=== PATIENT | female | born 1980 | race African-American/Black ===

== ENCOUNTER 2019-12-31 09:47 | Outpatient (REF) | payer MEDICAID, SELFPAY ==
[2020-01-01 01:47] LABS: CT PCR NOT DETECTED (Not Detect.); NG PCR NOT DETECTED (Not Detect.)
[2020-01-01 11:17] LABS: BV Int Neg Control Negative (Negative); BV Int Pos Control Positive (Positive)
== END 2019-12-31 09:48 | disposition home or self-care (01) ==
LOC: HO.LAB 09:47
PROVIDERS: Visit Provider Advanced Practice Midwife
DX: Z01.419 Encounter for gynecological examination (general) (routine) without abnormal findings (principal); Z11.3 Encounter for screening for infections with a predominantly sexual mode of transmission; R10.2 Pelvic and perineal pain; Z20.2 Contact with and (suspected) exposure to infections with a predominantly sexual mode of transmission
CPT/HCPCS: 87480; 87491; 87510; 87591; 87660

== ENCOUNTER 2020-02-29 11:43 | Outpatient (REF) | payer MEDICAID, SELFPAY ==
--- NOTE | 2020-02-29 | US_ITS ---
EXAMINATION: US PELVIS COMPLETE US PELVIS TRANSVAGINAL CLINICAL INFORMATION: Left ovarian cyst. COMPARISON: Most recent pelvic ultrasound dated 06/28/2019. TECHNIQUE: Transabdominal and transvaginal imaging was performed. FINDINGS: The uterus is of normal size and echogenicity measuring 11.1 x 4.1 x 5.2 cm. A regular homogeneous endometrium is identified measuring 0.8 cm. The previously seen probable fibroid is not appreciated on the current examination. There are nabothian cysts. The right ovary measures 7.5 x 5.6 x 6.1 cm for a volume of 134 mL. There is a simple right ovarian cyst measuring up to 6 cm, new when compared to the prior examination. There is normal Doppler detectable vascular flow within the right ovary. The left ovary measures 2.7 x 1.5 x 2.1 cm for a volume of 4.3 mm. There is normal Doppler detectable vascular flow within the left ovary. The previously seen left ovarian cyst is not identified on the current examination. There is no pelvic free fluid. US/US pelvic complete IMPRESSION: 1. Simple right ovarian cyst measuring up to 6 cm, new when compared to the prior examination. 2. Previously seen left ovarian cyst not identified. 3. Sonographically unremarkable uterus and endometrium.
--- NOTE | 2020-02-29 | US_ITS ---
EXAMINATION: US PELVIS COMPLETE US PELVIS TRANSVAGINAL CLINICAL INFORMATION: Left ovarian cyst. COMPARISON: Most recent pelvic ultrasound dated 06/28/2019. TECHNIQUE: Transabdominal and transvaginal imaging was performed. FINDINGS: The uterus is of normal size and echogenicity measuring 11.1 x 4.1 x 5.2 cm. A regular homogeneous endometrium is identified measuring 0.8 cm. The previously seen probable fibroid is not appreciated on the current examination. There are nabothian cysts. The right ovary measures 7.5 x 5.6 x 6.1 cm for a volume of 134 mL. There is a simple right ovarian cyst measuring up to 6 cm, new when compared to the prior examination. There is normal Doppler detectable vascular flow within the right ovary. The left ovary measures 2.7 x 1.5 x 2.1 cm for a volume of 4.3 mm. There is normal Doppler detectable vascular flow within the left ovary. The previously seen left ovarian cyst is not identified on the current examination. There is no pelvic free fluid. US/US transvaginal IMPRESSION: 1. Simple right ovarian cyst measuring up to 6 cm, new when compared to the prior examination. 2. Previously seen left ovarian cyst not identified. 3. Sonographically unremarkable uterus and endometrium.
--- NOTE | 2020-02-29 | US_ITS ---
EXAMINATION: US RETROPERITONEAL LIMITED (RENAL ONLY) CLINICAL INFORMATION: Renal stones. COMPARISON: CT abdomen and pelvis 06/12/2019. TECHNIQUE: Real-time imaging of the kidneys. FINDINGS: RIGHT KIDNEY: 12.5 x 6.1 x 5.9 cm (SAG x AP x TRV). The kidney is normal in size, contour, and echogenicity. Renal cortical thickness is normal. Focal parenchymal lesion. Tiny, non-shadowing echogenic foci, which could represent punctate renal stones versus vascular artifact. No hydronephrosis. LEFT KIDNEY: 12.5 x 5.8 x 5.1 cm (SAG x AP x TRV). The kidney is normal in size, contour, and echogenicity. Renal cortical thickness is normal. No focal parenchymal lesion. Tiny, non-shadowing echogenic foci, which could represent punctate renal stones versus vascular artifact. No hydronephrosis. US/US renal BI IMPRESSION: Tiny, non-shadowing echogenic foci within the right and left kidney, which could represent punctate renal stones versus vascular artifact. No hydronephrosis.
== END 2020-02-29 11:44 | disposition home or self-care (01) ==
LOC: HO.US 11:43
PROVIDERS: PCP Internal Medicine; Visit Provider Advanced Practice Midwife
DX: N20.0 Calculus of kidney (principal); N83.202 Unspecified ovarian cyst, left side
CPT/HCPCS: 76775; 76830; 76856

== ENCOUNTER → 2020-03-06 10:34 | Outpatient (REF) | payer MEDICAID, SELFPAY ==
--- NOTE | 2020-03-06 11:00 | CA_ITS ---
Acquisition Time: 2020-03-06 11:25:04 Total Exercise Time: 00:07:05 Test Indications: Chest Pain Medications: Protocol: JUAN Max HR: 162 BPM 88% of Pred: 183 BPM Max BP: 154/090 mmHG Max Work Load: 8.6 METS Exercise stress ECHO using Juan protocl, total of 7 min 5 sec. METS 8.60, TAPHR 88 %. Pt tolerated well, c/o reproducable CP in her L breast area that increased after the exercise.EKG without any arrhythmias, no ischemic changes seen during exercise or in recovery. EHO images taken at rest and immediately after peak exercise. Defenity contrast used. Normotensive response to exercise. Test reviewed with Dr. Kennedy. Exercise stress echocardiogram was reviewed. At rest, there is normal LVEF and wall motion. With peak exericse, there is no evidence of any exercise induced wall motion abnormality. There is normal decrease in end-systolic volumes. Overall, this is a normal study. Referred By: Caterina Magdaleno Overread By: ETHEL KENNEDY
== END ==
LOC: HO.CARD 10:34
PROVIDERS: Visit Provider Internal Medicine Cardiovascular Disease
DX: R07.89 Other chest pain (principal)
CPT/HCPCS: 93350; Q9957

== ENCOUNTER → 2020-03-14 15:59 | Outpatient (BNVA) | payer MEDICAID, SELFPAY | PROVIDERS: Visit Provider Obstetrics & Gynecology ==

== ENCOUNTER → 2020-04-14 11:19 | Outpatient (BNVA) | payer MEDICAID, SELFPAY | PROVIDERS: Visit Provider Urology ==

== ENCOUNTER → 2020-04-25 14:29 | Outpatient (BNVA) | payer MEDICAID, SELFPAY | PROVIDERS: Visit Provider Obstetrics & Gynecology | DX: R10.31 Right lower quadrant pain (principal) | CPT/HCPCS: 99212 ==

== ENCOUNTER 2020-04-26 14:57 | Outpatient (REF) | payer MEDICAID, SELFPAY ==
--- NOTE | ~2020-04-26 | US_ITS ---
EXAMINATION: ULTRASOUND PELVIS COMPLETE. CLINICAL INFORMATION: Ovarian cyst. COMPARISON: Ultrasound pelvis 02/29/2020. TECHNIQUE: Transabdominal and transvaginal imaging of the pelvis is performed. FINDINGS: On transabdominal ultrasound the uterus is anteverted and anteflexed measuring 9.2 cm in length, 4.6 cm in AP and 6.4 cm in transverse dimension. The endometrial thickness is 0.6 cm. No focal lesion seen. There are several nabothian cysts seen in the cervix. Right ovary measures 2.7 x 1.7 x 2.3 cm and appears unremarkable. Previously right ovary measured 7.5 x 5.6 x 6.1 cm. Previously seen 6 cm cyst right ovary appears resolved. Left ovary measured 40.8 x 4.1 x 4.6 cm volume. There is now a complex echogenic cyst with debris and septation measuring 4.7 x 3.8 x 4.0 cm. There is no free fluid in the pelvis. US/US transvaginal IMPRESSION: 1. A 6 cm right ovarian cyst is resolved. 2. New complex echogenic cyst with internal debris measuring 4.7 cm. 3. No free fluid in cul-de-sac sac. 4. Multiple nabothian cysts seen in the cervix.
--- NOTE | ~2020-04-26 | US_ITS ---
EXAMINATION: ULTRASOUND PELVIS COMPLETE. CLINICAL INFORMATION: Ovarian cyst. COMPARISON: Ultrasound pelvis 02/29/2020. TECHNIQUE: Transabdominal and transvaginal imaging of the pelvis is performed. FINDINGS: On transabdominal ultrasound the uterus is anteverted and anteflexed measuring 9.2 cm in length, 4.6 cm in AP and 6.4 cm in transverse dimension. The endometrial thickness is 0.6 cm. No focal lesion seen. There are several nabothian cysts seen in the cervix. Right ovary measures 2.7 x 1.7 x 2.3 cm and appears unremarkable. Previously right ovary measured 7.5 x 5.6 x 6.1 cm. Previously seen 6 cm cyst right ovary appears resolved. Left ovary measured 40.8 x 4.1 x 4.6 cm volume. There is now a complex echogenic cyst with debris and septation measuring 4.7 x 3.8 x 4.0 cm. There is no free fluid in the pelvis. US/US pelvic complete IMPRESSION: 1. A 6 cm right ovarian cyst is resolved. 2. New complex echogenic cyst with internal debris measuring 4.7 cm. 3. No free fluid in cul-de-sac sac. 4. Multiple nabothian cysts seen in the cervix.
== END 2020-04-26 14:58 | disposition home or self-care (01) ==
LOC: HO.US 14:57
PROVIDERS: Visit Provider Obstetrics & Gynecology
DX: N83.209 Unspecified ovarian cyst, unspecified side (principal)
CPT/HCPCS: 76830; 76856

== ENCOUNTER 2020-04-26 15:52 | Emergency (ER) | payer MEDICAID, SELFPAY ==
[2020-04-26 16:49] VITALS: BP 133/79; PULSE 91; RESP 16; TEMP 36.4; O2SAT 100; BMI 45.7
[2020-04-26 17:10] LABS: MANUAL DIFF FLAG NO
[2020-04-26 17:12] LABS: Basophils Percent Auto 0.2 % (0-2); Eosinophils Absolute Auto 0.1 X10*3/uL (0.0-0.4); Eosinophils Percent Auto 1.1 % (0-4); Hematocrit 34.6 % (37-47); Hemoglobin 11.7 g/dl (12.0-16.0); Imm Gran Abs Auto 0.04 X10*3/uL (0.00-0.03); Imm Gran Pct Auto 0.3 % (0.0-0.4); Lymphocytes Absolute Auto 2.6 X10*3/uL (1.2-4.9); Lymphocytes Percent Auto 21.5 % (20-40); Mean Corpuscular HGB Conc 33.8 g/dl (31.0-35.0); Mean Corpuscular Hemoglobin 29.8 pg (27.0-33.0); Mean Platelet Volume 11.2 fL (9.4-12.3); Monocytes Absolute Auto 0.7 X10*3/uL (0.1-1.2); Monocytes Percent Auto 5.9 % (2-11); Neutrophils Absolute Auto 8.6 X10*3/uL (2.0-8.3); Platelet Count 257 X10*3/uL (160-400); Red Blood Count 3.93 X10*6/uL (4.20-5.50); Red Cell Distribution Width 13.2 % (11.0-16.0); White Blood Count 12.1 X10*3/uL (4.8-10.8)
[2020-04-26 17:28] LABS: Glucose Urine UA NEG (NEG); Leukocyte Esterase Urine 2+ (NEG); Nitrite Urine NEG (NEG); PH 6.5 (5.0-8.0); Specific Gravity - Urine 1.015 (1.005-1.025); UACC Culture Trigger YES; Urine Blood 1+ (NEG); Urine Ketones NEG (NEG); Urine Protein NEG (NEG-TRACE)
[2020-04-26 17:30] LABS: Appearance Urine HAZY; Color Urine YELLOW
[2020-04-26 17:36] LABS: Bacteria Urine 1+ /LPF; RBC Urine 0 /HPF (0); Squamous Epithelial Cell Urine 1+ /LPF
[2020-04-26 17:42] VITALS: BP 144/70; PULSE 87; RESP 18; TEMP 37; O2SAT 98
[2020-04-26 17:51] LABS: Alanine Aminotransferase 17 U/L (0-31); Albumin Level 4.1 g/dL (3.5-5.0); Alkaline Phosphatase 46 U/L (39-117); Anion Gap 13 (12-20); Aspartate Amino Transferase 15 U/L (5-31); Bilirubin Total 0.3 mg/dL (0.0-1.0); Blood Urea Nitrogen 12 mg/dL (9-16); Calcium 8.8 mg/dL (8.4-10.2); Carbon Dioxide 25 mmol/L (22-29); Chloride 101 mmol/L (96-108); Creatinine Clr Calc Pharmacy 138.9; Estimated Glomerular Filt Rate > 60; Glucose Random 93 mg/dL (60-115); Lipase 30 U/L (8-78); Sodium 135 mmol/L (135-145); Total Protein 7.1 g/dL (6.5-8.0)
--- NOTE | 2020-04-26 18:16 | ED_ITS ---
HPI - Abdominal Pain General Chief Complaint: Abdominal Pain Stated Complaint: Abdominal pain Time Seen by Provider: 04/26/20 18:00 Source: patient Mode of arrival: ambulatory Limitations: no limitations History of Present Illness HPI narrative: Patient is a 39-year-old female past medical history of right ovarian cyst, kidney stones anemia, anxiety, GERD and chronic pelvic pain who presents with 1 week of lower abdominal pain that radiates to the right pelvic area. She states she has pain when she urinates, increased frequency, denies blood in urine. She states 5 days ago she was diagnosed with the UTI and given 3 pills to take each day for 2 days as well as little red pills. She states she took all of the medication, as instructed. She also states she saw the OBGYN yesterday for what she that was a pre-surgical consult as she missed her was last 1 last week, she was unhappy with the OBGYN doctor and ended up walking out of the appointment. Her OBGYN doctor ordered a ultrasound for her which she got done today to confirm that the cyst is still present. She states she has chronic pelvic pain which dates back years. She denies any fevers, nausea, vomiting or diarrhea. She is also complaining of a bump in her right groin which appeared approximately 1 week ago and is painful. Patient also admits to having unprotected sex recently and has a remote history of Gardnerella. Pt states LMP 2/, no chance of . MD elicited complaint: abdominal pain Related Data Home Medications Medication Instructions Recorded Confirmed etonogestrel 68 mg subdermal SUBDERMAL 12/31/19 implant pantoprazole [Protonix] 20 mg PO DAILY 04/14/20 04/14/20 Previous Rx's Medication Instructions Recorded cholecalciferol (vitamin D3) 50 50 mcg PO DAILY #60 cap 12/31/19 mcg (2,000 unit) capsule ibuprofen 600 mg tablet 600 mg PO Q8H PRN #60 tab 12/31/19 metronidazole 500 mg tablet 500 mg PO BID 7 Days #14 tab 01/03/20 pyridoxine (vitamin B6) 100 mg 100 mg PO DAILY 90 Days #90 tab 04/14/20 tablet doxycycline hyclate 100 mg PO BID #14 tab 04/26/20 Allergies Allergy/AdvReac Type Severity Reaction Status Date / Time No Known Allergies Allergy Verified 04/25/20 15:01 [No Known Allergies*] Review of Systems Review of Systems Yes all other systems are reviewed and are negative Physical Exam Vital Signs: Vital Signs: Last Vital Signs Temp 98.6 F 04/26/20 17:42 Pulse 87 04/26/20 17:42 Resp 18 04/26/20 17:42 BP 144/70 H 04/26/20 17:42 Pulse Ox 98 04/26/20 17:42 Body Mass Index 45.7 Const: General: cooperative, healthy appearing and other (teary) Nutritional Appearance: obese Orientation/consciousness: patient oriented x3 Limitations: no limitations HENMT: Head: Yes normal to inspection Eyes: General: appearance normal, both eyes and all related structures Neck: Neck: Yes normal visual inspection, Yes full ROM and Yes supple Resp: Effort & Inspection: normal respiratory effort and able to speak in complete sentences GI: Inspection: Yes obesity Palpation (GI): Tenderness to palpation present (GI) in the RLQ and suprapubicly : Other: Right groin palpable round, smooth, 2 cm, tender area, likely inflamed lymph node from UTI infection. Neuro: General: patient oriented x3 Course Course Course Narrative: Patient is a 39-year-old female past medical history of right ovarian cyst, kidney stones anemia, anxiety, GERD and chronic pelvic pain who presents with 1 week of lower abdominal pain that radiates to the right pelvic area. Physical exam remarkable for lump in right groin, likely inflamed lymph node as patient has current UTI. Patient obviously in pain, will give pain control while in the ED. it appears her UTI has not completely cleared up despite finishing medications 3 days ago. I will give Toradol and peridium for pain and prescribe Macrobid. Encouraged patient to schedule follow-up appointment with her OBGYN to review her ultrasound results and decide the next best step for h er. Also discussed nonnarcotic pain control, alternating Tylenol and Motrin in adding in the peridium until her urinary symptoms have resolved. Will also to bacterial vaginosis panel as well as STI testing. Will treat for gonorrhea and chlamydia today as well. MDM - Abdominal Pain Lab Data Result diagrams: 04/26/20 16:59 04/26/20 16:59 Labs: Lab Results 04/26/20 04/26/20 04/26/20 Range/Units 16:59 16:59 16:59 WBC 12.1 H (4.8-10.8) X10*3/uL RBC 3.93 L (4.20-5.50) X10*6/uL Hgb 11.7 L (12.0-16.0) g/dl Hct 34.6 L (37-47) % MCV 88.0 (80-98) fL MCH 29.8 (27.0-33.0) pg MCHC 33.8 (31.0-35.0) g/dl RDW 13.2 (11.0-16.0) % Plt Count 257 (160-400) X10*3/uL MPV 11.2 (9.4-12.3) fL Immature Gran % (Auto) 0.3 (0.0-0.4) % Neut % (Auto) 71.0 (45-73) % Lymph % (Auto) 21.5 (20-40) % Hartley % (Auto) 5.9 (2-11) % Eos % (Auto) 1.1 (0-4) % Baso % (Auto) 0.2 (0-2) % Lymph # (Auto) 2.6 (1.2-4.9) X10*3/uL Hartley # (Auto) 0.7 (0.1-1.2) X10*3/uL Eos # (Auto) 0.1 (0.0-0.4) X10*3/uL Baso # (Auto) 0.0 (0.0-0.2) X10*3/uL Abs Immat Gran (auto) 0.04 H (0.00-0.03) X10*3/uL Absolute Neuts (auto) 8.6 H (2.0-8.3) X10*3/uL Absolute Nucleated RBC 0.000 (0.0-0.012) X10*3/uL Nucleated RBC % (auto) 0.0 (0.0-0.2) /100WBC Hold Blue Top SEE NOTE Sodium 135 (135-145) mmol/L Potassium 4.0 (3.3-5.1) mmol/L Chloride 101 (96-108) mmol/L Carbon Dioxide 25 (22-29) mmol/L Anion Gap 13 (12-20) BUN 12 (9-16) mg/dL Creatinine 0.66 (0.5-1.4) mg/dL Estim Creat Clear Calc 138.9 Estimated GFR > 60 Random Glucose 93 (60-115) mg/dL Calcium 8.8 (8.4-10.2) mg/dL Total Bilirubin 0.3 (0.0-1.0) mg/dL AST 15 (5-31) U/L ALT 17 (0-31) U/L Alkaline Phosphatase 46 (39-117) U/L Total Protein 7.1 (6.5-8.0) g/dL Albumin 4.1 (3.5-5.0) g/dL Lipase (8-78) U/L Urine Color Urine Appearance Urine pH (5.0-8.0) Ur Specific [place] (1.005-1.025) Urine Protein (NEG-TRACE) MG/DL Urine Glucose (UA) (NEG) MG/DL Urine Ketones (NEG) MG/DL Urine Blood (NEG) Urine Nitrite (NEG) Ur Leukocyte Esterase (NEG) Urine RBC (0) /HPF Urine WBC (0-4) /HPF Ur Squamous Epith Cells /LPF Urine Bacteria /LPF 04/26/20 04/26/20 Range/Units 16:59 17:14 WBC (4.8-10.8) X10*3/uL RBC (4.20-5.50) X10*6/uL Hgb (12.0-16.0) g/dl Hct (37-47) % MCV (80-98) fL MCH (27.0-33.0) pg MCHC (31.0-35.0) g/dl RDW (11.0-16.0) % Plt Count (160-400) X10*3/uL MPV (9.4-12.3) fL Immature Gran % (Auto) (0.0-0.4) % Neut % (Auto) (45-73) % Lymph % (Auto) (20-40) % Hartley % (Auto) (2-11) % Eos % (Auto) (0-4) % Baso % (Auto) (0-2) % Lymph # (Auto) (1.2-4.9) X10*3/uL Hartley # (Auto) (0.1-1.2) X10*3/uL Eos # (Auto) (0.0-0.4) X10*3/uL Baso # (Auto) (0.0-0.2) X10*3/uL Abs Immat Gran (auto) (0.00-0.03) X10*3/uL Absolute Neuts (auto) (2.0-8.3) X10*3/uL Absolute Nucleated RBC (0.0-0.012) X10*3/uL Nucleated RBC % (auto) (0.0-0.2) /100WBC Hold Blue Top Sodium (135-145) mmol/L Potassium (3.3-5.1) mmol/L Chloride (96-108) mmol/L Carbon Dioxide (22-29) mmol/L Anion Gap (12-20) BUN (9-16) mg/dL Creatinine (0.5-1.4) mg/dL Estim Creat Clear Calc Estimated GFR Random Glucose (60-115) mg/dL Calcium (8.4-10.2) mg/dL Total Bilirubin (0.0-1.0) mg/dL AST (5-31) U/L ALT (0-31) U/L Alkaline Phosphatase (39-117) U/L Total Protein (6.5-8.0) g/dL Albumin (3.5-5.0) g/dL Lipase 30 (8-78) U/L Urine Color YELLOW Urine Appearance HAZY Urine pH 6.5 (5.0-8.0) Ur Specific [place] 1.015 (1.005-1.025) Urine Protein NEG (NEG-TRACE) MG/DL Urine Glucose (UA) NEG (NEG) MG/DL Urine Ketones NEG (NEG) MG/DL Urine Blood 1+ H (NEG) Urine Nitrite NEG (NEG) Ur Leukocyte Esterase 2+ H (NEG) Urine RBC 0 (0) /HPF Urine WBC 5-9 H (0-4) /HPF Ur Squamous Epith Cells 1+ /LPF Urine Bacteria 1+ /LPF Discharge Plan Discharge Clinical Impression: Pelvic pain, UTI (urinary tract infection), bacterial, Potential exposure to STD Patient Disposition: Home, Self-Care Instructions: Pelvic Pain in Women (ED) Prescriptions: New doxycycline hyclate 100 mg tablet 100 mg PO BID Qty: 14 RF: 0 No Action metronidazole [Flagyl] 500 mg tablet 500 mg PO BID 7 Days Qty: 14 RF: 0 pantoprazole [Protonix] 20 mg Tablet,Delayed Release (Dr/Ec) 20 mg PO DAILY RF: 0 Nexplanon 68 mg implant subdermal RF: 0 ibuprofen 600 mg tablet 600 mg PO Q8H PRN (Reason: pain) Qty: 60 RF: 0 cholecalciferol (vitamin D3) 50 mcg (2,000 unit) capsule 50 mcg PO DAILY Qty: 60 RF: 6 pyridoxine (vitamin B6) 100 mg tablet 100 mg PO DAILY 90 Days Qty: 90 RF: 1 Referrals: Barbara Joshi MD [Physician] - [facility] Past Medical History Medical History Anemia Anxiety GERD (gastroesophageal reflux disease) Kidney stones Ovarian cyst, left Pelvic pain Surgical History History of surgery on wrist Hx of section Family History Family History Mother Dementia HIV (human immunodeficiency virus infection) Social History Social History Alcohol intake: current Alcohol intake frequency: a few times a month Alcohol type: hard liquor Smoking Status: Current every day smoker Tobacco Type: Cigarette Cigarettes Per Day: 5 Substance Use Type: Marijuana Advance Directives: No Advance Directives Information Provided: Yes Gender identity: female
[2020-04-26] MEDS: Phenazopyridine HCL 200 MG TABLET PO (18:27)
[2020-04-26] MEDS: Ketorolac Tromethamine 30 MG/ML VIAL IM ×2 (18:27→20:28)
[2020-04-26 20:22] VITALS: BP 132/62; PULSE 79; RESP 18; TEMP 36.9; O2SAT 98
[2020-04-26] MEDS: cefTRIAXone sodium 500 MG, Lidocaine HCl 1 % MPF 1 ML IM (20:28)
[2020-04-26 20:30] LABS: Urine Pregnancy NEGATIVE (NEGATIVE)
[2020-04-26 20:31] LABS: UPreg QC Valid YES
[2020-04-27 09:56] LABS: CT PCR NOT DETECTED (Not Detect.); NG PCR DETECTED (Not Detect.)
== END 2020-04-26 20:36 | disposition home or self-care (01) ==
PROVIDERS: Physician Assistant; Emergency Provider Emergency Medicine; PCP Internal Medicine
DX: N39.0 Urinary tract infection, site not specified (principal); R10.2 Pelvic and perineal pain; F17.210 Nicotine dependence, cigarettes, uncomplicated; F12.90 Cannabis use, unspecified, uncomplicated; Z20.2 Contact with and (suspected) exposure to infections with a predominantly sexual mode of transmission; Z71.6 Tobacco abuse counseling; Z79.899 Other long term (current) drug therapy
CPT/HCPCS: 36415; 80053; 81001; 81003; 81025; 83690; 85025; 87086; 87491; 87591; 96372; 99284; J0696; J1885

== ENCOUNTER → 2020-05-03 12:13 | Outpatient (BNVA) | payer MEDICAID, SELFPAY | PROVIDERS: PCP Internal Medicine; Visit Provider Obstetrics & Gynecology ==

== ENCOUNTER 2020-11-22 10:24 | Emergency (ER) | payer MEDICAID, SELFPAY ==
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
--- NOTE | ~2020-11-22 | XR_ITS ---
EXAMINATION: XR HIP, RIGHT XR KNEE, RIGHT CLINICAL INFORMATION: Right hip and knee pain following a fall. COMPARISON: CT abdomen/pelvis dated 06/12/2019. TECHNIQUE: AP view the pelvis as well as AP and frog-leg lateral views of the right hip. AP, bilateral oblique, and lateral views of the right knee. FINDINGS: Right Hip: No acute fracture or dislocation. Small lateral acetabular marginal osteophytes, unchanged. No osseous erosion. No abnormal soft tissue calcification. Right Knee: No acute fracture or dislocation. No joint space narrowing or marginal osteophytes. No osseous erosion. No abnormal soft tissue calcification. No significant joint effusion. XR/XR knee RT 4V IMPRESSION: RIGHT HIP: Mild right hip arthrosis, unchanged. RIGHT KNEE: Unremarkable examination.
--- NOTE | ~2020-11-22 | XR_ITS ---
EXAMINATION: XR HIP, RIGHT XR KNEE, RIGHT CLINICAL INFORMATION: Right hip and knee pain following a fall. COMPARISON: CT abdomen/pelvis dated 06/12/2019. TECHNIQUE: AP view the pelvis as well as AP and frog-leg lateral views of the right hip. AP, bilateral oblique, and lateral views of the right knee. FINDINGS: Right Hip: No acute fracture or dislocation. Small lateral acetabular marginal osteophytes, unchanged. No osseous erosion. No abnormal soft tissue calcification. Right Knee: No acute fracture or dislocation. No joint space narrowing or marginal osteophytes. No osseous erosion. No abnormal soft tissue calcification. No significant joint effusion. XR/XR hip RT w PEL1V IMPRESSION: RIGHT HIP: Mild right hip arthrosis, unchanged. RIGHT KNEE: Unremarkable examination.
[2020-11-22 12:08] VITALS: BP 146/95; PULSE 86; RESP 18; TEMP 36.4; O2SAT 100; BMI 42.0
[2020-11-22] MEDS: Acetaminophen 325 MG TABLET 975 MG PO (14:45)
[2020-11-22] MEDS: oxyCODONE HCl Immed Release 5 MG TABLET PO (14:45)
[2020-11-22 14:49] VITALS: BP 133/87; PULSE 81; RESP 16; TEMP 36.4; O2SAT 97
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
== END 2020-11-22 15:19 | disposition home or self-care (01) ==
PROVIDERS: Emergency Provider Emergency Medicine
DX: S06.0X0A Concussion without loss of consciousness, initial encounter (principal); S83.91XA Sprain of unspecified site of right knee, initial encounter; S73.101A Unspecified sprain of right hip, initial encounter; S00.01XA Abrasion of scalp, initial encounter; S40.022A Contusion of left upper arm, initial encounter; S40.021A Contusion of right upper arm, initial encounter; J01.90 Acute sinusitis, unspecified; Y04.2XXA Assault by strike against or bumped into by another person, initial encounter; Y93.9 Activity, unspecified; Y92.009 Unspecified place in unspecified non-institutional (private) residence as the place of occurrence of the external cause; Y99.9 Unspecified external cause status
CPT/HCPCS: 70450; 72125; 73502; 73564; 99284

== ENCOUNTER → 2020-12-22 07:55 | Outpatient (BNVA) | payer MEDICAID, SELFPAY | PROVIDERS: PCP Internal Medicine; Visit Provider Physician Assistant | DX: S80.01XA Contusion of right knee, initial encounter (principal) | CPT/HCPCS: 99202 ==

== ENCOUNTER 2021-01-01 10:34 | Outpatient (REF) | payer MEDICAID, SELFPAY ==
[2021-01-01 16:32] LABS: CT PCR NOT DETECTED (Not Detect.); NG PCR NOT DETECTED (Not Detect.)
[2021-01-02 09:16] LABS: BV Int Neg Control Negative (Negative); BV Int Pos Control Positive (Positive)
== END 2021-01-01 10:35 | disposition home or self-care (01) ==
LOC: HO.LAB 10:34
PROVIDERS: Visit Provider Advanced Practice Midwife
DX: Z01.411 Encounter for gynecological examination (general) (routine) with abnormal findings (principal); R10.2 Pelvic and perineal pain; N92.6 Irregular menstruation, unspecified; N83.299 Other ovarian cyst, unspecified side; Z20.2 Contact with and (suspected) exposure to infections with a predominantly sexual mode of transmission
CPT/HCPCS: 87480; 87491; 87510; 87591; 87660

== ENCOUNTER 2021-03-02 08:03 | Outpatient (REF) | payer MEDICAID, SELFPAY ==
[2021-03-02 13:15] LABS: CT PCR NOT DETECTED (Not Detect.); NG PCR NOT DETECTED (Not Detect.)
[2021-03-03 10:58] LABS: BV Int Neg Control Negative (Negative); BV Int Pos Control Positive (Positive)
== END 2021-03-02 08:04 | disposition home or self-care (01) ==
LOC: HO.LAB 08:03
PROVIDERS: Visit Provider Advanced Practice Midwife
DX: Z30.46 Encounter for surveillance of implantable subdermal contraceptive (principal); Z31.69 Encounter for other general counseling and advice on procreation; Z20.2 Contact with and (suspected) exposure to infections with a predominantly sexual mode of transmission
CPT/HCPCS: 87480; 87491; 87510; 87591; 87660; 99212

== ENCOUNTER 2021-03-02 08:49 | Outpatient (REF) | payer MEDICAID, SELFPAY ==
--- NOTE | 2021-03-02 16:57 | MHC.AU.AHA ---
Adult Audiological Evaluation Date of Visit: 03/02/21 Reason for Appointment: Audiological re-evaluation due to history of hearing loss. Ms. Moe has a known unilateral, sensorineural hearing loss in the left ear and has used a hearing aid in the left ear. She notes that she lost the left hearing aid and would like to get a new one. She notes difficulties hearing and understanding in most situations when she does not have her hearing aid. She denies any changes to her medical history. Previous Hearing Test Results: [facility] – [place], [place], 10/06/2017- Normal hearing in the right ear. Moderate rising to mild sensorineural hearing loss in the left ear. Ear History: Ear Infections in Childhood: Both Ears Medical History: Medical History: Per PCP report: learning disability, seasonal allergic rhinitis, Vitamin D deficiency, tobacco use, subclinical hyperthyroidism, prediabetes Allergies: Seasonal allergies Medication List: Flonase, Vitamin D2 1250 mcg weekly, Wellbutrin SR 150 mg twice daily, Protonix 20 mg daily, tramadol HCl 50 mg PRN, Pyridium 200 mg PRN, Macrobid 100 mg every 12 hours Hearing Instrument History- Left Ear: LOST Family Physician: [facility] Model: [employer] B50-R Serial Number: [id number] Battery Size: Rechargeable Warranty: 01/05/2021 Loss and Damage Warranty: 01/05/2021 Dispensed By: [facility] Date of Fitt[place]10/22/2017 Otoscopy: Right Ear: Unremarkable Left Ear: Unremarkable Tympanometry: Tympanometry performed due to: To assess integrity of the middle ear system Right Ear: Normal Middle Ear System (Type A) Left Ear: Normal Middle Ear System (Type A) Hearing Evaluation: Transducer(s) Used: Insert Earphones, Bone Conduction Method: Conventional Audiometry Stimuli Used: Pure Tones Right Ear: Description of Hearing: Normal hearing from 125-8000 Hz. Left Ear: Description of Hearing: Normal hearing from 125-250 Hz, sloping to a moderate to moderately-severe sensorineural hearing loss from 500-3000 Hz, rising to a mild sensorineural hearing loss at 9286-6120 Hz, and normal hearing at 8000 Hz. Speech Recognition Threshold (SRT): Method Used: Monitored Live Voice Stimuli Used: Spondee Words Right Ear: 15 dBHL Left Ear: 45 dBHL Word Discrimination: Method: Recorded Lists Word Lists Used: NU-6 Right Ear: 96% at 55 dBHL Left Ear: 68% at 85 dBHL Comparison: Compared to most recent evaluation: In the right ear, hearing is stable. In the left ear, hearing has improved by 15 dBHL at 125 Hz and 30 dBHL at 250 Hz and hearing has decreased by 15 dBHL at 2000 Hz and 10 dBHL at 3000 and 4000 Hz. Word recognition decreased in the left ear from 80% at 80 dBHL in 2018 to 68% at 85 dBHL today. Recommendations: Audiological re-evaluation in one year. Updated amplification is recommended for the left ear given that the current left aid is lost and no longer under warranty. Discussed options. She would like to remain with a rechargeable VALE style hearing aid. Medical clearance for hearing aid use is being requested from her PCP and prior authorization for a replacement hearing aid will be requested from her health insurance company. Diagnosis: Primary Diagnosis: H90.42 SNHL Unilateral Left Side, W/Unrestricted Contralateral Hearing Services Performed: Comprehensive Audiological Evaluation (CPT 85442) Tympanometry (CPT 78084) Signature: Provider: Zheng Tejeda, CCC-A
--- NOTE | 2021-03-02 16:59 | MHC.AU.HAS ---
Hearing Aid Evaluation Date of Visit: 03/02/21 Historical Information: Description of Hearing: Normal hearing in the right ear. Mild to moderately-severe sensorineural hearing loss in the left ear. Current personal amplification information, if applicable: 2017 Phon[employer] B50-R (left ear only)- LOST Summary: Ms. Moe reports that her left hearing aid was lost. It is no longer under warranty. Based on the type and degree of hearing loss in the left ear, a hearing aid for the left ear is recommended to help facilitate improved communication. She is likely to experience significant difficulty hearing and following conversations in background noise, when the speaker is at a distance, or if some approaches from her left side. Discussed hearing aid options. She would like to stay with a rechargeable VALE style hearing aid. Hearing Aid Prescription: Based on the individual?s shared listening needs, communication environments, dexterity, desire for connectivity, and personal preferences, the following prescription for amplification has been made: Left ear: Bl[employer] Sewer: Tapru Model: [employer] B50-R Battery Size: Rechargeable Color: P5 Ear Machine Operator: Size 1 M Type of Dome: Vented Plan of Care: Prior authorization to be requested. Medical Clearance to be requested from PCP/ENT. Hearing Instrument Fitting to be scheduled when materials arrive. Once PA is received, hearing aid will be ordered. Primary Diagnosis: H90.42 SNHL Unilateral Left Side, W/Unrestricted Contralateral Hearing Signature: Provider: Zheng Tejeda, [facility]A
--- NOTE | 2021-03-08 11:00 | MHC.AU.MED ---
Medical Clearance for Hearing Instrumentation Date: 03/08/21 Patient Name: Adarsh Moe Date of : 1980 Referring Provider: Soha Rico MD We have seen your patient on 03/02/21 and have determined that they are a candidate for amplification (See accompanying report). Specifically, they would benefit from: Hearing aid use in the left ear There is a statute that addresses Medical Evaluation Requirements prior to fitting a patient with a hearing aid. According to [place] statute 265 CMR:6.03(1), (a) General. Except as provided in 265 CMR 6.03(1)(b), a hearing impaired itinerant teacher shall not sell a hearing aid unless the prospective user has presented to the hearing impaired itinerant teacher a written statement signed by a licensed physician that states that the patient's hearing loss has been medically evaluated and the patient may be considered a candidate for a hearing aid. The medical evaluation must have taken place within the preceding six months. Please note: Due to the [place] Statute referenced above, we cannot accept a signature other than that of a licensed physician. DATE NIGHT SITTER and PA signatures cannot be accepted. I am in agreement with the above recommendation. There is no medical contraindication for hearing instrumentation. Physician Signature Date Physician Name (Printed)
== END 2021-03-02 08:50 | disposition home or self-care (01) ==
LOC: HO.SH 08:49
PROVIDERS: Visit Provider Internal Medicine
DX: Z46.1 Encounter for fitting and adjustment of hearing aid (principal); H90.42 Sensorineural hearing loss, unilateral, left ear, with unrestricted hearing on the contralateral side
CPT/HCPCS: 92557; 92567; 92590

== ENCOUNTER 2021-03-08 15:55 | Outpatient (REF) | payer MEDICAID, SELFPAY ==
--- NOTE | ~2021-03-08 | US_ITS ---
EXAMINATION: US PELVIC AND TRANSVAGINAL CLINICAL INFORMATION: Left complex cyst. COMPARISON: Ultrasound pelvis 04/26/2020. TECHNIQUE: Ultrasound of the pelvis was performed using both transabdominal and transvaginal transducers along with Doppler. Transvaginal imaging is performed due to inadequate visualization transabdominally. FINDINGS: UTERUS: The uterus is anteverted, anteflexed and measures 10.2 x 4.9 x 5.9 cm. The double wall endometrial thickness is 0.4 cm. The uterus is smooth in contour and has normal myometrial echogenicity. No visible fibroid. There are several anechoic nabothian cysts seen. ADNEXA: Both ovaries are visualized. There is normal color-flow to the adnexa. There is no ovarian torsion. There is no pelvic ascites or fluid collection. Right ovary measures 4.8 x 3.5 x 3.4 cm and volume 29.9 mL. There is an anechoic cyst measuring 3.1 x 2.6 x 2.8 cm. Left ovary measures 2.4 x 1.5 x 1.4 cm and volume 2.6 mL. Previously, the left ovary measured 4.8 x 4.1 x 4.6 cm. The previously visualized left complex cyst on the 04/26/2020 exam is not seen at this time. US/US pelvic and transvaginal IMPRESSION: Simple right ovarian cyst. Small nabothian cysts. The left ovary and the uterus are unremarkable.
== END 2021-03-08 15:56 | disposition home or self-care (01) ==
LOC: HO.US 15:55
PROVIDERS: Visit Provider Internal Medicine
DX: N83.299 Other ovarian cyst, unspecified side (principal)
CPT/HCPCS: 76830; 76856

== ENCOUNTER → 2021-03-22 10:55 | Outpatient (BNVA) | payer MEDICAID, SELFPAY | PROVIDERS: Visit Provider Advanced Practice Midwife ==

== ENCOUNTER 2021-04-04 08:48 | Outpatient (REF) | payer MEDICAID, SELFPAY ==
[2021-04-04 12:12] LABS: Hematocrit 36.4 % (37.0-47.0); Hemoglobin 12.1 g/dl (12.0-16.0); Mean Corpuscular HGB Conc 33.2 g/dl (31.0-35.0); Mean Corpuscular Hemoglobin 28.9 pg (27.0-33.0); Mean Corpuscular Volume 86.9 fL (80.0-98.0); Mean Platelet Volume 11.5 fL (9.4-12.3); Platelet Count 317 X10*3/uL (160-400); Red Blood Count 4.19 X10*6/uL (4.20-5.50); Red Cell Distribution Width 13.5 % (11.0-16.0); White Blood Count 7.4 X10*3/uL (4.8-10.8)
[2021-04-04 13:04] LABS: Thyroid Stimulating Hormone 1.79 uIU/mL (0.32-4.0)
== END 2021-04-04 08:49 | disposition home or self-care (01) ==
LOC: HO.LAB 08:48
PROVIDERS: Advanced Practice Midwife; PCP Internal Medicine; Visit Provider Physician Assistant Surgical
DX: Z30.432 Encounter for removal of intrauterine contraceptive device (principal); N92.1 Excessive and frequent menstruation with irregular cycle; R53.83 Other fatigue
CPT/HCPCS: 11982; 36415; 84443; 85027

== ENCOUNTER → 2021-04-13 07:13 | Outpatient (BNVA) | payer MEDICAID, SELFPAY | PROVIDERS: PCP Internal Medicine; Visit Provider Surgery ==

== ENCOUNTER 2021-04-23 09:55 | Outpatient (REF) | payer MEDICAID, SELFPAY ==
--- NOTE | ~2021-04-23 | XR_ITS ---
EXAMINATION: XR CHEST CLINICAL INFORMATION: Morbid obesity. COMPARISON: 06/12/2019 TECHNIQUE: 2 views of the chest were obtained. FINDINGS: No significant abnormality is noted involving the heart, lungs, mediastinum, bony thorax or soft tissues. XR/XR chest 2V IMPRESSION: Unremarkable examination.
--- NOTE | 2021-04-23 10:20 | ECG_ITS ---
Test Reason : E66.01 Blood Pressure : / mmHG Vent. Rate : 081 BPM Atrial Rate : 081 BPM P-R Int : 148 ms QRS Dur : 084 ms QT Int : 414 ms P-R-T Axes : 057 055 013 degrees QTc Int : 480 ms Normal sinus rhythm Prolonged QT Abnormal ECG No previous ECGs available Referred By: Soha Rico Electronically Signed By:RUTH MARCANO MD
[2021-04-23 10:46] LABS: MANUAL DIFF FLAG NO
[2021-04-23 11:00] LABS: Basophils Percent Auto 0.1 % (0-2); Eosinophils Absolute Auto 0.2 X10*3/uL (0.0-0.4); Eosinophils Percent Auto 2.5 % (0-4); Hematocrit 35.5 % (37.0-47.0); Hemoglobin 11.8 g/dl (12.0-16.0); Imm Gran Abs Auto 0.02 X10*3/uL (0.00-0.03); Imm Gran Pct Auto 0.3 % (0.0-0.4); Lymphocytes Absolute Auto 2.4 X10*3/uL (1.2-4.9); Lymphocytes Percent Auto 35.4 % (20-40); Mean Corpuscular HGB Conc 33.2 g/dl (31.0-35.0); Mean Corpuscular Hemoglobin 29.1 pg (27.0-33.0); Mean Corpuscular Volume 87.4 fL (80.0-98.0); Mean Platelet Volume 11.4 fL (9.4-12.3); Monocytes Absolute Auto 0.5 X10*3/uL (0.1-1.2); Monocytes Percent Auto 6.6 % (2-11); Neutrophils Absolute Auto 3.8 x10*3/uL (2.0-8.3); Neutrophils Percent Auto 55.1 % (45-73); Platelet Count 257 X10*3/uL (160-400); Red Blood Count 4.06 X10*6/uL (4.20-5.50); Red Cell Distribution Width 13.3 % (11.0-16.0); White Blood Count 6.9 X10*3/uL (4.8-10.8)
[2021-04-23 11:08] LABS: Estimated Average Glucose 117 mg/dL; Hemoglobin A1c % 5.7 %
[2021-04-23 11:26] LABS: Alanine Aminotransferase 24 U/L (0-31); Albumin Level 4.2 g/dL (3.5-5.0); Alkaline Phosphatase 43 U/L (39-117); Anion Gap 13 (12-20); Aspartate Amino Transferase 22 U/L (5-31); Bilirubin Total 0.6 mg/dL (0.0-1.0); Blood Urea Nitrogen 15 mg/dL (9-16); C Reactive Protein 0.57 mg/dL (< or = 0.50); Calcium 9.4 mg/dL (8.4-10.2); Carbon Dioxide 27 mmol/L (22-29); Chloride 103 mmol/L (96-108); Cholesterol 176 mg/dL; Estimated Glomerular Filt Rate > 60; Glucose Random 102 mg/dL (60-115); HDL Cholesterol 67 mg/dL; Iron 144 mcg/dL (30-160); LDL Cholesterol Calculated 91 mg/dl; Percent Iron Saturation 35 % (15-50); Potassium 3.9 mmol/L (3.3-5.1); Sodium 139 mmol/L (135-145); Total Iron Binding Capacity 413 mcg/dL (228-428); Total Protein 7.2 g/dL (6.5-8.0); Triglycerides 93 mg/dL; Unsaturated Iron Binding 269 ug/dL
[2021-04-23 11:51] LABS: Ferritin 29 ng/mL (10-122); Insulin 14 uU/mL (2-29); TSH reflex Free T4 0.91 uIU/mL (0.32-4.0); Vitamin D 25-OH Total 14.6 ng/mL (>30)
[2021-04-23 12:04] LABS: Folate > 20.0 ng/mL (> or = 4.0); Vitamin B12 324 pg/mL (200-900)
[2021-04-24 13:05] LABS: H Pylori Breath Test Positive (Negative)
[2021-04-24 17:46] LABS: Calcium (PTHI) 9.3 mg/dL (8.6-10.2); PTHI 47 pg/mL (14-64)
[2021-04-26 03:46] LABS: Zinc 174 mcg/dL (60-130)
[2021-04-27 10:27] LABS: Vitamin A 48 mcg/dL (38-98)
[2021-04-27 18:02] LABS: Vitamin B1 24 nmol/L (8-30)
== END 2021-04-23 09:56 | disposition home or self-care (01) ==
LOC: HO.LAB 09:55
PROVIDERS: Absent Provider Surgery; PCP Internal Medicine; Referring Provider Internal Medicine; Visit Provider Physician Assistant
DX: E66.01 Morbid (severe) obesity due to excess calories (principal); Z68.42 Body mass index [BMI] 45.0-49.9, adult; K21.9 Gastro-esophageal reflux disease without esophagitis; Z11.0 Encounter for screening for intestinal infectious diseases
CPT/HCPCS: 36415; 71046; 80053; 80061; 82306; 82607; 82728; 82746; 83013; 83036; 83525; 83540; 83970; 84425; 84443; 84590; 84630; 85025; 86140; 93005

== ENCOUNTER → 2021-05-01 11:00 | Outpatient (BNVA) | payer OTHER, SELFPAY | PROVIDERS: PCP Internal Medicine; Visit Provider Counselor Mental Health | DX: F50.81 Binge eating disorder (principal); F32.2 Major depressive disorder, single episode, severe without psychotic features; F43.10 Post-traumatic stress disorder, unspecified; F81.9 Developmental disorder of scholastic skills, unspecified | CPT/HCPCS: 90791 ==

== ENCOUNTER → 2021-05-03 12:00 | Outpatient (BNVA) | payer OTHER, SELFPAY | PROVIDERS: Visit Provider Counselor Mental Health | DX: F81.9 Developmental disorder of scholastic skills, unspecified (principal); F50.81 Binge eating disorder; F32.2 Major depressive disorder, single episode, severe without psychotic features | CPT/HCPCS: 90834 ==

== ENCOUNTER → 2021-05-07 08:09 | Outpatient (BNVA) | payer MEDICAID, SELFPAY | PROVIDERS: Visit Provider Dietitian, Registered | DX: E66.01 Morbid (severe) obesity due to excess calories (principal); Z68.42 Body mass index [BMI] 45.0-49.9, adult | CPT/HCPCS: 97802 ==

== ENCOUNTER → 2021-05-11 09:41 | Outpatient (BNVA) | payer MEDICAID, SELFPAY | PROVIDERS: Visit Provider Surgery | DX: D17.23 Benign lipomatous neoplasm of skin and subcutaneous tissue of right leg (principal) | CPT/HCPCS: 99212 ==

== ENCOUNTER → 2021-05-14 08:10 | Outpatient (BNVA) | payer OTHER, SELFPAY | PROVIDERS: Visit Provider Surgery | DX: E66.01 Morbid (severe) obesity due to excess calories (principal); Z68.42 Body mass index [BMI] 45.0-49.9, adult | CPT/HCPCS: H0046 ==

== ENCOUNTER → 2021-05-16 11:15 | Outpatient (BNVA) | payer MEDICAID, SELFPAY | PROVIDERS: Visit Provider Counselor Mental Health | DX: F90.2 Attention-deficit hyperactivity disorder, combined type (principal); F32.2 Major depressive disorder, single episode, severe without psychotic features; E66.01 Morbid (severe) obesity due to excess calories; Z68.42 Body mass index [BMI] 45.0-49.9, adult | CPT/HCPCS: 90834 ==

== ENCOUNTER → 2021-05-28 08:05 | Outpatient (BNVA) | payer MEDICAID, SELFPAY | PROVIDERS: PCP Internal Medicine; Referring Provider Surgery; Visit Provider Dietitian, Registered | DX: E66.9 Obesity, unspecified (principal); Z68.41 Body mass index [BMI] 40.0-44.9, adult | CPT/HCPCS: 97803 ==

== ENCOUNTER 2021-05-29 08:45 | Outpatient (REF) | payer MEDICAID, SELFPAY ==
--- NOTE | ~2021-05-29 | US_ITS ---
EXAMINATION: US COMPLETE ABDOMEN WITH LIVER ELASTOGRAPHY CLINICAL INFORMATION: Obesity COMPARISON: Previous CT of the abdomen and pelvis May 2019 oh ultrasound February 2020 TECHNIQUE: Real-time imaging of the abdominal viscera. Noninvasive ultrasound liver fibrosis assessment is performed using Terry ElastPQ point quantification shear wave elastography (2D-SWE) with a C5-2 MHz transducer. Multiple elastography samples are obtained. FINDINGS: PANCREAS: Normal. ABDOMINAL AORTA: The proximal, middle, and distal aortic segments are normal in caliber. INFERIOR VENA CAVA: Visualized portions are normal. LIVER: Normal. The liver demonstrates normal contour and echogenicity. No focal lesion or intrahepatic biliary duct dilatation. The right lobe measures 20 cm in length. The left lobe measures 12 cm in length. Portal flow is normal/hepatopedal Shear wave liver elastography median stiffness is 1.3 m/s (reference: normal median stiffness is 1.3 m/s or less). IQR/median stiffness to assess sampling precision is 0.18 (reference: good quality data set is IQR/median stiffness of 0.15 or less). GALLBLADDER: The gallbladder is normal in size. There is ring down artifact suggestive of adenomyomatosis of the gallbladder wall. No gallstones are seen. COMMON BILE DUCT: Normal in caliber measuring 0.3 cm in diameter. RIGHT KIDNEY: Normal. No hydronephrosis. No renal calculi or focal parenchymal lesions. The kidney measures 12.6 cm in maximum dimension. LEFT KIDNEY: Normal. No hydronephrosis. No renal calculi or focal parenchymal lesions. The kidney measures 13 cm in maximum dimension. SPLEEN: Normal. The spleen measures 9.4 cm in maximum dimension. FREE FLUID: None. US/US abdomen comp w elastography IMPRESSION: 1. Impression: Upper normal size liver otherwise unremarkable exam. 2. Liver elastography: Slightly limited due to sampling error. High probability of being normal. REFERENCE: Society of Radiologists in Ultrasound Liver Stiffness Thresholds (2020): LIVER STIFFNESS THRESHOLDS: *Liver Stiffness equal or less than 1.3 m/s: *Liver Stiffness less than 1.7 m/s: In the absence of other known clinical signs, rules out compensated advanced chronic liver disease. *Liver Stiffness 1.7-2.1 m/s: Suggestive of compensated advanced chronic liver disease but need further test for confirmation. *Liver Stiffness over 2.1 m/s: Rules in compensated advanced chronic liver disease. *Liver Stiffness over 2.4 m/s: Suggestive of clinically significant portal hypertension. QUALITY OF DATA SET: *IQR/Median value equal or less than 0.15 implies a quality data set. *IQR/Median value over 0.15 implies a poor quality data set. SIGNIFICANT CHANGE FROM PRIOR EXAM: Significant change if liver stiffness measurement is 10% or greater from prior exam. OTHER CONSIDERATIONS: The stage of liver fibrosis may be overestimated in the setting of acute hepatitis, liver inflammation, elevated liver function tests, hepatic vascular congestion, obstructive cholestasis, non-fasting state, and infiltrative diseases such as amyloidosis and lymphoma. In some patients with NAFLD, the liver stiffness thresholds for compensated advanced chronic liver disease may be lower. In causes other than viral hepatitis and NAFLD, liver stiffness thresholds are not well established.
--- NOTE | ~2021-05-29 | FL_ITS ---
EXAMINATION: XR FLUOROSCOPY UPPER GI WITH AIR CLINICAL INFORMATION: Obesity COMPARISON: None TECHNIQUE: Upper GI was performed using thin and thick barium and effervescent granules FINDINGS: Esophageal motility is normal. No gastroesophageal reflux or hernia is seen. The stomach and duodenum are normal. No fold thickening, mass, ulcer or stricture is seen. FLUOROSCOPY TIME: 0.5 minutes DOSE AREA PRODUCT: 5.8 Zepeda per centimeter squared. 21 saved fluoroscopic images. FL/FL upper GI w air IMPRESSION: Unremarkable examination.
== END 2021-05-29 08:46 | disposition home or self-care (01) ==
LOC: HO.US 08:45
PROVIDERS: PCP Internal Medicine; Visit Provider Surgery
DX: Z01.818 Encounter for other preprocedural examination (principal); K21.9 Gastro-esophageal reflux disease without esophagitis; E66.01 Morbid (severe) obesity due to excess calories; Z68.42 Body mass index [BMI] 45.0-49.9, adult
CPT/HCPCS: 74246; 76705; 76981

== ENCOUNTER → 2021-05-31 10:30 | Outpatient (BNVA) | payer OTHER, SELFPAY | PROVIDERS: PCP Internal Medicine; Visit Provider Counselor Mental Health | DX: F32.2 Major depressive disorder, single episode, severe without psychotic features (principal); F90.2 Attention-deficit hyperactivity disorder, combined type; E66.01 Morbid (severe) obesity due to excess calories; Z68.42 Body mass index [BMI] 45.0-49.9, adult | CPT/HCPCS: 90834 ==

== ENCOUNTER 2021-06-01 09:57 | Outpatient (REF) | payer MEDICAID, SELFPAY | END 2021-06-01 09:58 | disposition home or self-care (01) | LOC: HO.HAP 09:57 | PROVIDERS: Visit Provider Internal Medicine | DX: Z46.1 Encounter for fitting and adjustment of hearing aid (principal); H90.42 Sensorineural hearing loss, unilateral, left ear, with unrestricted hearing on the contralateral side | CPT/HCPCS: V5011; V5020; V5241; V5257 ==

== ENCOUNTER → 2021-06-06 08:32 | Day surgery (SDC) | payer MEDICAID, SELFPAY ==
[2021-05-30 10:07] VITALS: BMI 45.3
[2021-05-30 10:55] VITALS: BMI 43.9
--- NOTE | 2021-05-30 13:23 | P.CONAN_ITS ---
HPI - Anesthesia Eval Consult details Narrative: 40yo F for Right Excision thigh Lipoma Urine HCG weakly positive. Surgery cx'd. PMFSH Active Problems Active Problems: All Active Problems (Updated 05/30/21 @ 10:55 by Ronit Jefferson RN) Well woman exam with routine gynecological exam (Acute) Potential exposure to STD (Acute) Ovarian cyst (Acute) Nephrolithiasis (Acute) Contusion of right knee (Acute) Encounter to discuss test results (Acute) Simple ovarian cyst (Acute) Vitamin D deficiency (Acute) Vitamin B12 deficiency (Acute) H. pylori infection (Acute) Binge-eating disorder, severe (Acute) Major depressive disorder, severe (Acute) Post traumatic stress disorder (Acute) Learning disorder (Acute) Lipoma of right lower extremity (Acute) Attention deficit hyperactivity disorder (ADHD), combined type (Acute) Depression (Acute) Anxiety (Acute) GERD (gastroesophageal reflux disease) (Acute) Kidney stones (Acute) Morbid obesity with BMI of 45.0-49.9, adult (Acute) Pelvic pain (Acute) Past Medical History Medical History Anemia Anxiety Depression Fibroid uterus GERD (gastroesophageal reflux disease) Hx of retained foreign body fully removed Kidney stones Lipoma of back Lipoma of right thigh Morbid obesity with BMI of 45.0-49.9, adult Ovarian cyst, left Pelvic pain Family History Family History Mother HIV (human immunodeficiency virus infection) Dementia Brother No problems noted. Brother ADHD Schizophrenia Suicidal behavior with attempted self-injury Son No problems noted. Son No problems noted. Surgical History Surgical History History of hip surgery History of surgery on wrist History of surgical removal of ganglion cyst Hx of section Social History Social History Household Members Other:: sons 10+17 yrs old Are you a primary veterinarian laboratory animal care to a significant other at home: Yes Do you presently have visiting nurse or other home services: No Alcohol intake: current Alcohol intake frequency: a few times a month Alcohol type: hard liquor Patient Tobacco Use Status: Former Tobacco user Tobacco use type: Cigarette Substance Use Type: Marijuana Current occupational status: employed Current occupation: teacher /rt hand Gender identity: Female Meds Allergies Allergy/AdvReac Type Severity Reaction Status Date / Time Seasonal Allergies Allergy Unknown Unknown Verified 06/08/21 11:22 Home Medications Medication Instructions Recorded Confirmed Last Taken Type clonazepam 0.5 mg tablet 0.5 mg PO BID 01/01/21 05/30/21 06/06/21 07:00 History fluticasone propionate 50 spray INTRANASAL 01/01/21 05/11/21 Unknown History mcg/actuation nasal spray,suspension bupropion HCl 150 mg tablet,12 hr 150 mg PO BID 03/02/21 05/30/21 06/06/21 07:00 History sustained-release loratadine 10 mg tablet (Claritin) 10 mg PO BEDTIME 05/30/21 05/30/21 Unknown History Exam Exam Date and Time: May 30, 2021 1323 Height,Weight and Vital Signs: Height 5 ft 2 in Weight 108.862 kg Pertinent Lab Results Pertinent Lab Results: Laboratory Tests 04/23/21 04/23/21 10:44 10:44 WBC 6.9 Hgb 11.8 L Hct 35.5 L Plt Count 257 Sodium 139 Potassium 3.9 Chloride 103 Carbon Dioxide 27 BUN 15 Creatinine 0.80 Narrative Narrative: EKG 04/2021 Vent. Rate : 081 BPM ? ? Atrial Rate : 081 BPM ?? P-R Int : 148 ms? QRS Dur : 084 ms ? ? QT Int : 414 ms ? ? ? P-R-T Axes : 057 055 013 degrees ?? QTc Int : 480 ms ? Normal sinus rhythm Prolonged QT Abnormal ECG No previous ECGs available Stress ECHO 2020 Protocol: JUAN ? Max HR: 162 BPM? 88% of? Pred: 183 BPM Max BP: 154/090 mmHG Max Work Load: 8.6 METS ? Exercise stress ECHO using Juan protocl, total of 7 min 5 sec. METS 8.60, TAPHR ?88 %. ? Pt tolerated well, c/o reproducable CP in her L breast area that ?increased after the exercise.EKG without any arrhythmias, no ischemic changes ?seen during exercise or in recovery. ? EHO images taken at rest and immediately ?after peak exercise.? Defenity contrast used.? Normotensive response to ?exercise.? Test reviewed with Dr. Kennedy.? Exercise stress echocardiogram was reviewed. At rest, there is normal LVEF and wall motion. With peak exericse, there is no? evidence of any exercise induced wall motion abnormality. There is normal decrease in end-systolic volumes. Overall, this? is a normal study.? Assessment and Plan Assessment Anesthesia Assessment: Chart Reviewed
[2021-06-06 09:16] VITALS: BP 113/67; PULSE 66; RESP 16; TEMP 36.4; O2SAT 100
[2021-06-06 09:24] LABS: UPreg QC Valid YES; Urine Pregnancy WEAKLY POSITIVE (NEGATIVE)
[2021-06-06 10:42] LABS: HCG Quantitative 34 mIU/mL
--- NOTE | 2021-06-06 10:52 | PC.NURSE ---
Patient arrived to [facility] for procedure with Dr. Macias. Urine Preg sample collected as ordered and specimen brought down to lab. Lab called [facility] notifying that Urine Preg results were Weakly Positive . Dr. Zapata at bedside and patient made aware. Quantitative HCG then ordered and drawn at bedside. During waiting period, patient consoled and checked on frequently. Quantitative HCG resulted at 34 (positive for ). Patient made aware. Procedure cancelled.
== END ==
PROVIDERS: Anesthesiology; Nurse Practitioner; PCP Internal Medicine; Visit Provider Surgery
DX: D17.23 Benign lipomatous neoplasm of skin and subcutaneous tissue of right leg (principal); Z53.8 Procedure and treatment not carried out for other reasons; Z32.01 Encounter for pregnancy test, result positive
CPT/HCPCS: 36415; 81025; 84702; J0690

== ENCOUNTER 2021-06-06 15:34 | Emergency (ER) | payer MEDICAID, SELFPAY ==
--- NOTE | ~2021-06-06 | US_ITS ---
EXAMINATION: US OBSTETRICAL ULTRASOUND CLINICAL INFORMATION: Lower abdominal pain with COMPARISON: None. LMP: 05/07/2021. Gestational age by maternal dates is 4 weeks 2 days. TECHNIQUE: Both transabdominal endovaginal scanning was performed. FINDINGS: The uterus appears unremarkable measuring 8 to 9 cm in length and a definite gestational sac is not seen. The endometrium appears thickened at 2.0 cm. A nabothian cyst is present in the cervix. The right ovary measures 3.8 x 3.0 x 3.9 cm and contains 2 cysts measuring 1.4 x 1.5 x 1.5 cm and 2.3 x 1.7 x 2.3 cm. The left ovary could not be seen. Small amount of free intraperitoneal fluid is seen US/US OB pelvic and transvaginal IMPRESSION: A gestational sac or pole is not identified. Correlate with hCG and repeat ultrasound as needed. Cysts are present in the right ovary with a small amount of free intraperitoneal fluid.
[2021-06-06 16:46] VITALS: BP 117/73; PULSE 89; RESP 18; TEMP 36.8; O2SAT 98; BMI 43.3
--- NOTE | 2021-06-06 17:25 | ED.RECABL ---
HPI - Recheck/Abnormal Lab/Rx General Chief Complaint: Recheck/Abnormal Lab/Rx Stated Complaint: /dizziness/abd pain Time Seen by Provider: 06/06/21 16:44 Source: patient Mode of arrival: ambulatory Limitations: no limitations History of Present Illness HPI narrative: 40 yo female presents to the ER from pre-op area after testing positive for . She reports going there for a right thigh lipoma removal with Dr. Macias. Her screening urine was weakly positive and serum HCG was 34. She then started having lower abdominal pains so she was told to come to the ER for further evaluation. Patient reports come intermittent abdominal pains across her lower abdomen, not on one side more than the other. She is nauseated and dizzy since being told she was . She just got her expleno out in Feb/Mar and last had her menses 05/06(kendra) for a normal cycle. She has been sexually active but reports using condoms. She denies concern for STI, denies vaginal bleeding or discharge. No pelvic pain. MD complaint: abnormal lab Initial visit (ago): hour(s) Initial visit for: other (liopma removal) Description of abnormal result: HCG 34 Associated symptoms: abdominal pain Related Data Home Medications Medication Instructions Recorded Confirmed clonazepam 0.5 mg tablet 0.5 mg PO BID 01/01/21 05/30/21 fluticasone propionate 50 spray INTRANASAL 01/01/21 05/11/21 mcg/actuation nasal spray,suspension bupropion HCl 150 mg tablet,12 hr 150 mg PO BID 03/02/21 05/30/21 sustained-release loratadine 10 mg tablet (Claritin) 10 mg PO BEDTIME 05/30/21 05/30/21 Previous Rx's Medication Instructions Recorded cholecalciferol (vitamin D3) 50 50 mcg PO DAILY #60 cap 12/31/19 mcg (2,000 unit) capsule pyridoxine (vitamin B6) 100 mg 100 mg PO DAILY 90 Days #90 tab 04/14/20 tablet vitamin with calcium 1 tab PO DAILY #30 tab 03/02/21 no.72-iron 27 mg-folic acid 1 mg tablet ( Vitamins Plus Low Iron) cholecalciferol (vitamin D3) 125 125 mcg PO DAILY #30 cap 04/30/21 mcg (5,000 unit) capsule mecobalamin (vitamin B12) 1,000 1,000 mcg SUBLINGUAL DAILY #30 tab 04/30/21 mcg disintegrating tablet,sublingual omeprazole 40 mg capsule,delayed 40 mg PO DAILY #14 cap 04/30/21 release Allergies Allergy/AdvReac Type Severity Reaction Status Date / Time Seasonal Allergies Allergy Unknown Unknown Verified 06/06/21 09:08 Review of Systems Review of Systems: Constitutional: No Fever, No Chills ENT/Mouth: No sore throat Cardiovascular: No Chest Pain, No SOB Respiratory: No Cough, No Sputum Gastrointestinal: No Nausea, No Vomiting, No Diarrhea, + abdominal Pain, No Hematochezia, No Melena Genitourinary: No Dysuria, No Urinary Frequency, No Hematuria, No vaginal bleeding, No vaginal discharge Musculoskeletal: No joint pain, No Myalgias Skin: No Skin Lesions, No rash Neuro: No Weakness, No Numbness, No Dizziness, No Headache Psych: + Anxiety/Panic, No Depression Heme/Lymph: No Bruising, No Lymphadenopathy PMFSH Past Medical History Medical History (Updated 06/06/21 @ 19:02 by ROBERT Hein) Anemia Anxiety Depression GERD (gastroesophageal reflux disease) Hx of retained foreign body fully removed Kidney stones Lipoma of back Lipoma of right thigh Morbid obesity with BMI of 45.0-49.9, adult Ovarian cyst, left Pelvic pain Surgical History History of hip surgery History of surgery on wrist History of surgical removal of ganglion cyst Hx of section Family History Family History Mother HIV (human immunodeficiency virus infection) Dementia Brother No problems noted. Brother ADHD Schizophrenia Suicidal behavior with attempted self-injury Son No problems noted. Son No problems noted. Social History Social History Household Members Other:: sons 10+17 yrs old Are you a primary career technical education teacher to a significant other at home: Yes Do you presently have visiting nurse or other home services: No Alcohol intake: current Alcohol intake frequency: a few times a month Alcohol type: hard liquor Patient Tobacco Use Status: Former Tobacco user Tobacco use type: Cigarette Substance Use Type: Marijuana Advance Directives: No Advance Directives Information Provided: No Patient : Yes Current occupational status: employed Current occupation: teacher /rt hand Gender identity: Female Physical Exam Vital Signs: Vital Signs: Last Vital Signs Temp 98.2 F 06/06/21 16:46 Pulse 89 06/06/21 16:46 Resp 18 06/06/21 16:46 BP 117/73 06/06/21 16:46 Pulse Ox 98 06/06/21 16:46 BMI result Body Mass Index 43.3 Appearance: Alert. Oriented X3. No acute distress. Eyes: Pupils equal, round and reactive to light. ENT: Pharynx normal. Neck: Normal inspection. Neck supple. CVS: Normal heart rate and rhythm. Pulses normal. Respiratory: No respiratory distress. Breath sounds normal. Abdomen: Obese Soft and nontender. No suprapubic tenderness. no rebound or guardings. +BS x4. pelvic deferred Skin: Skin warm and dry. Normal skin color. Normal skin turgor. No rashes. Extremities: No lower extremity edema. Neuro: Oriented X 3. Grossly normal, nonfocal Course Course Course Narrative: 32-year-old female presents to the ER for evaluation after she was found to be preoperatively. Her urine test is weakly positive with a beta hCG serum quant of 34. She reports intermittent lower abdominal cramping since she was told she was . No vaginal bleeding or discharge. She denies concern for STI and denies any pelvic pain. Case was discussed with Dr. Cuevas who is recommending TVS to assess for IUP vs possible ectopic. Reevaluation(s) Reevaluation #1: Transvaginal ultrasound showing no gestational sac or pole. Results discussed with patient. We discussed the signs and symptoms of spontaneous and ectopic back . She will follow-up with OBGYN and get her labs redrawn on Friday, orders already placed. She was given strict return precautions and expressed understanding. She is stable for discharge home with close outpatient follow-up. Consultations Consultation #1: Dr. Cuevas ASSEMBLY INSPECTOR HELPER MDM - Recheck/Abnormal Lab/Rx Lab Data Labs: Lab Results 06/06/21 Range/Units 18:18 Urine Color YELLOW Urine Appearance CLEAR Urine pH 7.0 (5.0-8.0) Ur Specific Bernard 1.020 (1.005-1.025) Urine Protein NEG (NEG-TRACE) MG/DL Urine Glucose (UA) NEG (NEG) MG/DL Urine Ketones 5 (NEG) MG/DL Urine Blood NEG (NEG) Urine Nitrite NEG (NEG) Ur Leukocyte Esterase NEG (NEG) Critical Care Time Critical Care Time Critical Care Time: No Discharge Plan Discharge Clinical Impression: Patient Disposition: Home, Self-Care Instructions: (ED) Additional Instructions: Your hormone today was 34 - this is indicative of a VERY early This hormone will need to be repeated in the lab on Friday Your ultrasound did not show any evidence of - it may be too early to identify Follow up with your operations planner on Friday for your lab results and guidance moving forward. If you develop new or worsening symptoms such as vaginal bleeding, pelvic pain or any other concerning symptoms call 911 or come back to the ER for further evaluation. Prescriptions: No Action cholecalciferol (vitamin D3) 125 mcg (5,000 unit) capsule 125 mcg PO DAILY Qty: 30 2RF mecobalamin (vitamin B12) 1,000 mcg tablet,disintegrating 1,000 mcg sublingual DAILY Qty: 30 2RF Rx Instructions: place tablet under tongue and allow to dissolve for at least30 secs before swallowing omeprazole 40 mg capsule,delayed release(DR/EC) 40 mg PO DAILY Qty: 14 0RF loratadine [Claritin] 10 mg Tablet 10 mg PO BEDTIME 0RF cholecalciferol (vitamin D3) 50 mcg (2,000 unit) capsule 50 mcg PO DAILY Qty: 60 6RF Rx Instructions: 1 capsule daily clonazepam 0.5 mg tablet 0.5 mg PO BID 0RF fluticasone propionate 50 mcg/actuation spray,suspension intranasal 0RF pyridoxine (vitamin B6) 100 mg tablet 100 mg PO DAILY 90 Days Qty: 90 1RF bupropion HCl 150 mg tablet sustained-release 12 hr 150 mg PO BID 0RF Vitamin Plus Low Iron 27 mg iron- 1 mg tablet 1 tab PO DAILY Qty: 30 11RF Referrals: González Cuevas MD [Physician] - 2 days (early ) Stand Alone Forms: Work/School Release Interventions: ED Discharge Assessment Last Done: 06/06/21 19:26 Discharge Date/Time: 06/06/21 19:28
[2021-06-06] MEDS: Acetaminophen 325 MG TABLET 650 MG PO (18:15)
[2021-06-06 18:28] LABS: Appearance Urine CLEAR; Color Urine YELLOW; Glucose Urine UA NEG (NEG); Leukocyte Esterase Urine NEG (NEG); Nitrite Urine NEG (NEG); Urine Blood NEG (NEG); Urine Ketones 5 MG/DL (NEG); Urine Protein NEG (NEG-TRACE)
== END 2021-06-06 19:28 | disposition home or self-care (01) ==
PROVIDERS: Physician Assistant; Emergency Provider Emergency Medicine; PCP Internal Medicine
DX: O26.899 Other specified pregnancy related conditions, unspecified trimester (principal); R10.30 Lower abdominal pain, unspecified; D17.23 Benign lipomatous neoplasm of skin and subcutaneous tissue of right leg; O09.529 Supervision of elderly multigravida, unspecified trimester; O34.219 Maternal care for unspecified type scar from previous cesarean delivery; Z3A.00 Weeks of gestation of pregnancy not specified
CPT/HCPCS: 76801; 76817; 81003; 99284

== ENCOUNTER 2021-06-08 07:43 | Outpatient (REF) | payer MEDICAID, SELFPAY ==
[2021-06-08 08:42] LABS: HCG Quantitative 127 mIU/mL
[2021-06-08 16:31] LABS: CT PCR NOT DETECTED (Not Detect.); NG PCR NOT DETECTED (Not Detect.)
[2021-06-09 14:43] LABS: BV Int Neg Control Negative (Negative); BV Int Pos Control Positive (Positive)
== END 2021-06-08 07:44 | disposition home or self-care (01) ==
LOC: HO.LAB 07:43
PROVIDERS: Advanced Practice Midwife; PCP Internal Medicine; Visit Provider Obstetrics & Gynecology
DX: O20.0 Threatened abortion (principal)
CPT/HCPCS: 36415; 84702; 87480; 87491; 87510; 87591; 87660; 99212

== ENCOUNTER 2021-06-15 11:39 | Outpatient (REF) | payer MEDICAID, SELFPAY ==
--- NOTE | ~2021-06-15 | US_ITS ---
EXAMINATION: OBSTETRICAL ULTRASOUND, FIRST TRIMESTER HISTORY: A 40-year-old at 5.4 weeks of gestation Viability follow-up. LMP: 05/07/2021 (uncertain) COMPARISON: 06/06/2021 TECHNIQUE: Real time transabdominal imaging with color and M-mode Doppler. Transvaginal ultrasound was performed using an endovaginal probe. FINDINGS: An irregularly-shaped intrauterine gestational sac is seen on transvaginal ultrasound. The mean sac diameter is 7.1 mm consistent with 5 weeks 2 days. No visible yolk sac or embryonic pole appreciated. This can be consistent with the gestational age. Right ovary: 2 clear cysts measuring 1.8 x 1.8 x 1.7cm and 1.4 x 1.3 x 1.1 cm Left ovary is within normal limits GESTATIONAL AGE: 1. GA from LMP: 5.4 wks 2. GA from AUA: 5.2 wks ESTIMATED DATE OF DELIVERY: 1. TY from LMP: 02/11/2022 2. TY from AUA: 02/13/2022 US/US OB <= 14 weeks fetus IMPRESSION: 1. Irregularly-shaped intrauterine gestational sac 2. Mean sac diameter corresponds to 5.2 weeks 3. No yolk sac or embryonic pole noted. However this can be consistent with a early age. I reviewed today's findings and informed her that the an intrauterine gestational sac is present which was not seen on June 06. Although the yolk sac and embryonic pole is not visible, this can be expected at this early gestational age. Recommended a serial serum beta-hCG and a follow-up ultrasound as clinically indicated. Thank you very much for this referral. Total time 20 minutes. The time spent was devoted to counseling the patient about the disease and diagnosis, coordinating care including reviewing her records, pertinent lab data and studies, as well as discussing diagnostic evaluation and workup, plan therapeutic interventions and future disposition of care. This includes any additional research needed to obtain further information in formulating the plan of care of this patient. This note was generated with a voice recognition program. Please excuse any errors which may have been overlooked during my review of this note. Sometimes these errors may affect the content or meaning of a given sentence.
[2021-06-15 14:09] LABS: HCG Quantitative 3543 mIU/mL
== END 2021-06-15 11:40 | disposition home or self-care (01) ==
LOC: HO.US 11:39
PROVIDERS: PCP Internal Medicine; Visit Provider Advanced Practice Midwife
DX: O20.0 Threatened abortion (principal); Z3A.01 Less than 8 weeks gestation of pregnancy
CPT/HCPCS: 36415; 76801; 84702

== ENCOUNTER → 2021-06-18 11:53 | Outpatient (BNVA) | payer MEDICAID, SELFPAY | PROVIDERS: PCP Internal Medicine; Visit Provider Advanced Practice Midwife | DX: Z13.89 Encounter for screening for other disorder (principal) ==

== ENCOUNTER 2021-06-22 09:24 | Outpatient (REF) | payer MEDICAID, SELFPAY ==
--- NOTE | ~2021-06-22 | US_ITS ---
EXAMINATION: OBSTETRICAL ULTRASOUND, FIRST TRIMESTER HISTORY: 40-year-old at the 6.4 weeks of gestation Follow-up for viability LMP: 05/07/2021 COMPARISON: 06/15/2021 TECHNIQUE: Real time transabdominal imaging with color and M-mode Doppler. FINDINGS: Irregularly-shaped intrauterine gestational sac is again noted. No clear yolk sac or embryonic pole visible. The right ovary still contains 2 small cysts noted previously. No free fluid. GESTATIONAL AGE: 1. GA from LMP: 6.4 wks 2. GA from AUA: 6.2 wks ESTIMATED DATE OF DELIVERY: 1. TY from LMP: 02/11/2022 2. TY from AUA: 02/13/2022 US/US OB <= 14 weeks fetus IMPRESSION: 1. Irregularly-shaped intrauterine gestational sac 2. Unable to visualize clear embryonic pole or the yolk sac 3. Right ovarian cyst, unchanged from last week Discussion: I informed the patient that unfortunately were still not able to identify an embryonic pole. In addition the lack of well formed yolk sac at this gestational age is concerning. According to the patient, her serum beta hCG has been rising appropriately. She denies the symptoms or signs of miscarriage. I recommend continued to serial beta hCG and a follow-up ultrasound next week. Thank you very much for this referral. Total time 20 minutes. The time spent was devoted to counseling the patient about the disease and diagnosis, coordinating care including reviewing her records, pertinent lab data and studies, as well as discussing diagnostic evaluation and workup, plan therapeutic interventions and future disposition of care. This includes any additional research needed to obtain further information in formulating the plan of care of this patient. This note was generated with a voice recognition program. Please excuse any errors which may have been overlooked during my review of this note. Sometimes these errors may affect the content or meaning of a given sentence.
[2021-06-22 10:56] LABS: HCG Quantitative 21813 mIU/mL
== END 2021-06-22 09:25 | disposition home or self-care (01) ==
LOC: HO.US 09:24
PROVIDERS: PCP Internal Medicine; Visit Provider Advanced Practice Midwife
DX: O20.0 Threatened abortion (principal)
CPT/HCPCS: 36415; 76801; 84702

== ENCOUNTER → 2021-06-25 13:49 | Outpatient (BNVA) | payer MEDICAID, SELFPAY | PROVIDERS: Visit Provider Obstetrics & Gynecology | DX: Z13.89 Encounter for screening for other disorder (principal) ==

== ENCOUNTER 2021-06-26 11:10 | Outpatient (REF) | payer MEDICAID, SELFPAY ==
[2021-06-26 12:37] LABS: HCG Quantitative 42766 mIU/mL
== END 2021-06-26 11:11 | disposition home or self-care (01) ==
LOC: HO.LAB 11:10
PROVIDERS: PCP Internal Medicine; Visit Provider Obstetrics & Gynecology
DX: O20.0 Threatened abortion (principal)
CPT/HCPCS: 36415; 84702

== ENCOUNTER 2021-06-28 10:57 | Outpatient (REF) | payer MEDICAID, SELFPAY ==
[2021-06-28 13:08] LABS: HCG Quantitative 50220 mIU/mL
== END 2021-06-28 10:58 | disposition home or self-care (01) ==
LOC: HO.LAB 10:57
PROVIDERS: PCP Internal Medicine; Visit Provider Obstetrics & Gynecology
DX: O20.0 Threatened abortion (principal)
CPT/HCPCS: 36415; 84702

== ENCOUNTER 2021-06-29 10:27 | Outpatient (REF) | payer MEDICAID, SELFPAY ==
--- NOTE | ~2021-06-29 | US_ITS ---
EXAMINATION: OBSTETRICAL ULTRASOUND, FIRST TRIMESTER HISTORY: 40-year-old at 7.4 weeks of gestation LMP: 05/07/2021 COMPARISON: 06/22/2021 TECHNIQUE: Real time transabdominal imaging with color and M-mode Doppler. Transvaginal ultrasound was performed using an endovaginal probe. FINDINGS: Intrauterine gestational sac was again noted. No clear evidence of a yolk sac or embryonic pole. There is a suggestion of a small embryonic plate that measures 0.43 cm corresponding to 6.1 weeks. No heart rate is present. Compared to the previous exam, there is very little change. Both maternal ovaries are seen and appear normal. No free fluid in the cul-de-sac. GESTATIONAL AGE: 1. GA from LMP: 7.4 wks 2. GA from AUA: 6.1 wks ESTIMATED DATE OF DELIVERY: 1. TY from LMP: 02/11/2022 2. TY from AUA: 02/21/2022 US/US OB pelvic and transvaginal IMPRESSION: 1. Nonviable IUP 2. No evidence of the embryonic pole or yolk sac 3. Today's finding is consistent with missed AB. Thank you very much for this referral. This note was generated with a voice recognition program. Please excuse any errors which may have been overlooked during my review of this note. Sometimes these errors may affect the content or meaning of a given sentence.
== END 2021-06-29 10:28 | disposition home or self-care (01) ==
LOC: HO.US 10:27
PROVIDERS: Visit Provider Obstetrics & Gynecology
DX: O02.1 Missed abortion (principal)
CPT/HCPCS: 76801; 76817; 86850; 86900; 86901; 99212

== ENCOUNTER 2021-07-12 09:34 | Outpatient (REF) | payer MEDICAID, SELFPAY ==
[2021-07-12 10:45] LABS: HCG Quantitative 1737 mIU/mL
== END 2021-07-12 09:35 | disposition home or self-care (01) ==
LOC: HO.LAB 09:34
PROVIDERS: Visit Provider Obstetrics & Gynecology
DX: O02.1 Missed abortion (principal); Z30.09 Encounter for other general counseling and advice on contraception
CPT/HCPCS: 36415; 84702; 99212

== ENCOUNTER 2021-07-24 13:54 | Outpatient (REF) | payer MEDICAID, SELFPAY ==
--- NOTE | ~2021-07-24 | US_ITS ---
EXAMINATION: US OBSTETRICAL ULTRASOUND CLINICAL INFORMATION: Abnormal vaginal bleeding. COMPARISON: 06/29/2021 pelvic ultrasound. LMP: 05/07/2021. TECHNIQUE: Multiple 2-D grayscale and Doppler transabdominal/transvaginal ultrasound images of the pelvis were obtained. FINDINGS: Uterus: Anteverted/mildly retroflexed measuring approximately 7.5 x 4.7 x 5.1 cm. The endometrial stripe measures up to 1.1 cm with mild heterogeneity. Mild vascularity is seen within the endometrial canal at the level the mid body with more robust hypervascularity extending from the endometrium into the adjacent anterior myometrium. Right ovary: 3.4 x 2.2 x 2.9 cm. Small anechoic follicles are seen measuring up to 1.2 cm. Doppler showed no abnormal vascular flow. Left ovary: 3.1 x 1.6 x 1.8 cm. Small anechoic follicles measuring up to 1.5 cm. Doppler showed no abnormal vascular flow. US/US OB pelvic and transvaginal IMPRESSION: 1. Mild endometrial thickening with heterogeneity and mild focal vascularity in the mid body with more robust hypervascularity extending into the adjacent anterior mid body myometrium. These findings are concerning for retained products of conception.
[2021-07-24 14:17] LABS: Hematocrit 31.6 % (37.0-47.0); Hemoglobin 10.8 g/dl (12.0-16.0); Mean Corpuscular HGB Conc 34.2 g/dl (31.0-35.0); Mean Corpuscular Hemoglobin 29.8 pg (27.0-33.0); Mean Corpuscular Volume 87.1 fL (80.0-98.0); Mean Platelet Volume 11.5 fL (9.4-12.3); Platelet Count 216 X10*3/uL (160-400); Red Blood Count 3.63 X10*6/uL (4.20-5.50); White Blood Count 8.9 X10*3/uL (4.8-10.8)
[2021-07-24 15:10] LABS: HCG Quantitative 152 mIU/mL
== END 2021-07-24 13:55 | disposition home or self-care (01) ==
LOC: HO.US 13:54
PROVIDERS: PCP Internal Medicine; Visit Provider Obstetrics & Gynecology
DX: O03.4 Incomplete spontaneous abortion without complication (principal)
CPT/HCPCS: 36415; 76801; 76817; 84702; 85027; 87491; 87591; 99212

== ENCOUNTER 2021-07-24 15:34 | Outpatient (REF) | payer MEDICAID, SELFPAY ==
[2021-07-24 18:16] LABS: CT PCR NOT DETECTED (Not Detect.); NG PCR NOT DETECTED (Not Detect.)
== END 2021-07-24 15:35 | disposition home or self-care (01) ==
LOC: HO.LAB 15:34
PROVIDERS: Visit Provider Obstetrics & Gynecology
DX: Z11.3 Encounter for screening for infections with a predominantly sexual mode of transmission (principal); N93.9 Abnormal uterine and vaginal bleeding, unspecified
CPT/HCPCS: 87491; 87591

== ENCOUNTER 2021-07-24 16:33 | Day surgery (SDC) | payer MEDICAID, SELFPAY ==
--- NOTE | ~2021-07-24 | US_ITS ---
EXAMINATION: ULTRASOUND OB LIMITED CLINICAL INFORMATION: Retained products of conception. COMPARISON: Ultrasound from earlier today TECHNIQUE: FINDINGS: Initial sonographic images show Doppler vascularity of the endometrium. no evidence of residual retained products of conception. US/US OB limited IMPRESSION: conception identified on final images.
[2021-07-24 16:58] VITALS: BMI 42.0
[2021-07-24 17:08] VITALS: BP 127/80; PULSE 73; RESP 18; TEMP 36.6; O2SAT 96
--- NOTE | 2021-07-24 17:38 | P.CONAN_ITS ---
[facility] Active Problems Active Problems: All Active Problems (Updated 07/24/21 @ 13:24 by González Cuevas MD) Abnormal uterine bleeding (AUB) (Acute) Family planning (Acute) Missed (Acute) Threatened (Acute) Well woman exam with routine gynecological exam (Acute) Potential exposure to STD (Acute) Ovarian cyst (Acute) Nephrolithiasis (Acute) Contusion of right knee (Acute) Encounter to discuss test results (Acute) Simple ovarian cyst (Acute) Vitamin D deficiency (Acute) Vitamin B12 deficiency (Acute) H. pylori infection (Acute) Binge-eating disorder, severe (Acute) Major depressive disorder, severe (Acute) Post traumatic stress disorder (Acute) Learning disorder (Acute) Lipoma of right lower extremity (Acute) Attention deficit hyperactivity disorder (ADHD), combined type (Acute) Depression (Acute) Anxiety (Acute) GERD (gastroesophageal reflux disease) (Acute) Kidney stones (Acute) Morbid obesity with BMI of 45.0-49.9, adult (Acute) Pelvic pain (Acute) Past Medical History Medical History Anemia Anxiety Depression Fibroid uterus GERD (gastroesophageal reflux disease) Hx of retained foreign body fully removed Kidney stones Lipoma of back Lipoma of right thigh Morbid obesity with BMI of 45.0-49.9, adult Ovarian cyst, left Pelvic pain Functional capacity: independent ambulation Patient : No Family History Family History Mother HIV (human immunodeficiency virus infection) Dementia Brother No problems noted. Brother ADHD Schizophrenia Suicidal behavior with attempted self-injury Son No problems noted. Son No problems noted. Surgical History Surgical History History of hip surgery History of surgery on wrist History of surgical removal of ganglion cyst Hx of section History of Problems with Anesthesia: No Social History Social History Household Members Other:: sons 10+17 yrs old Are you a primary resident care technician to a significant other at home: Yes Do you presently have visiting nurse or other home services: No Alcohol intake: current Alcohol intake frequency: a few times a month Alcohol type: hard liquor Patient Tobacco Use Status: Former Tobacco user Tobacco use type: Cigarette Substance Use Type: Marijuana Advance Directives: No Advance Directives Information Provided: Yes Current occupational status: employed Current occupation: teacher /rt hand Gender identity: Female Meds Allergies Allergy/AdvReac Type Severity Reaction Status Date / Time Seasonal Allergies Allergy Unknown Unknown Verified 07/24/21 15:00 Home Medications Medication Instructions Recorded Confirmed Last Taken Type clonazepam 0.5 mg tablet 0.5 mg PO BID 01/01/21 05/30/21 06/06/21 07:00 History fluticasone propionate 50 spray INTRANASAL 01/01/21 05/11/21 Unknown History mcg/actuation nasal spray,suspension bupropion HCl 150 mg tablet,12 hr 150 mg PO BID 03/02/21 05/30/21 06/06/21 07:00 History sustained-release loratadine 10 mg tablet (Claritin) 10 mg PO BEDTIME 05/30/21 05/30/21 Unknown History Exam Exam Date and Time: July 24, 2021 1738 Height,Weight and Vital Signs: Height 5 ft 2 in Weight 104.326 kg Last Vital Signs Temp 97.9 F 07/24/21 17:08 Pulse 73 07/24/21 17:08 Resp 18 07/24/21 17:08 BP 127/80 07/24/21 17:08 Pulse Ox 96 07/24/21 17:08 Airway Mallampati Class: III TM Dist: >3cm Neck ROM: Full Heart: RRR Lungs: CTA Assessment and Plan Final Anesthetic Review History of Problems with Anesthesia: No Final Preanesthetic Review: No Changes in Pt Med Stat, Meds/Allgs Chart Reviewed, Consent Obtained/Reviewed and Anes Risks/Benef Reviewed Patient Risk: Intermediate Procedure Risk: Low Anesthetic Plan Anesthetic Plan: GA Disposition: Standard PACU
--- NOTE | 2021-07-24 19:45 | PC.NURSE ---
dr. mireles aware patient refusal to remove clitoral and facial piercings. m.d ok to proceed
--- NOTE | 2021-07-24 20:28 | P.BOP_ITS ---
Brief Operative Note Date of Service: 07/24/21 Pre-op diagnosis: Retained products of conception Post-op diagnosis: same Procedure: Suction D&C Surgeon: González Cuevas MD Anesthesia: GETA Was an Aircraft Designer used for this Procedure?: No Estimated blood loss (mL): 10 Pathology: other (Retained Products of conception) Condition: stable Disposition: PACU
--- NOTE | 2021-07-24 20:29 | W.PM.OPN ---
Operative Note Operative Note Date of Service: 07/24/21 Narrative: Preop diagnosis: retained products of conception Operation: suction D and C Postop diagnosis: The same EBL: Minimal Anesthesia: MAC Truck Trailer Final Inspector: None Pathology: Products of conception Procedure: The patient was put in a dorsal distal mid position was scrubbed and draped in the usual sterile fashion. A sterile speculum was inserted inside the patient's vagina the anterior lip of the cervix was grasped with single-tooth tenaculum the cervix was dilated up to 8 mm. Under ultrasonographic guidance flexible 8. Suction tip was introduced inside the patient ran cavity till the fundus was hit then turning the suction 360 degrees around products of conception was sucked out toward the uterine cavity. The suction tip was taken out of the patient uterine cavity sharp curettings was followed in 4 quadrants of the uterus till a gritty feeling was felt. The suction tip was reintroduced under ultrasonographic guidance and intrauterine blood was sucked. The suction tip was taken out. Single-tooth tenaculum was removed hemostasis assured using pressure. The patient tolerated the procedure well and was transferred to the PACU in a stable condition.
[2021-07-24 20:32] VITALS: BP 140/88; PULSE 79; RESP 16; TEMP 36.2; O2SAT 98
[2021-07-24 20:37] VITALS: BP 148/87; PULSE 78; RESP 16; O2SAT 96
[2021-07-24 20:42] VITALS: BP 143/79; PULSE 68; RESP 16; O2SAT 97
[2021-07-24 20:47] VITALS: BP 142/68; PULSE 72; RESP 16; TEMP 36.4; O2SAT 97
[2021-07-24 21:00] VITALS: BP 143/92; PULSE 79; RESP 16; O2SAT 98
== END 2021-07-24 21:14 | disposition home or self-care (01) ==
PROVIDERS: Visit Provider Obstetrics & Gynecology
PROC: (CPT 59812; principal; 2021-07-24 18:10)
DX: O03.4 Incomplete spontaneous abortion without complication (principal); R10.2 Pelvic and perineal pain; F41.1 Generalized anxiety disorder; D25.9 Leiomyoma of uterus, unspecified; E66.01 Morbid (severe) obesity due to excess calories; Z68.41 Body mass index [BMI] 40.0-44.9, adult; Z87.891 Personal history of nicotine dependence; F12.90 Cannabis use, unspecified, uncomplicated
CPT/HCPCS: 59812; 76815; 88305; J1100; J1885; J2250; J2405; J3010

== ENCOUNTER 2021-08-11 15:09 | Emergency (ER) | payer MEDICAID, SELFPAY ==
[2021-08-11 15:28] VITALS: BP 148/82; PULSE 83; RESP 18; TEMP 36.6; O2SAT 100; BMI 42.0
--- NOTE | 2021-08-11 16:11 | ED_ITS ---
HPI - General Adult General Chief complaint: Eye Problems Stated complaint: Eye swelling/pain Time Seen by Provider: 08/11/21 16:11 Source: patient Mode of arrival: ambulatory Limitations: no limitations History of Present Illness HPI narrative: Patient is a 40 year old female presenting to the emergency department today with bilateral eye irritation and pressure in her face. Patient states that starting yesterday, she began to have pain and irritation to both of her eyes and pressure in her sinuses. Patient states that she is a contact lens wearer. Patient denies any dizziness, lightheadedness, abdominal pain, nausea, vomiting, fever, chills, blurry vision, double vision, loss of vision, chest pain, difficulty breathing, shortness of breath, back pain, night sweats, pain with urination, increased urinary frequency, increased urinary urgency, blood in her urine or stool, syncope or a near syncopal episode, recent trauma or falls, bowel incontinence, bladder incontinence, bowel retention, bladder retention, or any other complaints at this time. Onset (ago): day(s) (1) Location: face and eyes Radiation: non-radiation Severity: mild Severity scale (1-10): 3 Quality: aching and dull Pain Consistency: constant Relieving factors: none Exacerbating factors: none Associated symptoms: denies other symptoms Treatments prior to arrival: none Related Data Home Medications Medication Instructions Recorded Confirmed clonazepam 0.5 mg tablet 0.5 mg PO BID 01/01/21 05/30/21 fluticasone propionate 50 spray intranasal 01/01/21 05/11/21 mcg/actuation nasal spray,suspension bupropion HCl 150 mg tablet,12 hr 150 mg PO BID 03/02/21 05/30/21 sustained-release loratadine 10 mg tablet (Claritin) 10 mg PO BEDTIME 05/30/21 05/30/21 Previous Rx's Medication Instructions Recorded cholecalciferol (vitamin D3) 50 50 mcg PO DAILY #60 caps 12/31/19 mcg (2,000 unit) capsule pyridoxine (vitamin B6) 100 mg 100 mg PO DAILY 90 days #90 tabs 04/14/20 tablet vitamin with calcium 1 tab PO DAILY #30 tabs 03/02/21 no.72-iron 27 mg-folic acid 1 mg tablet ( Vitamins Plus Low Iron) cholecalciferol (vitamin D3) 125 125 mcg PO DAILY #30 caps 04/30/21 mcg (5,000 unit) capsule mecobalamin (vitamin B12) 1,000 1,000 mcg sublingual DAILY #30 tabs 04/30/21 mcg disintegrating tablet,sublingual omeprazole 40 mg capsule,delayed 40 mg PO DAILY #14 caps 04/30/21 release misoprostol 200 mcg tablet 800 mcg vaginal ONCE 1 day #4 tabs 06/29/21 doxycycline hyclate 100 mg capsule 100 mg PO BID 7 days #14 caps 08/11/21 erythromycin 5 mg/gram (0.5 %) eye 1 appl ophthalmic (eye) 5XD 7 days 08/11/21 ointment #3.5 grams Allergies Allergy/AdvReac Type Severity Reaction Status Date / Time Seasonal Allergies Allergy Unknown Unknown Verified 07/24/21 15:00 Review of Systems Constitutional: Constitutional: Reports no additional constitutional c omplaints, Denies chills, Denies fever(s) and Denies night sweats Eyes: Eyes: Reports no additional eye complaints, Denies blurry vision, Denies change in vision, Denies diplopia, Reports eye discharge, Reports irritation, Denies loss of vision, Reports eye pain and Reports photophobia ENT: Denies dizziness and Reports sinus pain Cardiovascular: Cardiovascular: Reports no additional cardiovascular complaints, Denies chest pain, Denies lightheadedness, Denies Loss of Consciousness and Denies dyspnea Respiratory: Respiratory: Reports no additional respiratory complaints and Denies dyspnea Gastrointestinal: Gastrointestinal: Reports no additional gastrointestinal complaints, Denies abdominal pain, Denies melena, Denies hematochezia, Denies change in bowel habits and Denies change in stool character Genitourinary: Genitourinary: Denies hematuria, Denies urinary frequency, Denies dysuria, Denies urinary incontinence, Denies urinary hesitancy and Denies urinary urgency Musculoskeletal: Musculoskeletal: Reports no additional musculoskeletal complaints, Denies numbness and Denies tingling Neurologic: Denies dizziness, Denies loss of vision, Denies numbness and Denies tingling Psychiatric: Psychiatric: Reports no additional psychiatric complaints Endocrine: Endocrine: Reports no additional endocrine complaints Hematologic/Lymphatic: Hematologic/Lymphatic: Reports no additional hematologic/lymphatic complaints Allergic/Immunologic: Allergic/Immunologic: Reports no additional allergic/immunologic complaints PMFSH Past Medical History Attestation statement: The following information was validated with the patient. Source: old records reviewed Medical History Anemia Fibroid uterus Hx of retained foreign body fully removed Lipoma of back Lipoma of right thigh Ovarian cyst, left Surgical History History of hip surgery History of surgery on wrist History of surgical removal of ganglion cyst Hx of section Family History Family History Mother HIV (human immunodeficiency virus infection) Dementia Brother No problems noted. Brother ADHD Schizophrenia Suicidal behavior with attempted self-injury Son No problems noted. Son No problems noted. 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 Physical Exam ED Vital Signs: Vital Signs - 24 hr 08/11/21 15:28 Temperature 97.8 F Pulse Rate 83 Respiratory Rate 18 Blood Pressure 148/82 H Pulse Oximetry 100 Oxygen Delivery Method Room Air BMI result Body Mass Index 42.0 Const General: cooperative, no acute distress, alert and awake Nutritional Appearance: well nourished Orientation/consciousness: patient oriented x3 Limitations: no limitations HENMT Head: Yes normal to inspection and Yes atraumatic Ears: hearing grossly normal bilaterally and external ears normal General nose exam: Normal external nose present, no nasal discharge noted and no epistaxis Face and sinus: Yes normal facial exam, No abrasion and No laceration Mouth: Normal oral and palatal mucosa present, no drooling and no muffled voice Eyes Periorbital: periorbital findings normal Eyelids: Yes eyelids normal Conjunctivae: conjunctival abnormal bilateral conjunctival injection Pupils: Equal, round and reactive pupils present EOM: EOMs intact bilaterally Direct Ophthalmoscopy: photophobia Neck Neck: Yes normal visual inspection, Yes full ROM and Yes no lymphadenopathy Chest Chest palpation & inspection: normal inspection of the chest Resp Effort & Inspection: normal respiratory effort and able to speak in complete sentences Auscultation: clear to auscultation bilaterally Cardio Rate: regular rate Rhythm: regular rhythm GI Inspection: Yes normal to inspection Neuro General: patient oriented x3 and moves all extremities Cranial nerves: Yes Equal, round and reactive pupils present Cognition (Neuro): normal cognition Motor exam (neuro): 5/5 motor strength present throughout Sensory Exam: Normal double simultaneous stimulation for sensation Coordination: [id number] test normal Extrem General: Yes normal to inspection, Yes full ROM and Yes capillary refill normal Psych Appearance: grossly normal Mental Status: mental status grossly normal Affect: normal affect Attitude: cooperative Thought process: Normal thought process present Thought content: Normal thought content present Insight: Good insight present (Psych) Medical Decision Making MDM Narrative Medical decision making narrative: Patient is a 40 year old female presenting to the emergency department today with bilateral eye irritation and pain in her sinuses. Patient's physical exam showed injected bilateral eyes and pain to palpation of the sinuses. I explained my physical exam findings to the patient. I answered all questions asked by the patient. I stressed the importance of the patient taking her medication as prescribed. I stressed the importance of the patient following up with her primary care provider and an internet security specialist. I stressed the importance of the patient returning to the emergency department immediately if her symptoms were to worsen or if she were to develop any dizziness, shortness of breath, difficulty breathing, chest pain, blurry vision, loss of vision, nausea, vomiting, abdominal pain, fever, chills, back pain, or any other complaints. Patient verbalized agreement and understanding with this treatment plan and discharge. Differential Diagnosis Differential Diagnosis: conjunctivitis, sinusitis Medical Records Medical records reviewed: Yes I reviewed the patient's medical records. Discharge Plan Discharge Clinical Impression: Conjunctivitis, Sinusitis Patient Disposition: Home, Self-Care Instructions: Sinusitis (ED), Conjunctivitis (ED) Additional Instructions: THROW AWAY YOUR CONTACTS AND YOUR CURRENT CONTACT CASE. Follow up with your primary care provider and an internet security specialist. Return to the emergency department immediately if your symptoms worsen or if you develop any dizziness, shortness of breath, difficulty breathing, chest pain, blurry vision, loss of vision, nausea, vomiting, abdominal pain, fever, chills, back pain, or any other complaints. Prescriptions: New erythromycin 5 mg/gram (0.5 %) ointment 1 appl ophthalmic (eye) 5XD 7 Days Qty: 3.5 0RF doxycycline hyclate 100 mg capsule 100 mg PO BID 7 Days Qty: 14 0RF No Action cholecalciferol (vitamin D3) 125 mcg (5,000 unit) capsule 125 mcg PO DAILY Qty: 30 2RF mecobalamin (vitamin B12) 1,000 mcg tablet,disintegrating 1,000 mcg sublingual DAILY Qty: 30 2RF Rx Instructions: place tablet under tongue and allow to dissolve for at least30 secs before swallowing omeprazole 40 mg capsule,delayed release(DR/EC) 40 mg PO DAILY Qty: 14 0RF loratadine [Claritin] 10 mg Tablet 10 mg PO BEDTIME cholecalciferol (vitamin D3) 50 mcg (2,000 unit) capsule 50 mcg PO DAILY Qty: 60 6RF Rx Instructions: 1 capsule daily clonazepam 0.5 mg tablet 0.5 mg PO BID fluticasone propionate 50 mcg/actuation spray,suspension intranasal pyridoxine (vitamin B6) 100 mg tablet 100 mg PO DAILY 90 Days Qty: 90 1RF bupropion HCl 150 mg tablet sustained-release 12 hr 150 mg PO BID Vitamin Plus Low Iron 27 mg iron- 1 mg tablet 1 tab PO DAILY Qty: 30 11RF misoprostol 200 mcg tablet 800 mcg vaginal ONCE 1 Days Qty: 4 0RF Rx Instructions: Insaert 800 mcg vaginal dose, 24 hours after Mifepristone dose by mouth Referrals: [facility] [Primary Care Provider] - Trung Miranda [Physician] - Stand Alone Forms: Work/School Release Interventions: ED Discharge Assessment Last Done: 08/11/21 16:44 Discharge Date/Time: 08/11/21 16:45 Print Language: Slovak
== END 2021-08-11 16:45 | disposition home or self-care (01) ==
PROVIDERS: Emergency Provider Emergency Medicine Emergency Medical Services
DX: H10.33 Unspecified acute conjunctivitis, bilateral (principal); J32.9 Chronic sinusitis, unspecified
CPT/HCPCS: 99282; 99283

== ENCOUNTER 2021-09-16 16:39 | Emergency (ER) | payer MEDICAID, SELFPAY ==
--- NOTE | ~2021-09-16 | XR_ITS ---
EXAMINATION: XR ELBOW, LEFT CLINICAL INFORMATION: Left elbow pain COMPARISON: None TECHNIQUE: AP, lateral, and oblique views of the left elbow. FINDINGS: No fracture, dislocation, or elbow joint effusion. Joint spaces are maintained. No osteophytes. No osseous lesion. XR/XR elbow LT min 3V IMPRESSION: No osseous abnormality. No elbow joint effusion.
[2021-09-16 17:05] VITALS: BP 123/77; PULSE 78; RESP 18; TEMP 36.8; O2SAT 100; BMI 41.3
--- NOTE | 2021-09-16 20:06 | ED.EXTPRO ---
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 No swelling no skin color changes Related Data Home Medications Medication Instructions Recorded Confirmed clonazepam 0.5 mg tablet 0.5 mg PO BID 01/01/21 05/30/21 fluticasone propionate 50 spray intranasal 01/01/21 05/11/21 mcg/actuation nasal spray,suspension bupropion HCl 150 mg tablet,12 hr 150 mg PO BID 03/02/21 05/30/21 sustained-release loratadine 10 mg tablet (Claritin) 10 mg PO BEDTIME 05/30/21 05/30/21 Previous Rx's Medication Instructions Recorded cholecalciferol (vitamin D3) 50 50 mcg PO DAILY #60 caps 12/31/19 mcg (2,000 unit) capsule pyridoxine (vitamin B6) 100 mg 100 mg PO DAILY 90 days #90 tabs 04/14/20 tablet vitamin with calcium 1 tab PO DAILY #30 tabs 03/02/21 no.72-iron 27 mg-folic acid 1 mg tablet ( Vitamins Plus Low Iron) cholecalciferol (vitamin D3) 125 125 mcg PO DAILY #30 caps 04/30/21 mcg (5,000 unit) capsule mecobalamin (vitamin B12) 1,000 1,000 mcg sublingual DAILY #30 tabs 04/30/21 mcg disintegrating tablet,sublingual omeprazole 40 mg capsule,delayed 40 mg PO DAILY #14 caps 04/30/21 release misoprostol 200 mcg tablet 800 mcg vaginal ONCE 1 day #4 tabs 06/29/21 doxycycline hyclate 100 mg capsule 100 mg PO BID 7 days #14 caps 08/11/21 erythromycin 5 mg/gram (0.5 %) eye 1 appl ophthalmic (eye) 5XD 7 days 08/11/21 ointment #3.5 grams diclofenac epolamine 1.3 % 1 patch topical BID #20 ea 09/16/21 transdermal 12 hour patch tramadol 50 mg tablet 50 mg PO Q6H PRN pain #20 tabs 09/16/21 Allergies Allergy/AdvReac Type Severity Reaction Status Date / Time Seasonal Allergies Allergy Unknown Unknown Verified 09/16/21 17:05 Review of Systems Review of Systems: Yes all other systems are reviewed and are negative [facility] Past Medical History Medical History Anemia Anxiety Depression Fibroid uterus GERD (gastroesophageal reflux disease) Hx of retained foreign body fully removed Kidney stones Lipoma of back Lipoma of right thigh Morbid obesity with BMI of 45.0-49.9, adult Ovarian cyst, left Pelvic pain Surgical History History of hip surgery History of surgery on wrist History of surgical removal of ganglion cyst Hx of section Family History Family History Mother HIV (human immunodeficiency virus infection) Dementia Brother No problems noted. Brother ADHD Schizophrenia Suicidal behavior with attempted self-injury Son No problems noted. Son No problems noted. Social History Social History Household Members Other:: sons 10+17 yrs old Are you a primary child care supervisor to a significant other at home: Yes Do you presently have visiting nurse or other home services: No Alcohol intake: current Alcohol intake frequency: a few times a month Alcohol type: hard liquor Patient Tobacco Use Status: Former Tobacco user Tobacco use type: Cigarette Substance Use Type: Marijuana Advance Directives: No Advance Directives Information Provided: No Current occupational status: employed Current occupation: teacher /rt hand Gender identity: Female Physical Exam Vital Signs: Vital Signs: Last Vital Signs Temp 98.3 F 09/16/21 17:05 Pulse 78 09/16/21 17:05 Resp 18 09/16/21 17:05 BP 123/77 09/16/21 17:05 Pulse Ox 100 09/16/21 17:05 O2 Del Method 09/16/21 17:05 BMI result Body Mass Index 41.3 Const: General: cooperative and healthy appearing Extrem: Elbow/forearm/wrist images: 1. Soft tissue tenderness with slight induration no skin color changes no local warmth good range of movement of the left elbow no bony tenderness MDM - Extremity (Nontraumatic) MDM Narrative Medical decision making narrative: Atraumatic left elbow pain x-ray negative examination reveals slight skin tenderness daily patient had a contusion discharge patient home on sling and pain medication Discharge Plan Discharge Clinical Impression: Musculoskeletal limb pain Patient Disposition: Home, Self-Care Instructions: Elbow Sprain (ED) Additional Instructions: Wear the sling for support, your x-rays negative for fracture Pain medication as prescribed Apply diclofenac patch twice daily Prescriptions: New tramadol 50 mg tablet 50 mg PO Q6H PRN (Reason: pain) Qty: 20 0RF diclofenac epolamine 1.3 % patch 12 hour 1 patch topical BID Qty: 20 0RF No Action cholecalciferol (vitamin D3) 125 mcg (5,000 unit) capsule 125 mcg PO DAILY Qty: 30 2RF mecobalamin (vitamin B12) 1,000 mcg tablet,disintegrating 1,000 mcg sublingual DAILY Qty: 30 2RF Rx Instructions: place tablet under tongue and allow to dissolve for at least30 secs before swallowing omeprazole 40 mg capsule,delayed release(DR/EC) 40 mg PO DAILY Qty: 14 0RF loratadine [Claritin] 10 mg Tablet 10 mg PO BEDTIME erythromycin 5 mg/gram (0.5 %) ointment 1 appl ophthalmic (eye) 5XD 7 Days Qty: 3.5 0RF doxycycline hyclate 100 mg capsule 100 mg PO BID 7 Days Qty: 14 0RF cholecalciferol (vitamin D3) 50 mcg (2,000 unit) capsule 50 mcg PO DAILY Qty: 60 6RF Rx Instructions: 1 capsule daily clonazepam 0.5 mg tablet 0.5 mg PO BID fluticasone propionate 50 mcg/actuation spray,suspension intranasal pyridoxine (vitamin B6) 100 mg tablet 100 mg PO DAILY 90 Days Qty: 90 1RF bupropion HCl 150 mg tablet sustained-release 12 hr 150 mg PO BID Vitamin Plus Low Iron 27 mg iron- 1 mg tablet 1 tab PO DAILY Qty: 30 11RF misoprostol 200 mcg tablet 800 mcg vaginal ONCE 1 Days Qty: 4 0RF Rx Instructions: Insaert 800 mcg vaginal dose, 24 hours after Mifepristone dose by mouth Interventions: ED Discharge Assessment Last Done: 09/16/21 20:30 Discharge Date/Time: 09/16/21 20:31
[2021-09-16] MEDS: traMADoL HCL 50 MG TABLET PO (20:22)
== END 2021-09-16 20:31 | disposition home or self-care (01) ==
PROVIDERS: Emergency Provider Internal Medicine; PCP Internal Medicine
DX: S59.902A Unspecified injury of left elbow, initial encounter (principal); M25.522 Pain in left elbow; X50.0XXA Overexertion from strenuous movement or load, initial encounter; X50.9XXA Other and unspecified overexertion or strenuous movements or postures, initial encounter; Y93.9 Activity, unspecified; Y92.9 Unspecified place or not applicable; Y99.0 Civilian activity done for income or pay; Z79.899 Other long term (current) drug therapy; Z87.891 Personal history of nicotine dependence
CPT/HCPCS: 73080; 99283

== ENCOUNTER → 2021-09-19 16:02 | Outpatient (BNVA) | payer MEDICAID, SELFPAY | PROVIDERS: Visit Provider Physician Assistant Surgical | DX: E66.01 Morbid (severe) obesity due to excess calories (principal); Z71.3 Dietary counseling and surveillance; Z68.41 Body mass index [BMI] 40.0-44.9, adult; Z79.899 Other long term (current) drug therapy; Z79.891 Long term (current) use of opiate analgesic | CPT/HCPCS: 99212 ==

== ENCOUNTER 2021-10-16 17:09 | Outpatient (REF) | payer MEDICAID, SELFPAY ==
[2021-10-16 17:31] LABS: MANUAL DIFF FLAG NO
[2021-10-16 18:08] LABS: Basophils Percent Auto 0.3 % (0-2); Eosinophils Absolute Auto 0.1 X10*3/uL (0.0-0.4); Eosinophils Percent Auto 1.6 % (0-4); Hematocrit 33.5 % (37.0-47.0); Hemoglobin 11.5 g/dl (12.0-16.0); Imm Gran Abs Auto 0.03 X10*3/uL (0.00-0.03); Imm Gran Pct Auto 0.4 % (0.0-0.4); Lymphocytes Percent Auto 39.6 % (20-40); Mean Corpuscular HGB Conc 34.3 g/dl (31.0-35.0); Mean Corpuscular Hemoglobin 29.1 pg (27.0-33.0); Mean Corpuscular Volume 84.8 fL (80.0-98.0); Mean Platelet Volume 12.1 fL (9.4-12.3); Monocytes Absolute Auto 0.4 X10*3/uL (0.1-1.2); Monocytes Percent Auto 5.4 % (2-11); Neutrophils Percent Auto 52.7 % (45-73); Platelet Count 232 X10*3/uL (160-400); Red Blood Count 3.95 X10*6/uL (4.20-5.50); Red Cell Distribution Width 13.2 % (11.0-16.0); White Blood Count 7.6 X10*3/uL (4.8-10.8)
[2021-10-16 18:25] LABS: Alanine Aminotransferase 20 U/L (0-31); Albumin Level 4.3 g/dL (3.5-5.0); Alkaline Phosphatase 38 U/L (39-117); Anion Gap 14 (12-20); Aspartate Amino Transferase 15 U/L (5-31); Bilirubin Total 0.2 mg/dL (0.0-1.0); Blood Urea Nitrogen 22 mg/dL (9-16); C Reactive Protein 0.63 mg/dL (< or = 0.50); Carbon Dioxide 25 mmol/L (22-29); Chloride 104 mmol/L (96-108); Cholesterol 160 mg/dL; Estimated Glomerular Filt Rate > 60; Glucose Random 96 mg/dL (60-115); HDL Cholesterol 69 mg/dL; Iron 57 mcg/dL (30-160); LDL Cholesterol Calculated 81 mg/dl; Percent Iron Saturation 13 % (15-50); Potassium 3.5 mmol/L (3.3-5.1); Sodium 139 mmol/L (135-145); Total Iron Binding Capacity 446 mcg/dL (228-428); Total Protein 7.1 g/dL (6.5-8.0); Triglycerides 52 mg/dL; Unsaturated Iron Binding 389 ug/dL
[2021-10-16 18:29] LABS: HCG Quantitative < 2 mIU/mL
[2021-10-16 18:52] LABS: Ferritin 24 ng/mL (10-122); TSH reflex Free T4 1.22 uIU/mL (0.32-4.0); Vitamin D 25-OH Total 25.6 ng/mL (>30)
[2021-10-16 19:24] LABS: Insulin 17 uU/mL (2-29)
[2021-10-17 05:38] LABS: Estimated Average Glucose 105 mg/dL; Hemoglobin A1c % 5.3 %
[2021-10-17 06:16] LABS: Folate 15.4 ng/mL (> or = 4.0); Vitamin B12 350 pg/mL (200-900)
[2021-10-18 12:26] LABS: PTHI 72 pg/mL (16-77)
[2021-10-19 05:56] LABS: Zinc 132 mcg/dL (60-130)
[2021-10-20 13:46] LABS: Vitamin B1 15 nmol/L (8-30)
[2021-10-20 20:47] LABS: Vitamin A 54 mcg/dL (38-98)
== END 2021-10-16 17:10 | disposition home or self-care (01) ==
LOC: HO.LAB 17:09
PROVIDERS: Obstetrics & Gynecology; PCP Internal Medicine; Visit Provider Physician Assistant Surgical
DX: O03.4 Incomplete spontaneous abortion without complication (principal); E66.01 Morbid (severe) obesity due to excess calories
CPT/HCPCS: 36415; 80053; 80061; 82306; 82607; 82728; 82746; 83036; 83525; 83540; 83970; 84425; 84443; 84590; 84630; 84702; 85025; 86140

== ENCOUNTER → 2021-10-19 16:09 | Outpatient (BNVA) | payer MEDICAID, SELFPAY | PROVIDERS: PCP Internal Medicine; Visit Provider Physician Assistant Surgical | DX: E66.9 Obesity, unspecified (principal); Z68.39 Body mass index [BMI] 39.0-39.9, adult | CPT/HCPCS: 99212 ==

== ENCOUNTER → 2021-10-25 16:00 | Outpatient (BNVA) | payer OTHER, MEDICAID, SELFPAY | PROVIDERS: PCP Internal Medicine; Visit Provider Counselor Mental Health | DX: E66.01 Morbid (severe) obesity due to excess calories (principal); Z68.42 Body mass index [BMI] 45.0-49.9, adult; F32.2 Major depressive disorder, single episode, severe without psychotic features; F90.2 Attention-deficit hyperactivity disorder, combined type | CPT/HCPCS: 90834 ==

== ENCOUNTER → 2021-10-29 13:05 | Outpatient (BNVA) | payer MEDICAID, SELFPAY | PROVIDERS: PCP Internal Medicine; Visit Provider Physician Assistant Surgical | DX: Z11.0 Encounter for screening for intestinal infectious diseases (principal) | CPT/HCPCS: 99211 ==

== ENCOUNTER 2021-10-29 16:11 | Outpatient (REF) | payer MEDICAID, SELFPAY ==
[2021-10-30 15:11] LABS: H Pylori Breath Test Negative (Negative)
== END 2021-10-29 16:12 | disposition home or self-care (01) ==
LOC: HO.LNP 16:11
PROVIDERS: Visit Provider Physician Assistant Surgical
DX: E66.01 Morbid (severe) obesity due to excess calories (principal)
CPT/HCPCS: 83013

== ENCOUNTER → 2021-11-01 15:52 | Outpatient (BNVA) | payer MEDICAID, SELFPAY | PROVIDERS: PCP Internal Medicine; Visit Provider Dietitian, Registered | DX: E66.9 Obesity, unspecified (principal); Z68.38 Body mass index [BMI] 38.0-38.9, adult | CPT/HCPCS: 97802 ==

== ENCOUNTER 2021-11-07 08:45 | Outpatient (REF) | payer MEDICAID, SELFPAY ==
--- NOTE | ~2021-11-07 | US_ITS ---
EXAMINATION: US OBSTETRICAL ULTRASOUND CLINICAL INFORMATION: Abdominal pain. COMPARISON: Pelvic ultrasound 07/24/2021. LMP: 09/29/2021. Gestational age by maternal dates is 5 weeks and 4 days. Estimated date of delivery by maternal dates is 07/06/2022. TECHNIQUE: Ultrasound of the maternal pelvis is performed using transabdominal and transvaginal transducers. Transvaginal imaging is performed due to inadequate visualization transabdominally. M-mode Doppler is also performed. FINDINGS: There is a single intrauterine gestational sac with visible yolk sac. No pole is noted. There is a small subchorionic bleed measuring approximately up to 1 cm. Gestational sac: 1.65 cm (6 weeks and 4 days +/- 4 days). The cervical os is closed. Small nabothian cysts are identified in the cervix. MATERNAL ADNEXA: The right ovary measures 4.3 x 2.7 x 2.8 cm. There is a 2.3 cm corpus luteum in the right ovary. The left ovary measures 3.2 x 2.4 x 2 cm. There is a 1.8 cm simple cyst, likely a follicle, in the left ovary. There is preserved color flow to both ovaries at the moment of this examination. No free fluid. US/US OB pelvic and transvaginal IMPRESSION: Single intrauterine gestational sac with a sonographic gestational age of 6 weeks and 4 days. No pole is identified at this time, possibly too early in gestation versus failure. Recommend correlation with quantitative hCG and a very short-term follow-up pelvic ultrasound. Small subchorionic bleed. No evidence of ovarian torsion at the moment of this examination.
[2021-11-07 10:12] LABS: HCG Quantitative 14387 mIU/mL
== END 2021-11-07 08:46 | disposition home or self-care (01) ==
LOC: HO.US 08:45
PROVIDERS: PCP Internal Medicine; Visit Provider Obstetrics & Gynecology
DX: O26.891 Other specified pregnancy related conditions, first trimester (principal); R10.9 Unspecified abdominal pain; Z3A.01 Less than 8 weeks gestation of pregnancy
CPT/HCPCS: 36415; 76801; 76817; 84702; 99212

== ENCOUNTER 2021-11-07 10:04 | Outpatient (REF) | payer MEDICAID, SELFPAY ==
[2021-11-07 18:14] LABS: CT PCR NOT DETECTED (Not Detect.); NG PCR NOT DETECTED (Not Detect.)
== END 2021-11-07 10:05 | disposition home or self-care (01) ==
LOC: HO.LNP 10:04
PROVIDERS: Visit Provider Obstetrics & Gynecology
DX: Z34.90 Encounter for supervision of normal pregnancy, unspecified, unspecified trimester (principal)
CPT/HCPCS: 87086; 87491; 87591

== ENCOUNTER → 2021-11-12 13:01 | Outpatient (BNVA) | payer OTHER, SELFPAY | PROVIDERS: PCP Internal Medicine; Visit Provider Counselor Mental Health | DX: F90.2 Attention-deficit hyperactivity disorder, combined type (principal); F32.2 Major depressive disorder, single episode, severe without psychotic features; E66.01 Morbid (severe) obesity due to excess calories | CPT/HCPCS: 90834 ==

== ENCOUNTER 2021-11-22 08:39 | Inpatient (IN) | payer MEDICAID, SELFPAY ==
[2021-11-12 10:26] VITALS: BMI 38.5
[2021-11-12 14:36] LABS: MANUAL DIFF FLAG NO
[2021-11-12 14:47] LABS: Basophils Percent Auto 0.5 % (0-2); Eosinophils Absolute Auto 0.2 X10*3/uL (0.0-0.4); Eosinophils Percent Auto 2.7 % (0-4); Hematocrit 34.8 % (37.0-47.0); Hemoglobin 12.4 g/dl (12.0-16.0); Imm Gran Abs Auto 0.01 X10*3/uL (0.00-0.03); Imm Gran Pct Auto 0.2 % (0.0-0.4); Lymphocytes Absolute Auto 2.1 X10*3/uL (1.2-4.9); Lymphocytes Percent Auto 33.2 % (20-40); Mean Corpuscular HGB Conc 35.6 g/dl (31.0-35.0); Mean Corpuscular Hemoglobin 30.3 pg (27.0-33.0); Mean Corpuscular Volume 85.1 fL (80.0-98.0); Mean Platelet Volume 11.5 fL (9.4-12.3); Monocytes Absolute Auto 0.3 X10*3/uL (0.1-1.2); Monocytes Percent Auto 4.7 % (2-11); Neutrophils Absolute Auto 3.7 x10*3/uL (2.0-8.3); Neutrophils Percent Auto 58.7 % (45-73); Platelet Count 236 X10*3/uL (160-400); Red Blood Count 4.09 X10*6/uL (4.20-5.50); Red Cell Distribution Width 13.2 % (11.0-16.0); White Blood Count 6.4 X10*3/uL (4.8-10.8)
[2021-11-12 15:06] LABS: Prothrombin Time 11.6 SEC (10.0-13.1)
[2021-11-12 15:59] LABS: Estimated Average Glucose 111 mg/dL; Hemoglobin A1c % 5.5 %
[2021-11-12 16:19] LABS: Alanine Aminotransferase 22 U/L (0-31); Albumin Level 4.3 g/dL (3.5-5.0); Alkaline Phosphatase 37 U/L (39-117); Anion Gap 15 (12-20); Aspartate Amino Transferase 16 U/L (5-31); Bilirubin Total 0.3 mg/dL (0.0-1.0); Blood Urea Nitrogen 13 mg/dL (9-16); C Reactive Protein 1.52 mg/dL (< or = 0.50); Calcium 9.3 mg/dL (8.4-10.2); Carbon Dioxide 24 mmol/L (22-29); Chloride 103 mmol/L (96-108); Cholesterol 179 mg/dL; Creatinine Clr Calc Pharmacy 111.2; Estimated Glomerular Filt Rate > 60; Glucose Random 85 mg/dL (60-115); HDL Cholesterol 67 mg/dL; LDL Cholesterol Calculated 101 mg/dl; Potassium 3.9 mmol/L (3.3-5.1); Sodium 138 mmol/L (135-145); Total Protein 7.3 g/dL (6.5-8.0); Triglycerides 56 mg/dL
[2021-11-12 17:13] LABS: Insulin 9 uU/mL (2-29)
--- NOTE | 2021-11-16 23:00 | MHC.SHP ---
Pre-Procedural Eval Section A Date of Service: 11/16/21 The patient is an INPATIENT: Yes The History & Physical has been completed within 30 days and I have reviewed it.: Yes Section B Chief Complaint: Obesity, unspecified Relevant Family History (Specify if Yes): No Relevant Social History: None Present Medications: None Medical History: No relevant PMH History of Previous Operations: No relevant previous surgery Allergies: Allergies Allergy/AdvReac Type Severity Reaction Status Date / Time Seasonal Allergies Allergy Unknown Unknown Verified 11/12/21 09:20 Review of Systems Sugical H&P ROS: Negative: Constitution, Cardiovascular, Respiratory, Neurological, Psychiatric, Hem-Onc, Allergic/Immunologic, Gastrointestinal, Genitourinary, Musculoskeletal, Integumentary, Endocrine and Eyes/Ears/Nose/Throat Exam Surgical H&P Exam: Normal: HEENT, Normal: Heart, Normal: Lungs, Normal: Extremities, Normal: Abdomen, Normal: Skin and Normal: Neurological Plan Diagnosis/Plan: Unchanged I have reviewed the history and physical and performed a pertinent physical examination on my patient. No changes have occurred unless specified.
--- NOTE | 2021-11-21 10:53 | P.CONAN_ITS ---
Documented by User: Sally Shultz NP 11/21/21 11:00 HPI - Anesthesia Eval Consult details Narrative: 40yo F for Gastrectomy Sleeve, EGD, possible diaphragmatic hernia, possible ventral hernia, possible open s/p elective AB 11/09/21 - Dr Cassandra saunders s/p D&C suction post missed AB 07/2021 with GA-LMA3 PMFSH Active Problems Active Problems: All Active Problems (Updated 11/09/21 @ 11:56 by Julio Anderson MD) Well woman exam with routine gynecological exam (Acute) Potential exposure to STD (Acute) Ovarian cyst (Acute) Nephrolithiasis (Acute) Contusion of right knee (Acute) Encounter to discuss test results (Acute) Simple ovarian cyst (Acute) Vitamin D deficiency (Acute) Vitamin B12 deficiency (Acute) H. pylori infection (Acute) Binge-eating disorder, severe (Acute) Major depressive disorder, severe (Acute) Post traumatic stress disorder (Acute) Learning disorder (Acute) Lipoma of right lower extremity (Acute) Attention deficit hyperactivity disorder (ADHD), combined type (Acute) Threatened (Acute) Missed (Acute) Family planning (Acute) Abnormal uterine bleeding (AUB) (Acute) Retained products of conception after miscarriage (Acute) Morbid obesity (Acute) Obesity (BMI 30-39.9) (Acute) control counseling (Acute) Abdominal pain in , antepartum (Acute) Early stage of (Acute) BMI 38.0-38.9,adult (Acute) Depression (Acute) Anxiety (Acute) GERD (gastroesophageal reflux disease) (Acute) Kidney stones (Acute) Morbid obesity with BMI of 45.0-49.9, adult (Acute) Pelvic pain (Acute) Past Medical History Medical History (Updated 11/22/21 @ 10:19 by Julio Anderson MD) Anemia Anxiety Depression Fibroid uterus GERD (gastroesophageal reflux disease) Hx of retained foreign body fully removed Kidney stones Lipoma of back Lipoma of right thigh Morbid obesity with BMI of 45.0-49.9, adult Ovarian cyst, left Pelvic pain Family History Family History Mother HIV (human immunodeficiency virus infection) Dementia Brother No problems noted. Brother ADHD Schizophrenia Suicidal behavior with attempted self-injury Son No problems noted. Son No problems noted. Surgical History Surgical History (Updated 11/22/21 @ 13:35 by ROBERT Elena) History of dilation and curettage History of elective History of hip surgery History of surgery on wrist History of surgical removal of ganglion cyst Hx of section History of Problems with Anesthesia: No Social History Social History Household Members Other:: sons 10+17 yrs old Are you a primary long term care administrator to a significant other at home: No Do you presently have visiting nurse or other home services: No Alcohol intake: current Alcohol intake frequency: other Alcohol type: hard liquor Patient Tobacco Use Status: Former Tobacco user Quit Date: stopped oct 2021 Tobacco use type: Cigarette Use of substances other than those prescribed or required for medical reasons: Yes Substance Use Type: Marijuana Substance Use Type Other:: daily Substance Use Frequency: Daily Have you been hit, kicked, punched, or otherwise hurt by someone within the past year? 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 Meds Allergies Allergy/AdvReac Type Severity Reaction Status Date / Time Seasonal Allergies Allergy Unknown Unknown Verified 11/12/21 09:20 Home Medications Medication Instructions Recorded Confirmed Last Taken Type clonazepam 0.5 mg tablet 0.5 mg PO BID 01/01/21 11/12/21 11/21/21 History fluticasone propionate 50 spray intranasal 01/01/21 11/09/21 Unknown History mcg/actuation nasal spray,suspension bupropion HCl 150 mg tablet,12 hr 150 mg PO BID 03/02/21 11/12/21 11/21/21 History sustained-release lisdexamfetamine 50 mg capsule 50 mg PO QAM 10/19/21 11/12/21 11/21/21 History (Sudarshan) Exam Exam Date and Time: November 21, 2021 1053 Height,Weight and Vital Signs: Height 5 ft 2 in Weight 95.708 kg Pertinent Lab Results Pertinent Lab Results: Laboratory Tests 11/12/21 11/12/21 11/12/21 14:35 14:35 14:35 WBC 6.4 RBC 4.09 L Hgb 12.4 Hct 34.8 L MCV 85.1 MCH 30.3 MCHC 35.6 H RDW 13.2 Plt Count 236 MPV 11.5 Immature Gran % (Auto) 0.2 Neut % (Auto) 58.7 Lymph % (Auto) 33.2 [place] % (Auto) 4.7 Eos % (Auto) 2.7 Baso % (Auto) 0.5 Lymph # (Auto) 2.1 [place] # (Auto) 0.3 Eos # (Auto) 0.2 Baso # (Auto) 0.0 Abs Immat Gran (auto) 0.01 Absolute Neuts (auto) 3.7 Absolute Nucleated RBC 0.000 Nucleated RBC % (auto) 0.0 PT 11.6 INR 1.0 APTT 27.0 Sodium 138 Potassium 3.9 Chloride 103 Carbon Dioxide 24 Anion Gap 15 BUN 13 Creatinine 0.74 Estim Creat Clear Calc 111.2 Estimated GFR > 60 Random Glucose 85 Estimat Average Glucose Hemoglobin A1c % Insulin Level 9 Calcium 9.3 Total Bilirubin 0.3 AST 16 ALT 22 Alkaline Phosphatase 37 L C-Reactive Protein 1.52 H Total Protein 7.3 Albumin 4.3 Triglycerides 56 Cholesterol 179 LDL Cholesterol, Calc 101 HDL Cholesterol 67 TSH 0.80 Blood Type Antibody Screen 11/12/21 11/12/21 14:35 14:35 WBC RBC Hgb Hct MCV MCH MCHC RDW Plt Count MPV Immature Gran % (Auto) Neut % (Auto) Lymph % (Auto) [place] % (Auto) Eos % (Auto) Baso % (Auto) Lymph # (Auto) [place] # (Auto) Eos # (Auto) Baso # (Auto) Abs Immat Gran (auto) Absolute Neuts (auto) Absolute Nucleated RBC Nucleated RBC % (auto) PT INR APTT Sodium Potassium Chloride Carbon Dioxide Anion Gap BUN Creatinine Estim Creat Clear Calc Estimated GFR Random Glucose Estimat Average Glucose 111 Hemoglobin A1c % 5.5 Insulin Level Calcium Total Bilirubin AST ALT Alkaline Phosphatase C-Reactive Protein Total Protein Albumin Triglycerides Cholesterol LDL Cholesterol, Calc HDL Cholesterol TSH Blood Type A Positive Antibody Screen NEGATIVE Narrative Narrative: EKG 04/2021 Vent. Rate : 081 BPM ? ? Atrial Rate : 081 BPM ?? P-R Int : 148 ms? QRS Dur : 084 ms ? ? QT Int : 414 ms ? ? ? P-R-T Axes : 057 055 013 degrees ?? QTc Int : 480 ms ? Normal sinus rhythm Prolonged QT Abnormal ECG No previous ECGs available ECHO STRESS 2020 Protocol: JACE ? Max HR: 162 BPM? 88% of? Pred: 183 BPM Max BP: 154/090 mmHG Max Work Load: 8.6 METS ? Exercise stress ECHO using Jace protocl, total of 7 min 5 sec. METS 8.60, TAPHR ?88 %. ? Pt tolerated well, c/o reproducable CP in her L breast area that ?increased after the exercise.EKG without any arrhythmias, no ischemic changes ?seen during exercise or in recovery. ? EHO images taken at rest and immediately ?after peak exercise.? Defenity contrast used.? Normotensive response to ?exercise.? Test reviewed with Dr. Kennedy.? Exercise stress echocardiogram was reviewed. At rest, there is normal LVEF and wall motion. With peak exericse, there is no? evidence of any exercise induced wall motion abnormality. There is normal decrease in end-systolic volumes. Overall, this? is a normal study.? ? Assessment and Plan Assessment Anesthesia Assessment: Chart Reviewed Final Anesthetic Review History of Problems with Anesthesia: No Documented by User: Walker Middleton MD 11/22/21 15:45 [facility] Past Medical History Medical History (Updated 11/22/21 @ 10:19 by Julio Anderson MD) Anemia Anxiety Depression Fibroid uterus GERD (gastroesophageal reflux disease) Hx of retained foreign body fully removed Kidney stones Lipoma of back Lipoma of right thigh Morbid obesity with BMI of 45.0-49.9, adult Ovarian cyst, left Pelvic pain Family History Family History Mother HIV (human immunodeficiency virus infection) Dementia Brother No problems noted. Brother ADHD Schizophrenia Suicidal behavior with attempted self-injury Son No problems noted. Son No problems noted. Family history of problems with anesthesia: No Surgical History Surgical History (Updated 11/22/21 @ 13:35 by ROBERT Elena) History of dilation and curettage History of elective History of hip surgery History of surgery on wrist History of surgical removal of ganglion cyst Hx of section Social History Social History Household Members Other:: sons 10+17 yrs old Are you a primary long term care administrator to a significant other at home: No Do you presently have visiting nurse or other home services: No Alcohol intake: current Alcohol intake frequency: other Alcohol type: hard liquor Patient Tobacco Use Status: Former Tobacco user Quit Date: stopped oct 2021 Tobacco use type: Cigarette Use of substances other than those prescribed or required for medical reasons: Yes Substance Use Type: Marijuana Substance Use Type Other:: daily Substance Use Frequency: Daily Have you been hit, kicked, punched, or otherwise hurt by someone within the past year? 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 Meds Allergies Allergy/AdvReac Type Severity Reaction Status Date / Time Seasonal Allergies Allergy Unknown Unknown Verified 11/12/21 09:20 Home Medications Medication Instructions Recorded Confirmed Last Taken Type clonazepam 0.5 mg tablet 0.5 mg PO BID 01/01/21 11/12/21 11/21/21 History fluticasone propionate 50 spray intranasal 01/01/21 11/09/21 Unknown History mcg/actuation nasal spray,suspension bupropion HCl 150 mg tablet,12 hr 150 mg PO BID 03/02/21 11/12/21 11/21/21 History sustained-release lisdexamfetamine 50 mg capsule 50 mg PO QAM 0911/12/21 11/21/21 History (Vlisae) Exam Airway Mallampati Class: III TM Dist: >3cm Neck ROM: Full Loose/Missing/Broken Teeth: Yes (Chipped teeth , fillings ) Heart: S1,S2 Lungs: b/l breath sounds Assessment and Plan Final Anesthetic Review Family History of Problems with Anesthesia: No NPO: Yes ASA Class: II Final Preanesthetic Review: Meds/Allgs Chart Reviewed, Consent Obtained/Reviewed and Anes Risks/Benef Reviewed Patient Risk: Intermediate Procedure Risk: Intermediate Anesthetic Plan Anesthetic Plan: GA Disposition: Standard PACU
[2021-11-21 14:51] LABS: COVID-19 Test Negative (Negative)
[2021-11-22] VITALS (16 sets, daily range): BP systolic 112–170; BP diastolic 69–99; PULSE 71–87; RESP 15–21; TEMP 36.7–36.9; O2SAT 96–100
[2021-11-22 08:55] LABS: UPreg QC Valid YES; Urine Pregnancy NEGATIVE (NEGATIVE)
[2021-11-22] MEDS: Lactated Ringers 1,000 ML 100 ML IVCONT (09:55)
--- NOTE | 2021-11-22 09:58 | PHA.MEDREC ---
Pharmacy Consult ? Medication Reconciliation Pharmacy has completed the medication reconciliation. Doses of medications seemed off from claim history, confirmed with Charissa that she spoke to pt directly.
--- NOTE | 2021-11-22 10:13 | PM.OP ---
Brief Operative Note Date of Service: 11/22/21 Pre-op diagnosis: Severe obesity with comorbidities (see below) Post-op diagnosis: same Procedure: INITIAL PATIENT BMI ON PRESENTATION AT OUR OFFICE: 46.3 kg/m2 LAST BMI BEFORE SURGERY: 38.2 kg/m2 COMORBIDITIES: GERD, nephrolithiasis, depression, gallbladder adenomyomatosis ?The patient presented to the Weight Management Program with significant obesity that was negatively impacting the patient's comorbidities as listed above.? The program is a phased program with a special focus on preoperative medical weight management to promote substantial weight loss and prepare the patients for the second phase of the program: bariatric surgery. The patient participated in an intensive weekly lifestyle ?intervention and exercise program during which the patient ?has lost between the initial office visit and the last preoperative visit 45.8lbs, or 18.09% of initial actual body weight. It was deemed appropriate for the patient to now have bariatric surgery. In light of the current Covid-19 pandemic and the well documented strong association of obesity and increased risk of worse outcomes if infected with Covid-19 (REFERENCES:https://pubmed.ncbi.nlm.nih.gov/19579680/,?https://pubmed.ncbi.nlm.nih.gov/36179881/), any delay in undergoing bariatric surgery may lead to the patient's worsening health condition and increased?risk of more severe Covid-19 disease if infected. In addition a recent?study from [facility] published in [facility] on 02/12/2021 ([email or web address]) found that, among patients with obesity, substantial weight loss achieved with surgery was associated with improved outcomes of COVID-19 infection. The findings suggest that obesity can be a modifiable risk factor for the severity of COVID-19 infection. In addition, the patient met the BMI-criteria for bariatric surgery based on the BMI on initial presentation. The patient should not be penalized for achieving such weight loss because ?it is not sustainable long-term without surgical intervention and it was achieved in preparation for bariatric surgery ?under my direction and based on my published research ([email or web address] and?[email or web address].soard.org/[email or web address])[email or web address]-X/pdf) ?that a 10% preoperative weight loss improves long-term weight loss after surgery and reduces perioperative complications.? Insurance carriers such as [facility] have endorsed my recommendations ?and have included in their policies criteria to include a 10% preoperative weight loss requirement. PROCEDURE: Esophago-gastroscopy, laparoscopic repair of incarcerated diaphragmatic hernia, laparoscopic lysis of adhesions, laparoscopic sleeve gastrectomy and laparoscopic gastropexy INDICATIONS: This is a 40 year-old female who was electively scheduled for laparoscopic, possibly open sleeve gastrectomy. The risks and complications of the procedure were discussed with the patient in advance, particularly the possibility of ; pulmonary embolism; staple line leak; bleeding; GERD; cardiac, pulmonary, or renal complications; as well as long-term problems such as insufficient weight loss, vitamin deficiency, strictures, or ulcers. The patient understood all the risks, and was in agreement to proceed with surgery. DESCRIPTION OF PROCEDURE: After informed consent was obtained from the patient, the patient was given preoperative antibiotics, and was transferred to the operating room. After successful induction of general anesthesia, pneumatic compression devices were placed on both lower extremities. An upper endoscopy was performed next. The oropharynx and esophagus appeared to be within normal limits. There was no diaphragmatic hernia present consistent with the findings of the preoperative upper GI. The stomach was entered. Then after all fluid and air were suctioned and the stomach was fully decompressed, the scope was withdrawn and secured in the mid esophagus. The patient was then prepped and draped in the usual sterile manner, and abdominal access was established at the right upper quadrant with the Harvinder technique. A 12 mm blunt port was inserted, and the abdomen was insufflated with CO2 to a pressure of 15 mmHg. Under direct visualization, additional ports were placed, specifically two 5 mm Versi-step ports to the left upper quadrant, and a 5 mm Versi-Step port to the right upper quadrant. 1% lidocaine plain was used to infiltrate all port sites as well as all fascia defects. Following that, the patient was placed in a steep reverse Trendelenburg position. An additional 5 mm port was placed to the right flank for the Mediflex retractor that was used to retract the left lobe of the liver. The gastro-esophageal fat pad was opened with the ultrasonic device (Thunderbeat, Olympus) and the anterior esophagus and hiatus were exposed. The angle of His was opened with the ultrasonic device the fundus of the stomach from any diaphragmatic and splenic attachments. I then opened the gastrocolic ligament between the transverse colon and the greater curvature of the stomach with the ultrasonic device to enter the lesser sac and facilitate the ligation of the short gastric vessels. I started at a mid-point along the greater curvature and using the Thunderbeat, all short gastric vessels were divided all the way to the angle of His until the left pat was completely dissected at its entirety. I then divided the gastro-colic ligament distally to a distance of about 3-4 cm proximal to the pylorus.? The stomach was then divided transversely with one Endo LUCINA-45 purple, one LUCINA-60 purple load, one LUCINA-45 orange load and three LUCINA-60 articulating orange loads using the AEON stapler and loads. Every effort was made that the gastric sleeve had a tubular shape and an even caliber throughout. Once the sleeve resection was completed, the staple line of the gastric sleeve was reinforced with Hemoclips. The resected stomach was retrieved without difficulty from the Harvinder port. A gastropexy was then performed in order to prevent postoperative GERD and partial gastric volvulus. Several interrupted 2.0 Surgidac sutures were placed between the sleeve's staple line and the previously divided greater omentum and gastro-colic ligament using the Endo-Stitch device. ?An upper endoscopy was performed. There was no narrowing at the GE junction. The scope was easily advanced all the way to the pylorus which was clearly visualized. There was no narrowing anywhere and the sleeve's caliber was even throughout. The sleeve's staple line was inspected and there was no evidence of ischemia, bleeding or dehiscence. At that point the gastroscope was withdrawn from the patient?s mouth while we were decompressing the bowel and the stomach from any remaining air. I looked into the lesser sac to see how the sleeve was situating and it was situating well. There was no bleeding from the staple line, spleen, or short gastric vessels. The Mediflex retractor was removed, and the undersurface of the liver was inspected and there was no bleeding. The patient was placed in supine position. I closed the fascial defect of the 12 mm port site with a figure of eight #1 Polysorb suture. Then 30cc of Ropivacaine plain with 10 mg of Dexamethasone were used to infiltrate the fascial closure as well as all skin incisions. A total of 7ml of Zynrelef was applied in the Harvinder wound. At this point, the abdomen was deflated, all ports were removed under direct vision, and no bleeding was noted from any of the port sites. The skin incisions were irrigated with saline and were closed with 4-0 absorbable monofilament sutures. Steri-Strips and OpSites were used to cover all incisions. The patient was extubated and was transferred in stable condition to the recovery room for further care. I was present and performed all antonio parts of the procedure. Mr Padron was the international first officer. There were no residents to assist with this case. Padilla Anderson MD, PhD, FACS Surgeon: Julio Anderson MD Anesthesia: GETA, local and other (TAP block and 7ml of Zynrelef) Was an Refinery Operator Reforming Unit used for this Procedure?: No Refinery Operator Reforming Unit: Rj Padron Estimated blood loss (mL): 10 IV fluids (mL): 2,600 Urine output (mL): 0 (No Schmid to record) Pathology: other (Stomach) Condition: stable Disposition: PACU
--- NOTE | 2021-11-22 10:16 | PM.PNGS ---
Subjective Subjective Date of Service: 11/23/21 Interval history: Patient has mild incisional pain, but was able to ambulate and use the incentive spirometer. She is tolerating phase 1 bariatric diet Physical Exam Vital Signs: Vital Signs: Last Vital Signs Temp 98.2 F 11/22/21 09:08 Pulse 72 11/22/21 09:08 Resp 16 11/22/21 09:08 BP 112/69 11/22/21 09:08 Pulse Ox 97 11/22/21 09:08 O2 Del Method 11/22/21 09:08 BMI result Body Mass Index 38.5 GI: Inspection: Yes normal to inspection, Yes incision (clean, dry and intact) and Yes obesity Extrem: Right lower extremity: normal to inspection (no calf tenderness) Left lower extremity: normal to inspection (no calf tenderness) Objective Data Active Medications Lactated Ringer's (Lr) 1,000 mls @ 100 mls/hr IVCONT .Q10H SUSI Lactated Ringer's (Lr) 1,000 mls @ 999 mls/hr IV .Q1H1M SUSI Stop: 11/22/21 10:45 Labs CBC & Chem 7: 11/23/21 05:31 11/23/21 05:31 Labs: Laboratory Results - last 24 hr 11/21/21 11/22/21 14:25 08:40 Urine Test NEGATIVE COVID-19 ([facility]) Negative COVID-19 Clin Com See Note Procedures Date of Service Date of Service: 11/23/21 Progress Note: A&P Assessment and plan (1) Obesity (BMI 30-39.9): Status: Acute Assessment and Plan: s/p laparoscopic sleeve gastrectomy and gastropexy Doing well Check am labs. If OK, will discharge home (2) BMI 38.0-38.9,adult: Status: Acute (3) Post traumatic stress disorder: Status: Acute (4) Attention deficit hyperactivity disorder (ADHD), combined type: Status: Acute (5) Depression: Status: Acute (6) Anxiety: Status: Acute (7) GERD (gastroesophageal reflux disease): Status: Acute (8) Kidney stones: Status: Acute (9) Adenomyomatosis of gallbladder: Status: Acute (10) S/P laparoscopic sleeve gastrectomy: Status: Acute Time Spent With Patient Time: Total time spent is greater than 50% in coordination of care (as documented) at patient's floor/unit and/or counseling patient: Quality Stroke Does the patient have a stroke diagnosis?: No VTE Prior VTE?: No VTE Risk Level:: Surgical - moderate VTE Device Contraindication: N/A - Device Ordered VTE Drug Contraindication: Treatment Not Indicated
--- NOTE | 2021-11-22 13:33 | P.DS_ITS ---
DS: Providers Provider Date of Service: 11/23/21 Date of admission: 11/22/21 08:39 Primary care physician: Soha Rico MD DS: Diagnosis Discharge Diagnosis (1) Obesity (BMI 30-39.9): Status: Acute (2) BMI 38.0-38.9,adult: Status: Acute (3) Post traumatic stress disorder: Status: Acute (4) Attention deficit hyperactivity disorder (ADHD), combined type: Status: Acute (5) Depression: Status: Acute (6) Anxiety: Status: Acute (7) GERD (gastroesophageal reflux disease): Status: Acute (8) Kidney stones: Status: Acute (9) Adenomyomatosis of gallbladder: Status: Acute DS: Summary Hospital Course Hospital Course: ADMITTING DIAGNOSIS: obesity, anxiety, depression, gerd ? DISCHARGE DIAGNOSIS: same, s/p laparoscopic sleeve gastrectomy ? PAST SURGICAL HISTORY: cesarian section, wrist surgery ? PROCEDURE: upper endoscopy, laparoscopic sleeve gastrectomy ? DISCHARGE SUMMARY: ? History of Present Illness: ? The patient is a?40 year-old woman with a BMI of?46.3 kg/m2 and associated co- morbidities as described above. The patient had extensive work-up,lost?41.6 lbs preoperatively and was electively scheduled for laparoscopic, possible open sleeve gastrectomy and gastropexy. Risks and complications of the surgery were discussed with the patient in advance, particularly the possibility of , pulmonary embolism, anastomotic leak, bleeding, bowel injury, GERD, cardiac, renal or pulmonary complications. The patient understood all the risks and was in agreement with the surgical plan. ? Hospital Course: ? The patient underwent an uneventful laparoscopic sleeve gastrectomy with gastropexy on the day of admission. Postoperatively, the patient was transferred to the surgical floor. The patient received IV Acetaminophen and IV dilaudid for pain control. Patient was started on bariatric phase 1 diet POD #0. On postoperative day one, the patient was feeling well without nausea, vomiting, fevers, or tachycardia. The patient had some mild incisional pain and the abdomen was soft. ? On the morning of postoperative day one, the patient was continued on 1 ounce of water or ice every half hour. During the day, the patient did fairly well, having some incisional pain, but able to ambulate adequately and to tolerate liquids well. ? Since the patient is doing well, we decided that the patient was ready to be discharged. The patient was given instructions to follow-up with me next week and to call my office for any fever over 101, persistent abdominal pain, nausea, vomiting, GERD, symptoms of DVT such as calf tenderness, or leg swelling, or pulmonary embolism such as chest pain or shortness of breath. The patient was also instructed to drink 40-60 ounces of liquids per day using the 1-ounce cups. The patient had been given prescriptions for Tylenol for pain, Zofran prn for nausea, and pantoprazole and carafate previously. The patient was encouraged to ambulate and use the incentive spirometer. The patient was allowed to shower, but no baths, and encouraged to stay active at home. All of these instructions were given to the patient personally. All questions were answered and the patient understood all instructions, the instructions were also given to the patient in print. Time Spent with Patient Time attestation: Total time spent providing and/or coordinating discharge services: Discharge coordination time: Less than 30 minutes Quality: Safe Use of Opioids Does Pt have an Active Cancer Diagnosis on the Problem List?: No Quality: Stroke Does the patient have a stroke diagnosis?: No Physical Exam Vital Signs: Vital Signs: Last Vital Signs Temp 98.2 F 11/22/21 09:08 Pulse 72 11/22/21 09:08 Resp 16 11/22/21 09:08 BP 112/69 11/22/21 09:08 Pulse Ox 97 11/22/21 09:08 O2 Del Method 11/22/21 09:08 BMI result Body Mass Index 38.5 DS: Data Data Completed and Pending Pending studies at discharge: Pending at discharge 11/22/21 12:37 Surgical [PTH] Routine Labs on day of discharge: Laboratory Results - last 24 hr 11/21/21 11/22/21 14:25 08:40 Urine Test NEGATIVE COVID-19 ([facility]) Negative COVID-19 Clin Com See Note Discharge Plan Discharge Anticipated Discharge Date/Time: 11/23/21 10:00 Patient Disposition: Home, Self-Care Discharge Diagnosis: s/p laparoscopic sleeve gastrectomy Referrals: Soha Rico MD [Primary Care Provider] - 1 Week Discharge Medications: Continued clonazepam 0.5 mg tablet 0.5 mg PO BID fluticasone propionate 50 mcg/actuation spray,suspension intranasal pantoprazole 40 mg tablet,delayed release (DR/EC) 40 mg PO DAILY Qty: 30 2RF sucralfate 100 mg/mL suspension 10 ml PO BID Qty: 400 2RF ondansetron HCl 4 mg tablet 4 mg PO Q12H Qty: 20 0RF bupropion HCl 150 mg tablet sustained-release 12 hr 150 mg PO BID Vyvanse 50 mg capsule 50 mg PO QAM Discontinued cholecalciferol (vitamin D3) 125 mcg (5,000 unit) capsule 125 mcg PO DAILY Qty: 30 3RF polyethylene glycol 3350 [Miralax] 17 gram powder in packet 17 g PO DAILY Qty: 14 0RF Rx Instructions: Mix each packet with 8oz of water and do 7 packets on 11/20/21 and another 7 packets on 11/21/21 Discharge Orders: Discharge Order (Routine); Ordered 11/23/21 Ordered By: Julio Anderson Activity on Discharge: No heavy lifting Stand Alone Forms: Patient Portal Discharge page Care Plan Goals: weight loss Health Concerns: obesity Plan of Treatment: No tub baths, sex or returning to work until discussed at first post op appointment. No exercise, alcohol, tobacco or illegal drug use. Continue to use incentive spirometer hourly while awake. Walk in home for 5- 10 minutes every 2 hours during the first week. Follow all instructions in the bariatric handbook and call with any questions.Discharge Instructions 1. Please call your doctor or come back to the emergency room should any new symptoms arise. 2. You will receive a courtesy call from [facility] 24-48 hours after discharge. 3. Activity: abstain from alcohol, practice limited stair climbing, no bending, no driving, no exercise, no illicit substances, no lifting, no sex, no tub bath, no work. 4. Diet: continue as discussed with Dr. Anderson. 5. Dressing Change/Wound Care: Your incision is covered by clear bandages and g uaze underneath. If the area is tender, you may apply an ice pack for short intervals (no more than 20 minutes on, followed by at least 20 minutes off). Do not apply heat. Do not use creams, lotions, or topical antibiotics unless instructed to do so by your surgeon. These can cause infection or allergic reaction. 6. Call your doctor if: - Your temperature exceeds 101.5 F - You experience excessive pain or swelling - You have an unexpected reaction to medication - You have excessive bleeding - You experience continued vomiting/nausea - Your incision begins to separate - Your incision shows signs of infection such as increased redness, swelling, excessive pain, heat, or drainage (light blood or clear fluid is normal) 7. General instructions: No lifting greater than 5 lbs for the next 4 weeks[address] driving within 24 hours of taking narcotic pain medications. If you do not move your bowels in the next 2 days, please take milk of magnesia over the counter. Please follow the post op diet and do not advance your diet until you are seen in the office in about 2 weeks. Please walk around your home every hour or two to prevent blood clots from forming in your legs. You do not need to wake from sleeping to walk. Please sleep in a bed or couch to prevent kinking at the hips and knees. Please take your incentive spirometer (your lung sandwich machine operator) home with you and use it for the next few days to prevent pneumonias. You may shower, no hot tubs, baths or swimming pools. Please call the office with any questions or concerns such as increasing abdominal pain, fever, chills, shortness of breath, chest pain, leg pain or swelling, or redness or drainage from your incisions. Please stay on stage 3 diet which includes sugar free clear liquids such as ice pops and jello and broth and crystal light. Avoid all carbonation. Please drink 3 protein shakes with at least 25-30 grams of protein daily or 3 of the Celebrate 4:1 shakes which can be purchased in our office. The Celebrate shakes have all of the bariatric vitamins you need if you consume these shakes. If you are drinking other protein shakes, you will need to purchase the Celebrate multivitamins and calcium that we provide in the office (they will provide all the vitamins you need). Please make sure you are consuming at least 40-60 ounces of water in addition to your 3 protein shakes daily. Do not hesitate to contact the office with any questions at . The patient's medical history has been reviewed and they are considered low risk for post op DVT and therefore DVT prophylaxis is not considered necessary. Travel after surgery was reviewed. The patient has not disclosed any travel plans during the first 30 days after surgery and they have been advised that within the first 30 days after surgery any bus, plane, train or car travel over 2 hours in duration is contraindicated due to the possibility of developing blood clots from immobility. Any travel, needs to include periods of ambulation of 10 minutes in duration every 2 hours.? The patient was instructed to discuss any plans for travel during this period with their bariatric surgeon. Assessment: stable s/p laparoscopic sleeve gastrectomy
[2021-11-22] MEDS: Lactated Ringers 1,000 ML 125 ML IVCONT ×2 (13:55→21:43)
[2021-11-22 14:07] LABS: Hematocrit 34.5 % (37.0-47.0); Hemoglobin 11.8 g/dl (12.0-16.0)
[2021-11-22 14:24] LABS: Anion Gap 13 (12-20); Blood Urea Nitrogen 13 mg/dL (9-16); Calcium 8.8 mg/dL (8.4-10.2); Carbon Dioxide 26 mmol/L (22-29); Chloride 103 mmol/L (96-108); Creatinine Clr Calc Pharmacy 104.1; Estimated Glomerular Filt Rate > 60; Glucose Random 135 mg/dL (60-115); Potassium 3.8 mmol/L (3.3-5.1); Sodium 138 mmol/L (135-145)
[2021-11-22] MEDS: HYDROmorphone HCl 0.5 MG/0.5 ML SYRINGE 0.25 MG IVPUSH ×5 (14:29→19:50)
[2021-11-22] MEDS: ceFAZolin Sodium/Dextrose,Iso 2 GM/50 ML PIGGYBACK IV (16:32)
[2021-11-22] MEDS: ondansetron HCL 4 MG/2 ML VIAL IVPUSH (19:50)
[2021-11-22] MEDS: 0.9 % Sodium Chloride Flush 3 ML SYRINGE IVFLUSH (19:50)
[2021-11-22] MEDS: Famotidine/PF 20 MG/2 ML VIAL IVPUSH (19:50)
[2021-11-22] MEDS: clonazePAM 0.5 MG TABLET PO (19:51)
[2021-11-23] VITALS: BP 140/90; PULSE 63; RESP 16; TEMP 36.6; O2SAT 99
[2021-11-23] MEDS: HYDROmorphone HCl 0.5 MG/0.5 ML SYRINGE 0.25 MG IVPUSH (01:12)
[2021-11-23] MEDS: Metoclopramide HCl 10 MG/2 ML VIAL IVPUSH (01:19)
[2021-11-23 03:49] VITALS: BP 156/98; PULSE 68; RESP 16; TEMP 36.7; O2SAT 96
[2021-11-23] MEDS: ondansetron HCL 4 MG/2 ML VIAL IVPUSH (05:02)
[2021-11-23] MEDS: Lactated Ringers 1,000 ML 125 ML IVCONT (05:02)
[2021-11-23 06:25] LABS: MANUAL DIFF FLAG NO
[2021-11-23 06:31] LABS: Basophils Percent Auto 0.1 % (0-2); Hematocrit 33.3 % (37.0-47.0); Hemoglobin 11.5 g/dl (12.0-16.0); Imm Gran Abs Auto 0.01 X10*3/uL (0.00-0.03); Imm Gran Pct Auto 0.1 % (0.0-0.4); Lymphocytes Absolute Auto 2.1 X10*3/uL (1.2-4.9); Lymphocytes Percent Auto 26.4 % (20-40); Mean Corpuscular HGB Conc 34.5 g/dl (31.0-35.0); Mean Corpuscular Hemoglobin 29.1 pg (27.0-33.0); Mean Corpuscular Volume 84.3 fL (80.0-98.0); Mean Platelet Volume 11.7 fL (9.4-12.3); Monocytes Absolute Auto 0.6 X10*3/uL (0.1-1.2); Monocytes Percent Auto 8.2 % (2-11); Neutrophils Absolute Auto 5.1 x10*3/uL (2.0-8.3); Neutrophils Percent Auto 65.2 % (45-73); Platelet Count 242 X10*3/uL (160-400); Red Blood Count 3.95 X10*6/uL (4.20-5.50); Red Cell Distribution Width 12.6 % (11.0-16.0); White Blood Count 7.8 X10*3/uL (4.8-10.8)
[2021-11-23 06:44] LABS: Anion Gap 16 (12-20); Blood Urea Nitrogen 7 mg/dL (9-16); Calcium 8.5 mg/dL (8.4-10.2); Carbon Dioxide 23 mmol/L (22-29); Chloride 101 mmol/L (96-108); Creatinine Clr Calc Pharmacy 128.5; Estimated Glomerular Filt Rate > 60; Glucose Random 91 mg/dL (60-115); Potassium 3.6 mmol/L (3.3-5.1); Sodium 136 mmol/L (135-145)
[2021-11-23] MEDS: 0.9 % Sodium Chloride Flush 3 ML SYRINGE IVFLUSH (07:32)
[2021-11-23] MEDS: clonazePAM 0.5 MG TABLET PO (07:33)
[2021-11-23] MEDS: buPROPion HCl XL 300 MG TAB.ER.24H PO (07:33)
[2021-11-23] MEDS: Famotidine/PF 20 MG/2 ML VIAL IVPUSH (07:33)
[2021-11-23 07:59] VITALS: BP 149/73; PULSE 70; RESP 17; TEMP 36.3; O2SAT 98
== END 2021-11-23 13:00 | disposition home or self-care (01) | DRG 403 ==
LOC: HO.SSSA 13:35 → HO.S3 13:43
PROVIDERS: Nurse Practitioner; Physician Assistant Surgical; Admitting Provider Surgery; PCP Internal Medicine; Visit Provider Surgery
PROC: 0DB64Z3 Excision of Stomach, Percutaneous Endoscopic Approach, Vertical (ICD-10-PCS; CPT 43845; principal; 2021-11-22 10:10)
DX: E66.01 Morbid (severe) obesity due to excess calories (principal); F41.9 Anxiety disorder, unspecified; F43.10 Post-traumatic stress disorder, unspecified; F90.9 Attention-deficit hyperactivity disorder, unspecified type; Z20.822 Contact with and (suspected) exposure to COVID-19; Z68.38 Body mass index [BMI] 38.0-38.9, adult; Z87.442 Personal history of urinary calculi; Z87.891 Personal history of nicotine dependence; Z79.899 Other long term (current) drug therapy
CPT/HCPCS: 36415; 80048; 80053; 80061; 81025; 83036; 83525; 84443; 85014; 85018; 85025; 85610; 85730; 86140; 86850; 86900; 86901; 87635; 88307; 88342; A4649; C9088; J0131; J0690; J1100; J1170; J1200; J2250; J2405; J2550; J2765; J2795; J3010

== ENCOUNTER → 2021-11-28 13:15 | Outpatient (BNVA) | payer OTHER, MEDICAID, SELFPAY | PROVIDERS: PCP Internal Medicine; Visit Provider Counselor Mental Health | DX: F90.2 Attention-deficit hyperactivity disorder, combined type (principal); F32.2 Major depressive disorder, single episode, severe without psychotic features; E66.01 Morbid (severe) obesity due to excess calories; Z68.42 Body mass index [BMI] 45.0-49.9, adult | CPT/HCPCS: 90834 ==

== ENCOUNTER 2021-12-06 14:43 | Emergency (ER) | payer MEDICAID, SELFPAY ==
[2021-12-06 16:01] VITALS: BP 107/58; PULSE 66; RESP 16; TEMP 36.7; O2SAT 100; BMI 35.1
[2021-12-06] MEDS: Acetaminophen Oral Liquid 650 MG/20.3 ML SOLUTION PO (16:08)
== END 2021-12-06 20:36 | disposition left against medical advice (07) ==
PROVIDERS: Emergency Provider Emergency Medicine; PCP Internal Medicine
DX: M54.2 Cervicalgia (principal); M54.50 Low back pain, unspecified
CPT/HCPCS: 99282; 99283

== ENCOUNTER 2021-12-11 13:04 | Outpatient (REF) | payer MEDICAID, SELFPAY ==
--- NOTE | ~2021-12-11 | US_ITS ---
EXAMINATION: US RETROPERITONEAL COMPLETE (RENAL) CLINICAL INFORMATION: Left flank pain, renal calculus. COMPARISON: US abdomen complete with liver elastography 05/29/2021. Ultrasound retroperitoneal limited (renal only) 02/29/2020. CT abdomen and pelvis with contrast 06/12/2019. TECHNIQUE: Real-time imaging of the kidneys and bladder. FINDINGS: RIGHT KIDNEY: 12.8 x 4.6 x 6.3 cm (SAG x AP x TRV). The kidney is normal in size, contour, and echogenicity. Renal cortical thickness is normal. No calculi or focal parenchymal lesions. No hydronephrosis. LEFT KIDNEY: 12.1 x 5.8 x 5.5 cm (SAG x AP x TRV). The kidney is normal in size, contour, and echogenicity. Renal cortical thickness is normal. No calculi or focal parenchymal lesions. No hydronephrosis. BLADDER: Partially distended. Bilateral ureteral jets are demonstrated. Prevoid bladder volume is 48.6 mL. Postvoid bladder volume is 2.8 mL. US/US retroperitoneal comp IMPRESSION: Unremarkable renal ultrasound.
== END 2021-12-11 13:05 | disposition home or self-care (01) ==
LOC: HO.US 13:04
PROVIDERS: Visit Provider Internal Medicine
DX: N20.0 Calculus of kidney (principal)
CPT/HCPCS: 76770

== ENCOUNTER 2021-12-25 12:44 | Outpatient (REF) | payer MEDICAID, SELFPAY | END 2021-12-25 12:45 | disposition home or self-care (01) | LOC: HO.HAP 12:44 | PROVIDERS: Visit Provider Internal Medicine | DX: Z13.89 Encounter for screening for other disorder (principal) ==

== ENCOUNTER → 2021-12-31 12:30 | Outpatient (BNVA) | payer OTHER, MEDICAID, SELFPAY | PROVIDERS: PCP Internal Medicine; Visit Provider Counselor Mental Health | DX: F90.2 Attention-deficit hyperactivity disorder, combined type (principal); F32.2 Major depressive disorder, single episode, severe without psychotic features; E66.01 Morbid (severe) obesity due to excess calories; F81.9 Developmental disorder of scholastic skills, unspecified; F43.10 Post-traumatic stress disorder, unspecified; Z68.42 Body mass index [BMI] 45.0-49.9, adult; Z98.84 Bariatric surgery status | CPT/HCPCS: 90834 ==

== ENCOUNTER 2022-01-01 12:29 | Outpatient (REF) | payer MEDICAID, SELFPAY ==
[2022-01-01 18:29] LABS: CT PCR NOT DETECTED (Not Detect.); NG PCR NOT DETECTED (Not Detect.)
== END 2022-01-01 12:30 | disposition home or self-care (01) ==
LOC: HO.LNP 12:29
PROVIDERS: Visit Provider Obstetrics & Gynecology
DX: Z30.09 Encounter for other general counseling and advice on contraception (principal)
CPT/HCPCS: 81025; 87491; 87591; 99212

== ENCOUNTER → 2022-01-03 13:12 | Outpatient (BNVA) | payer MEDICAID, SELFPAY | PROVIDERS: PCP Internal Medicine; Visit Provider Surgery | DX: D17.23 Benign lipomatous neoplasm of skin and subcutaneous tissue of right leg (principal) | CPT/HCPCS: 99212 ==

== ENCOUNTER 2022-01-04 11:15 | Outpatient (REF) | payer MEDICAID, SELFPAY ==
[2022-01-05 15:02] LABS: BV Int Neg Control Negative (Negative); BV Int Pos Control Positive (Positive)
== END 2022-01-04 11:16 | disposition home or self-care (01) ==
LOC: HO.LNP 11:15
PROVIDERS: Visit Provider Advanced Practice Midwife
DX: Z01.419 Encounter for gynecological examination (general) (routine) without abnormal findings (principal)
CPT/HCPCS: 87480; 87510; 87660

== ENCOUNTER 2022-01-09 13:21 | Outpatient (REF) | payer MEDICAID, SELFPAY ==
--- NOTE | 2022-01-09 14:13 | MHC.AU.HFU ---
Hearing Instrument Follow-Up- Binaural Date of Visit: 01/09/22 Left Ear: Adair Braxton [id number] SN: [id number] Color: Guillermina Repair Warranty: 08/01/2024 Loss and Damage Warranty: USED 01/09/2022 Battery Size: Rechargeable Apron Trimmer: 0M Type of Mold: Small vented dome Type of Wax Guard: Cerushield Dispensed By: [facility] Date of Fittin06/01/2021 Follow-Up Summary: Adarsh picked up her loss and damage replacement hearing aid programmed to previous settings. Adjusted the noise management settings in speech in noise and comfort in noise programs at Adarsh's request due to difficulty hearing in background noise, particularly at work. Discussed importance of daily, consistent use in re-acclimating to the hearing aid. Re-paired to cell phone and confirmed successful connection. Recommendations: Hearing instrument maintenance in 6 months, or sooner if needed. Please contact our clinic with any questions or concerns. Diagnosis Code(s): Primary Diagnosis: H90.42 SNHL Unilateral Left Side, W/Unrestricted Contralateral Hearing Signature: Provider: Courtney Lieberman, [facility]
== END 2022-01-09 13:22 | disposition home or self-care (01) ==
LOC: HO.HAP 13:21
PROVIDERS: Visit Provider Internal Medicine
DX: Z13.89 Encounter for screening for other disorder (principal)

== ENCOUNTER 2022-02-25 06:07 | Day surgery (SDC) | payer MEDICAID, SELFPAY ==
[2022-02-20 10:40] VITALS: BMI 32.5
[2022-02-25] VITALS (8 sets, daily range): BP systolic 110–158; BP diastolic 65–85; PULSE 53–75; RESP 16–20; TEMP 36.2–36.8; O2SAT 98–100
[2022-02-25 06:33] LABS: UPreg QC Valid YES; Urine Pregnancy NEGATIVE (NEGATIVE)
[2022-02-25] MEDS: Lactated Ringers 1,000 ML 100 ML IVCONT (06:42)
--- NOTE | 2022-02-25 06:43 | PC.NURSE ---
patient requested IV in right hand
--- NOTE | 2022-02-25 07:17 | HO.ANESPROP2 ---
[facility] Active Problems Active Problems: All Active Problems (Updated 12/31/21 @ 14:00 by Charisse Schneider) Well woman exam with routine gynecological exam (Acute) Potential exposure to STD (Acute) Ovarian cyst (Acute) Nephrolithiasis (Acute) Contusion of right knee (Acute) Encounter to discuss test results (Acute) Simple ovarian cyst (Acute) Vitamin D deficiency (Acute) Vitamin B12 deficiency (Acute) H. pylori infection (Acute) Binge-eating disorder, severe (Acute) Major depressive disorder, severe (Acute) Post traumatic stress disorder (Acute) Learning disorder (Acute) Lipoma of right lower extremity (Acute) Attention deficit hyperactivity disorder (ADHD), combined type (Acute) Threatened (Acute) Missed (Acute) Family planning (Acute) Abnormal uterine bleeding (AUB) (Acute) Retained products of conception after miscarriage (Acute) Morbid obesity (Acute) Obesity (BMI 30-39.9) (Acute) control counseling (Acute) Abdominal pain in , antepartum (Acute) Early stage of (Acute) BMI 38.0-38.9,adult (Acute) Adenomyomatosis of gallbladder (Acute) S/P laparoscopic sleeve gastrectomy (Acute) Complex posttraumatic stress disorder (Acute) Depression (Acute) Anxiety (Acute) GERD (gastroesophageal reflux disease) (Acute) Kidney stones (Acute) Morbid obesity with BMI of 45.0-49.9, adult (Acute) Pelvic pain (Acute) Past Medical History Medical History Anemia Anxiety Depression Fibroid uterus GERD (gastroesophageal reflux disease) Hx of retained foreign body fully removed Kidney stones Lipoma of back Lipoma of right thigh Morbid obesity with BMI of 45.0-49.9, adult Ovarian cyst, left Pelvic pain Family History Family History Mother HIV (human immunodeficiency virus infection) Dementia Brother No problems noted. Brother ADHD Schizophrenia Suicidal behavior with attempted self-injury Son No problems noted. Son No problems noted. Family history of problems with anesthesia: No Surgical History Surgical History H/O gastric sleeve History of dilation and curettage History of elective History of hip surgery History of surgery on wrist History of surgical removal of ganglion cyst Hx of section History of Problems with Anesthesia: No Social History Social History Household Members Other:: sons 10+17 yrs old Are you a primary career manager to a significant other at home: No Do you presently have visiting nurse or other home services: No Alcohol intake: current Alcohol intake frequency: holidays/special occasions only Alcohol type: hard liquor Patient Tobacco Use Status: Current someday Tobacco user Tobacco use type: Cigarette Substance Use Type: Marijuana Substance Use Frequency: Daily Are you DNR?: No Advance Directives: No Advance Directives Information Provided: Yes Nutrition Risks: No Nutritional Risk FDLMP: 01/29/22 service: No Current occupational status: employed Current occupation: teacher /rt hand Gender identity: Female Meds Allergies Allergy/AdvReac Type Severity Reaction Status Date / Time Seasonal Allergies Allergy Unknown Unknown Verified 01/04/22 10:53 Active Medications: Current Medications Lactated Ringer's (Lr) 1,000 mls @ 100 mls/hr IVCONT .Q10H SUSI Last Admin: 02/25/22 06:42 Dose: 100 mls/hr Home Medications Medication Instructions Recorded Confirmed Last Taken Type clonazepam 0.5 mg tablet 0.5 mg PO BID 01/01/21 02/20/22 02/25/22 History fluticasone propionate 50 1 spray intranasal DAILY 01/01/21 02/20/22 Unknown History mcg/actuation nasal spray,suspension bupropion HCl 150 mg tablet,12 hr 150 mg PO BID 03/02/21 02/20/22 02/25/22 History sustained-release lisdexamfetamine 70 mg capsule 70 mg PO QAM 11/27/21 02/20/22 Unknown History (Vyviens) Exam Exam Date and Time: February 25, 2022 0717 Height,Weight and Vital Signs: Height 5 ft 2 in Weight 80.739 kg Last Vital Signs Temp 98.2 F 02/25/22 06:43 Pulse 66 02/25/22 06:43 Resp 18 02/25/22 06:43 BP 110/65 02/25/22 06:43 Pulse Ox 100 02/25/22 06:43 O2 Del Method 02/25/22 06:43 Pertinent Lab Results Pertinent Lab Results: Laboratory Tests 02/25/22 06:00 Urine Test NEGATIVE Airway Mallampati Class: II TM Dist: >3cm Neck ROM: Full Loose/Missing/Broken Teeth: No Heart: RRR Lungs: CTA Assessment and Plan Assessment Anesthesia Assessment: Anesthesia Plan Discussed and Chart Reviewed Final Anesthetic Review Family History of Problems with Anesthesia: No History of Problems with Anesthesia: No NPO: Yes ASA Class: II Final Preanesthetic Review: Meds/Allgs Chart Reviewed, Consent Obtained/Reviewed and Anes Risks/Benef Reviewed Patient Risk: Low Procedure Risk: Low Anesthetic Plan Anesthetic Plan: GA Disposition: Standard PACU
--- NOTE | 2022-02-25 08:28 | W.PM.OPN ---
Operative Note Operative Note Date of Service: 02/25/22 Narrative: Preoperative diagnosis: right upper thigh lipoma Postoperative diagnosis: same Procedure: excision of lipoma right upper thigh Surgeon: Hossein Macias MD Shellfish Meat Separator Operator: Felicia Restrepo PA-C Anesthesia: general LMA Indications for procedure: 41-year-old female with a new lipoma located in the right upper thigh noted after bariatric surgery. Operative findings: 6 cm lipoma right upper thigh Specimen: lipoma right upper thigh Estimated blood loss: less than 2 mL Complications: none Procedure details: patient was brought to the OR placed in a supine position. After administering general anesthesia patient's right upper thigh was prepped with ChloraPrep and draped in a sterile fashion. A surgical time-out was called the consent confirmed. Patient received preoperative antibiotics and Venodyne boots were in place. Local anesthesia was infiltrated around the lipoma. A longitudinal incision was then made carried out through subcutaneous tissue up to the lipoma. Electrocautery was used to dissect the lipoma from the surrounding subcutaneous tissue. Lipoma was completely excised and sent to pathology for further examination. Hemostasis was assured using electrocautery. Wounds were irrigated with saline solution suctioned dry. Additional local was infiltrated in the surrounding tissue. Deep subcutaneous tissue and dermis were then reapproximated using interrupted 3-0 Polysorb sutures. skin was then closed using a running subcuticular 4-0 Polysorb suture. Steri-Strips, 2 x 2 gauze and Tegaderm were then applied. The patient tolerated the procedure well. Sponge, instrument, and needle counts reported as correct. The patient was transferred to PACU in stable condition.
== END 2022-02-25 10:20 | disposition home or self-care (01) ==
PROVIDERS: PCP Internal Medicine; Visit Provider Surgery
PROC: (CPT 27337; principal; 2022-02-25 07:30)
DX: D17.23 Benign lipomatous neoplasm of skin and subcutaneous tissue of right leg (principal); D64.9 Anemia, unspecified; D25.9 Leiomyoma of uterus, unspecified; J30.2 Other seasonal allergic rhinitis; E66.01 Morbid (severe) obesity due to excess calories; Z68.32 Body mass index [BMI] 32.0-32.9, adult; Z79.51 Long term (current) use of inhaled steroids; Z79.899 Other long term (current) drug therapy; Z98.84 Bariatric surgery status; Z87.891 Personal history of nicotine dependence; F12.90 Cannabis use, unspecified, uncomplicated
CPT/HCPCS: 27337; 81025; 88304; J0690; J1100; J1885; J2250; J2405; J2795; J3010

== ENCOUNTER 2022-02-28 08:01 | Outpatient (REF) | payer MEDICAID, SELFPAY ==
[2022-02-28 14:37] LABS: BV Int Neg Control Negative (Negative); BV Int Pos Control Positive (Positive)
== END 2022-02-28 08:02 | disposition home or self-care (01) ==
LOC: HO.LNP 08:01
PROVIDERS: PCP Internal Medicine; Visit Provider Obstetrics & Gynecology
DX: Z30.430 Encounter for insertion of intrauterine contraceptive device (principal); Z20.2 Contact with and (suspected) exposure to infections with a predominantly sexual mode of transmission
CPT/HCPCS: 58300; 81025; 87480; 87510; 87660; J7298

== ENCOUNTER → 2022-03-05 13:37 | Outpatient (BNVA) | payer MEDICAID, SELFPAY | PROVIDERS: Visit Provider Surgery | DX: Z13.89 Encounter for screening for other disorder (principal) ==

== ENCOUNTER 2022-03-08 07:15 | Emergency (ER) | payer OTHER, MEDICAID, SELFPAY ==
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
[2022-03-08 07:19] VITALS: BP 108/70; PULSE 83; RESP 18; TEMP 36; O2SAT 98; BMI 28.3
[2022-03-08 07:31] VITALS: BP 115/72; PULSE 72; RESP 18; TEMP 36.6; O2SAT 100
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
[2022-03-08] MEDS: Amoxicillin/Potassium Clav 875 MG TABLET PO (08:39)
[2022-03-08] MEDS: Acetaminophen 325 MG TABLET 975 MG PO (08:56)
== END 2022-03-08 09:39 | disposition home or self-care (01) ==
PROVIDERS: Emergency Provider Emergency Medicine
DX: S60.475A Other superficial bite of left ring finger, initial encounter (principal); M79.645 Pain in left finger(s); W50.3XXA Accidental bite by another person, initial encounter; Y93.F9 Activity, other caregiving; Y92.129 Unspecified place in nursing home as the place of occurrence of the external cause
CPT/HCPCS: 73140; 99283; 99284

== ENCOUNTER → 2022-03-13 14:30 | Outpatient (BNVA) | payer OTHER, MEDICAID, SELFPAY | PROVIDERS: PCP Internal Medicine; Visit Provider Counselor Mental Health | DX: F90.2 Attention-deficit hyperactivity disorder, combined type (principal); F32.2 Major depressive disorder, single episode, severe without psychotic features; F81.9 Developmental disorder of scholastic skills, unspecified; F43.10 Post-traumatic stress disorder, unspecified; E66.01 Morbid (severe) obesity due to excess calories; Z98.84 Bariatric surgery status | CPT/HCPCS: 90834 ==

== ENCOUNTER → 2022-03-28 07:50 | Outpatient (BNVA) | payer MEDICAID, SELFPAY | PROVIDERS: PCP Internal Medicine; Visit Provider Obstetrics & Gynecology | DX: Z30.431 Encounter for routine checking of intrauterine contraceptive device (principal); F52.31 Female orgasmic disorder; N76.0 Acute vaginitis; B96.89 Other specified bacterial agents as the cause of diseases classified elsewhere | CPT/HCPCS: 99212 ==

== ENCOUNTER → 2022-03-29 10:30 | Outpatient (BNVA) | payer OTHER, MEDICAID, SELFPAY | PROVIDERS: PCP Internal Medicine; Visit Provider Counselor Mental Health | DX: F90.2 Attention-deficit hyperactivity disorder, combined type (principal); F32.2 Major depressive disorder, single episode, severe without psychotic features; F43.10 Post-traumatic stress disorder, unspecified; F81.9 Developmental disorder of scholastic skills, unspecified; E66.01 Morbid (severe) obesity due to excess calories; Z68.42 Body mass index [BMI] 45.0-49.9, adult; K21.9 Gastro-esophageal reflux disease without esophagitis; Z98.84 Bariatric surgery status; Z98.890 Other specified postprocedural states | CPT/HCPCS: 90834 ==

== ENCOUNTER → 2022-04-04 13:41 | Outpatient (BNVA) | payer MEDICAID, SELFPAY | PROVIDERS: PCP Internal Medicine; Visit Provider Dietitian, Registered | DX: E66.01 Morbid (severe) obesity due to excess calories (principal); Z71.3 Dietary counseling and surveillance | CPT/HCPCS: 97803 ==

== ENCOUNTER 2022-04-22 07:54 | Outpatient (REF) | payer MEDICAID, SELFPAY | END 2022-04-22 07:55 | disposition home or self-care (01) | LOC: HO.LNP 07:54 | PROVIDERS: PCP Internal Medicine; Visit Provider Advanced Practice Midwife | DX: Z30.431 Encounter for routine checking of intrauterine contraceptive device (principal) | CPT/HCPCS: 0353U; 87480; 87510; 87660; 99212 ==

== ENCOUNTER 2022-04-22 08:22 | Outpatient (REF) | payer MEDICAID, SELFPAY ==
[2022-04-22 14:13] LABS: CT PCR NOT DETECTED (Not Detect.); NG PCR DETECTED (Not Detect.)
[2022-04-23 09:06] LABS: BV Int Neg Control Negative (Negative); BV Int Pos Control Positive (Positive)
== END 2022-04-22 08:23 | disposition home or self-care (01) ==
LOC: HO.LAB 08:22
PROVIDERS: Visit Provider Advanced Practice Midwife
DX: R10.2 Pelvic and perineal pain (principal); N92.1 Excessive and frequent menstruation with irregular cycle; Z97.5 Presence of (intrauterine) contraceptive device
CPT/HCPCS: 0353U; 87480; 87510; 87660

== ENCOUNTER 2022-04-22 10:17 | Outpatient (REF) | payer MEDICAID, SELFPAY ==
[2022-04-22 10:37] LABS: MANUAL DIFF FLAG NO
[2022-04-22 11:06] LABS: Basophils Percent Auto 0.4 % (0-2); Eosinophils Absolute Auto 0.2 X10*3/uL (0.0-0.4); Eosinophils Percent Auto 3.8 % (0-4); Hematocrit 34.3 % (37.0-47.0); Hemoglobin 11.8 g/dl (12.0-16.0); Imm Gran Abs Auto 0.01 X10*3/uL (0.00-0.03); Imm Gran Pct Auto 0.2 % (0.0-0.4); Lymphocytes Absolute Auto 2.8 X10*3/uL (1.2-4.9); Lymphocytes Percent Auto 53.3 % (20-40); Mean Corpuscular HGB Conc 34.4 g/dl (31.0-35.0); Mean Corpuscular Hemoglobin 30.1 pg (27.0-33.0); Mean Corpuscular Volume 87.5 fL (80.0-98.0); Mean Platelet Volume 11.7 fL (9.4-12.3); Monocytes Absolute Auto 0.4 X10*3/uL (0.1-1.2); Monocytes Percent Auto 6.6 % (2-11); Neutrophils Absolute Auto 1.9 x10*3/uL (2.0-8.3); Neutrophils Percent Auto 35.7 % (45-73); Platelet Count 202 X10*3/uL (160-400); Red Blood Count 3.92 X10*6/uL (4.20-5.50); Red Cell Distribution Width 14.1 % (11.0-16.0); White Blood Count 5.3 X10*3/uL (4.8-10.8)
[2022-04-22 11:55] LABS: Iron 140 mcg/dL (30-160); Percent Iron Saturation 51 % (15-50); Total Iron Binding Capacity 274 mcg/dL (228-428); Unsaturated Iron Binding 134 ug/dL
[2022-04-22 12:24] LABS: Ferritin 61 ng/mL (10-122); Folate 17.6 ng/mL (> or = 4.0); TSH reflex Free T4 0.77 uIU/mL (0.32-4.0); Vitamin B12 497 pg/mL (200-900)
[2022-04-24 23:58] LABS: Zinc 170 mcg/dL (60-130)
[2022-04-26 07:38] LABS: Vitamin B1 51 nmol/L (8-30)
[2022-04-26 13:09] LABS: Vitamin A 51 mcg/dL (38-98)
== END 2022-04-22 10:18 | disposition home or self-care (01) ==
LOC: HO.LAB 10:17
PROVIDERS: Physician Assistant Surgical; Visit Provider Physician Assistant
DX: E53.8 Deficiency of other specified B group vitamins (principal); E55.9 Vitamin D deficiency, unspecified; R53.83 Other fatigue; Z98.84 Bariatric surgery status; Z90.3 Acquired absence of stomach [part of]
CPT/HCPCS: 36415; 82306; 82607; 82728; 82746; 83540; 84425; 84443; 84590; 84630; 85025

== ENCOUNTER → 2022-04-24 08:53 | Outpatient (BNVA) | payer MEDICAID, SELFPAY | PROVIDERS: PCP Internal Medicine; Visit Provider Advanced Practice Midwife | DX: A54.9 Gonococcal infection, unspecified (principal) | CPT/HCPCS: 96372; 99211; J0696 ==

== ENCOUNTER 2022-04-29 17:18 | Emergency (ER) | payer MEDICAID, SELFPAY ==
--- NOTE | ~2022-04-29 | US_ITS ---
EXAMINATION: US PELVIS CLINICAL INFORMATION: Abdominal cramping with abnormal discharge COMPARISON: None TECHNIQUE: Ultrasound of the pelvis is performed using both transabdominal and transvaginal transducers along with Doppler. Transvaginal imaging is performed due to inadequate visualization transabdominally. FINDINGS: Uterus: The uterus is anteverted, anteflexed and measures 7.0 cm in length, 3.2 cm in AP and 5.0 cm. The double wall endometrial thickness is 3 mm. There is an IUD in correct position within the endometrial canal. The uterus is smooth in contour and has normal myometrial echogenicity. There is a solitary hypoechoic lesion in the anterior fundus likely a small fibroid measuring 0.6 x 0.5 x 0.7 cm. Adnexa: Both ovaries are visualized. There is normal color flow to the adnexa. There is no ovarian torsion. There is no pelvic ascites or fluid collection. Right ovary measures 2.4 x 2.3 x 2.3 cm and volume 6.7 mL. There is a small corpus luteal cyst measuring 1.5 x 0.7 x 1.0 cm. Left ovary measures 3.1 x 1.7 x 1.9 cm and volume 5.20. There is a complex anechoic cyst measuring 1.2 x 0.9 x 0.8 cm. US/US pelvic ovarian doppler IMPRESSION: Anteverted anteflexed uterus with a small fibroid. There is an IUD within the endometrial canal in correct position. Corpus luteal cyst right ovary and a complex cyst left ovary.
--- NOTE | ~2022-04-29 | US_ITS ---
EXAMINATION: US PELVIS CLINICAL INFORMATION: Abdominal cramping with abnormal discharge COMPARISON: None TECHNIQUE: Ultrasound of the pelvis is performed using both transabdominal and transvaginal transducers along with Doppler. Transvaginal imaging is performed due to inadequate visualization transabdominally. FINDINGS: Uterus: The uterus is anteverted, anteflexed and measures 7.0 cm in length, 3.2 cm in AP and 5.0 cm. The double wall endometrial thickness is 3 mm. There is an IUD in correct position within the endometrial canal. The uterus is smooth in contour and has normal myometrial echogenicity. There is a solitary hypoechoic lesion in the anterior fundus likely a small fibroid measuring 0.6 x 0.5 x 0.7 cm. Adnexa: Both ovaries are visualized. There is normal color flow to the adnexa. There is no ovarian torsion. There is no pelvic ascites or fluid collection. Right ovary measures 2.4 x 2.3 x 2.3 cm and volume 6.7 mL. There is a small corpus luteal cyst measuring 1.5 x 0.7 x 1.0 cm. Left ovary measures 3.1 x 1.7 x 1.9 cm and volume 5.20. There is a complex anechoic cyst measuring 1.2 x 0.9 x 0.8 cm. US/US pelvic and transvaginal IMPRESSION: Anteverted anteflexed uterus with a small fibroid. There is an IUD within the endometrial canal in correct position. Corpus luteal cyst right ovary and a complex cyst left ovary.
[2022-04-29 18:13] VITALS: BP 107/89; PULSE 69; RESP 18; TEMP 36.6; O2SAT 100; BMI 25.6
--- NOTE | 2022-04-29 18:19 | ED_ITS ---
HPI - Female Genitourinary General Chief complaint: Eye Problems <ROBERT Way - Last Filed: 04/29/22 18:23> Stated complaint: ? pink eye,vaginal bleeding <ROBERT Way - Last Filed: 04/29/22 18:23> Time Seen by Provider: 04/29/22 19:02 <[address] - Last Filed: 04/29/22 18:23> Source: patient <Sen Menchaca MD - Last Filed: 04/29/22 20:32> Mode of arrival: ambulatory <Sen Menchaca MD - Last Filed: 04/29/22 20:32> Limitations: no limitations <Sen Menchaca MD - Last Filed: 04/29/22 20:32> History of Present Illness HPI Narrative: Patient presents for 2 issues. First of all, patient has noted some crusty discharge from right eye. This started today. She uses contacts previous no photophobia. She denies significant pain or discomfort. She has no significant vision Changes. Patient also complains of some vaginal discharge. She has constant pelvic pain which is not new or changed. She her boyfriend was treated for gonorrhea they do not know the results. She has had no fevers or chills. Pain does not radiate. Pain is [id number] in nature. There is no clear relieving or exacerbating features. She denies any vaginal bleeding. She has an IUD. <Sen Menchaca MD - Last Filed: 04/29/22 20:32> Related Data Home medications: Home Medications Medication Instructions Recorded Confirmed clonazepam 0.5 mg tablet 0.5 mg PO BID 01/01/21 03/05/22 fluticasone propionate 50 1 spray intranasal DAILY 01/01/21 03/05/22 mcg/actuation nasal spray,suspension bupropion HCl 150 mg tablet,12 hr 150 mg PO BID 03/02/21 03/05/22 sustained-release lisdexamfetamine 70 mg capsule 70 mg PO QAM 11/27/21 03/05/22 (Vyvanse) levonorgestrel 20 mcg/24 hours (8 intrauterine 04/22/22 yrs) 52 mg intrauterine device (Mirena) Previous Rx's Medication Instructions Recorded polymyxin B sulfate 10,000 1 drp ophthalmic (eye) Q3H 7 days 04/29/22 unit-trimethoprim 1 mg/mL eye #10 mL drops (Polytrim) <ROBERT Way - Last Filed: 04/29/22 18:23> Allergies/Adverse reactions: Allergies Allergy/AdvReac Type Severity Reaction Status Date / Time Seasonal Allergies Allergy Unknown Unknown Verified 04/29/22 18:12 <[address] - Last Filed: 04/29/22 18:23> FOR[facility]LY [facility] Past Medical History Medical History: Medical History Anemia Anxiety Depression Fibroid uterus GERD (gastroesophageal reflux disease) Hx of retained foreign body fully removed Kidney stones Lipoma of back Lipoma of right thigh Morbid obesity with BMI of 45.0-49.9, adult Ovarian cyst, left Pelvic pain <ROBERT Way - Last Filed: 04/29/22 18:23> Surgical History: Surgical History H/O gastric sleeve History of dilation and curettage History of elective History of excision of mass (02/25/22) History of hip surgery History of surgery on wrist History of surgical removal of ganglion cyst Hx of section <ROBERT Way - Last Filed: 04/29/22 18:23> Family History Family History: Family History Mother HIV (human immunodeficiency virus infection) Dementia Brother No problems noted. Brother ADHD Schizophrenia Suicidal behavior with attempted self-injury Son No problems noted. Son No problems noted. <ROBERT Way - Last Filed: 04/29/22 18:23> Social History Social History: Social History Household Members Other:: sons 10+17 yrs old Are you a primary acute care physical therapist to a significant other at home: No Do you presently have visiting nurse or other home services: No Alcohol intake: current Alcohol intake frequency: holidays/special occasions only Alcohol type: hard liquor Patient Tobacco Use Status: Current someday Tobacco user Tobacco use type: Cigarette Substance Use Type: Marijuana Advance Directives: No Advance Directives Information Provided: Yes service: No Current occupational status: employed Current occupation: teacher /rt hand Gender identity: Female <ROBERT Way - Last Filed: 04/29/22 18:23> Physical Exam Vital Signs: Vital Signs: Last Vital Signs Temp 97.8 F 04/29/22 18:13 Pulse 69 04/29/22 18:13 Resp 18 04/29/22 18:13 BP 107/89 04/29/22 18:13 Pulse Ox 100 04/29/22 18:13 O2 Del Method 04/29/22 18:13 BMI result Body Mass Index 25.[address] - Last Filed: 04/29/22 18:23> Vital Signs: Last Vital Signs Temp 97.8 F 04/29/22 18:13 Pulse 69 04/29/22 18:13 Resp 18 04/29/22 18:13 BP 107/89 04/29/22 18:13 Pulse Ox 100 04/29/22 18:13 O2 Del Method 04/29/22 18:13 BMI result Body Mass Index 25.6 <Sen Menchaca MD - Last Filed: 04/29/22 20:32> GEN: Well developed, no acute distress, alert, oriented HEENT: Normocephalic, atraumatic, normal external ears, nose appears normal, no oropharyngeal edema or exudates Eyes: Normal to appearance Neck: Supple, no lymphadenopathy Respiratory: Talks in complete sentences, no respiratory distress, clear to aus cultation bilaterally Cardiovascular: Regular rate and rhythm, no murmurs rubs or gallops Abdomen: Soft, nontender, nondistended, no guarding, no rebound Back: No CVA tenderness Extremities: No clubbing cyanosis or edema Neurologic: No focal neurologic deficits, cranial nerves 2-12 intact, strength is 5/5 bilaterally, gait normal Skin: No rash <Sen Menchcaa MD - Last Filed: 04/29/22 20:32> Course Course Course Narrative: DENA-18:20PM - 41yoF who was recently treated for gonorrhea who is presenting to the ER with complaints of abnormal vaginal discharge/bleeding that is brown in color with suprapubic abdominal cramping that started today. She was treated with IM Rocephin by SHERRIE betancourt at [facility] on 04/22/2022. Her partner was also treated on the same day. She was negative for chlamydia, yeast, bacterial vaginosis and Trichomonas. Also concern for redness and drainage to the right eye that started today as well. LMP has been irregular due to she just started control again. Denies fevers, back pain, flank pain, dysuria. Tram BALDERAS recommended ultrasound. Therefore at this time labs, UA, ultrasound of transvaginal/pelvic ordered at this time. <ROBERT Way - Last Filed: 04/29/22 18:23> Reevaluation(s) Reevaluation #1: The workup is complete. Patient is complaining of pelvic discharge and she possibly has a contact with gonorrhea. Will go ahead and treat today. Will order GC and chlamydia prior to discharge. Also will treat for conjunctivitis. Patient is aware to abstain until treatment is complete as she could get reinfected should there are in fact being affected. <Sen Menchaca MD - Last Filed: 04/29/22 20:32> Time: 20:26 <Sen Menchaca MD - Last Filed: 04/29/22 20:32> Medical Decision Making Medical Decision Making [facility] Narrative: Presents with a provide us as well as pelvic discomfort and vaginal discharge. Ultrasound confirmed the IUD is appropriately placed eluted otherwise are no acute abnormalities. There is no evidence of torsion. Patient will be discharged and treated for gonorrhea chlamydia. Will check for GC chlamydia and urine sample as well. Will treat for conjunctivitis. <Sen Menchaca MD - Last Filed: 04/29/22 20:32> Differential Diagnosis Differential Diagnoses: The differential diagnosis associated with the presentation includes (STD, GC, chlamydia, vaginal discharge, pelvic pain, IUD dysfunction, conjunctivitis) <Sen Menchaca MD - Last Filed: 04/29/22 20:32> Lab Data [facility] Lab Attestation statement: I reviewed the patient's lab results. <Sen Menchaca MD - Last Filed: 04/29/22 20:32> Result Diagrams: 04/29/22 18:39 04/29/22 18:39 <[address] - Last Filed: 04/29/22 18:23> Labs: Lab Results 04/29/22 04/29/22 04/29/22 Range/Units 18:39 18:39 18:39 WBC 5.4 (4.8-10.8) X10*3/uL RBC 3.80 L (4.20-5.50) X10*6/uL Hgb 11.4 L (12.0-16.0) g/dl Hct 33.3 L (37.0-47.0) % MCV 87.6 (80.0-98.0) fL MCH 30.0 (27.0-33.0) pg MCHC 34.2 (31.0-35.0) g/dl RDW 14.0 (11.0-16.0) % Plt Count 218 (160-400) X10*3/uL MPV 11.4 (9.4-12.3) fL Immature Gran % (Auto) 0.2 (0.0-0.4) % Neut % (Auto) 29.6 L (45-73) % Lymph % (Auto) 60.9 H (20-40) % Hood % (Auto) 6.7 (2-11) % Eos % (Auto) 2.2 (0-4) % Baso % (Auto) 0.4 (0-2) % Lymph # (Auto) 3.3 (1.2-4.9) X10*3/uL Hood # (Auto) 0.4 (0.1-1.2) X10*3/uL Eos # (Auto) 0.1 (0.0-0.4) X10*3/uL Baso # (Auto) 0.0 (0.0-0.2) X10*3/uL Abs Immat Gran (auto) 0.01 (0.00-0.03) X10*3/uL Absolute Neuts (auto) 1.6 L (2.0-8.3) x10*3/uL Absolute Nucleated RBC 0.000 (0.0-0.012) X10*3/uL Nucleated RBC % (auto) 0.0 (0.0-0.2) /100WBC Smear Tech's Comments VERIFIED PT 11.7 (10.0-13.1) SEC INR 1.0 (0.9-1.1) Sodium 142 (135-145) mmol/L Potassium 3.6 (3.3-5.1) mmol/L Chloride 106 (96-108) mmol/L Carbon Dioxide 27 (22-29) mmol/L Anion Gap 13 (12-20) BUN 23 H (9-16) mg/dL Creatinine 0.76 (0.5-1.4) mg/dL Estim Creat Clear Calc 87.0 Estimated GFR > 60 Random Glucose 78 (60-115) mg/dL Calcium 8.9 (8.4-10.2) mg/dL Magnesium 2.4 (1.6-2.6) mg/dL Total Bilirubin 0.8 (0.0-1.0) mg/dL AST 18 (5-31) U/L ALT 26 (0-31) U/L Alkaline Phosphatase 34 L (39-117) U/L Total Protein 6.7 (6.5-8.0) g/dL Albumin 4.2 (3.5-5.0) g/dL Beta HCG, Quant < 2 mIU/mL <ROBERT Way - Last Filed: 04/29/22 18:23> Lab Results 04/29/22 04/29/22 04/29/22 Range/Units 18:39 18:39 18:39 WBC 5.4 (4.8-10.8) X10*3/uL RBC 3.80 L (4.20-5.50) X10*6/uL Hgb 11.4 L (12.0-16.0) g/dl Hct 33.3 L (37.0-47.0) % MCV 87.6 (80.0-98.0) fL MCH 30.0 (27.0-33.0) pg MCHC 34.2 (31.0-35.0) g/dl RDW 14.0 (11.0-16.0) % Plt Count 218 (160-400) X10*3/uL MPV 11.4 (9.4-12.3) fL Immature Gran % (Auto) 0.2 (0.0-0.4) % Neut % (Auto) 29.6 L (45-73) % Lymph % (Auto) 60.9 H (20-40) % Hood % (Auto) 6.7 (2-11) % Eos % (Auto) 2.2 (0-4) % Baso % (Auto) 0.4 (0-2) % Lymph # (Auto) 3.3 (1.2-4.9) X10*3/uL Hood # (Auto) 0.4 (0.1-1.2) X10*3/uL Eos # (Auto) 0.1 (0.0-0.4) X10*3/uL Baso # (Auto) 0.0 (0.0-0.2) X10*3/uL Abs Immat Gran (auto) 0.01 (0.00-0.03) X10*3/uL Absolute Neuts (auto) 1.6 L (2.0-8.3) x10*3/uL Absolute Nucleated RBC 0.000 (0.0-0.012) X10*3/uL Nucleated RBC % (auto) 0.0 (0.0-0.2) /100WBC Smear Tech's Comments VERIFIED PT 11.7 (10.0-13.1) SEC INR 1.0 (0.9-1.1) Sodium 142 (135-145) mmol/L Potassium 3.6 (3.3-5.1) mmol/L Chloride 106 (96-108) mmol/L Carbon Dioxide 27 (22-29) mmol/L Anion Gap 13 (12-20) BUN 23 H (9-16) mg/dL Creatinine 0.76 (0.5-1.4) mg/dL Estim Creat Clear Calc 87.0 Estimated GFR > 60 Random Glucose 78 (60-115) mg/dL Calcium 8.9 (8.4-10.2) mg/dL Magnesium 2.4 (1.6-2.6) mg/dL Total Bilirubin 0.8 (0.0-1.0) mg/dL AST 18 (5-31) U/L ALT 26 (0-31) U/L Alkaline Phosphatase 34 L (39-117) U/L Total Protein 6.7 (6.5-8.0) g/dL Albumin 4.2 (3.5-5.0) g/dL Beta HCG, Quant < 2 mIU/mL <Sen Menchaca MD - Last Filed: 04/29/22 20:32> Radiology Impression Discussion of test interpretation with radiology: I have reviewed the radiologist's reading. (IMPRESSION: Anteverted anteflexed uterus with a small fibroid. There is an IUD within the endometrial canal in correct position. Corpus luteal cyst right ovary and a complex cyst left ovary. Dictated By:Marquise Robin MDSigned By:<Electronically signed by Marquise Robin MD in OV>04/29/222014) <Sen Menchaca MD - Last Filed: 04/29/22 20:32> Prescription Management I considered prescription management with: Pain Medication and Antibiotic <Sen Menchaca MD - Last Filed: 04/29/22 20:32> Discharge Plan Discharge Clinical Impression: Conjunctivitis, STI (sexually transmitted infection) <ROBERT Way - Last Filed: 04/29/22 18:23> Patient Disposition: Home, Self-Care <ROBERT Way - Last Filed: 04/29/22 18:23> Instructions: Vaginal Discharge (ED), Conjunctivitis (ED) <ROBERT Way - Last Filed: 04/29/22 18:23> Prescriptions: New polymyxin B sulf-trimethoprim [Polytrim] 10,000 unit- 1 mg/mL drops 1 drp ophthalmic (eye) Q3H 7 Days Qty: 10 0RF Rx Instructions: while awake; do not exceed 6 doses in 24 hours No Action clonazepam 0.5 mg tablet 0.5 mg PO BID fluticasone propionate 50 mcg/actuation spray,suspension 1 spray intranasal DAILY bupropion HCl 150 mg tablet sustained-release 12 hr 150 mg PO BID Vyvanse 70 mg capsule 70 mg PO QAM Mirena 20 mcg/24 hours (8 yrs) 52 mg intrauterine device intrauterine <ROBERT Way - Last Filed: 04/29/22 18:23>
[2022-04-29 18:51] LABS: Basophils Percent Auto 0.4 % (0-2); Eosinophils Absolute Auto 0.1 X10*3/uL (0.0-0.4); Eosinophils Percent Auto 2.2 % (0-4); Hematocrit 33.3 % (37.0-47.0); Hemoglobin 11.4 g/dl (12.0-16.0); Imm Gran Abs Auto 0.01 X10*3/uL (0.00-0.03); Imm Gran Pct Auto 0.2 % (0.0-0.4); Lymphocytes Absolute Auto 3.3 X10*3/uL (1.2-4.9); Lymphocytes Percent Auto 60.9 % (20-40); MANUAL DIFF FLAG SCAN; Mean Corpuscular HGB Conc 34.2 g/dl (31.0-35.0); Mean Corpuscular Volume 87.6 fL (80.0-98.0); Mean Platelet Volume 11.4 fL (9.4-12.3); Monocytes Absolute Auto 0.4 X10*3/uL (0.1-1.2); Monocytes Percent Auto 6.7 % (2-11); Neutrophils Absolute Auto 1.6 x10*3/uL (2.0-8.3); Neutrophils Percent Auto 29.6 % (45-73); Platelet Count 218 X10*3/uL (160-400); SCAN SMEAR FLAG 1; White Blood Count 5.4 X10*3/uL (4.8-10.8)
[2022-04-29 18:56] LABS: Prothrombin Time 11.7 SEC (10.0-13.1)
[2022-04-29 19:13] LABS: SLIDE REVIEW VERIFIED
[2022-04-29 19:19] LABS: Alanine Aminotransferase 26 U/L (0-31); Albumin Level 4.2 g/dL (3.5-5.0); Alkaline Phosphatase 34 U/L (39-117); Anion Gap 13 (12-20); Aspartate Amino Transferase 18 U/L (5-31); Bilirubin Total 0.8 mg/dL (0.0-1.0); Blood Urea Nitrogen 23 mg/dL (9-16); Calcium 8.9 mg/dL (8.4-10.2); Carbon Dioxide 27 mmol/L (22-29); Chloride 106 mmol/L (96-108); Estimated Glomerular Filt Rate > 60; Glucose Random 78 mg/dL (60-115); Magnesium 2.4 mg/dL (1.6-2.6); Potassium 3.6 mmol/L (3.3-5.1); Sodium 142 mmol/L (135-145); Total Protein 6.7 g/dL (6.5-8.0)
[2022-04-29 19:25] LABS: HCG Quantitative < 2 mIU/mL
[2022-04-29] MEDS: Azithromycin 500 MG TABLET 1000 MG PO (20:40)
[2022-05-01 04:07] LABS: Syphilis Screen Nonreactive (Nonreactive)
== END 2022-04-29 21:01 | disposition home or self-care (01) ==
PROVIDERS: Physician Assistant Medical; Emergency Provider Emergency Medicine
DX: H10.9 Unspecified conjunctivitis (principal); R10.2 Pelvic and perineal pain; Z20.2 Contact with and (suspected) exposure to infections with a predominantly sexual mode of transmission; Z79.899 Other long term (current) drug therapy
CPT/HCPCS: 36415; 76830; 76856; 80053; 83735; 84702; 85025; 85610; 86780; 93975; 99282; 99284

== ENCOUNTER → 2022-04-30 13:56 | Outpatient (BNVA) | payer MEDICAID, SELFPAY | PROVIDERS: Visit Provider Physician Assistant Surgical | DX: E83.2 Disorders of zinc metabolism (principal); E66.3 Overweight; Z68.27 Body mass index [BMI] 27.0-27.9, adult | CPT/HCPCS: 99212 ==

== ENCOUNTER 2022-05-23 12:23 | Outpatient (REF) | payer MEDICAID, SELFPAY ==
[2022-05-28 06:14] LABS: Copper, serum 103 mcg/dL (70-175); Zinc 122 mcg/dL (60-130)
== END 2022-05-23 12:24 | disposition home or self-care (01) ==
LOC: HO.LAB 12:23
PROVIDERS: Visit Provider Physician Assistant Surgical
DX: E83.2 Disorders of zinc metabolism (principal)
CPT/HCPCS: 36415; 82525; 84630

== ENCOUNTER 2022-06-20 13:13 | Outpatient (REF) | payer MEDICAID, SELFPAY ==
[2022-06-21 10:49] LABS: BV Int Neg Control Negative (Negative); BV Int Pos Control Positive (Positive)
== END 2022-06-20 13:14 | disposition home or self-care (01) ==
LOC: HO.LNP 13:13
PROVIDERS: Visit Provider Obstetrics & Gynecology
DX: A54.9 Gonococcal infection, unspecified (principal); N93.9 Abnormal uterine and vaginal bleeding, unspecified; N83.299 Other ovarian cyst, unspecified side
CPT/HCPCS: 87480; 87510; 87660; 99212

== ENCOUNTER 2022-06-20 14:09 | Outpatient (REF) | payer MEDICAID, SELFPAY ==
[2022-06-20 15:06] LABS: Hematocrit 32.1 % (37.0-47.0); Mean Corpuscular HGB Conc 34.3 g/dl (31.0-35.0); Mean Corpuscular Hemoglobin 29.9 pg (27.0-33.0); Mean Corpuscular Volume 87.2 fL (80.0-98.0); Mean Platelet Volume 11.3 fL (9.4-12.3); Platelet Count 246 X10*3/uL (160-400); Red Blood Count 3.68 X10*6/uL (4.20-5.50); Red Cell Distribution Width 14.2 % (11.0-16.0); White Blood Count 6.7 X10*3/uL (4.8-10.8)
[2022-06-20 16:05] LABS: HCG Quantitative < 2 mIU/mL; TSH reflex Free T4 0.74 uIU/mL (0.32-4.0)
[2022-06-21 02:41] LABS: CT PCR NOT DETECTED (Not Detect.); NG PCR NOT DETECTED (Not Detect.)
[2022-06-21 04:41] LABS: Syphilis Screen Nonreactive (Nonreactive)
[2022-06-21 04:53] LABS: HBsAGNum1 0.33 S/CO (0.00-0.99); HIV AB/AG Nonreactive (Nonreactive); HIV Num 1 0.09 S/CO (0.00-0.99); Hepatitis B Surface Antigen Negative (Negative); ~HepC Num1 0.15 S/CO (0.00-0.79); ~Hepatitis C Antibody Nonreactive (Nonreactive)
== END 2022-06-20 14:10 | disposition home or self-care (01) ==
LOC: HO.LAB 14:09
PROVIDERS: Visit Provider Obstetrics & Gynecology
DX: Z11.4 Encounter for screening for human immunodeficiency virus [HIV] (principal); N93.9 Abnormal uterine and vaginal bleeding, unspecified; A54.9 Gonococcal infection, unspecified
CPT/HCPCS: 0353U; 84443; 84702; 85027; 86780; 86803; 87340; 87389

== ENCOUNTER 2022-06-20 15:01 | Outpatient (REF) | payer MEDICAID, SELFPAY | END 2022-06-20 15:02 | disposition home or self-care (01) | LOC: HO.HAP 15:01 | PROVIDERS: Visit Provider Internal Medicine | DX: Z13.89 Encounter for screening for other disorder (principal) ==

== ENCOUNTER 2022-06-27 11:37 | Outpatient (REF) | payer MEDICAID, SELFPAY | END 2022-06-27 11:38 | disposition home or self-care (01) | LOC: HO.HAP 11:37 | PROVIDERS: Visit Provider Obstetrics & Gynecology | DX: Z13.89 Encounter for screening for other disorder (principal) ==

== ENCOUNTER → 2022-07-18 15:55 | Outpatient (BNVA) | payer MEDICAID, SELFPAY | PROVIDERS: Visit Provider Obstetrics & Gynecology | DX: N83.299 Other ovarian cyst, unspecified side (principal); N93.9 Abnormal uterine and vaginal bleeding, unspecified | CPT/HCPCS: 81025; 99212 ==

== ENCOUNTER → 2022-07-19 14:31 | Outpatient (BNVA) | payer MEDICAID, SELFPAY | PROVIDERS: Visit Provider Physician Assistant Surgical ==

== ENCOUNTER 2022-07-23 14:56 | Outpatient (REF) | payer MEDICAID, SELFPAY | END 2022-07-23 14:57 | disposition home or self-care (01) | LOC: HO.LNP 14:56 | PROVIDERS: Visit Provider Obstetrics & Gynecology | DX: N93.9 Abnormal uterine and vaginal bleeding, unspecified (principal) | CPT/HCPCS: 58100; 81025; 88305 ==

== ENCOUNTER → 2022-07-31 12:49 | Outpatient (BNVA) | payer MEDICAID, SELFPAY | PROVIDERS: Visit Provider Obstetrics & Gynecology | DX: N93.9 Abnormal uterine and vaginal bleeding, unspecified (principal) | CPT/HCPCS: 99212 ==

== ENCOUNTER 2022-08-02 10:46 | Outpatient (REF) | payer MEDICAID, SELFPAY ==
--- NOTE | ~2022-08-02 | US_ITS ---
EXAMINATION: US PELVIS CLINICAL INFORMATION: Follow-up ovarian cyst COMPARISON: Previous exam April 2022 TECHNIQUE: Ultrasound of the pelvis is performed using both transabdominal and transvaginal transducers along with Doppler. Transvaginal imaging is performed due to inadequate visualization transabdominally. FINDINGS: The uterus is anteverted and measures 9.5 x 6.8 x 5.5 cm. There is a 0.8 x 0.7 x 0.8 cm hypoechoic lesion in the uterine fundus probably representing a fibroid. No other focal uterine lesion. There is an IUD in the uterus in satisfactory position. Endometrial thickness is normal measuring 0.5 cm. There is a nabothian cyst in the cervix. The ovaries are normal. The right ovary measures 2.9 x 2.3 x 2.1 cm. There is a 7 x 9 x 9 mm simple right ovarian cyst or follicle. The left ovary measures 3.4 x 2.3 x 2.4 cm. The previously identified bilateral complex ovarian cysts April 2022 are no longer seen. There is no fluid in the pelvis. US/US pelvic and transvaginal IMPRESSION: IUD in the uterus in satisfactory position. Small anterior fundal uterine fibroid. Resolved small complex ovarian cysts from April 2022.
== END 2022-08-02 10:47 | disposition home or self-care (01) ==
LOC: HO.US 10:46
PROVIDERS: Visit Provider Obstetrics & Gynecology
DX: N83.299 Other ovarian cyst, unspecified side (principal)
CPT/HCPCS: 76830; 76856

== ENCOUNTER 2022-08-13 08:44 | Outpatient (REF) | payer MEDICAID, SELFPAY | END 2022-08-13 08:45 | disposition home or self-care (01) | LOC: HO.LNP 08:44 | PROVIDERS: Visit Provider Obstetrics & Gynecology | DX: N83.299 Other ovarian cyst, unspecified side (principal); N93.9 Abnormal uterine and vaginal bleeding, unspecified; Z20.2 Contact with and (suspected) exposure to infections with a predominantly sexual mode of transmission | CPT/HCPCS: 99212 ==

== ENCOUNTER 2022-08-13 09:35 | Outpatient (REF) | payer MEDICAID, SELFPAY ==
[2022-08-13 15:04] LABS: CT PCR NOT DETECTED (Not Detect.); NG PCR NOT DETECTED (Not Detect.)
[2022-08-14 04:33] LABS: Syphilis Screen Nonreactive (Nonreactive)
[2022-08-14 04:52] LABS: HBsAGNum1 0.35 S/CO (0.00-0.99); HIV AB/AG Nonreactive (Nonreactive); HIV Num 1 0.08 S/CO (0.00-0.99); Hepatitis B Surface Antigen Negative (Negative); ~HepC Num1 0.12 S/CO (0.00-0.79); ~Hepatitis C Antibody Nonreactive (Nonreactive)
[2022-08-14 09:44] LABS: BV Int Neg Control Negative (Negative); BV Int Pos Control Positive (Positive)
== END 2022-08-13 09:36 | disposition home or self-care (01) ==
LOC: HO.LAB 09:35
PROVIDERS: Visit Provider Obstetrics & Gynecology
DX: Z20.2 Contact with and (suspected) exposure to infections with a predominantly sexual mode of transmission (principal)
CPT/HCPCS: 0353U; 86780; 86803; 87340; 87389; 87480; 87510; 87660

== ENCOUNTER 2022-08-26 09:52 | Outpatient (AMB) | payer MEDICAID, SELFPAY ==
--- NOTE | 2022-08-26 10:10 | MHC.OFFVISWM ---
Intake VS Expanded 08/26/22 10:17 Height 5 ft 2 in Weight 131 lb 3.2 oz BMI 24.0 BP 138/75 Blood Pressure Location Rt brachial Blood Pressure Position Sitting Pulse 75 Pulse Source Pulse Oximeter Temp 96.8 F Temperature Source Temporal Artery Scan Pulse Oximetry 96 Oxygen Delivery Method Room Air Body Fat 29.2 Body Fat Percentage 22.2 Free Fat Mass 102.0 Muscle Mass 96.8 Visceral Mass 3.0 Water Mass 73.0 BMR 1,362 Intake Visit Reasons: (OV) PO LSG 11/22/21 Starting Sheet Tank Operator Required: No Allergies Seasonal Allergies Allergy (Unknown, Verified 08/26/22 10:20) Unknown Medication List - Last Reconciled 08/26/22 by ROBERT Elena bupropion HCl 300 mg PO DAILY clonazepam 0.5 mg PO BID fluconazole (Diflucan) 150 mg PO ONCE 1 day fluticasone propionate 50 mcg/actuation 1 spray intranasal DAILY levonorgestrel (Mirena) intrauterine lisdexamfetamine (Vyvanse) 70 mg PO QAM metronidazole 0.75%(37.5mg/5gram) 1 appful vaginal BEDTIME 5 days HPI HPI Comments History of Present Illness Details This?a?40?yo female who is s/p LSG without hiatal hernia repair on?11/22/[address] Anderson. Presents for 9 month post op visit. Weight today is 131.2 pounds, with a BMI of 24.? There has been a 122 pound weight loss,(initial weight 253.2 pounds) since starting the program on 04/13/21 reflecting a 48.1% total body weight loss and a weight loss of 79.3 pounds since surgery (operative weight 210.5 pounds) reflecting a 37.6% TBWL since surgery.? Not taking MVI Meal plan: Ensure 2 per day Meal- ground beef w tomatoes, chicken, saudi arabian yogurt Exercise plan: walking outdoor, not tracking calories PFSH Medical History Anemia Anxiety Depression Fibroid uterus GERD (gastroesophageal reflux disease) Hx of retained foreign body fully removed Kidney stones Lipoma of back Lipoma of right thigh Morbid obesity with BMI of 45.0-49.9, adult Ovarian cyst, left Pelvic pain Surgical History H/O gastric sleeve History of dilation and curettage History of elective History of excision of mass (02/25/22) History of hip surgery History of surgery on wrist History of surgical removal of ganglion cyst Hx of section Family History Mother HIV (human immunodeficiency virus infection) Dementia Brother No problems noted. Brother ADHD Schizophrenia Suicidal behavior with attempted self-injury Son No problems noted. Son No problems noted. Social History Household Members Other:: sons 10+17 yrs old Are you a primary acute care nursing assistant to a significant other at home: No Do you presently have visiting nurse or other home services: No Alcohol intake: current Alcohol intake frequency: holidays/special occasions only Alcohol type: hard liquor Patient Tobacco Use Status: Current someday Tobacco user Tobacco use type: Cigarette Substance Use Type: Marijuana service: No Current occupational status: employed Current occupation: teacher /rt hand Gender identity: Female Female Reproductive History Menstrual Age of Menarche: 14 Physical Exam Vital Signs: Last Vital Signs Temp 96.8 F 08/26/22 10:17 Pulse 75 08/26/22 10:17 BP 138/75 08/26/22 10:17 Pulse Ox 96 08/26/22 10:17 Oxygen Delivery Method Room Air 08/26/22 10:17 BMI result Body Mass Index 24.0 Const General: healthy appearing and no acute distress Resp Effort & Inspection: normal respiratory effort Auscultation: clear to auscultation bilaterally Cardio Rate: regular rate Rhythm: regular rhythm GI Auscultation: normal bowel sounds Extrem General: Yes normal to inspection Assessment & Plan Assessment & Plan (1) S/P laparoscopic sleeve gastrectomy: Code(s): Z98.84 - Bariatric surgery status Plan: Achieved healthy weight Continue meal plan Encouraged to join [employer] Will return for 1 year and check labs Given samples of Fusion MVI and Matt[employer] and encouraged to take bid and daily Coding Level of Care Code Est Pt Level 3 (85056) Diagnoses S/P laparoscopic sleeve gastrectomy Z98.84
[2022-08-26 10:17] VITALS: BP 138/75; PULSE 75; TEMP 36; O2SAT 96; BMI 24.0
== END 2022-08-26 10:49 | disposition home or self-care (01) ==
PROVIDERS: Visit Provider Physician Assistant Surgical
DX: Z71.3 Dietary counseling and surveillance (principal); Z90.3 Acquired absence of stomach [part of]; Z98.84 Bariatric surgery status
CPT/HCPCS: 99213

== ENCOUNTER → 2022-08-26 10:07 | Outpatient (BNVA) | payer MEDICAID, SELFPAY | PROVIDERS: Visit Provider Physician Assistant Surgical | DX: E66.01 Morbid (severe) obesity due to excess calories (principal); Z68.24 Body mass index [BMI] 24.0-24.9, adult; K21.9 Gastro-esophageal reflux disease without esophagitis | CPT/HCPCS: 99213 ==

== ENCOUNTER 2022-08-28 13:42 | Outpatient (REF) | payer MEDICAID, SELFPAY | END 2022-08-28 13:43 | disposition home or self-care (01) | LOC: HO.HAP 13:42 | PROVIDERS: Visit Provider Obstetrics & Gynecology | DX: Z46.1 Encounter for fitting and adjustment of hearing aid (principal); H90.5 Unspecified sensorineural hearing loss | CPT/HCPCS: 99499 ==

== ENCOUNTER 2022-09-16 10:56 | Outpatient (AMB) | payer OTHER, SELFPAY ==
--- NOTE | 2022-09-16 13:02 | MHC.WMTHER ---
Intake Intake Visit Reasons: (OV) PO LSG 11/22/21 Allergies Seasonal Allergies Allergy (Unknown, Verified 08/26/22 10:20) Unknown PFSH Medical History Anemia Anxiety Depression Fibroid uterus GERD (gastroesophageal reflux disease) Hx of retained foreign body fully removed Kidney stones Lipoma of back Lipoma of right thigh Morbid obesity with BMI of 45.0-49.9, adult Ovarian cyst, left Pelvic pain Surgical History H/O gastric sleeve History of dilation and curettage History of elective History of excision of mass (02/25/22) History of hip surgery History of surgery on wrist History of surgical removal of ganglion cyst Hx of section Family History Mother HIV (human immunodeficiency virus infection) Dementia Brother No problems noted. Brother ADHD Schizophrenia Suicidal behavior with attempted self-injury Son No problems noted. Son No problems noted. Social History Household Members Other:: sons 10+17 yrs old Are you a primary technical healthcare consultant to a significant other at home: No Do you presently have visiting nurse or other home services: No Alcohol intake: current Alcohol intake frequency: holidays/special occasions only Alcohol type: hard liquor Patient Tobacco Use Status: Current someday Tobacco user Tobacco use type: Cigarette Substance Use Type: Marijuana service: No Current occupational status: employed Current occupation: teacher /rt hand Gender identity: Female Female Reproductive History Menstrual Age of Menarche: 14 Behavioral Health Assessment Weight Management Therapy Therapy Notes Details Pt stated that her life is awful and she hates her body. She discussed recent breakup, people making statements about her body, getting eviction notice, her son's ongoing mental health struggles. She is in therapy, has a counseling case manager, as well as sees a psychiatrist. We discussed the progress she has made and the many positive changes in her body after significant weight loss. Assessment & Plan Assessment & Plan (1) Attention deficit hyperactivity disorder (ADHD), combined type: Code(s): F90.2 - Attention-deficit hyperactivity disorder, combined type (2) Major depressive disorder, severe: Code(s): F32.2 - Major depressive disorder, single episode, severe without psychotic features (3) S/P laparoscopic sleeve gastrectomy: Code(s): Z98.84 - Bariatric surgery status (4) Learning disorder: Code(s): F81.9 - Developmental disorder of scholastic skills, unspecified (5) Complex posttraumatic stress disorder: Code(s): F43.10 - Post-traumatic stress disorder, unspecified Plan Pt is seeing her therapist weekly but inconsistent with program recommendations. She reported that she hates her body and is very depressed. Pt often faces numerous stressors and it has been a challenge to be able to address complex trauma and grief. Coding Level of Care Code Psytx 45 mins (02999) Diagnoses Attention deficit hyperactivity disorder (ADHD), combined type F90.2 Major depressive disorder, severe F32.2 S/P laparoscopic sleeve gastrectomy Z98.84 Learning disorder F81.9 Complex posttraumatic stress disorder F43.10 Time Spent (min) 47
== END 2022-09-16 13:01 | disposition home or self-care (01) ==
PROVIDERS: Visit Provider Counselor Mental Health
DX: F90.2 Attention-deficit hyperactivity disorder, combined type (principal); F32.2 Major depressive disorder, single episode, severe without psychotic features; Z98.84 Bariatric surgery status; F81.9 Developmental disorder of scholastic skills, unspecified; F43.10 Post-traumatic stress disorder, unspecified
CPT/HCPCS: 90834

== ENCOUNTER → 2022-09-16 10:56 | Outpatient (BNVA) | payer MEDICAID, SELFPAY | PROVIDERS: Visit Provider Counselor Mental Health ==

== ENCOUNTER 2022-09-17 13:43 | Outpatient (REF) | payer MEDICAID, SELFPAY ==
--- NOTE | 2022-09-18 09:43 | MHC.AU.HA3 ---
Hearing Instrument Follow-Up- Binaural Date of Visit: 09/17/22 Left Ear: Make, Model, Color, Serial Number: Adair Audeo P70-R SN: [id number] Color: Guillermina Spinning Lathe Operator Repair Warranty: 08/01/2024 Spinning Lathe Operator Loss and Damage Warranty: USED 01/09/2022 Battery Size: Rechargeable It Network Engineer/Slim Tube: 0M Earmold/Dome/CShell/SlimTip: Small vented dome Type of Wax Guard: Edward Dispensed By: [facility] Date of Fittin06/01/2021 Follow-Up Summary: Since her last appointment, Adarsh's old hearing aid was found in the office and confirmed via serial number. She arrived today to package pick up her old hearing aid and return the loaner. Returned loAwoX. Due to a scheduling conflict, Adarsh was seen 45 minutes late. She had her Audeo P70-R device that was reported lost at the last appointment with no pole incisor operator. Transferred pole incisor operator from [facility] to her hearing aid. Could not confirm programming or if the hearing aid was working as hearing aid battery was and Adarsh did not have time for it to charge in office. She reported she will charge it at home and if she has issues, she will call. When discussing her old hearing aid, Adarsh insisted she dropped off a hearing aid with bluetooth for [facility] to hold. Explained no record of her bringing any other hearing aid except the Audeo B50-R hearing aid. Her original Audeo P70-R hearing aid was reported lost on 12/25/2021. Adarsh was insistent and became upset that [facility] does not have it. She decided to take her old hearing aid back anyways. Again, could not confirm programming as Adarsh was in a duran to leave. Adarsh now has both her old hearing aid (Audeo B50-R SN: [id number]) and new hearing aid (Audeo P70-R SN [id number]) in her possession. [facility] does not have any other of Heidys hearing aids in office or record of any other drop offs/donations. Recommendations: Hearing instrument follow-up or maintenance as needed. Please contact our clinic with any questions or concerns. Diagnosis Code(s): Primary Diagnosis: H90.42 SNHL Unilateral Left Side, W/Unrestricted Contralateral Hearing Signature: Provider: Courtney Lieberman, [facility]
== END 2022-09-17 13:44 | disposition home or self-care (01) ==
LOC: HO.HAP 13:43
PROVIDERS: Visit Provider Internal Medicine
DX: Z13.89 Encounter for screening for other disorder (principal)

== ENCOUNTER 2022-09-24 12:16 | Outpatient (REF) | payer MEDICAID, SELFPAY ==
[2022-09-24 15:23] LABS: CT PCR NOT DETECTED (Not Detect.); NG PCR NOT DETECTED (Not Detect.)
[2022-09-25 04:02] LABS: Syphilis Screen Nonreactive (Nonreactive)
[2022-09-25 04:24] LABS: HBc Num1 0.06 S/CO (0.00-0.79); HBsAGNum1 0.38 S/CO (0.00-0.99); HIV AB/AG Nonreactive (Nonreactive); HIV Num 1 0.07 S/CO (0.00-0.99); Hepatitis B Core Antibody Nonreactive (Nonreactive); Hepatitis B Surface Antigen Negative (Negative); ~HepC Num1 0.13 S/CO (0.00-0.79); ~Hepatitis C Antibody Nonreactive (Nonreactive)
[2022-09-25 04:25] LABS: Hepatitis A Antibody IgG REACTIVE (Nonreactive)
[2022-09-26 07:28] LABS: Rubeola IgG (Measles) >300.00 AU/mL
[2022-09-26 17:39] LABS: TS Negative Control Passed; TS Panel A 0; TS Panel B 0; TS Positive Control Passed; TSpotTB Negative (Negative)
== END 2022-09-24 12:17 | disposition home or self-care (01) ==
LOC: HO.HHCL 12:16
PROVIDERS: Visit Provider Family Medicine
DX: Z01.84 Encounter for antibody response examination (principal); Z11.3 Encounter for screening for infections with a predominantly sexual mode of transmission; Z11.4 Encounter for screening for human immunodeficiency virus [HIV]; Z11.1 Encounter for screening for respiratory tuberculosis
CPT/HCPCS: 0353U; 86481; 86704; 86708; 86735; 86762; 86765; 86780; 86787; 86803; 87340; 87389

== ENCOUNTER 2022-09-30 13:23 | Outpatient (AMB) | payer OTHER, SELFPAY ==
--- NOTE | 2022-09-30 15:58 | A.OFFWM_ITS ---
Intake Intake Visit Reasons: (OV) PO LSG 11/22/21 Allergies Seasonal Allergies Allergy (Unknown, Verified 08/26/22 10:20) Unknown PFSH Medical History Anemia Anxiety Depression Fibroid uterus GERD (gastroesophageal reflux disease) Hx of retained foreign body fully removed Kidney stones Lipoma of back Lipoma of right thigh Morbid obesity with BMI of 45.0-49.9, adult Ovarian cyst, left Pelvic pain Surgical History H/O gastric sleeve History of dilation and curettage History of elective History of excision of mass (02/25/22) History of hip surgery History of surgery on wrist History of surgical removal of ganglion cyst Hx of section Family History Mother HIV (human immunodeficiency virus infection) Dementia Brother No problems noted. Brother ADHD Schizophrenia Suicidal behavior with attempted self-injury Son No problems noted. Son No problems noted. Social History Household Members Other:: sons 10+17 yrs old Are you a primary district manager primary care sales to a significant other at home: No Do you presently have visiting nurse or other home services: No Alcohol intake: current Alcohol intake frequency: holidays/special occasions only Alcohol type: hard liquor Patient Tobacco Use Status: Current someday Tobacco user Tobacco use type: Cigarette Substance Use Type: Marijuana service: No Current occupational status: employed Current occupation: teacher /rt hand Gender identity: Female Female Reproductive History Menstrual Age of Menarche: 14 Behavioral Health Assessment Weight Management Therapy Therapy Notes Details Pt stated that she is struggling, her brother is in long term again, she feels alone, has yet to grieve her mother, wishes she could go away somewhere for tx. She is constantly on the go, working long shifts, doing multiple things at once to avoid being still and alone. We tried some EMDR today, she did okay, seemed overwhelmed in some moments. Will make worst things list next time. Assessment & Plan Assessment & Plan (1) Attention deficit hyperactivity disorder (ADHD), combined type: Code(s): F90.2 - Attention-deficit hyperactivity disorder, combined type (2) Major depressive disorder, severe: Code(s): F32.2 - Major depressive disorder, single episode, severe without psychotic features (3) S/P laparoscopic sleeve gastrectomy: Code(s): Z98.84 - Bariatric surgery status (4) Learning disorder: Code(s): F81.9 - Developmental disorder of scholastic skills, unspecified (5) Complex posttraumatic stress disorder: Code(s): F43.10 - Post-traumatic stress disorder, unspecified Plan Pt is seeing her therapist weekly but inconsistent with program recommendations. She reported that she hates her body and is very depressed. Pt often faces numerous stressors and it has been a challenge to be able to address complex trauma and grief. Coding Level of Care Code Psytx 45 mins (40160) Diagnoses Attention deficit hyperactivity disorder (ADHD), combined type F90.2 Major depressive disorder, severe F32.2 S/P laparoscopic sleeve gastrectomy Z98.84 Learning disorder F81.9 Complex posttraumatic stress disorder F43.10 Time Spent (min) 40
== END 2022-09-30 15:58 | disposition home or self-care (01) ==
PROVIDERS: Visit Provider Counselor Mental Health
DX: F90.2 Attention-deficit hyperactivity disorder, combined type (principal); F32.2 Major depressive disorder, single episode, severe without psychotic features; Z98.84 Bariatric surgery status; F81.9 Developmental disorder of scholastic skills, unspecified; F43.10 Post-traumatic stress disorder, unspecified
CPT/HCPCS: 90834

== ENCOUNTER → 2022-09-30 13:23 | Outpatient (BNVA) | payer MEDICAID, SELFPAY | PROVIDERS: Visit Provider Counselor Mental Health | DX: F90.2 Attention-deficit hyperactivity disorder, combined type (principal); F32.2 Major depressive disorder, single episode, severe without psychotic features; Z98.84 Bariatric surgery status; F81.9 Developmental disorder of scholastic skills, unspecified; F43.10 Post-traumatic stress disorder, unspecified ==

== ENCOUNTER 2022-10-04 13:03 | Outpatient (REF) | payer OTHER, SELFPAY ==
[2022-10-05 03:58] LABS: ~Hepatitis B Surface Antibody REACTIVE (Nonreactive)
== END 2022-10-04 13:04 | disposition home or self-care (01) ==
LOC: HO.HHCL 13:03
PROVIDERS: Visit Provider Family Medicine
DX: Z01.84 Encounter for antibody response examination (principal)
CPT/HCPCS: 36415; 86706

== ENCOUNTER 2022-10-14 13:28 | Outpatient (AMB) | payer MEDICAID, SELFPAY ==
--- NOTE | 2022-10-14 13:30 | MHC.WMTHER ---
Intake Intake Visit Reasons: VIDEO PO LSG 11/22/21 Allergies Seasonal Allergies Allergy (Unknown, Verified 08/26/22 10:20) Unknown [facility] Medical History Anemia Anxiety Depression Fibroid uterus GERD (gastroesophageal reflux disease) Hx of retained foreign body fully removed Kidney stones Lipoma of back Lipoma of right thigh Morbid obesity with BMI of 45.0-49.9, adult Ovarian cyst, left Pelvic pain Surgical History H/O gastric sleeve History of dilation and curettage History of elective History of excision of mass (02/25/22) History of hip surgery History of surgery on wrist History of surgical removal of ganglion cyst Hx of section Family History Mother HIV (human immunodeficiency virus infection) Dementia Brother No problems noted. Brother ADHD Schizophrenia Suicidal behavior with attempted self-injury Son No problems noted. Son No problems noted. Social History Household Members Other:: sons 10+17 yrs old Are you a primary director critical care to a significant other at home: No Do you presently have visiting nurse or other home services: No Alcohol intake: current Alcohol intake frequency: holidays/special occasions only Alcohol type: hard liquor Patient Tobacco Use Status: Current someday Tobacco user Tobacco use type: Cigarette Substance Use Type: Marijuana service: No Current occupational status: employed Current occupation: teacher /rt hand Gender identity: Female Female Reproductive History Menstrual Age of Menarche: 14 Behavioral Health Assessment Weight Management Therapy Therapy Notes Details Pt reported doing well after last EMDR test run. She stated that she felt very good, wants to continue and do more. Pt is out of her Vyvanse for 4 days now, has GED on friday. Assessment & Plan Assessment & Plan (1) Attention deficit hyperactivity disorder (ADHD), combined type: Code(s): F90.2 - Attention-deficit hyperactivity disorder, combined type (2) Major depressive disorder, severe: Code(s): F32.2 - Major depressive disorder, single episode, severe without psychotic features (3) S/P laparoscopic sleeve gastrectomy: Code(s): Z98.84 - Bariatric surgery status (4) Learning disorder: Code(s): F81.9 - Developmental disorder of scholastic skills, unspecified (5) Complex posttraumatic stress disorder: Code(s): F43.10 - Post-traumatic stress disorder, unspecified Plan Pt is seeing her therapist weekly but inconsistent with program recommendations. She reported that she hates her body and is very depressed. Pt often faces numerous stressors and it has been a challenge to be able to address complex trauma and grief. Telehealth Telehealth Location of provider rendering services: other Location of patient: other Patient Identification confirmed using: Name, : Yes Telehealth method: voice only Patient verbally consented to treatment: Yes Patient verbally consented to billing insurance company: Yes Patient informed of any privacy concerns related to visit: Yes Minutes spent on Phone/Video with Pt.: 25 Coding Level of Care Code Tele Psytx 30 mins (28813) Diagnoses Attention deficit hyperactivity disorder (ADHD), combined type F90.2 Major depressive disorder, severe F32.2 S/P laparoscopic sleeve gastrectomy Z98.84 Learning disorder F81.9 Complex posttraumatic stress disorder F43.10 Time Spent (min) 25
--- OUTSIDE RECORDS SUMMARY | 2022-10-14 13:30 | XMS_ITS | Continuity of Care Document ---
Author Name Unknown Organization [facility] Address [address] [place] [id number]- Care Team Providers Care Container Repairer Name Role Phone González Cuevas MD Primary Care Physician Encounter [facility] Date(s): 08/21/22 - 09/20/22 [facility] [address] [address]- Patient Care team information Care Team Personnel Name: González Cuevas MD Position: Reference Physician Member Role: PCP Address: Address: [address] [place] [address] [place] [address]-
--- OUTSIDE RECORDS SUMMARY | 2022-10-14 13:30 | XMS_ITS | Continuity of Care Document ---
Author Name Unknown Organization [facility] Address [address] [place] [address]- Care Team Providers Care Red Mud Thickener Operator Name Role Phone González Cuevas MD Primary Care Physician [phone] Encounter [facility] Date(s): 08/09/22 - 09/08/22 [facility] [address] [address]- Patient Care team information Care Team Personnel Name: González Cuevas MD Position: Reference Physician Member Role: PCP Address: Address: [address] [place] [address] [place] [address]-
--- OUTSIDE RECORDS SUMMARY | 2022-10-14 13:30 | XMS_ITS | Continuity of Care Document ---
Author Name Unknown Organization [facility] Address [address] [place] [phone]- Care Team Providers Care Stereoptician Name Role Phone González Cuevas MD Primary Care Physician Encounter [facility] Date(s): 04/02/22 - 05[facility]02/22 [facility] [address] [address]- [place] Patient Care team information Care Team Personnel Name: González Cuevas MD Position: Reference Physician Member Role: PCP Address: Address: [address] [place] [address] biology department chair [place], [place] [address]
== END 2022-10-14 13:31 | disposition home or self-care (01) ==
LOC: HO.HBST 13:28
PROVIDERS: Visit Provider Counselor Mental Health
DX: F90.2 Attention-deficit hyperactivity disorder, combined type (principal); F32.2 Major depressive disorder, single episode, severe without psychotic features; Z98.84 Bariatric surgery status; F81.9 Developmental disorder of scholastic skills, unspecified; F43.10 Post-traumatic stress disorder, unspecified
CPT/HCPCS: 90832

== ENCOUNTER → 2022-10-14 13:28 | Outpatient (BNVA) | payer SELFPAY | PROVIDERS: Visit Provider Counselor Mental Health ==

== ENCOUNTER 2022-10-28 16:21 | Outpatient (REF) | payer MEDICAID, SELFPAY | END 2022-10-28 16:22 | disposition home or self-care (01) | LOC: HO.HAP 16:21 | PROVIDERS: Visit Provider Pediatrics | DX: Z13.89 Encounter for screening for other disorder (principal) ==

== ENCOUNTER 2022-11-01 16:06 | Outpatient (REF) | payer MEDICAID, SELFPAY | END 2022-11-01 16:07 | disposition home or self-care (01) | LOC: HO.HAP 16:06 | PROVIDERS: Visit Provider Family Medicine | DX: Z13.89 Encounter for screening for other disorder (principal) ==

== ENCOUNTER → 2022-11-11 15:53 | Outpatient (BNVA) | payer OTHER, MEDICAID, SELFPAY | PROVIDERS: Visit Provider Counselor Mental Health ==

== ENCOUNTER 2022-12-02 10:42 | Outpatient (REF) | payer MEDICAID, SELFPAY ==
[2022-12-02 13:20] LABS: MANUAL DIFF FLAG NO
[2022-12-02 13:51] LABS: Basophils Percent Auto 0.3 % (0-2); Eosinophils Absolute Auto 0.2 X10*3/uL (0.0-0.4); Eosinophils Percent Auto 2.5 % (0-4); Hematocrit 32.9 % (37.0-47.0); Hemoglobin 11.1 g/dl (12.0-16.0); Imm Gran Abs Auto 0.01 X10*3/uL (0.00-0.03); Imm Gran Pct Auto 0.1 % (0.0-0.4); Lymphocytes Absolute Auto 3.1 X10*3/uL (1.2-4.9); Lymphocytes Percent Auto 45.6 % (20-40); Mean Corpuscular HGB Conc 33.7 g/dl (31.0-35.0); Mean Corpuscular Hemoglobin 30.4 pg (27.0-33.0); Mean Corpuscular Volume 90.1 fL (80.0-98.0); Mean Platelet Volume 11.9 fL (9.4-12.3); Monocytes Absolute Auto 0.4 X10*3/uL (0.1-1.2); Neutrophils Absolute Auto 3.1 x10*3/uL (2.0-8.3); Neutrophils Percent Auto 45.5 % (45-73); Platelet Count 246 X10*3/uL (160-400); Red Blood Count 3.65 X10*6/uL (4.20-5.50); Red Cell Distribution Width 14.1 % (11.0-16.0); White Blood Count 6.7 X10*3/uL (4.8-10.8)
[2022-12-02 14:44] LABS: Anion Gap 13 (12-20); Blood Urea Nitrogen 19 mg/dL (9-16); C Reactive Protein < 0.10 mg/dL (< or = 0.50); Calcium 9.1 mg/dL (8.4-10.2); Carbon Dioxide 26 mmol/L (22-29); Chloride 103 mmol/L (96-108); Cholesterol 161 mg/dL (<200); Estimated Glomerular Filt Rate > 60; Glucose Random 79 mg/dL (60-115); HDL Cholesterol 79 mg/dL (>40); Iron 86 mcg/dL (30-160); LDL Cholesterol Calculated 76 mg/dL (<100); Percent Iron Saturation 30 % (15-50); Potassium 3.4 mmol/L (3.3-5.1); Sodium 139 mmol/L (135-145); Total Iron Binding Capacity 289 mcg/dL (228-428); Triglycerides 30 mg/dL (<150); Unsaturated Iron Binding 203 ug/dL
[2022-12-02 14:52] LABS: Ferritin 30 ng/mL (10-122); Insulin 3 uU/mL (2-29); TSH reflex Free T4 1.72 uIU/mL (0.32-4.0); Vitamin D 25-OH Total 35.4 ng/mL (>30)
[2022-12-02 14:58] LABS: Estimated Average Glucose 94 mg/dL; Hemoglobin A1c % 4.9 % (<6.0)
[2022-12-02 15:01] LABS: Vitamin B12 305 pg/mL (200-900)
[2022-12-03 15:48] LABS: Calcium (PTHI) 8.8 mg/dL (8.6-10.2); PTHI 40 pg/mL (16-77)
[2022-12-04 16:33] LABS: Zinc 110 mcg/dL (60-130)
[2022-12-05 20:39] LABS: Vitamin A 53 mcg/dL (38-98)
[2022-12-05 23:04] LABS: Vitamin B1 20 nmol/L (8-30)
== END 2022-12-02 10:43 | disposition home or self-care (01) ==
LOC: HO.LAB 10:42
PROVIDERS: Absent Provider Physician Assistant Surgical; Visit Provider Counselor Mental Health
DX: E53.8 Deficiency of other specified B group vitamins (principal); E55.9 Vitamin D deficiency, unspecified; Z98.84 Bariatric surgery status
CPT/HCPCS: 36415; 80048; 80061; 82306; 82607; 82728; 82746; 83036; 83525; 83540; 83970; 84425; 84443; 84590; 84630; 85025; 86140; 90834; 99212

== ENCOUNTER 2022-12-02 10:42 | Outpatient (AMB) | payer OTHER, SELFPAY ==
--- NOTE | 2022-12-16 11:34 | A.OFFWM_ITS ---
Intake Intake Visit Reasons: (OV) PO LSG 11/22/21 Allergies Seasonal Allergies Allergy (Unknown, Verified 12/02/22 12:20) Unknown PFSH Medical History Anemia Anxiety Depression Fibroid uterus GERD (gastroesophageal reflux disease) Hx of retained foreign body fully removed Kidney stones Lipoma of back Lipoma of right thigh Morbid obesity with BMI of 45.0-49.9, adult Ovarian cyst, left Pelvic pain Surgical History History of excision of mass (02/25/22) H/O gastric sleeve History of elective History of dilation and curettage History of surgical removal of ganglion cyst History of hip surgery History of surgery on wrist Hx of section Family History Mother HIV (human immunodeficiency virus infection) Dementia Brother No problems noted. Brother ADHD Schizophrenia Suicidal behavior with attempted self-injury Son No problems noted. Son No problems noted. Social History Household Members Other:: sons 10+17 yrs old Are you a primary congregational care pastor to a significant other at home: No Do you presently have visiting nurse or other home services: No Alcohol intake: current Alcohol intake frequency: holidays/special occasions only Alcohol type: hard liquor Patient Tobacco Use Status: Current someday Tobacco user Tobacco use type: Cigarette Substance Use Type: Marijuana service: No Current occupational status: employed Current occupation: teacher /rt hand Gender identity: Female Female Reproductive History Menstrual Age of Menarche: 14 Behavioral Health Assessment Weight Management Therapy Therapy Notes Details Patient talked about how much she dislikes her body. All the things going on in her life, housing, new job, GED tests, foster home application. inability to just stop, standstill and just be. She cannot stop the constant busyness due to then thinking about the things that really hurt her. (initial intake) Pt is in tx at [facility] in [place] for therapy (M[facility]ica [phone]) and psychiatry. She has been going there since before the pandemic. Pt was stressed, angry, mad, scared, felt lonely, my mom did many bad things to us, left us messed up, didn't take care of us, was in foster care, when we were with her she did not love us . Pt stated that all of this effected her and have not been able to be successful. Her mother last year, this was the worst she stated, the day her mother , she tried to reach out for help but her insurance lapsed that day. Also has a CHD worker Camelia [phone] (field case manager). Is trying to find new housing through [employer] Presenting Concerns Referral Source provider Reason for referral weight loss surgery Precipitating Event obesity Living Situation Current Living Situation Rent At risk of losing current housing? No Satisfied with current living situation? No Social History Family history and relationship Pt stated that she was raised in and out of foster care system due to neglect and problems with addiction with her mother. Education Highest grade completed 10th grade has been struggling to get her GED because she has a hard time with tests. only has been able to pass CUT OFF MACHINE HELPER test. 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 No Interested in further educational program? Yes Educational Interests/Skills [employer], working with children Assessment & Plan Assessment & Plan (1) Attention deficit hyperactivity disorder (ADHD), combined type: Code(s): F90.2 - Attention-deficit hyperactivity disorder, combined type (2) Major depressive disorder, severe: Code(s): F32.2 - Major depressive disorder, single episode, severe without psychotic features (3) S/P laparoscopic sleeve gastrectomy: Code(s): Z98.84 - Bariatric surgery status (4) Learning disorder: Code(s): F81.9 - Developmental disorder of scholastic skills, unspecified (5) Complex posttraumatic stress disorder: Code(s): F43.10 - Post-traumatic stress disorder, unspecified Plan Pt is seeing her therapist weekly but inconsistent with program recommendations. She reported that she hates her body and is very depressed. Pt often faces numerous stressors and it has been a challenge to be able to address complex trauma and grief. Pt tried one EMDR session, did well, however second attempt from home did not go well, she presented sedated and unable to participate. Coding Level of Care Code Psytx 45 mins (90371) Diagnoses Attention deficit hyperactivity disorder (ADHD), combined type F90.2 Major depressive disorder, severe F32.2 S/P laparoscopic sleeve gastrectomy Z98.84 Learning disorder F81.9 Complex posttraumatic stress disorder F43.10 Time Spent (min) 45
== END 2022-12-02 14:30 | disposition home or self-care (01) ==
PROVIDERS: Visit Provider Counselor Mental Health
DX: F90.2 Attention-deficit hyperactivity disorder, combined type (principal); F32.2 Major depressive disorder, single episode, severe without psychotic features; Z98.84 Bariatric surgery status; F81.9 Developmental disorder of scholastic skills, unspecified; F43.10 Post-traumatic stress disorder, unspecified
CPT/HCPCS: 90834

== ENCOUNTER 2022-12-02 12:04 | Outpatient (AMB) | payer MEDICAID, SELFPAY ==
--- NOTE | 2022-12-02 12:12 | MHC.OFFVISWM ---
Intake VS Expanded 12/02/22 12:13 BP 137/74 Blood Pressure Location Lt brachial Blood Pressure Position Sitting Pulse 78 Pulse Source Pulse Oximeter Temp 98.4 F Temperature Source Tympanic Pulse Oximetry 98 Oxygen Delivery Method Room Air Height 5 ft 2 in Weight 136 lb 6.4 oz BMI 24.9 Body Fat % 25.7 Body Fat Mass 35.0 Fat Free Mass 101.2 Visceral Fat Rating 4.0 Body Water % 53.1 Body Water Mass 72.4 Muscle Mass/Score 96.2 Basal Metabolic Rate/Score 1,362 Intake Visit Reasons: (OV) PO LSG 11/22/21 Bioinformatics Analyst Required: No Test Engine Operator: Test Engine Operator Present Allergies Seasonal Allergies Allergy (Unknown, Verified 12/02/22 12:20) Unknown Medication List - Last Reconciled 12/02/22 by ROBERT Elena bupropion HCl 300 mg PO DAILY clonazepam 0.5 mg PO BID fluticasone propionate 50 mcg/actuation 1 spray intranasal DAILY levonorgestrel (Mirena) intrauterine lisdexamfetamine (Vyvanse) 70 mg PO QAM HPI HPI Comments History of Present Illness Details This?a?40?yo female who is s/p LSG without hiatal hernia repair on?11/22/[address] Anderson. Presents for 1 year post op visit. Weight today is 136.4 pounds, with a BMI of 24.9.? There has been a 116.8 pound weight loss,(initial weight 253.2 pounds) since starting the program on 04/13/21 reflecting a 46.1% total body weight loss and a weight loss of 74.1 pounds since surgery (operative weight 210.5 pounds) reflecting a 35.2% TBWL since surgery.? Complains of increased odor to the abdominal skin fold. She has been applying baby powder on a daily basis. She additionally reports in skin rubbing to the medial thighs causing discomfort with exercise and activity. She additionally is having discomfort with walking due to the excess skin of her abdomen. She has reported rash in the past, during the warmer months, self treated with coconut butter. Not taking MVI for the last 6 weeks due to financial issues, now improved Meal plan: Ensure 2 per day Meal- ground beef w tomatoes, chicken, portuguese yogurt Exercise plan: walking outdoor, not tracking calories Any post op complications: none HORACIO: never DM: never HTN: never Hyperlipidemia: never GERD:?0-5 scale ??0 = no symptoms ??1 = symptoms noticeable but not bothersome 2 =symptoms bothersome but not daily ? 3 = symptoms bothersome and daily 4 = symptoms affect daily activities 5 = symptoms are incapacitating, unable to do daily activities ? How bad is the heartburn: 0 ? Heartburn while lying down: 0 ? Heartburn when standing up: 0 ? Heartburn after meals: 0 ? Does heartburn change your diet: 0 ? Does heartburn wake you up from sleep: 0 ? Do you have difficulty swallowin ? Do you have pain with swallowin ? If you take medicine for your reflux, does this affect your daily life: 0 Satisfaction with present condition - satisfied or not satisfied: not satisfied [facility] Medical History Anemia Anxiety Depression Fibroid uterus GERD (gastroesophageal reflux disease) Hx of retained foreign body fully removed Kidney stones Lipoma of back Lipoma of right thigh Morbid obesity with BMI of 45.0-49.9, adult Ovarian cyst, left Pelvic pain Surgical History History of excision of mass (02/25/22) H/O gastric sleeve History of elective History of dilation and curettage History of surgical removal of ganglion cyst History of hip surgery History of surgery on wrist Hx of section Family History Mother HIV (human immunodeficiency virus infection) Dementia Brother No problems noted. Brother ADHD Schizophrenia Suicidal behavior with attempted self-injury Son No problems noted. Son No problems noted. Social History Household Members Other:: sons 10+17 yrs old Are you a primary post acute care nurse practitioner to a significant other at home: No Do you presently have visiting nurse or other home services: No Alcohol intake: current Alcohol intake frequency: holidays/special occasions only Alcohol type: hard liquor Patient Tobacco Use Status: Current someday Tobacco user Tobacco use type: Cigarette Substance Use Type: Marijuana service: No Current occupational status: employed Current occupation: teacher /rt hand Gender identity: Female Female Reproductive History Menstrual Age of Menarche: 14 Physical Exam Vital Signs: Last Vital Signs Temp 98.4 F 12/02/22 12:13 Pulse 78 12/02/22 12:13 BP 137/74 12/02/22 12:13 Pulse Ox 98 12/02/22 12:13 Oxygen Delivery Method Room Air 12/02/22 12:13 BMI result Body Mass Index 24.9 Const General: cooperative and no acute distress Orientation/consciousness: patient oriented x3 Resp Effort & Inspection: normal respiratory effort Auscultation: clear to auscultation bilaterally Cardio Rate: regular rate Rhythm: regular rhythm GI Inspection: Yes normal to inspection and Yes incision (well healed) Palpation (GI): Soft to palpation and no masses Skin Other: grade 2 pannus without rash or odor at this time Neuro General: patient oriented x3 Assessment & Plan Assessment & Plan (1) S/P laparoscopic sleeve gastrectomy: Code(s): Z98.84 - Bariatric surgery status Plan: Checked yearly labs Continue two ensure shakes and a small meal at night Encouraged to keep the skin folds clean and dry. We will have her return to the clinic in 6 weeks with the understanding that should she have any rash she will contact the office immediately. Orders: Orders IRON PROFILE Today E53.8 - Deficiency of other specified B group vitamins, E55.9 - Vitamin D deficiency, unspecified, Z98.84 - Bariatric surgery status Vitamin B12 and Folate Today E53.8 - Deficiency of other specified B group vitamins, E55.9 - Vitamin D deficiency, unspecified, Z98.84 - Bariatric surgery status Vitamin A Today E53.8 - Deficiency of other specified B group vitamins, E55.9 - Vitamin D deficiency, unspecified, Z98.84 - Bariatric surgery status C Reactive Protein Today E53.8 - Deficiency of other specified B group vitamins, E55.9 - Vitamin D deficiency, unspecified, Z98.84 - Bariatric surgery status Ferritin Today E53.8 - Deficiency of other specified B group vitamins, E55.9 - Vitamin D deficiency, unspecified, Z98.84 - Bariatric surgery status PTHI Today E53.8 - Deficiency of other specified B group vitamins, E55.9 - Vitamin D deficiency, unspecified, Z98.84 - Bariatric surgery status TSH reflex Free T4 Today E53.8 - Deficiency of other specified B group vitamins, E55.9 - Vitamin D deficiency, unspecified, Z98.84 - Bariatric surgery status Vitamin D 25-OH Total Today E53.8 - Deficiency of other specified B group vitamins, E55.9 - Vitamin D deficiency, unspecified, Z98.84 - Bariatric surgery status Insulin Today E53.8 - Deficiency of other specified B group vitamins, E55.9 - Vitamin D deficiency, unspecified, Z98.84 - Bariatric surgery status Lipid Panel Today E53.8 - Deficiency of other specified B group vitamins, E55.9 - Vitamin D deficiency, unspecified, Z98.84 - Bariatric surgery status Complete Blood Count Auto Diff Today E53.8 - Deficiency of other specified B group vitamins, E55.9 - Vitamin D deficiency, unspecified, Z98.84 - Bariatric surgery status Zinc Today E53.8 - Deficiency of other specified B group vitamins, E55.9 - Vitamin D deficiency, unspecified, Z98.84 - Bariatric surgery status Vitamin B1 Today E53.8 - Deficiency of other specified B group vitamins, E55.9 - Vitamin D deficiency, unspecified, Z98.84 - Bariatric surgery status Hemoglobin A1c Today E53.8 - Deficiency of other specified B group vitamins, E55.9 - Vitamin D deficiency, unspecified, Z98.84 - Bariatric surgery status Basic Metabolic Panel Today E53.8 - Deficiency of other specified B group vitamins, E55.9 - Vitamin D deficiency, unspecified, Z98.84 - Bariatric surgery status Coding Level of Care Code Est Pt Level 4 (20788) Diagnoses S/P laparoscopic sleeve gastrectomy Z98.84 Time Spent (min) 40
[2022-12-02 12:13] VITALS: BP 137/74; PULSE 78; TEMP 36.9; O2SAT 98; BMI 24.9
== END 2022-12-02 12:56 | disposition home or self-care (01) ==
LOC: HO.HBS 12:04
PROVIDERS: Visit Provider Physician Assistant Surgical
DX: Z71.3 Dietary counseling and surveillance (principal); Z90.3 Acquired absence of stomach [part of]; Z98.84 Bariatric surgery status
CPT/HCPCS: 99214

== ENCOUNTER 2022-12-02 13:43 | Outpatient (REF) | payer MEDICAID, SELFPAY | END 2022-12-02 13:44 | disposition home or self-care (01) | LOC: HO.HAP 13:43 | DX: Z13.89 Encounter for screening for other disorder (principal) ==

== ENCOUNTER 2023-01-22 11:02 | Outpatient (AMB) | payer MEDICAID, SELFPAY ==
--- OUTSIDE RECORDS SUMMARY | 2023-01-22 11:04 | XMS_ITS | Continuity of Care Document ---
Author Name Unknown [facility] Address [address] [place] [address], [address] [place] [address]- Care Team Providers Care Tractor Operator Name Role Phone González Cuevas MD Primary Care Physician Encounter [facility] Date(s): 08/26/22 - 11/16/22 [facility] [address], [address] [place] [address]- Attending Physician: Jason Gregg MD Referring Physician: Not on Staff, Referring MD Patient Care team information Care Team Personnel Name: González Cuevas MD Position: Reference Physician Member Role: PCP Address: Address: [address] [place] [address] [place] [address]-
--- OUTSIDE RECORDS SUMMARY | 2023-01-22 11:04 | XMS_ITS | Continuity of Care Document ---
Author Name Unknown Organization [facility] Address [address] [place] [address], [address] [place] [address]- Care Team Providers Care Hospital Receptionist Name Role Phone González Cuevas MD Primary Care Physician Encounter [facility] Date(s): 10/24/22 - 11/23/22 [facility] [address] [place] [address], [address] [place] [address]- Patient Care team information Care Team Personnel Name: González Cuevas MD Position: Reference Physician Member Role: PCP Address: Address: [address] [place] [address] manufacturing [place] [address]-
[2023-01-22 11:28] VITALS: BP 122/80; BMI 26.3
--- NOTE | 2023-01-22 11:28 | A.OFFVIS_ITS ---
Intake Vital Signs 01/22/23 11:28 Height 5 ft 2 in Weight 144 lb BMI 26.3 BP 122/80 Intake Visit Reasons: mirena check Allergies Seasonal Allergies Allergy (Unknown, Verified 12/02/22 12:20) Unknown HPI HPI Comments History of Present Illness Details Presenting requesting IUD removal, the patient has been having continuous vaginal spotting/bleeding with pelvic cramping since IUD insertion. The patient is interested in future fertility would like to discuss different options of reversible family planning options and DUB treatment PFSH Medical History Anemia Anxiety Depression Fibroid uterus GERD (gastroesophageal reflux disease) Hx of retained foreign body fully removed Kidney stones Lipoma of back Lipoma of right thigh Morbid obesity with BMI of 45.0-49.9, adult Ovarian cyst, left Pelvic pain Surgical History (Reviewed 12/02/22 @ 12:21 by Lilliam Red [facility]) History of excision of mass (02/25/22) H/O gastric sleeve History of elective History of dilation and curettage History of surgical removal of ganglion cyst History of hip surgery History of surgery on wrist Hx of section Family History Mother HIV (human immunodeficiency virus infection) Dementia Brother No problems noted. Brother ADHD Schizophrenia Suicidal behavior with attempted self-injury Son No problems noted. Son No problems noted. Social History Household Members Other:: sons 10+17 yrs old Are you a primary healthcare consultant to a significant other at home: No Do you presently have visiting nurse or other home services: No Alcohol intake: current Alcohol intake frequency: holidays/special occasions only Alcohol type: hard liquor Patient Tobacco Use Status: Current someday Tobacco user Tobacco use type: Cigarette Substance Use Type: Marijuana service: No Current occupational status: employed Current occupation: teacher /rt hand Gender identity: Female Female Reproductive History Menstrual Age of Menarche: 14 Review of Systems Const All systems reviewed & are unremarkable except as noted in HPI and below Physical Exam Vital Signs: Last Vital Signs BP 122/80 01/22/23 11:28 BMI result Body Mass Index 26.3 General: Yes no CVA tenderness External Female Exam: normal external appearance and normal appearance of the urethra Speculum Exam - Vagina: normal appearance of the vagina, normal palpation, no lesions and no masses Speculum Exam - Cervix: normal appearance of the cervix, normal palpation, no lesions, no masses, nontender and Other cervical findings present (IUD string seen) Bimanual exam- vagina & uterus: normal bimanual exam, normal palpation, uterine size normal, normal palpation, uterine shape normal, No Cervical tenderness present and non-tender Bimanual Exam- Adnexa, other: normal adnexae Back/Spine/Pelvis Back: no CVA tenderness Office Procedures IUD Insert/Removal Details Details: Counseling/Consent: After discussing with the patient the risks of the procedure including bleeding, infection, scar tissue formation, , possible injury to blood vessels or nerves, chronic arm pain, blood transfusion, and irregular unpredictable bleeding Alternative options were discussed with the patient including but not limited: Do nothing. The patient signed the consent and agreed with the plan; all questions answered. Urine test was done in the office and was negative Preop dx: Requesting IUD removal Op: IUD removal Post op dx: same EBL= 10 cc Procedure: The patient was put in the dorsal lithotomy position a speculum was inserted in the vagina the IUD thread identified. Using a Diamond clamp the thread was grasped and the IUD pulled out with no complications. The patient tolerated the procedure well and was advised to start control pills immediately and use a backup method for control for the 1st 2 weeks Discharge instructions: Instructions were given to the pt to call if temp>100.4, abdominal pain heavy vaginal bleeding, n/v occur. The patient verbalized understanding and all questions answered. This note was generated with a voice recognition program. Some errors may have been overlooked during the review of this note. Sometimes these errors may affect the content or meaning of a given sentence. 16960-FUP Removal Procedure code (CPT) selection complete Results AMB Test Urine AMB Test Urine Negative Last Edit by Linda Rose CMA on 11:38 Assessment & Plan Assessment & Plan (1) Encounter for IUD removal: Code(s): Z30.432 - Encounter for removal of intrauterine contraceptive device Plan: IUD removed, see procedure note (2) Abnormal uterine bleeding (AUB): Code(s): N93.9 - Abnormal uterine and vaginal bleeding, unspecified Plan: Discussed with the patient the options of treatment including control pills, cyclic Provera, Depo-Provera and Nexplanon. The patient is interested in potential future fertility. All pros, cons, risks and benefits if each option was discussed with the patient and the patient decided to go ahead with [facility] so a more detailed discussion re: control pills including mechanism of action, benefits (regular menses, less dysmenorrhea, less risk of ovarian cancer, ...), risks ( DVT, PE, Strokes, PA, ? increased breast ca, others). Instructions were given to use a back- up method for contraception x 1st 2 weeks, and to schedule a 3 months appointment for blood pressure check Orders: Orders AMB HCG Urine Test Today Z32.02 - Encounter for test, result negative Medications: New desogestrel-ethinyl estradiol 0.15-0.03 mg (Apri) 1 tab PO DAILY 28 tabs 2RF 28 days Coding Level of Care Code Est Pt Level 3 (84786) Procedure Only Diagnoses Encounter for IUD removal Z30.432 Abnormal uterine bleeding (AUB) N93.9 CPT Codes Details - CPT: 67269-VWH Removal ([id number])
== END 2023-01-22 12:17 | disposition home or self-care (01) ==
LOC: HO.HWS 11:02
PROVIDERS: Visit Provider Obstetrics & Gynecology
DX: N93.9 Abnormal uterine and vaginal bleeding, unspecified (principal); Z30.432 Encounter for removal of intrauterine contraceptive device; Z32.02 Encounter for pregnancy test, result negative
CPT/HCPCS: 58301; 99213

== ENCOUNTER → 2023-01-22 11:02 | Outpatient (BNVA) | payer MEDICAID, SELFPAY | PROVIDERS: Visit Provider Obstetrics & Gynecology | DX: Z30.432 Encounter for removal of intrauterine contraceptive device (principal); N93.9 Abnormal uterine and vaginal bleeding, unspecified | CPT/HCPCS: 58301; 81025; 99212 ==

== ENCOUNTER 2023-03-18 12:49 | Outpatient (REF) | payer MEDICAID, SELFPAY | END 2023-03-18 12:50 | disposition home or self-care (01) | LOC: HO.HAP 12:49 | PROVIDERS: Visit Provider Internal Medicine | DX: Z46.1 Encounter for fitting and adjustment of hearing aid (principal); H90.5 Unspecified sensorineural hearing loss | CPT/HCPCS: 92592 ==

== ENCOUNTER 2023-03-19 12:16 | Outpatient (REF) | payer MEDICAID, SELFPAY ==
[2023-03-19 13:09] LABS: MANUAL DIFF FLAG NO
[2023-03-19 13:17] LABS: Basophils Percent Auto 0.6 % (0-2); Eosinophils Absolute Auto 0.1 X10*3/uL (0.0-0.4); Eosinophils Percent Auto 1.9 % (0-4); Hemoglobin 11.4 g/dl (12.0-16.0); Imm Gran Abs Auto 0.01 X10*3/uL (0.00-0.03); Imm Gran Pct Auto 0.2 % (0.0-0.4); Lymphocytes Absolute Auto 2.8 X10*3/uL (1.2-4.9); Lymphocytes Percent Auto 54.2 % (20-40); Mean Corpuscular HGB Conc 33.5 g/dl (31.0-35.0); Mean Corpuscular Hemoglobin 29.5 pg (27.0-33.0); Mean Corpuscular Volume 88.1 fL (80.0-98.0); Mean Platelet Volume 11.7 fL (9.4-12.3); Monocytes Absolute Auto 0.3 X10*3/uL (0.1-1.2); Monocytes Percent Auto 6.2 % (2-11); Neutrophils Absolute Auto 1.9 x10*3/uL (2.0-8.3); Neutrophils Percent Auto 36.9 % (45-73); Platelet Count 240 X10*3/uL (160-400); Red Blood Count 3.86 X10*6/uL (4.20-5.50); Red Cell Distribution Width 13.2 % (11.0-16.0); White Blood Count 5.2 X10*3/uL (4.8-10.8)
[2023-03-19 13:40] LABS: Alanine Aminotransferase 19 U/L (0-31); Albumin Level 4.1 g/dL (3.5-5.0); Alkaline Phosphatase 43 U/L (39-117); Anion Gap 11 (12-20); Aspartate Amino Transferase 18 U/L (5-31); Bilirubin Total 0.5 mg/dL (0.0-1.0); Blood Urea Nitrogen 17 mg/dL (9-16); Calcium 9.1 mg/dL (8.4-10.2); Carbon Dioxide 28 mmol/L (22-29); Chloride 105 mmol/L (96-108); Estimated Glomerular Filt Rate > 60; Glucose Random 87 mg/dL (60-115); Potassium 3.6 mmol/L (3.3-5.1); Sodium 140 mmol/L (135-145); Total Protein 7.2 g/dL (6.5-8.0)
[2023-03-19 13:47] LABS: Syphilis Screen Nonreactive (Nonreactive)
[2023-03-19 13:51] LABS: Appearance Urine Clear; Color Urine Yellow; Glucose Urine UA Negative (Negative); Leukocyte Esterase Urine Small (1+) (Negative); Nitrite Urine Negative (Negative); PH 6.5 (5.0-9.0); UMIC TRIGGER UACC YES; Urine Blood Trace (Negative); Urine Ketones Negative (Negative); Urine Protein Negative (Neg-Trace)
[2023-03-19 13:55] LABS: Bacteria Urine 2+ (None Seen); Hyaline Casts Urine 0-2 /LPF (0-2); RBC Urine 0-2 /HPF (0-2); UACC Culture Trigger YES
[2023-03-19 13:56] LABS: TSH reflex Free T4 1.39 uIU/mL (0.32-4.0)
[2023-03-19 14:02] LABS: Folate > 20.0 ng/mL (> or = 4.0); Vitamin B12 464 pg/mL (200-900)
[2023-03-20 14:32] LABS: HCG Tumor Marker <5 mIU/mL
== END 2023-03-19 12:17 | disposition home or self-care (01) ==
LOC: HO.HHCL 12:16
PROVIDERS: Visit Provider Family Medicine
DX: R32 Unspecified urinary incontinence (principal); R29.6 Repeated falls; N92.6 Irregular menstruation, unspecified
CPT/HCPCS: 36415; 80053; 81001; 82607; 82746; 84443; 84702; 85025; 86780; 87086

== ENCOUNTER 2023-03-25 10:11 | Outpatient (AMB) | payer MEDICAID, SELFPAY ==
--- NOTE | 2023-03-25 10:22 | MHC.OFFVIS ---
Intake Vital Signs 03/25/23 10:36 Height 5 ft 2 in Weight 149 lb 4 oz BMI 27.3 BP 129/68 Blood Pressure Location Lt brachial Position Sitting Pulse 94 Intake Visit Reasons: ? lipoma Lt wrist Intake Note: Patient is seen in office for evaluation of a lipoma of the left wrist. Pt c/o: mass on top of the left hand, onset for months, painful, denies discharge, redness, had a prior right next to it removed Biomedical Photographer Required: No Accompanied by: Self / Same As Patient Allergies Seasonal Allergies Allergy (Unknown, Verified 03/25/23 10:36) Unknown Medication List - Last Reconciled 03/25/23 by Hossein Macias MD bupropion HCl 300 mg PO DAILY clonazepam 0.5 mg PO BID desogestrel-ethinyl estradiol 0.15-0.03 mg (Apri) 1 tab PO DAILY 28 days fluticasone propionate 50 mcg/actuation 1 spray intranasal DAILY levonorgestrel (Mirena) intrauterine lisdexamfetamine (Vyvanse) 70 mg PO QAM HPI HPI Comments History of Present Illness Details 42-year-old female patient presenting with a soft tissue mass located on the dorsum of her left wrist. She reports a previous excision at this site by Dr. Dorsey but now has returned. She denies any significant pain but is concerned when she bends her wrist, the lesion appears to increase in size. She denies any tingling and numbness in the hand. [facility] Medical History Fibroid uterus Hx of retained foreign body fully removed Lipoma of right thigh Lipoma of back Depression Morbid obesity with BMI of 45.0-49.9, adult GERD (gastroesophageal reflux disease) Anxiety Pelvic pain Kidney stones Ovarian cyst, left Anemia Surgical History History of excision of mass (02/25/22) H/O gastric sleeve History of elective History of dilation and curettage History of surgical removal of ganglion cyst (06/24/16) History of hip surgery History of surgery on wrist Hx of section Family History Mother HIV (human immunodeficiency virus infection) Dementia Brother No problems noted. Brother ADHD Schizophrenia Suicidal behavior with attempted self-injury Son No problems noted. Son No problems noted. Social History Household Members Other:: sons 10+17 yrs old Are you a primary healthcare representative to a significant other at home: No Do you presently have visiting nurse or other home services: No Alcohol intake: current Alcohol intake frequency: holidays/special occasions only Alcohol type: hard liquor Patient Tobacco Use Status: Current someday Tobacco user Tobacco use type: Cigarette Substance Use Type: Marijuana service: No Current occupational status: employed Current occupation: teacher /rt hand Gender identity: Female Female Reproductive History Menstrual Age of Menarche: 14 Review of Systems Const All systems reviewed & are unremarkable except as noted in HPI and below Physical Exam Vital Signs: Last Vital Signs Pulse 94 03/25/23 10:36 BP 129/68 03/25/23 10:36 BMI result Body Mass Index 27.3 Const General: no acute distress Nutritional Appearance: well nourished Orientation/consciousness: patient oriented x3 HEENT Head: Yes normocephalic and Yes atraumatic Resp Effort & Inspection: normal respiratory effort Skin Other: Warm, dry, no rash Neuro General: patient oriented x3 Extrem Other: Left wrist dorsum with a well-healed incision in a transverse fashion with a cystic collection below measuring approximately 2-3 cm in diameter. This does increase with flexion of the wrist. There is no evidence of redness or ulceration of the skin. Nontender to palpation. Hand/finger images: 1. Location of the ganglion cyst, recurrent Assessment & Plan Assessment & Plan (1) Ganglion cyst of dorsum of left wrist: Code(s): M67.432 - Ganglion, left wrist Plan 42-year-old female patient returning with a recurrent ganglion cyst of the left wrist previously excised by Dr. Dorsey. I recommended follow-up with Dr. Mccall from hand surgery and a referral has been sent. She should follow up p.r.n.. Orders: Referrals Hand Surgery Referral M67.432 - Ganglion, left wrist Coding Level of Care Code Est Pt Level 3 (48220) Diagnoses Ganglion cyst of dorsum of left wrist M67.432
[2023-03-25 10:36] VITALS: BP 129/68; PULSE 94; BMI 27.3
== END 2023-03-25 10:40 | disposition home or self-care (01) ==
PROVIDERS: PCP Family Medicine; Visit Provider Surgery
DX: M67.432 Ganglion, left wrist (principal)
CPT/HCPCS: 99213

== ENCOUNTER → 2023-03-25 10:11 | Outpatient (BNVA) | payer MEDICAID, SELFPAY | PROVIDERS: PCP Family Medicine; Visit Provider Surgery | DX: M67.432 Ganglion, left wrist (principal) | CPT/HCPCS: 99212 ==

== ENCOUNTER 2023-03-25 11:24 | Outpatient (REF) | payer MEDICAID, SELFPAY | END 2023-03-25 11:25 | disposition home or self-care (01) | LOC: HO.HAP 11:24 | PROVIDERS: Visit Provider Internal Medicine | DX: Z13.89 Encounter for screening for other disorder (principal) ==

== ENCOUNTER 2023-03-26 11:00 | Outpatient (AMB) | payer MEDICAID, SELFPAY ==
[2023-03-26 10:52] VITALS: BMI 27.2
--- NOTE | 2023-03-26 10:52 | A.OFFVIS_ITS ---
Intake VS Expanded 03/26/23 10:52 Height 5 ft 2 in Weight 149 lb BMI 27.2 Intake Visit Reasons: (TV) PO LSG 11/22/21 Allergies Seasonal Allergies Allergy (Unknown, Verified 03/25/23 10:36) Unknown Medication List - Last Reconciled 03/26/23 by ROBERT Elena bupropion HCl 300 mg PO DAILY clonazepam 0.5 mg PO BID desogestrel-ethinyl estradiol 0.15-0.03 mg (Apri) 1 tab PO DAILY 28 days fluticasone propionate 50 mcg/actuation 1 spray intranasal DAILY levonorgestrel (Mirena) intrauterine lisdexamfetamine (Vyvanse) 70 mg PO QAM multivitamin 1 tab PO DAILY 90 days HPI HPI Comments History of Present Illness Details This?a?40?yo female who is s/p LSG without hiatal hernia repair on?11/22/[address] Anderson. Presents for 1 year 4 month post op visit. Weight today is 142 pounds, with a BMI of 24.9.? There has been a 111.2 pound weight loss,(initial weight 253.2 pounds) since starting the program on 04/13/21 reflecting a 43.9% total body weight loss and a weight loss of 61.5 pounds since surgery (operative weight 210.5 pounds) reflecting a 29.2% TBWL since surgery.? She states she recently moved to [facility] near [facility]. She is also having trouble with her son. She has also been having trouble with balance and urinary incontinence. She was seen by her PCP and w/u is in process. Complains of increased odor to the abdominal skin fold. She has been applying baby powder on a daily basis. She additionally reports in skin rubbing to the medial thighs causing discomfort with exercise and activity. She additionally is having discomfort with walking due to the excess skin of her abdomen. She has reported rash in the past, during the warmer months, self treated with coconut butter. Not taking MVI due to financial reasons Meal plan: Ensure 1 per day egg sandwich Meal- ground beef w tomatoes, chicken, corn broccoli, potato Drinking 60 oz daily Exercise plan: walking outdoors [facility] Medical History Fibroid uterus Hx of retained foreign body fully removed Lipoma of right thigh Lipoma of back Depression Morbid obesity with BMI of 45.0-49.9, adult GERD (gastroesophageal reflux disease) Anxiety Pelvic pain Kidney stones Ovarian cyst, left Anemia Surgical History History of excision of mass (02/25/22) H/O gastric sleeve History of elective History of dilation and curettage History of surgical removal of ganglion cyst (06/24/16) History of hip surgery History of surgery on wrist Hx of section Family History Mother HIV (human immunodeficiency virus infection) Dementia Brother No problems noted. Brother ADHD Schizophrenia Suicidal behavior with attempted self-injury Son No problems noted. Son No problems noted. Social History Household Members Other:: sons 10+17 yrs old Are you a primary care mgr to a significant other at home: No Do you presently have visiting nurse or other home services: No Alcohol intake: current Alcohol intake frequency: holidays/special occasions only Alcohol type: hard liquor Patient Tobacco Use Status: Current someday Tobacco user Tobacco use type: Cigarette Substance Use Type: Marijuana service: No Current occupational status: employed Current occupation: teacher /rt hand Gender identity: Female Female Reproductive History Menstrual Age of Menarche: 14 Assessment & Plan Assessment & Plan (1) Overweight (BMI 25.0-29.9): Code(s): E66.3 - Overweight Plan: Per patient request, called at a new number, . She has been having multiple ongoing issues including difficulties with her son and multiple medical issues that are being addressed by her primary care physician. She was encouraged to avoid corn and potatoes as well as bread on her egg sandwich. She has not documenting how far she is walking or how many calories she is burning as her phone broke, hence the new phone number which was a borrowed phone. She does state that she is walking more than she ever has. I sent a prescription over for a multivitamin as she did not have the finances to purchase a multivitamin. We will have her return to the office for 18 month follow-up visit with the understanding that she will text with any questions or concerns. Medications: New multivitamin 1 tab PO DAILY 90 tabs 2RF 90 days Telehealth Telehealth Location of provider rendering services: practice address Location of patient: other Patient Identification confirmed using: Name, : Yes Telehealth method: voice only Patient verbally consented to treatment: Yes Patient verbally consented to billing insurance company: Yes Patient informed of any privacy concerns related to visit: Yes Minutes spent on Phone/Video with Pt.: 20 Coding Level of Care Code Tele Est Pt Level 3 (82483) Diagnoses Overweight (BMI 25.0-29.9) E66.3 Time Spent (min) 25
--- OUTSIDE RECORDS SUMMARY | 2023-03-26 11:15 | XMS_ITS | Continuity of Care Document ---
Author Name Unknown [facility] Address [address], [address] [place] [address]- Care Team Providers Care Edger Runner Name Role Phone González Cuevas MD Primary Care Physician Encounter [facility] Date(s): 12/31/22 - 01/30/23 [facility] [address] [place] [address]- Attending Physician: Kalyan Yao Admitting Physician: Kalyan Yao Referring Physician: Admtr, Ar8 Patient Care team information Care Team Personnel Name: González Cuevas MD Position: Reference Physician Member Role: PCP Address: Address: [address] [place] [address] [place] [address]-
--- OUTSIDE RECORDS SUMMARY | 2023-03-26 11:15 | XMS_ITS | Continuity of Care Document ---
Author Name Unknown Organization [facility] Address [address], [address] [place] [address]- Care Team Providers Care Naturopath Name Role Phone González Cuevas MD Primary Care Physician Encounter [facility] Date(s): 01/22/23 - 02/21/[facility] [address], [address] [place] [address]- Patient Care team information Care Team Personnel Name: González Cuevas MD Position: Reference Physician Member Role: PCP Address: Address: [address] [place] [address] dietetic intern [place], [place] [address]
--- OUTSIDE RECORDS SUMMARY | 2023-03-26 11:16 | XMS_ITS | Continuity of Care Document ---
Author Name Unknown [facility] Address [address], [address] [place] [address]- Care Team Providers Care Ophthalmology Surgical Technician Name Role Phone González Cuevas MD Primary Care Physician Encounter [facility] Date(s): 10/31/22 - 01/30/23 [facility] [address] [place] [address]- Attending Physician: Jason Gregg MD Referring Physician: Not on Staff, Referring MD Patient Care team information Care Team Personnel Name: González Cuevas MD Position: Reference Physician Member Role: PCP Address: Address: [address] [place] [address] [place] [address]-
== END 2023-03-26 11:27 | disposition home or self-care (01) ==
LOC: HO.HBS 11:13
PROVIDERS: PCP Family Medicine; Visit Provider Physician Assistant Surgical
DX: E66.3 Overweight (principal)
CPT/HCPCS: 99213

== ENCOUNTER → 2023-03-26 11:00 | Outpatient (BNVA) | payer MEDICAID, SELFPAY | PROVIDERS: PCP Family Medicine; Visit Provider Physician Assistant Surgical ==

== ENCOUNTER 2023-04-08 14:05 | Outpatient (REF) | payer MEDICAID, SELFPAY ==
[2023-04-08 16:33] LABS: HCG Quantitative 7064 mIU/mL
== END 2023-04-08 14:06 | disposition home or self-care (01) ==
LOC: HO.HHCL 14:05
PROVIDERS: Visit Provider Registered Nurse
DX: Z34.91 Encounter for supervision of normal pregnancy, unspecified, first trimester (principal); Z3A.01 Less than 8 weeks gestation of pregnancy
CPT/HCPCS: 36415; 84702

== ENCOUNTER 2023-04-10 13:56 | Outpatient (REF) | payer MEDICAID, SELFPAY ==
[2023-04-10 18:10] LABS: HCG Quantitative 7100 mIU/mL
== END 2023-04-10 13:57 | disposition home or self-care (01) ==
LOC: HO.HHCL 13:56
PROVIDERS: Visit Provider Registered Nurse
DX: O09.511 Supervision of elderly primigravida, first trimester (principal); Z3A.01 Less than 8 weeks gestation of pregnancy
CPT/HCPCS: 36415; 84702

== ENCOUNTER 2023-04-11 14:03 | Outpatient (REF) | payer MEDICAID, SELFPAY ==
--- NOTE | ~2023-04-11 | US_ITS ---
EXAMINATION: US OBSTETRICAL ULTRASOUND CLINICAL INFORMATION: Abnormal liver is in a CG. Concern for demise COMPARISON: Ultrasound pelvis and transvaginal 08/02/2022. LMP: 02/26/2023. Gestational age by maternal dates is 6 weeks 2 days. Estimated date of delivery by maternal dates is 12/03/2023. TECHNIQUE: Transabdominal imaging of pelvis is performed. FINDINGS: There is a single intrauterine gestational sac with visible yolk sac, embryo/fetus, and cardiac activity. There is no significant subchorionic hemorrhage or hematoma. Gestational sac measures 1.6 x 1.0 x 1.35 cm with a mean sac diameter of 1.34 seen corresponding to 6 weeks and 1 day. HR: 98 beats per minute. CRL (crown rump length): 0.29 cm (6 weeks 1 day +/- 4 days). TY (estimated date of delivery): 12/04/2023 +/- 4 days. MATERNAL ADNEXA: The right maternal ovary measures 3.0 x 2.4 x 1.5 cm. Volume 6.43 mL. The left maternal ovary measures 3.9 x 2.1 x 1.6 cm. 6.68 mL volume There is no significant maternal adnexal mass. No maternal pelvic ascites. US/US OB pelvic and transvaginal IMPRESSION: 1. Single intrauterine gestation with ultrasound gestational age of 6 weeks 1 day +/- 4 days. 2. Estimated date of delivery is 12/04/2023 +/- 4 days. 3. No maternal adnexal mass or pelvic ascites.
== END 2023-04-11 14:04 | disposition home or self-care (01) ==
LOC: HO.US 14:03
PROVIDERS: PCP Family Medicine; Visit Provider Registered Nurse
DX: Z34.91 Encounter for supervision of normal pregnancy, unspecified, first trimester (principal); Z3A.01 Less than 8 weeks gestation of pregnancy
CPT/HCPCS: 76801; 76817

== ENCOUNTER 2023-04-17 21:55 | Emergency (ER) | payer MEDICAID, SELFPAY ==
[2023-04-17 22:04] VITALS: BP 158/79; PULSE 85; RESP 18; TEMP 37; O2SAT 98; BMI 28.8
[2023-04-17 22:23] LABS: MANUAL DIFF FLAG NO
[2023-04-17 22:24] LABS: Basophils Percent Auto 0.5 % (0-2); Eosinophils Absolute Auto 0.1 X10*3/uL (0.0-0.4); Eosinophils Percent Auto 0.9 % (0-4); Hematocrit 32.4 % (37.0-47.0); Hemoglobin 11.3 g/dl (12.0-16.0); Imm Gran Abs Auto 0.02 X10*3/uL (0.00-0.03); Imm Gran Pct Auto 0.2 % (0.0-0.4); Lymphocytes Absolute Auto 3.5 X10*3/uL (1.2-4.9); Lymphocytes Percent Auto 39.8 % (20-40); Mean Corpuscular HGB Conc 34.9 g/dl (31.0-35.0); Mean Corpuscular Hemoglobin 30.5 pg (27.0-33.0); Mean Corpuscular Volume 87.6 fL (80.0-98.0); Mean Platelet Volume 10.7 fL (9.4-12.3); Monocytes Absolute Auto 0.5 X10*3/uL (0.1-1.2); Monocytes Percent Auto 5.2 % (2-11); Neutrophils Absolute Auto 4.7 x10*3/uL (2.0-8.3); Neutrophils Percent Auto 53.4 % (45-73); Platelet Count 236 X10*3/uL (160-400); Red Cell Distribution Width 13.5 % (11.0-16.0); White Blood Count 8.7 X10*3/uL (4.8-10.8)
[2023-04-17 22:47] LABS: Alanine Aminotransferase 45 U/L (0-31); Albumin Level 4.2 g/dL (3.5-5.0); Alkaline Phosphatase 45 U/L (39-117); Anion Gap 12 (12-20); Aspartate Amino Transferase 28 U/L (5-31); Bilirubin Total 0.3 mg/dL (0.0-1.0); Blood Urea Nitrogen 17 mg/dL (9-16); Calcium 9.2 mg/dL (8.4-10.2); Carbon Dioxide 27 mmol/L (22-29); Chloride 104 mmol/L (96-108); Creatinine Clr Calc Pharmacy 97.4; Estimated Glomerular Filt Rate > 60; Glucose Random 101 mg/dL (60-115); Potassium 3.7 mmol/L (3.3-5.1); Sodium 139 mmol/L (135-145); Total Protein 7.4 g/dL (6.5-8.0)
[2023-04-17 23:05] LABS: HCG Quantitative 19686 mIU/mL
--- NOTE | 2023-04-18 00:45 | PC.NURSE ---
pt reports wants to leave as its getting late. my ride is coming . educated on importance of staying to see provider. Pt reports will go to urgent care in am and will return if worse.
== END 2023-04-18 01:27 | disposition left against medical advice (07) ==
PROVIDERS: Emergency Provider Emergency Medicine; PCP Family Medicine
DX: O20.9 Hemorrhage in early pregnancy, unspecified (principal); Z3A.01 Less than 8 weeks gestation of pregnancy
CPT/HCPCS: 36415; 80053; 84702; 85025; 99281; 99283

== ENCOUNTER 2023-05-07 10:35 | Outpatient (REF) | payer MEDICAID, SELFPAY ==
[2023-05-07 11:25] LABS: MANUAL DIFF FLAG NO
[2023-05-07 11:42] LABS: Basophils Percent Auto 0.5 % (0-2); Eosinophils Absolute Auto 0.1 X10*3/uL (0.0-0.4); Eosinophils Percent Auto 1.7 % (0-4); Hematocrit 32.7 % (37.0-47.0); Hemoglobin 11.2 g/dl (12.0-16.0); Imm Gran Abs Auto 0.01 X10*3/uL (0.00-0.03); Imm Gran Pct Auto 0.2 % (0.0-0.4); Lymphocytes Percent Auto 45.3 % (20-40); Mean Corpuscular HGB Conc 34.3 g/dl (31.0-35.0); Mean Corpuscular Hemoglobin 30.1 pg (27.0-33.0); Mean Corpuscular Volume 87.9 fL (80.0-98.0); Mean Platelet Volume 11.5 fL (9.4-12.3); Monocytes Absolute Auto 0.4 X10*3/uL (0.1-1.2); Monocytes Percent Auto 5.5 % (2-11); Neutrophils Absolute Auto 3.1 x10*3/uL (2.0-8.3); Neutrophils Percent Auto 46.8 % (45-73); Platelet Count 230 X10*3/uL (160-400); Red Blood Count 3.72 X10*6/uL (4.20-5.50); Red Cell Distribution Width 13.5 % (11.0-16.0); White Blood Count 6.6 X10*3/uL (4.8-10.8)
[2023-05-07 13:01] LABS: Folate 13.1 ng/mL (> or = 4.0); Vitamin B12 332 pg/mL (200-900)
== END 2023-05-07 10:36 | disposition home or self-care (01) ==
LOC: HO.HHCL 10:35
PROVIDERS: Visit Provider Family Medicine
DX: R20.2 Paresthesia of skin (principal)
CPT/HCPCS: 36415; 82607; 82746; 84443; 85025

== ENCOUNTER 2023-05-13 17:43 | Emergency (ER) | payer MEDICAID, SELFPAY ==
--- NOTE | ~2023-05-13 | US_ITS ---
EXAMINATION: US FIRST TRIMESTER CLINICAL INFORMATION: 10 week fragment LMP: 02/26/2023 Beta-hCG: Unknown COMPARISON: Prior ultrasound March 2023 TECHNIQUE: Transabdominal imaging was performed. FINDINGS: UTERUS AND INTRAUTERINE GESTATIONAL SAC: There is a single intrauterine gestational sac. CROWN-RUMP LENGTH (CRL) : 1.43 cm, estimated age 7 weeks and 6 days, estimated date of confinement is 12/24/2023 YOLK SAC: Not found HEART MOTION: Normal heart motion detected raising concern for demise. SUBCHORIONIC HEMORRHAGE: None OVARIES: Right: Normal Left: Normal FREE FLUID: None OTHER FINDINGS: None US/US OB pelvic and transvaginal IMPRESSION: Single intrauterine , no cardiac activity detected raising concern for demise. Clinical correlation with patient's laboratory data and hCG levels and Follow-up recommended.
[2023-05-13 18:20] VITALS: BP 113/78; PULSE 85; RESP 16; O2SAT 99; BMI 31.0
--- NOTE | 2023-05-13 18:26 | ED_ITS ---
HPI - General Adult General Chief complaint: Vaginal Bleeding Stated complaint: vag bleeding, 10 wks Time Seen by Provider: 05/13/23 22:40 Source: patient Mode of arrival: ambulatory History of Present Illness HPI narrative: 42-year-old female who states that she is 10 weeks and has a pending appointment with [facility] comes in with noticing bleeding on the toilet paper but denies any passage of clots or abdominal discomfort, denies any traumatic event or feelings of being unwell. Her history is significant for 2 prior miscarriages Related Data Home Medications Medication Instructions Recorded Confirmed clonazepam 0.5 mg tablet 0.5 mg PO BID 01/01/21 03/26/23 fluticasone propionate 50 1 spray intranasal DAILY 01/01/21 03/26/23 mcg/actuation nasal spray,suspension lisdexamfetamine 70 mg capsule 70 mg PO QAM 11/27/21 03/26/23 (Vyvanse) levonorgestrel 21 mcg/24 hours (8 intrauterine 04/22/22 03/26/23 yrs) 52 mg intrauterine device (Mirena) bupropion HCl 150 mg tablet,12 hr 300 mg PO DAILY 04/30/22 03/26/23 sustained-release Previous Rx's Medication Instructions Recorded desogestrel 0.15 mg-ethinyl 1 tab PO DAILY 28 days #28 tabs 01/22/23 estradiol 0.03 mg tablet (Apri) multivitamin 1 tab PO DAILY 90 days #90 tabs 03/26/23 Allergies Allergy/AdvReac Type Severity Reaction Status Date / Time Seasonal Allergies Allergy Unknown Unknown Verified 03/25/23 10:36 Review of Systems 2 Review of Systems: Pertinent positives and negatives as stated in HPI FOR[facility]LY [facility] Past Medical History Source: nursing notes reviewed Medical History Fibroid uterus Hx of retained foreign body fully removed Lipoma of right thigh Lipoma of back Depression Morbid obesity with BMI of 45.0-49.9, adult GERD (gastroesophageal reflux disease) Anxiety Pelvic pain Kidney stones Ovarian cyst, left Anemia Surgical History History of excision of mass (02/25/22) H/O gastric sleeve History of elective History of dilation and curettage History of surgical removal of ganglion cyst (06/24/16) History of hip surgery History of surgery on wrist Hx of section Family History Family History Mother HIV (human immunodeficiency virus infection) Dementia Brother No problems noted. Brother ADHD Schizophrenia Suicidal behavior with attempted self-injury Son No problems noted. Son No problems noted. Social History Social History Household Members Other:: sons 10+17 yrs old Are you a primary adult day care worker to a significant other at home: No Do you presently have visiting nurse or other home services: No Alcohol intake: current Alcohol intake frequency: holidays/special occasions only Alcohol type: hard liquor Patient Tobacco Use Status: Current someday Tobacco user Tobacco use type: Cigarette Smoked in Last 30 Days: No Use of substances other than those prescribed or required for medical reasons: No Substance Use Type: Marijuana Advance Directives: No Advance Directives Information Provided: No Patient : Yes service: No Current occupational status: employed Current occupation: teacher /rt hand Gender identity: Female Physical Exam ED Vital Signs: Vital Signs - 24 hr 05/13/23 18:20 05/13/23 22:22 Pulse Rate 85 89 Respiratory Rate 16 16 Blood Pressure 113/78 Pulse Oximetry 99 98 Oxygen Delivery Method Room Air Room Air BMI result Body Mass Index 31.0 VITAL SIGNS: Reviewed. GENERAL: Well developed, well nourished, in no acute distress. HEAD: Normocephalic/atraumatic EYES: PERRLA, EOMI EARS: Ext canals without abnormality, TMs non-bulging and non-erythematous NOSE: Nares patent bilateral OROPHARYNX: no oral lesions noted, posterior pharynx clear and non-erythematous without noted tonsillar enlargement/erythema/exudates NECK: Supple, no adenopathy LUNGS: Normal breath sounds. No adventitious sounds or accessory muscle use. SpO2<98> CARDIOVASCULAR: Regular rate and rhythm without noted murmurs ABDOMEN: Soft, non-tender, non-distended with bowel sounds. MUSCULOSKELETAL: No tenderness, deformities, or effusions noted on gross inspection. EXTREMITIES: No cyanosis, clubbing or edema. SKIN: Inspection of the skin reveals no rashes NEUROLOGIC: Alert and oriented x 4. Strength and sensation to light touch were grossly intact x 4. Course Course Course Narrative: RME: 42-year-old female 10 weeks presents to ED for abdominal cramping and vaginal bleeding beginning today. Labs ultrasound ordered. Medical Decision Making Medical Decision Making MDM Narrative: 42-year-old female with history and clinical presentation, DDX: First-trimester bleeding, subchorionic hemorrhage, SAB I reviewed all investigations and hematologic indices are chronically stable without leukocytosis or left shift and there is a stable normocytic anemia without thrombocytopenia. Coagulation studies are within normal limits. Chemistry indices do not demonstrate an JOSEPHINE/electrolyte or liver enzyme derangements. Beta hCG is noted to be [place] [address]. Urinalysis appears to be somewhat contaminated but patient denies any urinary symptoms. Patient is noted to be A positive. Ultrasound demonstrates IUP without cardiac activity raising concern for demise and on delivering the bad news I discussed with the patient the need for either medication or surgical intervention, she declines any medication, she states that she had cardiac activity on her last ultrasound. Nursing has informed me the patient ran out of the department. Will attempt to contact the patient, we do not currently have OB coverage and patient would need to present to [facility]. Differential Diagnosis Differential Diagnoses: The differential diagnosis associated with the presentation includes Please see the discussion above Admission/Observation Consideration of admission/observation: Escalation of care including admission/observation considered Please see the discussion above Lab Data [facility] Lab Attestation statement: I reviewed the patient's lab results. Please see the discussion above 05/13/23 18:32 05/13/23 18:32 Labs: Lab Results 05/13/23 Range/Units 18:32 WBC 8.0 (4.8-10.8) X10*3/uL RBC 3.44 L (4.20-5.50) X10*6/uL Hgb 10.5 L (12.0-16.0) g/dl Hct 30.0 L (37.0-47.0) % MCV 87.2 (80.0-98.0) fL MCH 30.5 (27.0-33.0) pg MCHC 35.0 (31.0-35.0) g/dl RDW 13.7 (11.0-16.0) % Plt Count 215 (160-400) X10*3/uL MPV 11.4 (9.4-12.3) fL Immature Gran % (Auto) 0.2 (0.0-0.4) % Neut % (Auto) 56.2 (45-73) % Lymph % (Auto) 37.0 (20-40) % Clare % (Auto) 5.1 (2-11) % Eos % (Auto) 1.1 (0-4) % Baso % (Auto) 0.4 (0-2) % Lymph # (Auto) 3.0 (1.2-4.9) X10*3/uL Clare # (Auto) 0.4 (0.1-1.2) X10*3/uL Eos # (Auto) 0.1 (0.0-0.4) X10*3/uL Baso # (Auto) 0.0 (0.0-0.2) X10*3/uL Abs Immat Gran (auto) 0.02 (0.00-0.03) X10*3/uL Absolute Neuts (auto) 4.5 (2.0-8.3) x10*3/uL Absolute Nucleated RBC 0.000 (0.0-0.012) X10*3/uL Nucleated RBC % (auto) 0.0 (0.0-0.2) /100WBC PT 11.3 (11.1-13.3) SEC INR 0.9 (0.9-1.1) APTT 28.9 (26.0-36.8) SEC Sodium 141 (135-145) mmol/L Potassium 3.3 (3.3-5.1) mmol/L Chloride 107 (96-108) mmol/L Carbon Dioxide 26 (22-29) mmol/L Anion Gap 11 L (12-20) BUN 15 (9-16) mg/dL Creatinine 0.66 (0.5-1.4) mg/dL Estim Creat Clear Calc 108.8 Estimated GFR > 60 Random Glucose 90 (60-115) mg/dL Calcium 9.0 (8.4-10.2) mg/dL Total Bilirubin 0.3 (0.0-1.0) mg/dL AST 19 (5-31) U/L ALT 22 (0-31) U/L Alkaline Phosphatase 40 (39-117) U/L Total Protein 7.1 (6.5-8.0) g/dL Albumin 4.1 (3.5-5.0) g/dL Beta HCG, Quant 43643 mIU/mL Blood Type A Positive Radiology Impression Discussion of test interpretation with radiology: I have reviewed the radiologist's reading. Radiologist Impression: Please see the discussion above Critical Care Time Critical Care Time Critical Care Time: Yes Total Critical Care Time: 30 Attestation: I personally attest to this time spent taking care of the patient. Discharge Plan Discharge Clinical Impression: SAB (spontaneous ) Patient Disposition: Left Against Medical Advice Instructions: Miscarriage (ED) Prescriptions: No Action clonazepam 0.5 mg tablet 0.5 mg PO BID fluticasone propionate 50 mcg/actuation spray,suspension 1 spray intranasal DAILY bupropion HCl 150 mg tablet sustained-release 12 hr 300 mg PO DAILY Vyvanse 70 mg capsule 70 mg PO QAM Mirena 20 mcg/24 hours (8 yrs) 52 mg intrauterine device intrauterine desogestrel-ethinyl estradiol [Apri] 0.15-0.03 mg tablet 1 tab PO DAILY 28 Days Qty: 28 2RF multivitamin Tablet 1 tab PO DAILY 90 Days Qty: 90 2RF Discharge Date/Time: 05/13/23 23:40
[2023-05-13 18:36] LABS: MANUAL DIFF FLAG NO
[2023-05-13 18:38] LABS: Basophils Percent Auto 0.4 % (0-2); Eosinophils Absolute Auto 0.1 X10*3/uL (0.0-0.4); Eosinophils Percent Auto 1.1 % (0-4); Hemoglobin 10.5 g/dl (12.0-16.0); Imm Gran Abs Auto 0.02 X10*3/uL (0.00-0.03); Imm Gran Pct Auto 0.2 % (0.0-0.4); Mean Corpuscular Hemoglobin 30.5 pg (27.0-33.0); Mean Corpuscular Volume 87.2 fL (80.0-98.0); Mean Platelet Volume 11.4 fL (9.4-12.3); Monocytes Absolute Auto 0.4 X10*3/uL (0.1-1.2); Monocytes Percent Auto 5.1 % (2-11); Neutrophils Absolute Auto 4.5 x10*3/uL (2.0-8.3); Neutrophils Percent Auto 56.2 % (45-73); Platelet Count 215 X10*3/uL (160-400); Red Blood Count 3.44 X10*6/uL (4.20-5.50); Red Cell Distribution Width 13.7 % (11.0-16.0)
[2023-05-13 18:43] LABS: INTERNATIONAL NORM RATIO 0.9 (0.9-1.1); Prothrombin Time 11.3 SEC (11.1-13.3)
[2023-05-13 18:46] LABS: Partial Thromboplastin Time 28.9 SEC (26.0-36.8)
[2023-05-13 19:05] LABS: Alanine Aminotransferase 22 U/L (0-31); Albumin Level 4.1 g/dL (3.5-5.0); Alkaline Phosphatase 40 U/L (39-117); Anion Gap 11 (12-20); Aspartate Amino Transferase 19 U/L (5-31); Bilirubin Total 0.3 mg/dL (0.0-1.0); Blood Urea Nitrogen 15 mg/dL (9-16); Carbon Dioxide 26 mmol/L (22-29); Chloride 107 mmol/L (96-108); Creatinine Clr Calc Pharmacy 108.8; Estimated Glomerular Filt Rate > 60; Glucose Random 90 mg/dL (60-115); HCG Quantitative 12307 mIU/mL; Potassium 3.3 mmol/L (3.3-5.1); Sodium 141 mmol/L (135-145); Total Protein 7.1 g/dL (6.5-8.0)
[2023-05-13 22:22] VITALS: PULSE 89; RESP 16; O2SAT 98
--- NOTE | 2023-05-13 22:26 | PC.NURSE ---
Pt comes in reporting mild lower abdominal cramping with associated moderate vaginal bleeding. Pt reports she went through went one pad but has not needed to change another since. Pt denies cramping or bleeding at this time. Pt is a L2. Pt is resting on stretcher, respirations even and unlabored, skin pwd, alert and oriented x4, no apparent distress noted at this time
--- NOTE | 2023-05-13 23:20 | PC.NURSE ---
MD ROBBINS went into room explaining results to patient - explained miscarriage - MD left room, pt very upset, tearful, crying, saying i cannot be here pt stormed out of room 18 and walked down hallway very upset, Pt was badged out by environmental staff worker. Tech followed pt out trying to get patient back into room however pt ran out to car and was unable to be stopped. MD robbins aware. This hot car charger will attempt to call patient to explain the importance of seeking medical care needing to follow up with obgyn regarding treatment of miscarriage. Jimena GUNTER aware of patient elopement.
--- NOTE | 2023-05-13 23:25 | PC.NURSE ---
This RN attempted to call patient cell phone however was not able to get in touch with the patient.
--- NOTE | 2023-05-13 23:40 | PC.NURSE ---
Took report from off-going RN, and pt observed leaving the ED after speaking with MD. Pt has not returned to room.
== END 2023-05-13 23:40 | disposition left against medical advice (07) ==
PROVIDERS: Physician Assistant; Emergency Provider Student in an Organized Health Care Education/Training Program
DX: O03.9 Complete or unspecified spontaneous abortion without complication (principal); Z79.899 Other long term (current) drug therapy
CPT/HCPCS: 36415; 76801; 76817; 80053; 84702; 85025; 85610; 85730; 86900; 86901; 99284

== ENCOUNTER 2023-06-03 08:04 | Outpatient (REF) | payer MEDICAID, SELFPAY ==
--- NOTE | 2023-06-03 08:07 | EMG_ITS ---
Right median and ulnar motor and sensory studies were performed. Right superficial radial and median and lateral antecubital brachial sensory studies were performed. Paraspinal muscles were tested with a needle. IMPRESSION: 1. [id number] right median neuropathy across carpal tunnel. 2. Mild right ulnar neuropathy across elbow. MD CAYDEN Lombardi/LIANNA / [phone]
== END 2023-06-03 08:05 | disposition home or self-care (01) ==
LOC: HO.NEURO 08:04
PROVIDERS: Visit Provider Family Medicine
DX: R20.2 Paresthesia of skin (principal); R20.0 Anesthesia of skin
CPT/HCPCS: 95886; 95910

== ENCOUNTER → 2023-06-04 09:49 | Outpatient (BNVA) | payer MEDICAID, SELFPAY | PROVIDERS: PCP Family Medicine; Visit Provider Physician Assistant Surgical ==

== ENCOUNTER 2023-06-27 10:38 | Outpatient (AMB) | payer MEDICAID, SELFPAY ==
--- NOTE | 2023-06-27 10:44 | A.OFFVIS_ITS ---
Vital Signs 06/27/23 10:46 Height 5 ft 2 in Weight 164 lb BMI 30.0 BP 122/65 Blood Pressure Location Lt brachial Position Sitting Pulse 99 Intake Visit Reasons: epidermoid cyst Intake Note: Patient is seen in office for evaluation of an epidermal cyst of the left hand. Pt c/o: on top of the left hand has a cyst, was removed in the past and came back 6 months ago, increase/decrease, painful at times Insurance Agents Supervisor Required: No Accompanied by: Self / Same As Patient Allergies Seasonal Allergies Allergy (Unknown, Verified 03/25/23 10:36) Unknown HPI Comments Details: Patient returns for the same lesion that she was previously evaluated several months ago in the left hand. This is a soft tissue mass which is seen best when her hand is flexed. She reports that the lump seems to change locations depending on motion of her hand. She was also was noted to have numbness in the fingers and is being evaluated by Neurology. She was previously referred to hand surgery for the soft tissue mass of the left hand but apparently did not follow up with her appointments. [facility] Medical History Fibroid uterus Hx of retained foreign body fully removed Lipoma of right thigh Lipoma of back Depression Morbid obesity with BMI of 45.0-49.9, adult GERD (gastroesophageal reflux disease) Anxiety Pelvic pain Kidney stones Ovarian cyst, left Anemia Surgical History History of excision of mass (02/25/22) H/O gastric sleeve History of elective History of dilation and curettage History of surgical removal of ganglion cyst (06/24/16) History of hip surgery History of surgery on wrist Hx of section Family History Mother HIV (human immunodeficiency virus infection) Dementia Brother No problems noted. Brother ADHD Schizophrenia Suicidal behavior with attempted self-injury Son No problems noted. Son No problems noted. Social History Household Members Other:: sons 10+17 yrs old Are you a primary associate director career services to a significant other at home: No Do you presently have visiting nurse or other home services: No Alcohol intake: current Alcohol intake frequency: holidays/special occasions only Alcohol type: hard liquor Patient Tobacco Use Status: Current someday Tobacco user Tobacco use type: Cigarette Substance Use Type: Marijuana service: No Current occupational status: employed Current occupation: teacher /rt hand Gender identity: Female Female Reproductive History Menstrual Age of Menarche: 14 Review of Systems Const All systems reviewed & are unremarkable except as noted in HPI and below Physical Exam Vital Signs: Last Vital Signs Pulse 99 06/27/23 10:46 BP 122/65 06/27/23 10:46 BMI result Body Mass Index 30.0 Const General: no acute distress Nutritional Appearance: well nourished Orientation/consciousness: patient oriented x3 HEENT Head: Yes normocephalic and Yes atraumatic Resp Effort & Inspection: normal respiratory effort Skin Other: Warm, dry, no rash Neuro General: patient oriented x3 Extrem Other: Left wrist dorsum with a well-healed incision in a transverse fashion with a cystic collection below measuring approximately 2-3 cm in diameter. This does increase with flexion of the wrist. There is no evidence of redness or ulceration of the skin. Nontender to palpation. Assessment & Plan Assessment & Plan (1) Ganglion cyst of dorsum of left wrist: Code(s): M67.432 - Ganglion, left wrist Category: Medical Plan 42-year-old female patient returning with a recurrent ganglion cyst of the left wrist previously excised by Dr. Dorsey. I recommended follow-up with Dr. Mccall from hand surgery and a referral has been sent. She should follow up p.r.n.. Coding Level of Care Code Est Pt Level 3 (74131) Diagnoses Ganglion cyst of dorsum of left wrist M67.432
[2023-06-27 10:46] VITALS: BP 122/65; PULSE 99
== END 2023-06-27 11:09 | disposition home or self-care (01) ==
PROVIDERS: PCP Family Medicine; Visit Provider Surgery
DX: M67.432 Ganglion, left wrist (principal)
CPT/HCPCS: 99213

== ENCOUNTER → 2023-06-27 10:38 | Outpatient (BNVA) | payer MEDICAID, SELFPAY | PROVIDERS: PCP Family Medicine; Visit Provider Surgery | DX: M67.432 Ganglion, left wrist (principal) | CPT/HCPCS: 99212 ==

== ENCOUNTER 2023-07-08 08:36 | Outpatient (REF) | payer MEDICAID, SELFPAY | END 2023-07-08 08:37 | disposition home or self-care (01) | LOC: HO.MRI 08:36 | PROVIDERS: PCP Family Medicine; Visit Provider Family Medicine | DX: Z13.89 Encounter for screening for other disorder (principal) ==

== ENCOUNTER 2023-07-21 09:59 | Outpatient (AMB) | payer MEDICAID, SELFPAY ==
--- NOTE | 2023-07-21 10:02 | A.OFFVIS_ITS ---
VS Expanded 07/21/23 10:10 BP 136/83 Blood Pressure Location Rt brachial Blood Pressure Position Sitting Pulse 80 Pulse Source Pulse Oximeter Temp 97.6 F Temperature Source Tympanic Pulse Oximetry 100 Oxygen Delivery Method Room Air Height 5 ft 2 in Weight 160 lb BMI 29.3 Body Fat % 33.7 Body Fat Mass 53.8 Fat Free Mass 106.0 Visceral Fat Rating 6.0 Body Water % 47.4 Body Water Mass 75.8 Muscle Mass/Score 100.8 Basal Metabolic Rate/Score 1,449 Intake Visit Reasons: (oV) PO LSG 11/22/21 Tape Recorder Repairer Required: No Allergies Seasonal Allergies Allergy (Unknown, Verified 07/21/23 10:03) Unknown Medication List - Last Reconciled 07/21/23 by ROBERT Elena bupropion HCl SR 300 mg PO DAILY clonazepam 0.5 mg PO BID fluticasone propionate 50 mcg/actuation 1 spray intranasal DAILY levonorgestrel (Mirena) intrauterine lisdexamfetamine (Vyvanse) 70 mg PO QAM multivitamin 1 tab PO DAILY 90 days HPI Comments Details: This?a?42?yo female who is s/p LSG without hiatal hernia repair on?11/22/[address] Anderson. Presents for 1 year 8 month post op visit. Weight today is 160 pounds, with a BMI of 29.3.? There has been a 93.2 pound weight loss,(initial weight 253.2 pounds) since starting the program on 04/13/21 reflecting a 36.8% total body weight loss and a weight loss of 50.5 pounds since surgery (operative weight 210.5 pounds) reflecting a 23.9% TBWL since surgery.? She states she has been having difficulty over the last several months. She had a but then spontaneous . She was off her medications when she found out that she was . She has since restarted her medications approximately 2 weeks ago. She also recently restarted taking her vitamin B supplements. Meal plan: Ensure 1 per day egg sandwich Meal- ground beef w tomatoes, chicken, broccoli, potato Drinking 60 oz daily Exercise plan: walking outdoors , rowing [facility] Medical History Fibroid uterus Hx of retained foreign body fully removed Lipoma of right thigh Lipoma of back Depression Morbid obesity with BMI of 45.0-49.9, adult GERD (gastroesophageal reflux disease) Anxiety Pelvic pain Kidney stones Ovarian cyst, left Anemia Surgical History History of excision of mass (02/25/22) H/O gastric sleeve History of elective History of dilation and curettage History of surgical removal of ganglion cyst (06/24/16) History of hip surgery History of surgery on wrist Hx of section Family History Mother HIV (human immunodeficiency virus infection) Dementia Brother No problems noted. Brother ADHD Schizophrenia Suicidal behavior with attempted self-injury Son No problems noted. Son No problems noted. Social History Household Members Other:: sons 10+17 yrs old Are you a primary healthcare risk control consultant to a significant other at home: No Do you presently have visiting nurse or other home services: No Alcohol intake: current Alcohol intake frequency: holidays/special occasions only Alcohol type: hard liquor Patient Tobacco Use Status: Current someday Tobacco user Tobacco use type: Cigarette Substance Use Type: Marijuana service: No Current occupational status: employed Current occupation: teacher /rt hand Gender identity: Female Female Reproductive History Menstrual Age of Menarche: 14 Physical Exam Const General: healthy appearing and no acute distress Resp Effort & Inspection: normal respiratory effort Auscultation: clear to auscultation bilaterally Cardio Rate: regular rate Rhythm: regular rhythm GI Auscultation: normal bowel sounds Extrem General: Yes normal to inspection Assessment & Plan Assessment & Plan (1) S/P laparoscopic sleeve gastrectomy: Code(s): Z98.84 - Bariatric surgery status Category: Surgical Plan: Patient has been skipping meals and eating crackers. Discussed changing meal plan to be more consistent with an ensure shake in the morning, yogurt or 15 g protein supplement mid day and then a meal with 6 forks of protein and 6 forks of vegetables. We will have her return to the office in approximately 6 weeks. Additionally, as her medication levels stabilize I suspect that she will have mo re focus and ability to stay on track.
[2023-07-21 10:10] VITALS: BP 136/83; PULSE 80; TEMP 36.4; O2SAT 100; BMI 29.3
== END 2023-07-21 10:30 | disposition home or self-care (01) ==
PROVIDERS: PCP Family Medicine; Visit Provider Physician Assistant Surgical
DX: E66.3 Overweight (principal); Z68.29 Body mass index [BMI] 29.0-29.9, adult; Z90.3 Acquired absence of stomach [part of]; Z98.84 Bariatric surgery status
CPT/HCPCS: 99213

== ENCOUNTER → 2023-07-21 09:59 | Outpatient (BNVA) | payer MEDICAID, SELFPAY | PROVIDERS: PCP Family Medicine; Visit Provider Physician Assistant Surgical | DX: E66.01 Morbid (severe) obesity due to excess calories (principal); Z68.29 Body mass index [BMI] 29.0-29.9, adult; Z90.3 Acquired absence of stomach [part of] | CPT/HCPCS: 99212 ==

== ENCOUNTER 2023-07-22 08:02 | Outpatient (REF) | payer MEDICAID, SELFPAY ==
--- NOTE | 2023-07-22 12:05 | MHC.AU.HA3 ---
Hearing Instrument Follow-Up Date of Visit: 07/22/23 Right Ear: No hearing aid. Left Ear: Make, Model, Color, Serial Number: Adair Braxton [id number] SN: [id number] Color: Guillermina Card Brusher Repair Warranty: 08/01/2024 Card Brusher Loss and Damage Warranty: USED 01/09/2022 [facility] Service Plan: 06/01/2022 Battery Size: Rechargeable Narrative Writer/Slim Tube: 0S Earmold/Dome/CShell/SlimTip: Small vented dome Type of Wax Guard: Cerushield Dispensed By: [facility] Date of Fittin06/01/2021 Follow-Up Summary: Here for evaluation. Reports aid isn't charging, she doesn't have the cable, reports her kids take her administrative volunteer cables and she isn't sure she has the right one anymore. Her aid was charging normally in her administrative volunteer with our office cable during the visit. Ordered replacement for her to pickle pumper. Cleaned and checked aid, replaced dome, wax guard. Listening check positive. Checked for firmware update. Found aid settings with M cotton puller, but she has an S on the hearing aid. Changed settings to reflect actual cotton puller. Tried a cap dome as she reported feeling discomfort in canal after many hours of wear but it was too loose, went back to small vented. Recommendations: Recommendations: Hearing instrument follow-up or maintenance as needed. Patient will be contacted when materials have arrived. - Call pt. to pickle pumper new charging cord. Diagnosis Code(s): Primary Diagnosis: H90.42 SNHL Unilateral Left Side, W/Unrestricted Contralateral Hearing Signature: Provider: Courtney Gu, [facility]
== END 2023-07-22 08:03 | disposition home or self-care (01) ==
LOC: HO.SH 08:02
PROVIDERS: Visit Provider Family Medicine
DX: Z01.118 Encounter for examination of ears and hearing with other abnormal findings (principal); H90.42 Sensorineural hearing loss, unilateral, left ear, with unrestricted hearing on the contralateral side
CPT/HCPCS: 92552; 92556; 92592; 99499

== ENCOUNTER 2023-07-28 15:29 | Outpatient (REF) | payer MEDICAID, SELFPAY | END 2023-07-28 15:30 | disposition home or self-care (01) | LOC: HO.HAP 15:29 | PROVIDERS: Visit Provider Family Medicine | DX: Z13.89 Encounter for screening for other disorder (principal) ==

== ENCOUNTER 2023-08-20 11:30 | Outpatient (REF) | payer MEDICAID, SELFPAY | END 2023-08-20 11:31 | disposition home or self-care (01) | LOC: HO.HAP 11:30 | PROVIDERS: Visit Provider Family Medicine | DX: Z13.89 Encounter for screening for other disorder (principal) ==

== ENCOUNTER 2023-08-27 13:46 | Outpatient (REF) | payer MEDICAID, SELFPAY | END 2023-08-27 13:47 | disposition home or self-care (01) | LOC: HO.HAP 13:46 | PROVIDERS: Visit Provider Family Medicine | DX: Z46.1 Encounter for fitting and adjustment of hearing aid (principal); H90.42 Sensorineural hearing loss, unilateral, left ear, with unrestricted hearing on the contralateral side | CPT/HCPCS: 92592; 92700; 99499 ==

== ENCOUNTER 2023-10-06 13:22 | Outpatient (REF) | payer MEDICAID, SELFPAY ==
[2023-10-06 15:53] LABS: MANUAL DIFF FLAG NO
[2023-10-06 16:24] LABS: Basophils Percent Auto 0.3 % (0-2); Eosinophils Absolute Auto 0.1 X10*3/uL (0.0-0.4); Eosinophils Percent Auto 2.2 % (0-4); Hematocrit 31.9 % (37.0-47.0); Hemoglobin 10.7 g/dl (12.0-16.0); Imm Gran Abs Auto 0.01 X10*3/uL (0.00-0.03); Imm Gran Pct Auto 0.2 % (0.0-0.4); Immature Retic Fraction 6.6 % (3.0-15.9); Lymphocytes Absolute Auto 2.3 X10*3/uL (1.2-4.9); Lymphocytes Percent Auto 40.3 % (20-40); Mean Corpuscular HGB Conc 33.5 g/dl (31.0-35.0); Mean Corpuscular Hemoglobin 29.3 pg (27.0-33.0); Mean Corpuscular Volume 87.4 fL (80.0-98.0); Mean Platelet Volume 11.9 fL (9.4-12.3); Monocytes Absolute Auto 0.3 X10*3/uL (0.1-1.2); Monocytes Percent Auto 5.5 % (2-11); Neutrophils Percent Auto 51.5 % (45-73); Platelet Count 251 X10*3/uL (160-400); Red Blood Count 3.65 X10*6/uL (4.20-5.50); Red Cell Distribution Width 14.4 % (11.0-16.0); Retic HGB Equivalent 33.9 pg (30.0-35.0); Reticulocyte Percent 1.1 % (0.5-1.8); Reticulocytes Absolute 0.039 X10*6/uL (0.026-0.095); White Blood Count 5.8 X10*3/uL (4.8-10.8)
[2023-10-06 16:28] LABS: Alanine Aminotransferase 17 U/L (0-31); Alkaline Phosphatase 42 U/L (39-117); Anion Gap 10 (12-20); Aspartate Amino Transferase 16 U/L (5-31); Bilirubin Total 0.4 mg/dL (0.0-1.0); Blood Urea Nitrogen 18 mg/dL (9-16); Calcium 8.9 mg/dL (8.4-10.2); Carbon Dioxide 27 mmol/L (22-29); Chloride 105 mmol/L (96-108); Estimated Glomerular Filt Rate > 60; Glucose Random 85 mg/dL (60-115); Iron 46 mcg/dL (30-160); Percent Iron Saturation 13 % (15-50); Potassium 3.6 mmol/L (3.3-5.1); Sodium 138 mmol/L (135-145); Total Iron Binding Capacity 353 mcg/dL (228-428); Unsaturated Iron Binding 307 ug/dL
[2023-10-06 16:38] LABS: Ferritin 18 ng/mL (10-250); Vitamin D 25-OH Total 39.1 ng/mL (>30)
[2023-10-06 16:48] LABS: Folate 16.5 ng/mL (> or = 4.0); Vitamin B12 338 pg/mL (200-900)
== END 2023-10-06 13:23 | disposition home or self-care (01) ==
LOC: HO.HHCL 13:22
PROVIDERS: Visit Provider Family Medicine
DX: R53.83 Other fatigue (principal); D64.9 Anemia, unspecified; Z90.3 Acquired absence of stomach [part of]; R20.2 Paresthesia of skin; E55.9 Vitamin D deficiency, unspecified
CPT/HCPCS: 36415; 80053; 82306; 82607; 82728; 82746; 83540; 84443; 85025; 85045

== ENCOUNTER → 2023-12-31 10:47 | Outpatient (BNV) | payer MEDICAID, SELFPAY ==
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
== END ==
PROVIDERS: PCP Family Medicine; Visit Provider Nurse Practitioner Family
DX: Z59.01 Sheltered homelessness (principal); Z91.410 Personal history of adult physical and sexual abuse; W18.00XA Striking against unspecified object with subsequent fall, initial encounter; M54.9 Dorsalgia, unspecified
CPT/HCPCS: 99203

== ENCOUNTER 2024-01-29 08:59 | Outpatient (REF) | payer MEDICAID, SELFPAY ==
[2024-01-29 10:58] LABS: MANUAL DIFF FLAG NO
[2024-01-29 11:48] LABS: Basophils Percent Auto 0.4 % (0-2); Eosinophils Absolute Auto 0.1 X10*3/uL (0.0-0.4); Eosinophils Percent Auto 2.1 % (0-4); Hematocrit 35.1 % (37.0-47.0); Hemoglobin 11.8 g/dl (12.0-16.0); Lymphocytes Absolute Auto 2.5 X10*3/uL (1.2-4.9); Lymphocytes Percent Auto 52.5 % (20-40); Mean Corpuscular HGB Conc 33.6 g/dl (31.0-35.0); Mean Corpuscular Hemoglobin 29.6 pg (27.0-33.0); Mean Corpuscular Volume 88.2 fL (80.0-98.0); Monocytes Absolute Auto 0.3 X10*3/uL (0.1-1.2); Monocytes Percent Auto 7.2 % (2-11); Neutrophils Absolute Auto 1.8 x10*3/uL (2.0-8.3); Neutrophils Percent Auto 37.8 % (45-73); Platelet Count 222 X10*3/uL (160-400); Red Blood Count 3.98 X10*6/uL (4.20-5.50); White Blood Count 4.7 X10*3/uL (4.8-10.8)
[2024-01-29 11:53] LABS: Estimated Average Glucose 103 mg/dL; Hemoglobin A1C 101.7401 umol/L; Hemoglobin A1c % 5.2 % (<6.0); Total Hemoglobin (HGBA1C) 3012.3712 umol/L
[2024-01-29 12:34] LABS: Alanine Aminotransferase 15 U/L (0-31); Albumin Level 4.1 g/dL (3.5-5.0); Alkaline Phosphatase 49 U/L (39-117); Anion Gap 10 (12-20); Aspartate Amino Transferase 18 U/L (5-31); Bilirubin Total 0.4 mg/dL (0.0-1.0); Blood Urea Nitrogen 13 mg/dL (9-16); C Reactive Protein < 0.10 mg/dL (< or = 0.50); Carbon Dioxide 29 mmol/L (22-29); Chloride 105 mmol/L (96-108); Cholesterol 166 mg/dL (<200); Estimated Glomerular Filt Rate > 60; Glucose Random 88 mg/dL (60-115); HDL Cholesterol 86 mg/dL (>40); Iron 55 mcg/dL (30-160); LDL Cholesterol Calculated 74 mg/dL (<100); Percent Iron Saturation 16 % (15-50); Potassium 3.6 mmol/L (3.3-5.1); Sodium 140 mmol/L (135-145); Total Iron Binding Capacity 347 mcg/dL (228-428); Triglycerides 32 mg/dL (<150); Unsaturated Iron Binding 292 ug/dL
[2024-01-29 12:47] LABS: Folate 14.9 ng/mL (> or = 4.0); Vitamin B12 304 pg/mL (200-900)
[2024-01-29 12:49] LABS: Ferritin 23 ng/mL (10-250); TSH reflex Free T4 0.66 uIU/mL (0.32-4.0); Vitamin D 25-OH Total 27.6 ng/mL (>30)
[2024-01-29 12:58] LABS: Insulin 4 uU/mL (2-29)
[2024-02-01 18:03] LABS: Zinc 99 mcg/dL (60-130)
[2024-02-03 19:22] LABS: Vitamin A 39 mcg/dL (38-98)
[2024-02-05 16:13] LABS: Vitamin B1 12 nmol/L (8-30)
== END 2024-01-29 09:00 | disposition home or self-care (01) ==
LOC: HO.LAB 08:59
PROVIDERS: PCP Family Medicine; Visit Provider Physician Assistant Surgical
DX: Z98.84 Bariatric surgery status (principal); F41.9 Anxiety disorder, unspecified; E55.9 Vitamin D deficiency, unspecified; E53.8 Deficiency of other specified B group vitamins
CPT/HCPCS: 36415; 80053; 80061; 82306; 82607; 82728; 82746; 83036; 83525; 83540; 84425; 84443; 84590; 84630; 85025; 86140; 99212

== ENCOUNTER 2024-01-29 08:59 | Outpatient (AMB) | payer MEDICAID, SELFPAY ==
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
[2024-01-29 09:28] VITALS: BP 145/79; PULSE 100; TEMP 36.3; O2SAT 98; BMI 33.2
== END 2024-01-29 09:36 | disposition home or self-care (01) ==
PROVIDERS: PCP Family Medicine; Visit Provider Physician Assistant Surgical
DX: E66.09 Other obesity due to excess calories (principal); Z68.33 Body mass index [BMI] 33.0-33.9, adult; Z90.3 Acquired absence of stomach [part of]; Z98.84 Bariatric surgery status
CPT/HCPCS: 99214

== ENCOUNTER → 2024-03-29 10:07 | Outpatient (BNV) | payer MEDICAID, SELFPAY ==
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
== END ==
PROVIDERS: PCP Family Medicine; Visit Provider Nurse Practitioner Family
DX: F32.2 Major depressive disorder, single episode, severe without psychotic features (principal); F43.10 Post-traumatic stress disorder, unspecified; Z91.410 Personal history of adult physical and sexual abuse; Z59.01 Sheltered homelessness; F51.05 Insomnia due to other mental disorder; Z71.89 Other specified counseling
CPT/HCPCS: 99214

== ENCOUNTER 2024-05-11 09:55 | Outpatient (REF) | payer MEDICAID, SELFPAY ==
[2024-05-11 12:35] LABS: Syphilis Screen Nonreactive (Nonreactive)
[2024-05-11 12:36] LABS: HBS Num1 211.81 mIU/mL (0-7.99); HBc Num1 0.07 S/CO (0.00-0.79); HBsAGNum1 0.33 S/CO (0.00-0.99); HIV AB/AG Nonreactive (Nonreactive); HIV Num 1 0.08 S/CO (0.00-0.99); Hepatitis B Core Antibody Nonreactive (Nonreactive); Hepatitis B Surface Antigen Negative (Negative); ~HepC Num1 0.19 S/CO (0.00-0.79); ~Hepatitis B Surface Antibody REACTIVE (Nonreactive); ~Hepatitis C Antibody Nonreactive (Nonreactive)
[2024-05-11 13:38] LABS: CT PCR NOT DETECTED (Not Detect.); NG PCR NOT DETECTED (Not Detect.)
[2024-05-12 04:10] LABS: Hepatitis A Antibody IgG REACTIVE (Nonreactive); ~Hepatitis A Antibody IgG 11.03 S/CO (0.00-0.99)
[2024-05-12 15:54] LABS: Rubeola IgG (Measles) >300.00 AU/mL
[2024-05-14 10:03] LABS: TS Negative Control Passed; TS Panel A 1; TS Panel B 0; TS Positive Control Passed; TSpotTB Negative (Negative)
== END 2024-05-11 09:56 | disposition home or self-care (01) ==
LOC: HO.HHCL 09:55
PROVIDERS: Visit Provider Family Medicine
DX: Z01.84 Encounter for antibody response examination (principal); Z11.3 Encounter for screening for infections with a predominantly sexual mode of transmission; Z11.1 Encounter for screening for respiratory tuberculosis
CPT/HCPCS: 86481; 86704; 86706; 86708; 86735; 86762; 86765; 86780; 86787; 86803; 87340; 87389; 87491; 87591

== ENCOUNTER 2024-05-13 14:36 | Outpatient (REF) | payer MEDICAID, SELFPAY | END 2024-05-13 14:37 | disposition home or self-care (01) | LOC: HO.HAP 14:36 | PROVIDERS: Visit Provider Family Medicine | DX: Z46.1 Encounter for fitting and adjustment of hearing aid (principal); H90.42 Sensorineural hearing loss, unilateral, left ear, with unrestricted hearing on the contralateral side | CPT/HCPCS: 92592; 99499 ==

== ENCOUNTER 2024-05-13 14:53 | Outpatient (AMB) | payer MEDICAID, SELFPAY ==
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
[2024-05-13 14:57] VITALS: BP 113/69; PULSE 94; O2SAT 100; BMI 33.8
== END 2024-05-13 15:25 | disposition home or self-care (01) ==
LOC: HO.HBS 14:54
PROVIDERS: PCP Family Medicine; Visit Provider Physician Assistant Surgical
DX: E66.811 Obesity, class 1 (principal); Z68.33 Body mass index [BMI] 33.0-33.9, adult; Z90.3 Acquired absence of stomach [part of]; Z98.84 Bariatric surgery status
CPT/HCPCS: 99213

== ENCOUNTER → 2024-05-13 14:53 | Outpatient (BNVA) | payer MEDICAID, SELFPAY | PROVIDERS: PCP Family Medicine; Visit Provider Physician Assistant Surgical | DX: Z98.84 Bariatric surgery status (principal) | CPT/HCPCS: 99212 ==

== ENCOUNTER 2024-11-01 09:36 | Outpatient (AMB) | payer MEDICAID, SELFPAY ==
--- OUTSIDE RECORDS SUMMARY | 2023-08-29 06:15 | XMS_ITS ---
Author Organization [facility] Address [address] [place] [phone] Care Team Providers Care Core Winding Operator Name Role Phone ALBA BLUE Unavailable [phone] REASON FOR VISIT Annual Exam Social History Sex Assigned At : Social History Observation Description Sex Assigned At Female Encounters Encounter Location Date Provider Diagnosis [facility] [address] [place], [place] [id number] 01/2024 ALBA BLUE Plan Of Treatment No Information Progress Notes * Adarsh KENYONDOB: [birth year] (43 yo F)Acc No.[id number]:08/29/2023 Progress Notes Patient: Regina hastingsAdarsh Provider: Stu BLUE :1980 A ge:42 Y S ex:Female Date:08/29/2023 Address:[facility] [address], [place], [id number] Subjective: * Chief Complaints: * A nnual Exam * Electronic signature of JOAQUIM BLUE CNM on 11/01/2024 at 11:36 AM EDT Sign off status: Pending * Provider: Stu BLUE Date: 0 08/29/2023 Generated for Blaise marte/Aydee/Lesley on: 0 11/01/2024 11:36 AM EDT
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
--- OUTSIDE RECORDS SUMMARY | 2024-11-01 11:35 | XMS_ITS | Encounter Summary ---
Author Organization [employer] Address [address] [facility] 7t [place] [address] Care Team Providers Care Associate Professor Of Surgery Name Role Phone Radha Panda MD Primary Care Provider [phone] Encounter Details Date Type Department Care Team ([facility] st Contact Info) Description 08/05/2024 Orders Only [facility] [address] [place], [place] [phone] Radha Panda MD [address] [place], [place] [phone] Major depressive disorder, remission status unspecified, unspecified whether recurrent; Anxiety and depression Social History Tobacco Use Types Packs/Day Years Used Date Smoking Tobacco: Former Cigarettes Passive Smoke Exposure: Past Smokeless Tobacco: Never Depression Answer Date Recorded Patient Health Questionnaire-9 Score 13 04/02/2024 Patient Health Questionnaire-9 Score 13 04/02/2024 Last PHQ-9: Questionnaire Data Not on file 0 04/02/2024 Housing Stability Answer Date Recorded What is your housing situation today? I have lisseth galaviz 04/10/[address] you li ve. Do you have problems with any of the following? None of the above 04/10/2023 Food Insecurity Answer Date Recorded Within the past 12 months, y ou worried that your food would run out before you got money to buy more: Never True 12/02/2022 Within the past 12 months,th e food you bought just didn't last and you didn't have enough money to get more: Never True 10/ Transportation Answer Date Recorded In the past 12 months, has l ack of transportation kept you from medical appts, meetings, work or from getting things needed for daily living? Yes, it has kept me from medical appointments or getting medications. 04/10/2023 Utilities Answer Date Recorded In the past 12 months, has t he electric, gas, oil or water company threatened to shut off services in your home? No 12/02/2022 Depression Answer Date Recorded Patient Health Questionnaire-2 Score 4 04/02/2024 Comments No Sex and Gender Information Value Date Recorded Sex Assigned at Female 12/17/2021 10:31 AM EDT Legal Sex Female 10:31 AM EDT Gender Identity Female 12/17/2021 10:31 AM EDT Sexual Orientation Choose not to disclose 2021 10:31 AM EDT documented as of this encounter Plan of Treatment Upcoming Encounters Date Type Department Care Team (Late st Contact Info) Description 11/09/2024 11:30 AM EDT Office Visit [facility] [address] [place] [address] Radha Panda MD [address] [place] [address] documented as of this encounter Visit Diagnoses Diagnosis Major depressive disorder, remission status unspecified, unspecified whether recurrent Anxiety and depression documented in this encounter Additional Health Concerns Assessment Noted Time PHQ-9 Depression Total Score: 13 025 11:31 AM EST documented as of this encounter Care Teams Associate Professor Of Surgery Relationship Specialty Start Date End Date Radha Panda MD [address] [place] [address] PCP - General Family Medicine 06/05/22 Lilliam Finley Senior Business BrokerCasing Trimmer 07/24/23 documented as of this encounter
--- OUTSIDE RECORDS SUMMARY | 2024-11-01 11:35 | XMS_ITS | Encounter Summary ---
Author Organization [employer] Address [address] [place] [address] 7t [place] [address] Care Team Providers Care Auxiliary Equipment Operator Name Role Phone Radha Panda MD Primary Care Provider [phone] Reason for Referral * Imaging (Routine) - Closed Specialty Diagnoses / Procedures Referred By Contac t Referred To Contact Radiology Diagnoses Breast cancer screening by mammogram Procedures BI Mammogram Screening Tomosynthesis Bilateral Radha Panda MD [address] [place] [address] Phone: tel: fax: [address] Phone: tel: fax: Referral ID Status Reason Start Date Expiration Date Visits Re quested Visits Authorized [id number] Closed 03/31/2024 03/31/2025 1 1 Encounter Details Date Type Department Care Team (Late st Contact Info) Description 03/31/2024 Orders Only [facility] [address] [place], [place] [phone] Radha Panda MD [address] [place], [place] [phone] Breast cancer screening by mammogram (Primary Dx); Irregular menstruation Social History Tobacco Use Types Packs/Day Years [...] enough money to get more: Never True Transportation Answer Date Recorded In the past [...] AM EDT documented as of this encounter Functional Status * Over the past 2 weeks, how often have you been bothered by any of the following problems? Question Answer Date of Assessment Author Patient Health Questionnaire-2 Score 4 04/02/2024 11:31 AM Kael Serrano * Little interest or pleasure in doing things Answer Date of Assessment Author More than half the days 04/02/2024 11:31 AM Kael Trivedi * Feeling down, depressed, or hopeless Answer Date of Assessment Author More than half the days 04/02/2024 11:31 AM Kael Trivedi * Trouble falling or staying asleep, or sleeping too much Answer Date of Assessment Author More than half the days 04/02/2024 11:31 AM Kael Trivedi * Feeling tired or having little energy Answer Date of Assessment Author More than half the days 04/02/2024 11:31 AM Kael Trivedi * Poor appetite or overeating Answer Date of Assessment Author More than half the days 04/02/2024 11:31 AM Kael Trivedi * Feeling bad about yourself - or that you are a failure or have let yourself or your family down Answer Date of Assessment Author More than half the days 04/02/2024 11:31 AM Kael Trivedi * Trouble concentrating on things, such as reading the newspaper or watching television Answer Date of Assessment Author Several days 04/02/2024 11:31 AM Kael Wilson * Moving or speaking so slowly that other people could have noticed? Or the opposite - being so fidgety or restless that you have been moving around a lot more than usual. Answer Date of Assessment Author Not at all 04/02/2024 11:31 AM Kael Wilson * Thoughts that you would be better off or hurting yourself in some way Answer Date of Assessment Author Not at all 04/02/2024 11:31 AM Kael Wilson * Patient Health Questionnaire-9 Score Answer Date of Assessment Author 13 04/02/2024 11:31 AM Kael Wilson * Over the last 2 weeks, how often have you been bothered by any of the following problems? Question Answer Date of Assessment Author Feeling nervous, anxious, or on edge 3 04/02/2024 11:31 AM Kael Mendes Not being able to stop or control worrying 3 04/02/2024 11:31 AM Kael Mendes Worrying too much about different things 3 04/02/2024 11:31 AM Kael Mendes Trouble relaxing 3 04/02/2024 11:31 AM Kael Trivedi Being so restless that it is hard to sit still 3 04/02/2024 11:31 AM Kael Mendes Becoming easily annoyed or irritable 2 04/02/2024 11:31 AM EST Kael Polanco Feeling afraid as if something awful might happen 2 04/02/2024 11:31 AM Kael Lujan SANDY-7 Total Score 19 04/02/2024 11:31 AM Kael Trivedi documented as of this encounter Plan of Treatment Upcoming Encounters Date Type Department Care Team (Late st Contact Info) Description 11/09/2024 11:30 AM EDT Office Visit [facility] [address] [place] [address] Radha Panda MD [address] [place] [address] Scheduled Orders Name Type Priority Associated Diagnoses Orde r Schedule BI Mammogram Screening Tomosynthesis Bilateral Imaging Routine Breast cancer screening by mammogram Expected: 03/31/2024, Expires: 05/29/2025 documented as of this encounter Visit Diagnoses Diagnosis Breast cancer screening by mammogram- Primary Irregular menstruation Irregular menstrual cycle documented in this encounter Additional Health Concerns Assessment Noted Time PHQ-9 Depression Total Score: 13 024 9:58 AM EDT documented as of this encounter Care Teams Auxiliary Equipment Operator Relationship Specialty Start Date End Date Radha Panda MD [address] [place] [address] PCP - General Family Medicine 06/05/22 Lilliam Finley Parcel Post Truck DriverGrill Prep Cook 07/24/23 documented as of this encounter
--- OUTSIDE RECORDS SUMMARY | 2024-11-01 11:35 | XMS_ITS | Patient Health Record ---
Author Organization [facility] Address [address] [id number] Support Name Relationship Address Phone Adarsh Moe Guarantor Unknown [phone] Allergies Allergen (clinical drug ingredient) Drug/Non Drug Allergy documented on EMR Reaction Allergy Type Onset Date Status seasonal (uncoded) Unknown Allergy A ctive Reason For Referral No Information Medications Medication SIG (Take, Route, Frequency, Duration) Notes Start Date End Date Status hydrOXYzine HCl Acti ve Wellbutrin Active Vyvanse Active B-12 Active clonazePAM Active metroNIDAZOLE 500 MG Tablet 1 tablet Orally every12 hrs (avoid alcohol); Duration: 7 days 06/11/2023 Not-Taking/PRN Social History Sex Assigned At : Social History Observation Description Sex Assigned At Female Social History HIV Risk Assessment Social Info Question Answer Notes Additional Questions Is an HIV Risk Assessment being c onducted? Yes Have you been tested for HIV before? No Do you have an unlicensed body piercing or tattoo? No Reproductive Life Plan: Social Info Question Answer Notes Reproductive Life Plan: Do you want to h ave children? No, I don't want to have children How sure are you that you will be able to use your control method without any problems? Very sure People's plans change. Is it possible you or your partner could ever decide to become ? No Human Trafficking: Social Info Question Answer Notes Human Trafficking Experienced: No PrEP for HIV: Social Info Question Answer Notes PrEP for HIV Is the client rudi pena in beginning/continuing PrEP for HIV? No Sexual History: Social Info Question Answer Notes Sexual History: Sexual History Reviewed: Partner s, Practices, Protection/Past STIs Currently sexually active? Yes Sexually active with: Men Your sexual activities include: oral intercourse, vaginal intercourse Do you use condoms? No Number of partners in past 3 months: 2 Number of partners in past year: 2 Does your partner(s) currently have any STIs? No Counseling Provided: Social Info Question Answer Notes Counseling Provided Please indicate the length of time, in minutes, that counseling was provided. 7 Counseling Was Provided By: cas Drugs/Alcohol: Social Info Question Answer Notes Drug/Alcohol Use Do you or have you used drugs? Yes, c urrently By what route are you taking drugs? Please check all that apply: Smoking Which drug(s) do you smoke? Marijuana When did you last use? Do you or have you used alcohol? Yes, currently occasional use Food Access: Social Info Question Answer Notes Food Access The Client's current access to food is Secure Food Access Relationships: Social Info Question Answer Notes Relationships Has the client exper ienced any of the following: Client has never experienced harmful relationships Housing Social Info Question Answer Notes Housing The client's current living situation is: stable housing Plan Of Treatment No Information Insurance Providers Payer Name Payer Address Payer Phone Subscriber Number Group Number Insured Name Patient Relationship to Insured Coverage Start Date Coverage End Date [place]ICAID ATT CLAIMS [address] [place] [id number] Adarsh Moe Self - patient is the insured Medical (General) History Medical History History ICD Code Asthma Depression/anxiety ADHD Trich Surgical History Surgery Date(Month/Year) D&C 05/2023
--- OUTSIDE RECORDS SUMMARY | 2024-11-01 11:35 | XMS_ITS | Encounter Summary ---
Author Organization [employer] Address [address] [facility] 7t [place] [address] Care Team Providers Care Cotton Inspector Name Role Phone Radha Panda MD Primary Care Provider [phone] Reason for Visit * Reason Onset Date Comments Referral 12/19/2022 PT 1 PT1 12/19/2022 Encounter Details Date Type Department Care Team ([facility] st Contact Info) Description 12/19/2022 Telephone [facility] MEDICINE [address] [place], [place] [phone] Radha Panda MD [address] [place], [place] [phone] Referral (PT 1); PT1 Social History Tobacco Use Types Packs/Day Years Used Date Smoking Tobacco: Every Day Cigarettes Passive Smoke Exposure: Never Smokeless Tobacco: Never Housing Stability Answer Date Recorded What is your housing situation today? I have housing today, but I am worried about losing housing in the future 12/02/[address] you li ve. Do you have problems with any of the following? None of the above 12/02/2022 Food Insecurity Answer Date Recorded Within the [...] from getting things needed for daily living? No 12/02/2022 Utilities Answer Date Recorded In the past 12 months, has t he electric, gas, oil or water company threatened to shut off services in your home? No 12/02/2022 Comments Unknown Sex and Gender Information Value Date Recorded Sex Assigned at Female 12/17/2021 10:31 AM EDT Legal Sex Female 10:31 AM EDT Gender Identity Female 12/17/2021 10:31 AM EDT Sexual Orientation Choose not to disclose 2021 10:31 AM EDT documented as of this encounter Miscellaneous Notes * Telephone Encounter - Sadie Moser - 12/30/2022 12:39 PM EST PT-1 submitted for patient. They will receive a letter of approval or denial in the mail. * Telephone Encounter - Torrey Jeffries - 12/19/2022 10:01 AM EDT Tc from patient requesting PT 1 for upcoming appts. Place: [facility] Location: [address] [place] [address] Date: 12/31 Time: 11:00 Provider: Dr. Jason Gregg Preschool Teacher Aide: no Wheelchair access: no Visits: 2 documented in this encounter Plan of Treatment Upcoming Encounters Date Type Department Care Team (Late st Contact Info) Description 11/09/2024 11:30 AM EDT Office Visit [facility] [address] [place] [address] Radha Panda MD [address] [place] [address] documented as of this encounter Visit Diagnoses Not on filedocumented in this encounter Care Teams Cotton Inspector Relationship Specialty Start Date End Date Radha Panda MD [address] [place] [address] PCP - General Family Medicine 06/05/22 Yani Shabazz Assistant Controller 04/15/23 07/28/23 Lilliam Finley Assistant ControllerFleet Service Manager 07/24/23 documented as of this encounter
--- OUTSIDE RECORDS SUMMARY | 2024-11-01 11:35 | XMS_ITS | Encounter Summary ---
Author Organization [employer] Address [address] [facility] 7t [place] [address] Care Team Providers Care Net Coordinator Name Role Phone Radha Panda MD Primary Care Provider [phone] Encounter Details Date Type Department Care Team ([facility] st Contact Info) Description 05/19/2023 Orders Only [facility] MEDICINE [address] [place], [place] [phone] Radha Panda MD [address] [place], [place] [phone] Paresthesia (Primary Dx); Hand numbness; Urinary incontinence, unspecified type; Recurrent falls Social History Tobacco Use Types Packs/Day Years Used Date Smoking Tobacco: Former Cigarettes Passive Smoke Exposure: Past Smokeless Tobacco: Never Depression Answer Date Recorded Patient Health Questionnaire-9 Score 13 05/07/2023 Patient Health Questionnaire-9 Score 13 05/07/2023 Last PHQ-9: Questionnaire Data Not on file 0 05/07/2023 Housing Stability Answer Date Recorded What is [...] Date Recorded Patient Health Questionnaire-2 Score 4 05/07/2023 Comments Yes Sex and Gender Information Value Date Recorded [...] Description 11/09/2024 11:30 AM EDT Office Visit [facility] [address] [place] [address] Radha Panda MD [address] [place] [address] documented as of this encounter Visit Diagnoses Diagnosis Paresthesia- Primary Disturbance of skin sensation Hand numbness Disturbance of skin sensation Urinary incontinence, unspecified type Recurrent falls documented in this encounter Additional Health Concerns Assessment Noted Time PHQ-9 Depression Total Score: 13 024 9:58 AM EDT documented as of this encounter Care Teams Net Coordinator Relationship Specialty Start Date End Date Radha Panda MD [address] [place] [address] PCP - General Family Medicine 06/05/22 Yani Shabazz Board Certified Orthodontist 04/15/23 07/28/23 Lilliam Finley Board Certified OrthodontistMember Services Representative 07/24/23 documented as of this encounter
--- OUTSIDE RECORDS SUMMARY | 2024-11-01 11:35 | XMS_ITS | Encounter Summary ---
Author Organization [employer] Address [address] [facility] 7t [place] [address] Care Team Providers Care Financial Aid Coordinator Name Role Phone Radha Panda MD Primary Care Provider [phone] Reason for Visit * Reason Onset Date Comments PT-1 03/17/2024 Encounter Details Date Type Department Care Team ([facility] st Contact Info) Description 03/17/2024 Telephone [facility] MEDICINE [address] [place], [place] [phone] Radha Panda MD [address] [place], [place] [phone] PT-1 Social History Tobacco Use Types Packs/Day Years [...] Patient Health Questionnaire-2 Score 4 05/07/2023 Comments No Sex and Gender Information Value Date Recorded Sex Assigned at Female 12/17/2021 10:31 AM EDT Legal Sex Female 10:31 AM EDT Gender Identity Female 12/17/2021 10:31 AM EDT Sexual Orientation Choose not to disclose 2021 10:31 AM EDT documented as of this encounter Miscellaneous Notes * Telephone Encounter - Jaime Antunez - 03/17/2024 3:23 PM EST Patient calling requesting PT1 Home Address verified: Y/N: Yes Provider name or facility name: [facility] Facility Address: [address] [facility] Escort needed: Y/N: No Do you have a wheelchair: Y/N: No If yes- Manual or electric: N/A Visits: 3 Times monthly - Patient calling requesting PT1 Home Address verified: Y/N: Yes Provider name [facility] facility name: [facility] Facility Address: [address] [place] [address] Escort needed: Y/N: No Do you have a wheelchair: Y/N: No If yes- Manual or electric: N/A Visits: Once a month - Patient calling requesting PT1 Home Address verified: Y/N: Yes Provider name or facility name: [facility] Facility Address: [address] [facility] [address] [place] [address] Escort needed: Y/N: No Do you have a wheelchair: Y/N: No If yes- Manual or electric: N/A Visits: Once monthly - Patient calling requesting PT1 Home Address verified: Y/N: Yes Provider name or facility name: [facility] Facility Address: [address] [place] [address] Escort needed: Y/N: No Do you have a wheelchair: Y/N: No If yes- Manual or electric: N/A Visits: Once a month - Patient calling requesting PT1 Home Address verified: Y/N: No Provider name or facility name: [facility] Facility Address: [address] [place] [address] Escort needed: Y/N: No Do you have a wheelchair: Y/N: No If yes- Manual or electric: N/A Visits: 2 times monthly - Patient calling requesting PT1 Home Address verified: Y/N: No Provider name or facility name: [facility] Facility Address: [address], [place] [address] Escort needed: Y/N: No Do you have a wheelchair: Y/N: No If yes- Manual or electric: N/A Visits: Once a month documented in this encounter Plan of Treatment Upcoming Encounters Date Type Department Care Team (Late st Contact Info) Description 11/09/2024 11:30 AM EDT Office Visit [facility] MEDICINE [address] [place] [address] Radha Panda MD [address] [place] [address] documented as of this encounter Visit Diagnoses Not on filedocumented in this encounter Additional Health Concerns Assessment Noted Time PHQ-9 Depression Total Score: 13 024 9:58 AM EDT documented as of this encounter Care Teams Financial Aid Coordinator Relationship Specialty Start Date End Date Radha Panda MD [address] [place] [address] PCP - General Family Medicine 06/05/22 Lilliam Finley Composing Room SupervisorSkin Care Consultant 07/24/23 documented as of this encounter
--- OUTSIDE RECORDS SUMMARY | 2024-11-01 11:35 | XMS_ITS | Encounter Summary ---
Author Organization [employer] Address [address] [facility] 7t [place] [address] Care Team Providers Care Marine Engineering Technicians Name Role Phone Radha Panda MD Primary Care Provider [phone] Reason for Visit * Reason Comments Med Refill Encounter Details Date Type Department Care Team ([facility] st Contact Info) Description 06/06/[address] [facility] MEDICINE [address] [place] [address] Radha Panda MD [address] [place] [address] Social History Tobacco Use Types Packs/Day Years [...] Description 11/09/2024 11:30 [address] EDT [address] [facility] MEDICINE [address] [place] [address] Radha Panda MD [address] [place] [address] documented as of this encounter Visit Diagnoses Not on filedocumented in this encounter Additional Health Concerns Assessment Noted Time PHQ-9 Depression Total Score: 13 025 11:31 AM EST documented as of this encounter Care Teams Marine Engineering Technicians Relationship Specialty Start Date End Date Radha Panda MD [address] [place] [address] PCP - General Family Medicine 06/05/22 Lilliam Finley Splitting Machine OperatorElectrical Project Engineer 07/24/23 documented as of this encounter
--- OUTSIDE RECORDS SUMMARY | 2024-11-01 11:35 | XMS_ITS | Encounter Summary ---
Author Organization [employer] Address [address] [place] [address] 7t [place] [address] Care Team Providers Care Dry Press Operator Helper Name Role Phone Radha Panda MD Primary Care Provider [phone] Reason for Referral * Imaging (Routine) - Closed Specialty Diagnoses / Procedures Referred By Contac t Referred To Contact Radiology Diagnoses Recurrent falls Urinary incontinence, unspecified type Paresthesia Procedures Mr Brain w/ and w/o Contrast Radha Panda MD [address] [place] [address] Phone: tel: fax: [address] Phone: tel: fax: Referral ID Status Reason Start Date Expiration Date Visits Re quested Visits Authorized [id number] Closed 08/22/2023 08/21/2024 1 1 Encounter Details Date Type Department Care Team (Late st Contact Info) Description 08/22/2023 Orders Only [facility] MEDICINE [address] [place] [address] Radha Panda MD [address] [place], [place] [phone] Recurrent falls (Primary Dx); Urinary incontinence, unspecified type; Paresthesia Social History Tobacco Use Types Packs/Day Years [...] Description 11/09/2024 11:30 AM EDT Office Visit [facility] MEDICINE [address] [place] [address] Radha Panda MD [address] [place] [address] Scheduled Orders Name Type Priority Associated Diagnoses Orde r Schedule Mr Brain w/ and w/o Contrast Imaging Routine Recurrent falls Urinary incontinence, unspecified type Paresthesia Expected: 08/22/2023, Expires: 08/21/2024 documented as of this encounter Visit Diagnoses Diagnosis Recurrent falls- Primary Urinary incontinence, unspecified type Paresthesia Disturbance of skin sensation documented in this encounter Additional Health Concerns Assessment Noted Time PHQ-9 Depression Total Score: 13 024 9:58 AM EDT documented as of this encounter Care Teams Dry Press Operator Helper Relationship Specialty Start Date End Date Radha Panda MD [address] [place] [address] PCP - General Family Medicine 06/05/22 Lilliam Finley Loan CollectorHospital Aide 07/24/23 documented as of this encounter
--- OUTSIDE RECORDS SUMMARY | 2024-11-01 11:35 | XMS_ITS | Encounter Summary ---
Author Organization [employer] Address [address] [facility] 7t [place] [address] Care Team Providers Care Extracorporeal Circulation Specialist Name Role Phone Radha Panda MD Primary Care Provider [phone] Encounter Details Date Type Department Care Team ([facility] st Contact Info) Description 07/30/2023 Orders Only [facility] MEDICINE 230 [place], [place] [phone] Radha Panda MD 230 [place], [place] [phone] Social History Tobacco Use Types Packs/Day Years [...] Description 11/09/2024 11:30 AM EDT Office Visit [facility] MEDICINE [address] [place] [address] Radha Panda MD [address] [place] [address] documented as of this encounter Visit Diagnoses Not on filedocumented in this encounter Additional Health Concerns Assessment Noted Time PHQ-9 Depression Total Score: 13 024 9:58 AM EDT documented as of this encounter Care Teams Extracorporeal Circulation Specialist Relationship Specialty Start Date End Date Radha Panda MD [address] [place] [address] PCP - General Family Medicine 06/05/22 Lilliam Finley Survey StatisticianSalt Plant Operator 07/24/23 documented as of this encounter
--- OUTSIDE RECORDS SUMMARY | 2024-11-01 11:35 | XMS_ITS | Encounter Summary ---
Author Organization [employer] Address 75 [facility] 7t [place] [address] Care Team Providers Care Fiber Machine Tender Name Role Phone Radha Panda MD Primary Care Provider [phone] Reason for Visit * Reason Comments Med Refill Encounter Details Date Type Department Care Team ([facility] st Contact Info) Description 07/02/2023 Refill [facility] MEDICINE 230 [place] [address] Radha Panda MD 230 [place], [place] [phone] Social History Tobacco Use Types Packs/Day Years [...] Description 11/09/2024 11:30 AM EDT Office Visit [facility] MEDICINE 230 [place] [address] Radha Panda MD 230 [place] [address] documented as of this encounter Visit Diagnoses Not on filedocumented in this encounter Additional Health Concerns Assessment Noted Time PHQ-9 Depression Total Score: 13 024 9:58 AM EDT documented as of this encounter Care Teams Fiber Machine Tender Relationship Specialty Start Date End Date Radha Panda MD [address] [place] [address] PCP - General Family Medicine 06/05/22 Yani Shabazz Technical Sales Manager 04/15/23 07/28/23 Lilliam Finley Technical Sales ManagerAerial Sprayer 07/24/23 documented as of this encounter
--- OUTSIDE RECORDS SUMMARY | 2024-11-01 11:35 | XMS_ITS | Encounter Summary ---
Author Organization [employer] Address 75 [facility] 7t [place] [address] Care Team Providers Care Bill Poster Installer Name Role Phone Radha Panda MD Primary Care Provider [phone] Encounter Details Date Type Department Care Team ([facility] st Contact Info) Description 09/25/2023 Orders Only [facility] MEDICINE 230 [place], [place] [phone] Radha Panda MD 230 [place], [place] [phone] Social History Tobacco Use Types Packs/Day Years [...] Description 11/09/2024 11:30 AM EDT Office Visit [facility] MEDICINE [address] [place] [address] Radha Panda MD [address] [place] [address] documented as of this encounter Visit Diagnoses Not on filedocumented in this encounter Additional Health Concerns Assessment Noted Time PHQ-9 Depression Total Score: 13 024 9:58 AM EDT documented as of this encounter Care Teams Bill Poster Installer Relationship Specialty Start Date End Date Radha Panda MD [address] [place] [address] PCP - General Family Medicine 06/05/22 Lilliam Finley Prep PersonAnesthesia Resident 07/24/23 documented as of this encounter
--- OUTSIDE RECORDS SUMMARY | 2024-11-01 11:35 | XMS_ITS | Encounter Summary ---
Author Organization [employer] Address 75 [facility] 7t [place] [address] Care Team Providers Care Shot Coat Tender Name Role Phone Radha Panda MD Primary Care Provider [phone] Reason for Visit * Reason Onset Date Comments Call Back Request 05/14/2023 Encounter Details Date Type Department Care Team ([facility] st Contact Info) Description 05/14/2023 Telephone [facility] 230 [place], [place] [phone] Radha Panda MD 230 [place], [place] [phone] Call Back Request Social History Tobacco Use Types Packs/Day Years [...] encounter Miscellaneous Notes * Telephone Encounter - Torrey Jeffries - 05/14/2023 10:55 AM EDT Tc from patient requesting a call back states need to speak with the palliative care physician as soon as possible please call [phone] documented in this encounter Plan of Treatment Upcoming Encounters Date Type Department Care Team (Late st Contact Info) Description 11/09/2024 11:30 AM EDT Office Visit [facility] 230 [place] [address] Radha Panda MD 230 [place] [address] documented as of this encounter Visit Diagnoses Not on filedocumented in this encounter Additional Health Concerns Assessment Noted Time PHQ-9 Depression Total Score: 13 024 9:58 AM EDT documented as of this encounter Care Teams Shot Coat Tender Relationship Specialty Start Date End Date Radha Panda MD [address] [place] [address] PCP - General Family Medicine 06/05/22 Yani Shabazz Bag Tester 04/15/23 07/28/23 Lilliam Finley Bag TesterRoofer Gypsum 07/24/23 documented as of this encounter
--- OUTSIDE RECORDS SUMMARY | 2024-11-01 11:35 | XMS_ITS | Encounter Summary ---
Author Organization [employer] Address 75 [facility] 7t [place] [address] Care Team Providers Care It Infrastructure Project Manager Name Role Phone Radha Panda MD Primary Care Provider [phone] Encounter Details Date Type Department Care Team ([facility] Contact Info) Description 11/26/2022 Orders Only [facility] MEDICINE 230 [place] [address] Radha Panda MD 230 [place], [place] [phone] Social History Tobacco Use Types Packs/Day Years Used Date Smoking Tobacco: Every Day Cigarettes Passive Smoke Exposure: Never Smokeless Tobacco: Never Housing Stability Answer Date Recorded What is your housing situation today? I have housing today, but I am worried about losing housing in the future 11/25/[address] you li ve. Do you have problems with any of the following? None of the above 11/25/2022 Food Insecurity Answer Date Recorded Within the past 12 months, y ou worried that your food would run out before you got money to buy more: Never True 11/25/2022 Within the past 12 months,th e food you bought just didn't last and you didn't have enough money to get more: Never True 10/2022 Transportation Answer Date Recorded In the past 12 months, has l ack of transportation kept you from medical appts, meetings, work or from getting things needed for daily living? No 11/25/2022 Utilities Answer Date Recorded In the past 12 months, has t he electric, gas, oil or water company threatened to shut off services in your home? No 11/25/2022 Comments Unknown Sex and Gender Information Value [...] Description 11/09/2024 11:30 AM EDT Office Visit [facility] MEDICINE [address] [place] [address] [phone] Radha Panda MD [address] [place] [address] [phone] documented as of this encounter Visit Diagnoses Not on filedocumented in this encounter Care Teams It Infrastructure Project Manager Relationship Specialty Start Date End Date Radha Panda MD [address] [place] [address] PCP - General Family Medicine 06/05/22 Yani Shabazz Petroleum Plant Operator 04/15/23 07/28/23 Lilliam Finley Petroleum Plant OperatorVeterinary Anatomist 07/24/23 documented as of this encounter
--- OUTSIDE RECORDS SUMMARY | 2024-11-01 11:35 | XMS_ITS | Encounter Summary ---
Author Organization [employer] Address [address] [facility] 7t [place] [address] Care Team Providers Care Gastroenterology Professor Name Role Phone Radha Panda MD Primary Care Provider [phone] Encounter Details Date Type Department Care Team ([facility] st Contact Info) Description 04/04/2023 Orders Only [facility] MEDICINE 230 [place], [place] [phone] Radha Panda MD 230 [place], [place] [phone] Social History Tobacco Use Types Packs/Day Years Used Date Smoking Tobacco: Former Cigarettes Passive Smoke Exposure: Past Smokeless Tobacco: Never Housing Stability Answer Date [...] Description 11/09/2024 11:30 AM EDT Office Visit [facility] MEDICINE [address] [place] [address] Radha Panda MD [address] [place] [address] documented as of this encounter Visit Diagnoses Not on filedocumented in this encounter Care Teams Gastroenterology Professor Relationship Specialty Start Date End Date Radha Panda MD [address] [place] [address] PCP - General Family Medicine 06/05/22 Yani Shabazz Internet Marketing Manager 04/15/23 07/28/23 Lilliam Finley Internet Marketing ManagerBag Washer 07/24/23 documented as of this encounter
--- OUTSIDE RECORDS SUMMARY | 2024-11-01 11:35 | XMS_ITS | Encounter Summary ---
Author Organization [employer] Address 75 [facility] 7t [place] [address] Care Team Providers Care External Grinder Name Role Phone OrvillePalomo zhao SHAYNA Primary Care Provider Charisse Osuna MD Primary Care Provide r Radha Panda MD Primary Care Provider [phone] Encounter Details Date Type Department Care Team (Late st Contact Info) Description 01/21/2022 Orders Only [facility] MEDICINE [address] [place] [address] Heidi Morrow FNP [address] [place], [place] [phone] Routine health maintenance (Primary Dx) Social History Tobacco Use Types Packs/Day Years Used Date Smoking Tobacco: Never Assessed Comments Unknown Sex and Gender Information Value Date Recorded Sex Assigned at Female 12/17/2021 10:31 AM EDT Legal Sex Female 10:31 AM EDT Gender Identity Female 12/17/2021 10:31 AM EDT Sexual Orientation Choose not to disclose 2021 10:31 AM EDT COVID-19 Exposure Response Date Recorded In the last 10 days, have yo u been in contact with someone who was confirmed or suspected to have Coronavirus/COVID-19? No / Unsure 01/23/2022 2:53 PM EST documented as of this encounter Plan of Treatment Upcoming Encounters Date Type Department Care Team (Late st Contact Info) Description 11/09/2024 11:30 AM EDT Office Visit [facility]INE 230 [place] [address] Radha Padna MD 230 [place] [address] documented as of this encounter Procedures Procedure Name Priority Date/Time Associated Diagnosis Comments VARICELLA ZOSTER ANTIBODY, IGG Routine 01/24/2022 10:25 AM EST Routine health maintenance documented in this encounter Results * Varicella zoster antibody, IgG (01/24/2022 10:25 AM EST) Varicella Zoster Virus Antibody IgG 1,578.00 index [employer] Comment: Index Interpretation --------- <135.00 Negative - Antibody not detected 135.00 - 164.99 Equivocal > or = 165.00 Positive - Antibody detected A 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 The clinical diagnosis must be interpreted in conjunction with the clinical signs and symptoms of the patient. This assay reliably measures immunity due to previous infection but may not be sensitive enough to detect antibodies induced by vaccination. Thus, a negative result in a vaccinated individual does not necessarily indicate susceptibility to VZV infection. A more sensitive test for vaccination-induced immunity is Varicella Zoster Virus Antibody Immunity Screen, ACIF. Blood Venous blood specimen / Unknown 01/24/2022 10:25 AM EST 01/24/2022 10:25 AM EST us Heidi [facility] BLOOD ORDERABLES Final Res ult [employer] [address], [place] [address] [employer] [place] [email or web address] [address], [facility] [place] [address] documented in this encounter Visit Diagnoses Diagnosis Routine health maintenance- Primary Unspecified examination documented in this encounter Care Teams External Grinder Relationship Specialty Start Date End Date Palomo Jacinto FNP PCP - General Family Medicine 01/17/22 04/17/22 Charisse Lopez MD 230 [place] [address] PCP - General Internal Medicine 04/18/22 06/04/22 Radha Panda MD 230 [place] [address] PCP - General Family Medicine 06/05/22 Yani Shabazz Pulmonary Function Technologist 04/15/23 07/28/23 Lilliam Finley Pulmonary Function TechnologistDehydration Unit Operator 07/24/23 documented as of this encounter
--- OUTSIDE RECORDS SUMMARY | 2024-11-01 11:35 | XMS_ITS | Encounter Summary ---
Author Organization [employer] Address 75 [facility] 7t [place] [address] Care Team Providers Care Credit Or Loans Officer Name Role Phone Radha Panda MD Primary Care Provider [phone] Encounter Details Date Type Department Care Team ([facility] st Contact Info) Description 03/18/2023 Orders Only [facility] MEDICINE 230 [place], [place] [phone] Radha Panda MD 230 [place], [place] [phone] Social History Tobacco Use Types Packs/Day Years [...] Description 11/09/2024 11:30 AM EDT Office Visit [facility] MEDICINE [address] [place] [address] [phone] Radha Panda MD [address] [place] [address] [phone] documented as of this encounter Visit Diagnoses Not on filedocumented in this encounter Care Teams Credit Or Loans Officer Relationship Specialty Start Date End Date Radha Panda MD [address] [place] [address] PCP - General Family Medicine 06/05/22 Yani Shabazz Roto Mixer Operator 04/15/23 07/28/23 Lilliam Finley Roto Mixer OperatorCommunity Arts Worker 07/24/23 documented as of this encounter
--- OUTSIDE RECORDS SUMMARY | 2024-11-01 11:35 | XMS_ITS | Encounter Summary ---
Author Organization [employer] Address 75 [facility] 7t [place] [address] Care Team Providers Care Automatic Vulcanizing Operator Name Role Phone Radha Panda MD Primary Care Provider [phone] Reason for Visit * Reason Onset Date Comments Call Back Request 03/29/2024 Encounter Details Date Type Department Care Team ([facility] st Contact Info) Description 03/29/2024 Telephone [facility] MEDICINE 230 [place], [place] [phone] Radha Panda MD 230 [place], [place] [phone] Call Back Request Social History Tobacco Use [...] encounter Miscellaneous Notes * Telephone Encounter - Barbara Mcclain RN - 03/29/2024 3:11 PM EST Returned phone call to pt. Pt reports not doing too well has many questions and concerns about referrals and scheduling appts and stated she is trying to get organized. She asked about referrals and PT1 status for: - mammogram: nothing on file, needs order - MEAT LOINER: referral from 03/2023. Pt may need new referral, requests [facility]. She has seen them before but they never contacted her after miscarriage - Speech and Hearing: active referral on file, advised pt to call to schedule appt - Dentist: pt goes to [facility]. Advised her we can help with PT1 but no referral needed - Therapy: pt was seeing [facility] but it closed. She said she missed a few calls from [facility] and isunsure if she can talk to them. Advised her that referral from 01/10 is on file for [facility] for outpatient services. Gave her phone number to call and advised her to call however alsoadvised her that will ask [facility] team to outreach to help ensure she is connected with therapy services. Pt in agreement with this. After reviewing chart, pt called on 03/17/24 to ask about PT1 referrals for everything above (exceptmammo). Advised her to call back if she still has trouble getting PT1 for these appts. Pt then asking about allergy referral. Advised her nothing on file. Due to pt's many questions, scheduled for office visit extended on 04/19/24. Reviewed NTTS post production assistant provider available. Pt verbalized understating. * Telephone Encounter - Juaquin Bowden - 03/29/2024 2:13 PM EST Tc from pt requesting a call back review pt care plan and health etc. documented in this encounter Plan of Treatment Upcoming Encounters Date Type Department Care Team (Late st Contact Info) Description 11/09/2024 11:30 AM EDT Office Visit [facility] MEDICINE [address] [place] [address] Radha Panda MD [address] [place] [address] documented as of this encounter Visit Diagnoses Not on filedocumented in this encounter Additional Health Concerns Assessment Noted Time PHQ-9 Depression Total Score: 13 024 9:58 AM EDT documented as of this encounter Care Teams Automatic Vulcanizing Operator Relationship Specialty Start Date End Date Radha Panda MD [address] [place] [address] PCP - General Family Medicine 06/05/22 Lilliam Finley Beater OutAir Defense Artillery Officer 07/24/23 documented as of this encounter
--- OUTSIDE RECORDS SUMMARY | 2024-11-01 11:35 | XMS_ITS | Encounter Summary ---
Author Organization [employer] Address 75 [facility] 7t [place] [address] Care Team Providers Care Knife Setter Grinder Machine Name Role Phone Radha Panda MD Primary Care Provider [phone] Encounter Details Date Type Department Care Team ([facility] st Contact Info) Description 04/23/2023 Orders Only [facility] MEDICINE 230 [place], [place] [phone] Radha Panda MD 230 [place], [place] [phone] Urinary incontinence, unspecified type (Primary Dx); Recurrent falls; History of concussion Social History Tobacco Use Types Packs/Day Years [...] Description 11/09/2024 11:30 AM EDT Office Visit [facility] MEDICINE [address] [place] [address] [phone] Radha Panda MD [address] [place] [address] documented as of this encounter Visit Diagnoses Diagnosis Urinary incontinence, unspecified type- Primary Recurrent falls History of concussion documented in this encounter Care Teams Knife Setter Grinder Machine Relationship Specialty Start Date End Date Radha Panda MD [address] [place] [address] [phone] PCP - General Family Medicine 06/05/22 Yani Shabazz Woven Label Designer 04/15/23 07/28/23 Lilliam Finley Woven Label DesignerColorist Photography 07/24/23 documented as of this encounter
--- OUTSIDE RECORDS SUMMARY | 2024-11-01 11:35 | XMS_ITS | Encounter Summary ---
Author Organization [employer] Address [address] [place] [address] 7 [place] [address] Care Team Providers Care Applications Developer Name Role Phone Radha Panda MD Primary Care Provider [phone] Reason for Referral * Consultation (Routine) - Closed Specialty Diagnoses / Procedures Referred By Veena pierce Referred To Contact Orthopaedic Surgery Diagnoses Bilateral carpal tunnel syndrome Radha Panda MD 230 [place] [address] Phone: tel: fax: [facility] [address] [place] [address] Phone: tel: Referral ID Status Reason Start Date Expiration Date V isits Requested Visits Authorized [id number] Closed Specialty Services Required 06/16/2023 06/15/2024 6 6 Encounter Details Date Type Department Care Team (Late st Contact Info) Description 06/12/2023 Orders Only [facility] MEDICINE [address] [place] [address] Radha Panda MD 230 [place] [address] Bilateral carpal tunnel syndrome (Primary Dx) Social History Tobacco Use Types [...] as of this encounter Miscellaneous Notes * Assessment & Plan Note - Radha Panda MD - 06/12/2023 7:37 PM EDTAssociated Problem(s): Bilateral carpal tunnel syndrome - NCT/EMG on 06/09/23 documented in this encounter Plan of Treatment Upcoming Encounters Date Type Department Care Team (Late st Contact Info) Description 11/09/2024 11:30 AM EDT Office Visit [facility] MEDICINE 230 [place] [address] Radha Panda MD 230 [place] [address] Scheduled Referrals Name Type Priority Associated Diagnoses Order Schedule Referral to Orthopaedic Surgery Outpatient Referral Routine Bilateral carpal tunnel syndrome Expected: 06/12/2023 (Approximate), Expires: 06/11/2024 documented as of this encounter Visit Diagnoses Diagnosis Bilateral carpal tunnel syndrome- Primary Carpal tunnel syndrome documented in this encounter Additional Health Concerns Assessment Noted Time PHQ-9 Depression Total Score: 13 024 9:58 AM EDT documented as of this encounter Care Teams Applications Developer Relationship Specialty Start Date End Date Radha Panda MD [address] [place] [address] PCP - General Family Medicine 06/05/22 Yani Shabazz Steel Box Toe Inserter 04/15/23 07/28/23 Lilliam Finley Steel Box Toe InserterClient Success Specialist 07/24/23 documented as of this encounter
--- OUTSIDE RECORDS SUMMARY | 2024-11-01 11:35 | XMS_ITS | Encounter Summary ---
Author Organization [employer] Address [address] [place] [address] 7t [place] [address] Care Team Providers Care Stove Carriage Operator Name Role Phone Palomo Jacinto Primary Care Provider Charisse Osuna MD Primary Care Provide r Radha Panda MD Primary Care Provider [phone] Encounter Details Date Type Department Care Team (Late Contact Info) Description 01/18/2022 Orders Only [facility] MEDICINE [address] [place] [phone] Palomo Jacinto FNP Social History Tobacco Use Types Packs/Day Years [...] was confirmed or suspected to have Coronavirus/COVID-19? Yes 01/18/2022 1:27 PM EST documented as of this encounter Plan of Treatment Upcoming Encounters Date Type Department Care Team ([facility] Contact Info) Description 11/09/2024 11:30 AM EDT Office Visit [facility] MEDICINE 230 [place], [place] [phone] Radha Panda MD [address] [place] [address] documented as of this encounter Visit Diagnoses Not on filedocumented in this encounter Care Teams Stove Carriage Operator Relationship Specialty Start Date End Date Palomo Jacinto FNP PCP - General Family Medicine 01/17/22 04/17/22 Charisse Lopez MD 230 [place], [place] [phone] PCP - General Internal Medicine 04/18/22 06/04/22 Radha Panda MD 230 [place] [address] PCP - General Family Medicine 06/05/22 Yani Shabazz Store Operations Associate 04/15/23 07/28/23 Lilliam Finley Store Operations AssociateSap Bw Consultant 07/24/23 documented as of this encounter
--- OUTSIDE RECORDS SUMMARY | 2024-11-01 11:35 | XMS_ITS | Encounter Summary ---
Author Organization [employer] Address [address] [place] [address] 7 [place] [address] Care Team Providers Care Chef Manager Name Role Phone Palomo Jacinto Primary Care Provider Charisse Osuna MD Primary Care Provide r Radha Panda MD Primary Care Provider [phone] Reason for Visit * Reason Onset Date Comments r/s appt 03/22/2022 Encounter Details Date Type Department Care Team (Late st Contact Info) Description 03/22/2022 Telephone [facility] MED[facility]INE [address] [place] [address] Palomo Jacinto FNP r/s appt Social History Tobacco Use Types Packs/Day Years [...] encounter Miscellaneous Notes * Telephone Encounter - Ermias Khannahira Sharp - 03/22/2022 11:24 AM EST Tc from pt requesting a r/s on derm she has on 03/22/2022 at 11:45 am, pt state sit is to cold out. Please contact pt with new appt at [phone] documented in this encounter Plan of Treatment Upcoming Encounters Date Type Department Care Team (Late st Contact Info) Description 11/09/2024 11:30 AM EDT Office Visit [facility] MEDICINE [address] [place] [address] Radha Panda MD [address] [place], [place] [phone] documented as of this encounter Visit Diagnoses Not on filedocumented in this encounter Care Teams Chef Manager Relationship Specialty Start Date End Date Palomo Jacinto FNP PCP - General Family Medicine 01/17/22 04/17/22 Charisse Lopez MD [address] [place] [address] [phone] PCP - General Internal Medicine 04/18/22 06/04/22 Radha Panda MD [address] [place] [address] [phone] PCP - General Family Medicine 06/05/22 Yani Shabazz Twine Reeling Machine Operator 04/15/23 07/28/23 Lilliam Finley Twine Reeling Machine OperatorGas Singer 07/24/23 documented as of this encounter
--- OUTSIDE RECORDS SUMMARY | 2024-11-01 11:35 | XMS_ITS | Encounter Summary ---
Author Organization [employer] Address [address] [facility] 7t [place] [address] Care Team Providers Care Animal Treatment Investigator Name Role Phone Radha Panda MD Primary Care Provider [phone] Reason for Visit * Reason Onset Date Comments CHW 04/28/2023 Encounter Details Date Type Department Care Team ([facility] st Contact Info) Description 04/28/2023 Telephone [facility] MEDICINE [address] [place], [place] [phone] Radha Panda MD [address] [place], [place] [phone] CHW Social History Tobacco Use Types Packs/Day Years Used Date Smoking Tobacco: Former Cigarettes Passive Smoke Exposure: Past Smokeless Tobacco: Never Housing Stability Answer Date Recorded What is your housing situation today? I have lissethjayla galaviz 04/10/[address] you [...] Miscellaneous Notes * Telephone Encounter - Ermias Sharp - 04/28/2023 9:36 AM EDT Tc from pt returning phone . CM Yani Shabazz RN placed outbound call to patient for follow up call. No answer at this time. LVM introducing herself from [facility] CM Department. Requested call back. CM reinforced direct contact information or CHW for any additional questions or concerns. Education provided on [facility] Ur[facility] Care located in [facility]. Patient provided with after-hours line for [facility], , which offer night time triage service and option to transfer to religion instructor provider if needed. CM will attempt another follow up call within 10 days. Please contact pt @ [phone] documented in this encounter Plan of Treatment Upcoming Encounters Date Type Department Care Team (Late st Contact Info) Description 11/09/2024 11:30 AM EDT Office Visit [facility] MEDICINE [address] [place], [place] [phone] Radha Panda MD [address] [place], [place] [phone] documented as of this encounter Visit Diagnoses Not on filedocumented in this encounter Care Teams Animal Treatment Investigator Relationship Specialty Start Date End Date Radha Panda MD [address] [place], [place] [phone] PCP - General Family Medicine 06/05/22 Yani Shabazz Refrigeration Engineering Teacher 04/15/23 07/28/23 Lilliam Finley Refrigeration Engineering TeacherWoods Laborer 07/24/23 documented as of this encounter
--- OUTSIDE RECORDS SUMMARY | 2024-11-01 11:35 | XMS_ITS | Encounter Summary ---
Author Organization [employer] Address [address] [place] [address] 7t [place] [address] Care Team Providers Care Nut Sorter Name Role Phone Palomo Jacinto Primary Care Provider Charisse Osuna MD Primary Care Provide r Radha Panda MD Primary Care Provider [phone] Encounter Details Date Type Department Care Team ([facility] Contact Info) Description 02/14/2022 Telephone [facility] MEDICINE [address] [place], [place] [phone] Palomo Jacinto FNP Social History Tobacco Use [...] suspected to have Coronavirus/COVID-19? No / Unsure 02/06/2022 12:21 PM EST documented as of this encounter Plan of Treatment Upcoming Encounters Date Type Department Care Team ([facility] Contact Info) Description 11/09/2024 11:30 AM EDT Office Visit [facility] MED[facility]INE [address] [place], [place] [phone] Radha Panda MD [address] [place] [address] documented as of this encounter Visit Diagnoses Not on filedocumented in this encounter Care Teams Nut Sorter Relationship Specialty Start Date End Date Palomo Jacinto FNP PCP - General Family Medicine 01/17/22 04/17/22 Charisse Lopez MD [address] [place] [address] [phone] PCP - General Internal Medicine 04/18/22 06/04/22 Radha Panda MD [address] [place] [phone] PCP - General Family Medicine 06/05/22 Yani Shabazz Commercial Lending Relationship Manager 04/15/23 07/28/23 Lilliam Finley Commercial Lending Relationship ManagerEgg Tester 07/24/23 documented as of this encounter
--- OUTSIDE RECORDS SUMMARY | 2024-11-01 11:36 | XMS_ITS | Encounter Summary ---
Author Organization [employer] Address [address] [facility] 7t [place] [address] Care Team Providers Care Lineman Service Or Work Dispatcher Name Role Phone Radha Panda MD Primary Care Provider [phone] Encounter Details Date Type Department Care Team ([facility] st Contact Info) Description 04/27/2024 Orders Only [facility] MEDICINE [address] [place], [place] [phone] Radha Panda MD [address] [place], [place] [phone] Social History Tobacco Use Types Packs/Day Years [...] Description 11/09/2024 11:30 AM EDT Office Visit [facility] MEDICINE [address] [place] [phone] Radha Panda MD [address] [place] [phone] documented as of this encounter Visit Diagnoses Not on filedocumented in this encounter Additional Health Concerns Assessment Noted Time PHQ-9 Depression Total Score: 13 025 11:31 AM EST documented as of this encounter Care Teams Lineman Service Or Work Dispatcher Relationship Specialty Start Date End Date Rahda Panda MD [address] [place] [phone] PCP - General Family Medicine 06/05/22 Lilliam Finley Contract ModelerMathematical Statistician 07/24/23 documented as of this encounter
--- OUTSIDE RECORDS SUMMARY | 2024-11-01 11:36 | XMS_ITS | Encounter Summary ---
Author Organization [employer] Address [address] [facility] 7t [place] [address] Care Team Providers Care First Breaker Feeder Name Role Phone Radha Panda MD Primary Care Provider Reason for Visit * Reason Onset Date Comments Medication Question 04/26/2024 Encounter Details Date Type Department Care Team ([facility] st Contact Info) Description 04/26/2024 Telephone [facility] MEDICINE [address] [place], [place] [phone] Radha Panda MD [address] [place], [place] [phone] Medication Question Social History Tobacco Use Types Packs/Day Years [...] encounter Miscellaneous Notes * Telephone Encounter - Florentin Mcginnis - 04/26/2024 11:27 AM EDT Tc from pt requesting for Pcp to call pharmacy to see if they can refill med clonazePAM (KlonoPIN) 1 MG tablet due to pt leaving Medications in [facility]. Contact pt at [phone] documented in this encounter Plan of Treatment Upcoming Encounters Date Type Department Care Team (Late st Contact Info) Description 11/09/2024 11:30 AM EDT Office Visit [facility] MEDICINE [address] [place] [phone] Radha Panda MD [address] [place] [address] documented as of this encounter Visit Diagnoses Not on filedocumented in this encounter Additional Health Concerns Assessment Noted Time PHQ-9 Depression Total Score: 13 04/02/ 025 11:31 AM EST documented as of this encounter Care Teams First Breaker Feeder Relationship Specialty Start Date End Date Radha Panda MD [address] [place] [phone] PCP - General Family Medicine 06/05/22 Lilliam Finley Prevention CoordinatorCase Preparer And Liner 07/24/23 documented as of this encounter
--- OUTSIDE RECORDS SUMMARY | 2024-11-01 11:36 | XMS_ITS | Encounter Summary ---
Author Organization [employer] Address [address] [facility] 7t [place] [address] Care Team Providers Care Band Instrument Repairer Name Role Phone Radha Panda MD Primary Care Provider [phone] Encounter Details Date Type Department Care Team ([facility] st Contact Info) Description 05/07/2024 Orders Only [facility] MEDICINE [address] [place], [place] [phone] Radha Panda MD [address] [place], [place] [phone] Social History Tobacco Use Types Packs/Day Years [...] Description 11/09/2024 11:30 AM EDT Office Visit [facility] MEDICINE [address] [place] [phone] Radha Panda MD [address] [place] [phone] documented as of this encounter Visit Diagnoses Not on filedocumented in this encounter Additional Health Concerns Assessment Noted Time PHQ-9 Depression Total Score: 13 025 11:31 AM EST documented as of this encounter Care Teams Band Instrument Repairer Relationship Specialty Start Date End Date Radha Panda MD [address] [place] [phone] PCP - General Family Medicine 06/05/22 Lilliam Finley Electronic Scale TesterClinical Specialist Medical Device 07/24/23 documented as of this encounter
--- OUTSIDE RECORDS SUMMARY | 2024-11-01 11:36 | XMS_ITS | Clinical Summary ---
Author Organization [employer] Address [address] [place] [address] [address] [place] [address] Care Team Providers Care Plastic Welder Name Role Phone Radha Panda MD Primary Care Provider [phone] Allergies No known active allergies Medications * This document contains information received from the source organization and may not represent a complete record from that organization. Cyanocobalamin (Vitamin B-12) [address] 1 TABLET UNDER TONGUE AND ALLOW TO DISSOLVE FOR AT LEAST30 SECS BEFORE SWALLOWING 05/29/19 22 Active pantoprazole (ProtoNix) 40 MG EC tablet Take 40 mg by mouth in the morning. 01/17/20 22 Active Carafate 1 GM/10ML suspension TAKE 10MLS BY MOUTH TWICE DAILY 01/18/20 22 Active ciclopirox (Penlac) 8 % solution Apply topically at bedtime. 6 mL 2 07/10/19 23 Active clindamycin (Cleocin T) 1 % external solution Apply topically every 12 (twelve) hours. 60 mL 3 08/09/19 23 Active naproxen (Naprosyn) 250 MG tablet Take 1 or 2 tablets by mouth every 12 hours as needed for pain. Take with foods. Please do not take maximum dose everyday for > 2 weeks. 60 tablet 1 06/12/19 24 Active Blood Pressure Monitor [facility] [place] once daily 1 each 07/07/19 24 Active acetaminophen (Tylenol Extra Strength) 500 MG tablet Take 1 or 2 tablets by mouth every 8 hours as needed for pain or fever 90 tablet 1 09/25/19 24 Active ferrous sulfate (Fe Tabs) 325 (65 Fe) MG EC tablet Take 1 tablet by mouth every other day, or take on Friday, Friday, and Friday. Do not crush, chew, or split. 45 tablet 3 11/28/19 24 Active fluticasone (Flonase Allergy Relief) 50 MCG/ACT nasal spray SPRAY 2 SPRAYS INTO EACH NOSTRIL EVERY MORNING 48 g 04/29/19 25 Active sertraline (Zoloft) 25 MG tabletIndication s:Major depressive disorder, remission status unspecified, unspecified whether recurrent,Anxiet y and depression Take 1 tablet (25 mg) by mouth in the morning. 90 tablet 1 08/06/19 25 Active lisdexamfetamine (Vyvanse) 70 MG capsuleIndicatio ns:Attention Deficit Hyperactivity Disorder TAKE 1 CAPSULE BY MOUTH EVERY DAY IN THE MORNING 30 capsule 08/07/19 25 Active buPROPion XL (Wellbutrin XL) 300 MG 24 hr tabletIndication s:Major depressive disorder, remission status unspecified, unspecified whether recurrent TAKE 1 TABLET BY MOUTH EVERY MORNING 30 tablet 1 10/07/19 25 Active cholecalciferol (D3-1000) 25 MCG (1000 UT) capsuleIndicatio ns:Vitamin D deficiency TAKE 1 CAPSULE BY MOUTH EVERY DAY 90 capsule 10/07/19 25 Active loratadine (Claritin) 10 MG tablet TAKE 1 TABLET BY MOUTH AT BEDTIME 90 tablet 10/07/19 25 Active albuterol (Ventolin HFA) 108 (90 Base) MCG/ACT inhaler INHALE 2 PUFFS BY MOUTH EVERY 4 HOURS NEEDED FOR SHORTNESS OF BREATH OR WHEEZING 18 g 1 10/07/19 25 Active hydrOXYzine pamoate (Vistaril) 25 MG capsuleIndicatio ns:Anxiety and depression TAKE 1 CAPSULE BY MOUTH IN THE MORNING AND AT BEDTIME NEEDED FOR ANXIETY 30 capsule 1 10/07/19 25 Active loratadine (Claritin) 10 MG tablet Take 1 tablet (10 mg) by mouth at bedtime. 90 tablet 3 03/18/19 24 2024 Discontinued(R eorder (will not trigger notification to Pharmacy)) albuterol (Ventolin HFA) 108 (90 Base) MCG/ACT inhaler Inhale 2 puffs every 4 (four) hours if needed for wheezing or shortness of breath. 18 g 1 07/30/19 24 2024 Discontinued(R eorder (will not trigger notification to Pharmacy)) D3-1000 25 MCG (1000 UT) capsuleIndicatio ns:Vitamin D deficiency TAKE 1 CAPSULE BY MOUTH EVERY DAY 90 capsule 1 12/08/19 24 2024 Discontinued(R eorder (will not trigger notification to Pharmacy)) buPROPion XL (Wellbutrin XL) 300 MG 24 hr tabletIndication s:Major depressive disorder, remission status unspecified, unspecified whether recurrent Take 1 tablet (300 mg) by mouth in the morning. TAKE 1 TABLET BY MOUTH EVERY MORNING 30 tablet 1 05/14/19 25 2024 Discontinued(R eorder (will not trigger notification to Pharmacy)) hydrOXYzine pamoate (Vistaril) 25 MG capsuleIndicatio ns:Anxiety and depression Take 1 capsule (25 mg) by mouth if needed in the morning and at bedtime for anxiety. 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 Elevated blood pressure read ing in office without diagnosis of hypertension 07/07/2023 Assessment & Plan (09/29/2023 5:00 PM EDT): -Goal BP < 140/90 per JNC-8 and < 130/80 per ACC/AHA guideline (Treatment threshold >=140/90) -Continue working on lifestyle modifications - Ordered Blood pressure monitor kit - Advised patient to monitor BP at home and report back with readings Assessment & Plan (07/13/2023 6:59 AM EDT): -Goal BP < 140/90 per JNC-8 and < 130/80 per ACC/AHA guideline (Treatment threshold >=140/90) -Continue working on lifestyle modifications - Ordered Blood pressure monitor kit - Advised patient to monitor BP at home and report back with readings Chronic pain of both knees 07/07/2023 Assessment & Plan (07/07/2023 12:24 PM EDT): Referred to physical therapy, patient will call to reschedule Bilateral carpal tunnel syndrome 06/12/2023 Assessment & Plan (09/29/2023 5:00 PM EDT): - NCT/EMG on 06/09/23 - Prescribed wrist brace - Ice, rest, judicious use of APAP Assessment & Plan (07/13/2023 6:57 AM EDT): - NCT/EMG on 06/09/23 - Check the status of wrist brace - Refer to ortho Assessment & Plan (06/12/2023 7:37 PM EDT): - NCT/EMG on 06/09/23 Paresthesia 05/11/2023 Assessment & Plan (09/29/2023 5:00 PM EDT): - NCT/EMG in May 2023 showed mild-mod right median neuropathy and mild ulnar neuropathy - reschedule MRI Assessment & Plan (07/13/2023 6:56 AM EDT): - NCT/EMG in May 2023 showed mild-mod right median neuropathy and mild ulnar neuropathy - upcoming MRI Assessment & Plan (05/11/2023 12:26 PM EDT): - check lab - upcoming MRI Bilateral finger numbness 05/11/2023 Assessment & Plan (07/13/2023 6:57 AM EDT): - NCT/EMG on 06/03/23 suggestive of median and ulnar neuropathy - will refer to ortho Assessment & Plan (05/11/2023 12:26 PM EDT): - check lab; if lab is unrevealing, will order EMG/NCT Urinary incontinence 03/19/2023 Assessment & Plan (09/29/2023 5:01 PM EDT): - DDx includes stress incontinence, overactive bladder, UTI, and FINANCE CONTROLLER problem - Evaluate with head MRI because of her recurrent falls (concern for multiple sclerosis, less likely but also normal pressure hydrocephalus) - Trial of Kegel exercise - MRI has been ordered and reschedule many times; will order again, but may need to schedule at another facility Assessment & Plan (07/07/2023 12:21 PM EDT): - DDx includes stress incontinence, overactive bladder, UTI, and FINANCE CONTROLLER problem - Evaluate with head MRI because of her recurrent falls (concern for multiple sclerosis, less likely but also normal pressure hydrocephalus) - Trial of Kegel exercise - MRI has been ordered; patient is aware Assessment & Plan (05/11/2023 12:07 PM EDT): - DDx includes stress incontinence, overactive bladder, UTI, and FINANCE CONTROLLER problem - Evaluate with head MRI because of her recurrent falls (concern for multiple sclerosis, less likely but also normal pressure hydrocephalus) - Trial of Kegel exercise - MRI has been ordered; patient is aware Assessment & Plan (03/19/2023 3:17 PM EST): - DDx includes stress incontinence, overactive bladder, UTI, and FINANCE CONTROLLER problem - Evaluate with head MRI because of her recurrent falls (concern for multiple sclerosis, less likely but also normal pressure hydrocephalus) - Trial of Kegel exercise - Review her medications Recurrent falls 03/19/2023 Assessment & Plan (09/29/2023 5:05 PM EDT): - evaluate with MRI - follow up after MRI - fall precaution Assessment & Plan (07/07/2023 12:25 PM EDT): - evaluate with MRI - follow up after MRI - fall precaution Assessment & Plan (05/11/2023 12:09 PM EDT): - evaluate with MRI - follow up after MRI - fall precaution Assessment & Plan (03/19/2023 3:19 PM EST): - evaluate with MRI - follow up after MRI - fall precaution History of concussion 03/19/2023 Tobacco use 09/26/2022 Assessment & Plan (07/13/2023 7:01 AM EDT): - she does not smoke cigarettes everyday - 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 - encouraged to stop completely Assessment & Plan (05/11/2023 12:04 PM EDT): - she does not smoke cigarettes everyday - 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 - encouraged to stop completely Assessment & Plan (09/26/2022 10:59 AM EDT): - she does not smoke cigarettes everyday - 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 - encouraged to stop completely Asthma 07/18/2022 Assessment & Plan (09/29/2023 5:00 PM EDT): - continue albuterol HFA prn - continue working on smoking cessation Assessment & Plan (09/26/2022 10:58 AM EDT): - continue albuterol HFA prn - continue working on smoking cessation Assessment & Plan (07/18/2022 10:00 AM EDT): - continue albuterol HFA prn - continue working on smoking cessation Status post sleeve gastrectomy 07/09/2022 Assessment & Plan (09/29/2023 5:06 PM EDT): - Laparoscopic Sleeve Gastrectomy in 11/2021 - Discussed about the importance of adequate nutritional intake - continue following with [facility] - discussed about Dr. Rivero's weight management clinic since pt has been thinking about other treatment options - continue working on lifestyle modifications; body neutrality Assessment & Plan (07/13/2023 7:01 AM EDT): - Laparoscopic Sleeve Gastrectomy in 11/2021 - Discussed about the importance of adequate nutritional intake - continue following with [facility] - discussed about Dr. Rivero's weight management clinic since pt has been thinking about other treatment options - continue working on lifestyle modifications; body neutrality Assessment & Plan (09/26/2022 11:50 AM EDT): - Laparoscopic Sleeve Gastrectomy in 11/2021 - Discussed about the importance of adequate nutritional intake - continue following with [facility] - discussed about Dr. Rivero's weight management clinic since pt has been thinking about other treatment options Assessment & Plan (07/09/2022 12:41 PM EDT): Sleeve Gastrectomy in 11/2021 -patient is confused about her vitamin supplementation -will Rx Multi-Vitamin or Vitamin B12, depending on lab results -continue with [facility] -continue current treatment plan Abnormal uterine bleeding (AUB) 07/09/2022 Assessment & Plan (09/26/2022 11:07 AM EDT): - Following with [facility] - Normal PAP with negative high-risk HPV in Sep 2018 - Mirena IUD placed in 02/2022 - Negative EMBx on 07/23/22 -patient desired to have total hysterectomy ; continue discussing with DESK CLERK Assessment & Plan (07/09/2022 12:39 PM EDT): Patient had Mirena IUD placed in 02/2022 -patient is following with Asset Accountant -patient desired to have total hysterectomy GERD (gastroesophageal reflux disease) 3 Hidradenitis suppurativa 07/09/2022 Assessment & Plan (07/09/2022 12:39 PM EDT): -Taking Clindamycin Topical Cream -continue treatment plan per specialist Major depressive disorder 07/09/2022 Assessment & Plan (09/29/2023 5:05 PM EDT): - [facility]: [facility] - continue bupropion, clonazepam, and hydroxyzine Assessment & Plan (07/13/2023 7:00 AM EDT): - - [facility]: [facility] - ?CHD bilingual case manager - brief interruption of pharmacological treatment due to , restarted on bupropion, Vyvance, and clonazepam recently Assessment & Plan (05/11/2023 12:21 PM EDT): - - [facility]: [facility] - ?CHD bilingual case manager - previously on bupropion, Vyvance, and clonazepam Assessment & Plan (03/19/2023 3:19 PM EST): - - [facility]: [facility] - ?CHD bilingual case manager - continue bupropion, Vyvance, and clonazepam Assessment & Plan (09/26/2022 11:53 AM EDT): - - [facility]: [facility] - ?CHD bilingual case manager - continue bupropion, Vyvance, and clonazepam Assessment & Plan (07/09/2022 12:31 PM EDT): - [facility]: [facility] - ?CHD bilingual case manager - continue bupropion, Vyvance, and clonazepam ADHD 07/09/2022 Assessment & Plan (09/29/2023 5:03 PM EDT): - current behavioral health service provider: [facility] - continue Vyvance Assessment & Plan (07/13/2023 7:02 AM EDT): - restarted Vyvance recently; continue current medications and follow up with behavioral health service Assessment & Plan (05/11/2023 12:23 PM EDT): - currently holding Vyvance Assessment & Plan (03/19/2023 3:18 PM EST): - continue Vyvance Assessment & Plan (09/26/2022 11:53 AM EDT): - continue Vyvance Assessment & Plan (07/09/2022 12:32 PM EDT): - continue Vyvance Anxiety and depression 07/09/2022 Assessment & Plan (09/29/2023 5:04 PM EDT): - continue following with current [facility] provider - Currently on bupropion and clonazepam - continue hydroxyzine prn - last PHQ9 score 13 in April 2023 - last GAD7 score 4 in April 2023 Assessment & Plan (07/07/2023 12:01 PM EDT): - continue following with current [facility] provider - Currently on bupropion and clonazepam Assessment & Plan (05/11/2023 12:24 PM EDT): - continue following with current [facility] provider - previously on bupropion and clonazepam, which patient stopped since she became aware of Assessment & Plan (03/19/2023 3:19 PM EST): - continue following with current [facility] provider - continue bupropion - continue judicious use of clonazepam - recommended to take some time off from work to take care of herself and to get help for her son Assessment & Plan (09/26/2022 11:53 AM EDT): - continue following with current [facility] provider - continue bupropion - continue judicious use of clonazepam. Assessment & Plan (07/18/2022 10:02 AM EDT): - continue following with current [facility] provider - continue bupropion - continue judicious use of clonazepam. Anemia 07/09/2022 Assessment & Plan (09/29/2023 5:02 PM EDT): Baseline hematocrit 11, hemoglobin 32-33 Stable Recommended adequate nutritional intake Assessment & Plan (07/13/2023 7:02 AM EDT): Baseline hematocrit 11, hemoglobin 32-33 Stable Recommended adequate nutritional intake Assessment & Plan (05/11/2023 12:06 PM EDT): Baseline hematocrit 11, hemoglobin 32-33 Stable Recommended adequate nutritional intake Assessment & Plan (09/26/2022 11:13 AM EDT): 06/20/22 Hemoglobin 11.0 Hematocrit 32.1 Stable Recommended adequate nutritional intake Assessment & Plan (07/09/2022 12:38 PM EDT): 06/20/22 Hemoglobin 11.0 Hematocrit 32.1 Prediabetes 07/28/2018 Assessment & Plan (09/29/2023 5:02 PM EDT): - 5.2% 05/07/23 - improved after bariatric surgery - continue working on lifestyle modifications Assessment & Plan (05/11/2023 12:09 PM EDT): - 5.2% 05/07/23 - improved after bariatric surgery - continue working on lifestyle modifications Assessment & Plan (03/19/2023 3:17 PM EST): - check lab due to urinary problem, but unlikely since patient had lost weight Allergic rhinitis 07/28/2018 Assessment & Plan (03/19/2023 3:21 PM EST): -continue loratadine and fluticasone nasal -referred to security compliance specialist -Treatment Hx: Cetirizine was switched to loratadine because patient developed drowsiness Assessment & Plan (07/09/2022 12:40 PM EDT): -Will Rx Flonase refill Vitamin D deficiency 07/28/2018 Sensorineural hearing loss ( SNHL) of left ear with unrestricted hearing of right ear 10/06/2017 Assessment & Plan (09/29/2023 5:06 PM EDT): - most recent audiology test in July 2023, mod-severe hearing loss - refer to ENT - reschedule MRI Assessment & Plan (07/07/2023 12:23 PM EDT): - Referred to Speech and hearing pathology, patient needs another referral; will refer again Resolved Problems Problem Noted Date Diagnosed Date Resolved Date Elevated blood pressure read ing without diagnosis of hypertension 07/18/2022 09/26/2022 Assessment & Plan (07/18/2022 9:59 AM EDT): -Goal BP < 140/90 per JNC-8 and < 130/80 per ACC/AHA guideline -likely transient -Continue working on lifestyle modifications -Recommended self-monitoring BP. 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 Date Type Department Care Team Description 10/06/2024 Refill [facility] [address] [place] [phone] Radha Panda MD Major depressive disorder, remission status unspecified, unspecified whether recurrent; Vitamin D deficiency; Anxiety and depression 08/31/[address] [phone] Radha Panda MD CHART PREP 08/25/2024 Patient Outreach [facility] [address] [place] [address] Radha Panda MD 08/25/2024 Patient Outreach [facility] [address] [place] [phone] Radha Panda MD Pre-visit Planning ([facility] unable to reach, number disconnected) 08/06/[address] [phone] Radha Panda MD Lab Orders 08/06/2024 Refill [facility] [address] [place] [phone] Radha Panda MD 08/05/2024 Orders Only [facility] [address] [place] [phone] Radha Panda MD Major depressive disorder, remission status unspecified, unspecified whether recurrent; Anxiety and depression 08/04/[address] [phone] Lashanda Love [place] Appointment Request from Last 3 Months Immunizations Immunization Administration Dates Next Due Influenza Injectable Quadriv alant Preservative Free IIV4 MDCK 01/31/2020 Influenza injectable quadriv alent preservative free 11/19/2022,12/06/2021,12/25/2020 Pfizer Covid-19 Vaccine 12+ 11/19/2022,,10/17/2020 Pfizer Covid-19 Vaccine 12+ myke-sucrose (Zepeda Cap) 04/19/2021 Tdap 08/15/2014 Social History Tobacco Use Types Packs/Day Years Used Date Smoking Tobacco: Former Cigarettes Passive Smoke Exposure: Past Smokeless Tobacco: Never Tobacco Cessation:Counseling Given: Not Answered Depression Answer Date Recorded Patient Health Questionnaire-9 [...] the past 12 months, has t he [employer], gas, oil or water company threatened to [...] not to disclose 2021 10:31 AM EDT Last Filed Vital Signs Vital Sign Reading Time Taken Comments Blood Pressure 130/100 07/07/2023 11:46 AM EDT Pulse 74 07/07/2023 11:46 AM EDT Temperature 36.5 C (97.7 F) 07/07/2023 11:46 AM EDT Respiratory Rate 16 07/07/2023 11:46 AM EDT Oxygen Saturation 99% 04/08/2023 1:14 PM EST Inhaled Oxygen Concentration - - Weight 75.9 kg (167 lb 6.4 oz) 07/07/2023 11:46 AM EDT Height 157.5 cm (5' 2 ) 05/07/2023 9:53 AM EDT Body Mass Index 30.62 05/07/2023 9:53 AM EDT Plan of Treatment Upcoming Encounters Date Type Department Care Team (Late st Contact Info) Description 11/09/2024 11:30 AM EDT Office Visit [facility] [address] [place], [place] [phone] Radha Panda MD [address], [place] [phone] Health Maintenance Due Date Last Done Comments Disability Screening 1982 Alcohol/Substance Use Screening 1994 Family Planning (PISQ) 1997 HPV Vaccines (1 - 3-dose series) 1997 Hepatitis B Vaccines (1 of 3 - 19+ 3-dose series) 2001 Pneumococcal Vaccine: Pediatrics (0 to 5 Years) and At-Risk Patients (6 to 49) Years (1 of 2 - PCV) 2001 Pap Smear 10/04/2021 10/04/2018, 09/23/2018 Mammogram 2022 Cervical Cancer Screening 09/24/2023 HPV/Cotest 09/24/2023 09/23/2018 SDOH Screening 04/10/2024 04/10/2023 DTaP/Tdap/Td Vaccines (2 - Td or Tdap) 08/15/2024 08/15/2014 Depression Monitoring 09/30/2024 04/02/2024, 025 COVID-19 Vaccine ( season) 2024 11/19/2022, 12/06/2021, 04/19/2021, Additional history exists Influenza Vaccine (#1) 2024 3, 12/06/2021, 12/25/2020, Additional history exists Diabetes: Hemoglobin A1C 01/28/2025 024, 05/07/2023, 10/16/2021, Additional history exists Tobacco Screening 05/13/2025 05/13/2024 Zoster Vaccines (1 of 2) 2032 RSV Patients and Patients Aged 60 years or older (1 - 1-dose 75+ series) 2057 HIV Screening Completed 05/11/2024, 080 09/2022, 07/20/2019 Hepatitis C Screening Completed 05/11/2024 , 09/24/2022, 07/20/2019 HIB Vaccines Aged Out No longer eligi ble based on patient's age to complete this topic Hepatitis A Vaccines Aged Out No long er eligible based on patient's age to complete this topic IPV Vaccines Aged Out No longer eligi ble based on patient's age to complete this topic Meningococcal B Vaccine Aged Out No l onger eligible based on patient's age to complete this topic Meningococcal Vaccine Aged Out No gem gregg eligible based on patient's age to complete this topic RSV under 20 months Aged Out No longe r eligible based on patient's age to complete this topic Rotavirus Vaccines Aged Out No longer eligible based on patient's age to complete this topic Procedures Procedure Name Priority Date/Time Associated Diagnosis Comments HEPATITIS C AB W/REFL TO HCV RNA, QN, PCR Routine 05/11/2024 9:59 AM EDT Routine screening for STI (sexually transmitted infection) HIV 1/2 ANTIGEN/ANTIBODY, FOURTH GENERATION W/RFL Routine 05/11/2024 9:59 AM EDT Routine screening for STI (sexually transmitted infection) HEMOGLOBIN A1C Routine 01/29/2024 10:56 AM EST HM PAP/HPV Routine 10/04/2018 HM PAP/HPV Routine 09/23/2018 from Last 3 Months or Most Recently Relevant to Health Maintenance Results * Hepatitis C Antibody with Reflex to HCV, RNA, Quantitative, Real-Time PCR (05/11/2024 9:59 AM EDT) Hepatitis C Antibody Nonreactive Nonreactive [facility] Comment:Antibodies to HCV no t detected; does not exclude early acuteHCV infection. Blood Venous blood specimen / Unknown 05/11/2024 9:59 AM EDT 05/11/2024 11:12 AM EDT us Radha Panda MD LAB BLOOD ORDERABLES Final Resul t [facility] [address] [place] [phone] * HIV-1/2 Antigen and Antibodies, Fourth Generation, with Reflexes (05/11/2024 9:59 AM EDT) HIV AB/AG Nonreactive Nonreactive [facility] Comment:HIV-1 p24 Ag and/or HIV-1/HIV-2 Ab not detected.A test result that is nonreactive does not exclude thepossibility of exposure to or infection with HIV-1 and/orHIV-2. Nonreactive results in this assay for individualswith prior exposure to HIV-1 and/or HIV-2 may be due toantigen and antibody levels that are below the limit ofdetection of this assay.The [employer] HIV Ag/Ab Combo assay result andsupplemental assay results should be interpreted inconjunction with the patient's clinical presentation,history and other laboratory results. If the results areinconsistent with clinical evidence, additional testing issuggested to confirm the result. Blood Venous blood specimen / Unknown 05/11/2024 9:59 AM EDT 05/11/2024 11:12 AM EDT us Radha Panda MD LAB BLOOD ORDERABLES Final Resul t [facility] [address] [place] [phone] * Hemoglobin A1c (01/29/2024 10:56 AM EST) Hemoglobin A1c 5.2 <6.0 % [facility] Comment:Hemoglobin A1C Refer ence Range Adults: 4.8 - 6.0 % Non diabetic: < 6.0 % Goal: < 7.0 %Additional Action Suggested: > 8.0 %Note: Hemoglobin A1c results are invalid for patients with abnormal amounts of HbF. Blood transfusions may impact the HbA1c concentration in the patient sample. Estimated Average Glucose 103 mg/dL [facility] Comment:eAG = Estimated ave rage glucose which is %A1C expressed asaverage glucose, using the formula of the [id number] Glucose study (ADAG), Diabetes Care, Vol.31,#8,Sep. 2007 01/29/2024 10:5 6 AM EST 01/29/2024 10:56 AM EST Generic External Data Provider LAB BLOOD ORDERAB LES Final Result [facility] [address] [place] [address] [phone] * HM PAP/HPV (10/04/2018) Only the most recent of2 resultswithin the time period is included. Pap Smear 1. NILM 1. NILM Historical Provider HEALTH MAINTENANCE Final Result from Last 3 Months or Most Recently Relevant to Health [facility] STANDARD Care Teams Plastic Welder Relationship Specialty Start Date End Date Radha Panda MD [address] [place] [address] PCP - General Family Medicine 06/05/22 Lilliam Finley Sheltered Workshop Executive DirectorArchives Technician 07/24/23
--- OUTSIDE RECORDS SUMMARY | 2024-11-01 11:36 | XMS_ITS | Encounter Summary ---
Author Organization [employer] Address [address] [facility] 7t [place] [address] Care Team Providers Care Branner Machine Tender Name Role Phone Radha Panda MD Primary Care Provider [phone] Reason for Visit * Reason Onset Date Comments Med Refill 01/20/2024 Encounter Details Date Type Department Care Team (Late st Contact Info) Description 01/20/2024 Telephone [facility] MEDICINE [address] [place], [place] [phone] Radha Panda MD 230 [place], [place] [phone] Med Refill Social History Tobacco Use Types Packs/Day Years [...] encounter Miscellaneous Notes * Telephone Encounter - Anjali Mclean - 01/20/2024 9:24 AM EST TC from pt requesting medication refill. Medications needing refill : clonazePAM (KlonoPIN) 1 MG tablet To be sent to: [facility]/pharmacy [address] [place] [address] - [address] [place] [address] documented in this encounter Plan of Treatment Upcoming Encounters Date Type Department Care Team (Late st Contact Info) Description 11/09/2024 11:30 AM EDT Office Visit [facility] MEDICINE [address] [place] [address] Radha Panda MD [address] [place] [address] documented as of this encounter Visit Diagnoses Not on filedocumented in this encounter Additional Health Concerns Assessment Noted Time PHQ-9 Depression Total Score: 13 024 9:58 AM EDT documented as of this encounter Care Teams Branner Machine Tender Relationship Specialty Start Date End Date Radha Panda MD 230 [place] [address] PCP - General Family Medicine 06/05/22 Lilliam Finley Loan AdministratorPublic Works Technician 07/24/23 documented as of this encounter
--- OUTSIDE RECORDS SUMMARY | 2024-11-01 11:36 | XMS_ITS | Clinical Summary ---
Author Organization [facility] Address [address] [place] [address] Phone Care Team Providers Care Supervisor Maintenance And Custodians Name Role Phone Unknown, Unknown Primary Care Provider Vinicius francisco Social History Tobacco Use Types Packs/Day Years Used Date Smoking Tobacco: Former Comments:Quit smokin Education Answer Date Recorded Are you interested in more education? Not on marcus e 06/13/2022 Are you concerned about learning? Not on file 06/13/2022 No 06/13/2022 No 06/13/2022 Digital Access Answer Date Recorded No 07/15/2022 No 07/15/2022 No 07/15/2022 Reliable internet access at home? Not on file 07/15/2022 Device with a working camera? Not on file Comments Unknown Sex and Gender Information Value Date Recorded Sex Assigned at Not on file Legal Sex Female 7:25 PM EST Gender Identity Not on file Sexual Orientation Not on file Last Filed Vital Signs Vital Sign Reading Time Taken Comments Blood Pressure 126/72 07/14/2013 1:11 PM EDT Pulse 80 07/14/2013 1:11 PM EDT Temperature 36.7 C (98.1 F) 04/30/2012 11:20 AM EDT Respiratory Rate - - Oxygen Saturation - - Inhaled Oxygen Concentration - - Weight 100.7 kg (222 lb) 07/14/2013 1:11 PM EDT Height 160 cm (5' 3 ) 07/14/2013 1:11 PM EDT Body Mass Index 39.33 07/14/2013 1:11 PM EDT Plan of Treatment Not on file Medical Devices Not on file Insurance [employer]CO [facility] [facility] [employer]CO Care Teams Supervisor Maintenance And Custodians Relationship Specialty Start Date End Date Unknown, Unknown, PCP - General 11/01/21 Additional Source Comments The information contained in this document represents components of the legal health record. It is not the complete legal health record.[facility]
--- OUTSIDE RECORDS SUMMARY | 2024-11-01 11:36 | XMS_ITS | Encounter Summary ---
Author Organization [employer] Address [address] [place] [address] 7t [place] [address] Care Team Providers Care All Terrain Vehicle Technician Name Role Phone Radha Panda MD Primary Care Provider [phone] Reason for Visit * Reason Onset Date Comments Nurse Triage 11/18/2022 Encounter Details Date Type Department Care Team ([facility] st Contact Info) Description 11/18/2022 Telephone [facility] MEDICINE 230 [place], [place] [phone] Radha Panda MD [address] [place], [place] [phone] Nurse Triage Social History Tobacco Use Types Packs/Day Years Used Date Smoking Tobacco: Every Day Cigarettes Passive Smoke Exposure: Never Smokeless Tobacco: Never Comments Unknown Sex and Gender Information Value Date Recorded Sex Assigned at Female 12/17/2021 10:31 AM EDT Legal Sex Female 10:31 AM EDT Gender Identity Female 12/17/2021 10:31 AM EDT Sexual Orientation Choose not to disclose 2021 10:31 AM EDT documented as of this encounter Miscellaneous Notes * Telephone Encounter - Sanam Garrison RN - 11/18/2022 1:46 PM EDT Triage call Pt reports the new cream is like a lotion. It doesn't work at all. Pt reports the medication that works is a thick white cream that is applied to hands and feet. Pt doesn't have a name ofmedication for me and the Doctor prescribing isn't there any more. Pt is asking for a thick white cream that comes in a tube and thinks it is hydrocortisone 1%. Advised will send this information to PCP in hopes of follow up. Pt agrees. Protocol Used: Medication Question Call (Adult) Protocol-Based Disposition: Callback or Video Visit by PCP Today Video visit not offered Positive Triage Question: * Caller has NON-URGENT medicine question about med that PCP or specialist prescribed and triager unable to answer question * All higher-acuity triage questions were negative * Telephone Encounter - Anjali Mclean - 11/18/2022 12:57 PM EDT Patient calling to report dry peeling skin. States medication that was prescribed does not seem to help . Patient speaks Indonesian. Advised triage nurse will call patient back. documented in this encounter Plan of Treatment Upcoming Encounters Date Type Department Care Team (Late st Contact Info) Description 11/09/2024 11:30 AM EDT Office Visit [facility] MEDICINE [address] [place] [address] Radha Panda MD [address] [place] [address] documented as of this encounter Visit Diagnoses Not on filedocumented in this encounter Care Teams All Terrain Vehicle Technician Relationship Specialty Start Date End Date Radha Panda MD [address] [place] [address] PCP - General Family Medicine 06/05/22 Yani Shabazz Wireless Operator 04/15/23 07/28/23 Lilliam Finley Wireless OperatorCnc Specialist 07/24/23 documented as of this encounter
--- OUTSIDE RECORDS SUMMARY | 2024-11-01 11:36 | XMS_ITS | Encounter Summary ---
Author Organization [employer] Address [address] [facility] 7t [place] [address] Care Team Providers Care Parcel Wrapper Name Role Phone Radha Panda MD Primary Care Provider [phone] Reason for Visit * Reason Onset Date Comments Medication Question 11/28/2023 Encounter Details Date Type Department Care Team ([facility] st Contact Info) Description 11/28/2023 Telephone [facility] MEDICINE 230 [place], [place] [phone] Radha Panda MD 230 [place], [place] [phone] Medication Question Social History Tobacco Use Types [...] encounter Miscellaneous Notes * Telephone Encounter - Radha Panda MD - 11/28/2023 6:18 PM EDT Changed to 325 (elemental iron 65) mg every other day. * Telephone Encounter - Kristie Dumont RN - 11/28/2023 2:12 PM EDT TC placed to pt pharmacy [facility] in regards to not being able to garbage pick up worker prescription for Ferrous Sulfate 45 mg tablets. According to the pharmacist, this strength of the iron is not covered by the pt insurance. The insurance does cover Ferrous Sulfate 65 mg. This message will be forwarded to PCP to see if it is agreeable to change the dosage * Telephone Encounter - Jaime Antunez - 11/28/2023 10:26 AM EDT Tc from pt requesting call back regarding Ferrous Sulfate ER 45 MG tablet controlled-release stating she has attempted to garbage pick up worker medication at [facility] pharmacy but is informed that there is no script for her. Please contact pt at [phone]. documented in this encounter Plan of Treatment Upcoming Encounters Date Type Department Care Team (Late st Contact Info) Description 11/09/2024 11:30 AM EDT Office Visit [facility] MEDICINE [address] [place] [address] Radha Panda MD [address] [place], [place] [phone] documented as of this encounter Visit Diagnoses Not on filedocumented in this encounter Additional Health Concerns Assessment Noted Time PHQ-9 Depression Total Score: 13 024 9:58 AM EDT documented as of this encounter Care Teams Parcel Wrapper Relationship Specialty Start Date End Date Radha Panda MD [address] [place], [place] [phone] PCP - General Family Medicine 06/05/22 Lilliam Finley Director Of Institutional GivingBusiness Planner 07/24/23 documented as of this encounter
--- OUTSIDE RECORDS SUMMARY | 2024-11-01 11:36 | XMS_ITS | Encounter Summary ---
Author Organization [employer] Address [address] [facility] 7t [place] [address] Care Team Providers Care Recoil Spring Winder Name Role Phone Radha Panda MD Primary Care Provider [phone] Reason for Visit * Reason Onset Date Comments PT-1 11/28/2023 Call Back Request 11/28/2023 Encounter Details Date Type Department Care Team ([facility] st Contact Info) Description 11/28/2023 Telephone [facility] MEDICINE 230 [place], [place] [phone] Radha Panda MD [address] [place], [place] [phone] PT-1; Call Back Request Social History Tobacco Use [...] Telephone Encounter - Jaime Antunez - 11/28/2023 10:05 AM EDT Patient calling requesting PT1 Home Address verified: [address] [facility] Provider name or facility name: [facility] Address: [address] [place] [address] Escort needed: Y/N: No Do you have a wheelchair: Y/N: No If yes- Manual or electric: N/A Visits: Once a month - Patient calling requesting PT1 Home Address verified: 1 [facility] Provider name or facility name: [facility] Facility Address: [address] [place] [address] Escort needed: Y/N: No Do you have a wheelchair: Y/N: No If yes- Manual or electric: N/A Visits: Twice a month - Patient calling requesting PT1 Home Address verified: 1 [facility] Provider name or facility name: [facility] [employer] Facility Address: [address] [place] [address] Escort needed: Y/N: No Do you have a wheelchair: Y/N: No If yes- Manual or electric: N/A Visits: Once a month - Patient calling requesting PT1 Home Address verified: 1 [facility] Provider name or facility name: [facility] Facility Address: [address] [place] [address] Escort needed: Y/N: No Do you have a wheelchair: Y/N: No If yes- Manual or electric: N/A Visits: Once a month Pt is also requesting a call back from a home care assistant regarding current housing situation. Please contact pt at [phone]. documented in this encounter Plan of Treatment Upcoming Encounters Date Type Department Care Team ([facility] st Contact Info) Description 11/09/2024 11:30 AM EDT Office Visit [facility] MEDICINE [address] [place] [address] Radha Panda MD 230 [place] [address] documented as of this encounter Visit Diagnoses Not on filedocumented in this encounter Additional Health Concerns Assessment Noted Time PHQ-9 Depression Total Score: 13 024 9:58 AM EDT documented as of this encounter Care Teams Recoil Spring Winder Relationship Specialty Start Date End Date Radha Panda MD [address] [place] [address] PCP - General Family Medicine 06/05/22 Lilliam Finley Index EditorWell Puller 07/24/23 documented as of this encounter
--- OUTSIDE RECORDS SUMMARY | 2024-11-01 11:36 | XMS_ITS | Encounter Summary ---
Author Organization [employer] Address [address] [facility] 7t [place] [address] Care Team Providers Care Billet Straightener Name Role Phone Radha Panda MD Primary Care Provider Encounter Details Date Type Department Care Team ([facility] st Contact Info) Description 10/13/2023 Orders Only [facility] MEDICINE 230 [place], [place] [phone] Radha Panda MD 230 [place], [place] [phone] Social History Tobacco Use Types Packs/Day Years [...] 11/09/2024 11:30 AM EDT Office Visit [facility] MEDICINE [address] [place] [address] Radha Panda MD [address] [place] [address] documented as of this encounter Visit Diagnoses Not on filedocumented in this encounter Additional Health Concerns Assessment Noted Time PHQ-9 Depression Total Score: 13 024 9:58 AM EDT documented as of this encounter Care Teams Billet Straightener Relationship Specialty Start Date End Date Radha Panda MD [address] [place] [address] PCP - General Family Medicine 06/05/22 Lilliam Finley Tariff InspectorSupply Chain Coordinator 07/24/23 documented as of this encounter
--- OUTSIDE RECORDS SUMMARY | 2024-11-01 11:36 | XMS_ITS | Encounter Summary ---
Author Organization [employer] Address [address] [place] [address] 7 [place] [address] Care Team Providers Care Inspector Canned Food Reconditioning Name Role Phone Radha Panda MD Primary Care Provider [phone] Reason for Referral * Consultation (Routine) - Closed Specialty Diagnoses / Procedures Referred By Veena pierce Referred To Contact Orthopaedic Surgery Diagnoses Bilateral carpal tunnel syndrome Radha Panda MD [address] [place] [address] Phone: tel: fax: [facility] Orthopedics [address] [place] [address] Phone: tel: Referral ID Status Reason Start Date Expiration Date V isits Requested Visits Authorized [id number] Closed Specialty Services Required 05/07/2024 05/07/2025 6 6 Encounter Details Date Type Department Care Team (Late st Contact Info) Description 05/07/2024 Orders Only [facility] MEDICINE [address] [place] [address] Radha Panda MD [address] [place] [address] Bilateral carpal tunnel syndrome (Primary Dx) Social [...] Description 11/09/2024 11:30 AM EDT Office Visit [facility] MEDICINE [address] [place] [address] Radha Panda MD [address] [place] [address] Scheduled Referrals Name Type Priority Associated Diagnoses Order Schedule Referral to Orthopaedic Surgery Outpatient Referral Routine Bilateral carpal tunnel syndrome Expected: 05/07/2024 (Approximate), Expires: 05/07/2025 documented as of this encounter Visit Diagnoses Diagnosis Bilateral carpal tunnel syndrome- Primary Carpal tunnel syndrome documented in this encounter Additional Health Concerns Assessment Noted Time PHQ-9 Depression Total Score: 13 04/02/ 025 11:31 AM EST documented as of this encounter Care Teams Inspector Canned Food Reconditioning Relationship Specialty Start Date End Date Radha Panda MD [address] [place] [address] PCP - General Family Medicine 06/05/22 Lilliam Finley Methods EngineerBakelite Molder 07/24/23 documented as of this encounter
--- OUTSIDE RECORDS SUMMARY | 2024-11-01 11:36 | XMS_ITS | Encounter Summary ---
Author Organization [employer] Address [address] [facility] 7t [place] [address] Care Team Providers Care Health Worker Name Role Phone Radha Panda MD Primary Care Provider [phone] Reason for Visit * Reason Onset Date Comments Nurse Triage 10/28/2023 Encounter Details Date Type Department Care Team (Late st Contact Info) Description 10/28/2023 Telephone [facility] MEDICINE 230 [place], [place] [phone] Radha Panda MD 230 [place], [place] [phone] Nurse Triage Social History Tobacco Use Types [...] encounter Miscellaneous Notes * Telephone Encounter - Saima Marin RN - 10/28/2023 12:13 PM EDT called pt to triage, spoke to pt. pt answered the call and was wispering. pt states is at work and has to be careful how loud she talks. advised pt that in order to hear her she needs to go somewhereshe can speak to me. pt then states having persistent chest pain/pressure, sob, anxiety, and shaking. pt denies illness symptoms, fevers, severe or sustained sob, vomiting, palpitations, or other associated symptoms. pt states just want to talk to my PCP and was advised that this is not possible at this time. advised recommendation is for ER evaluation of active chest pain. pt states just makesure my PCP is aware and hung up. Protocol Used: Chest Pain (Adult) Protocol-Based Disposition: Go to ED/UCC Now (or to Office with PCP Approval) Positive Triage Questions: * Chest pain lasting longer than 5 minutes and occurred in last 3 days (72 hours) (Exception: Feelsexactly the same as previously diagnosed heartburn and has accompanying sour taste in mouth.) * Chest pain or angina comes and goes and is happening more often (increasing in frequency) or getting worse (increasing in severity) (Exception: Chest pains that last only a few seconds.) * All higher-acuity triage questions were negative Care Advice Discussed: * Reassurance and Education - Fleeting Chest Pains * Reassurance and Education - Chest Pains From Coughing * Humidifier * Avoid Tobacco Smoke * Reasons To Call Back - Chest pain increases in frequency, duration or severity - Chest pain lasts over 5 minutes - Chest pains persist over 3 days - Difficulty breathing or unusual sweating occurs - Fever over 100.4 F (38.0 C) - You become worse * Telephone Encounter - Anjali Mclean - 10/28/2023 11:26 AM EDT Symptom: Chest Pain - Adult Outcome: Transfer to a nurse or provider NOW! Reason: Heaviness on chest The caller accepted this outcome documented in this encounter Plan of Treatment Upcoming Encounters Date Type Department Care Team (Late st Contact Info) Description 11/09/2024 11:30 AM EDT Office Visit [facility] MEDICINE [address] [place] [address] Radha Panda MD [address] [place] [address] documented as of this encounter Visit Diagnoses Not on filedocumented in this encounter Additional Health Concerns Assessment Noted Time PHQ-9 Depression Total Score: 13 024 9:58 AM EDT documented as of this encounter Care Teams Health Worker Relationship Specialty Start Date End Date Radha Panda MD [address] [place] [address] PCP - General Family Medicine 06/05/22 Lilliam Finley Veneer SorterBoiler Room Helper 07/24/23 documented as of this encounter
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
--- OUTSIDE RECORDS SUMMARY | 2024-11-01 11:36 | XMS_ITS | Encounter Summary ---
Author Organization [facility] Address [address] [place] [address] Phone Care Team Providers Care Well Site Drilling Engineer Name Role Phone Robel Green MD Primary Care Provider [phone] Unknown, Unknown Primary Care Provider Vinicius francisco Encounter Details Date Type Department Care Team (Late st Contact Info) Description 06/03/2018 Ancillary Orders [facility], X-Ray - [address] [place] [address] Darci Cornejo PA [facility] [place] [address] [email or web address] Physical exam Social History Tobacco Use Types Packs/Day Years Used Date Smoking Tobacco: Former Comments:Quit smokin Comments Unknown Sex and Gender Information Value Date Recorded Sex Assigned at Not on file Legal Sex Female 7:25 PM EST Gender Identity Not on file Sexual Orientation Not on file documented as of this encounter Plan of Treatment Not on file documented as of this encounter Results * XR CHEST PA AND LATERAL 2 VIEWS (06/03/2018 10:55 AM EDT) Anatomical Region Laterality Modality Chest Radiographic Neeta ging 06/03/2018 11:2 0 AM EDT Impressions 06/03/2018 11:21 AM EDT Negative chest radiographs. POS - [id number] Narrative 06/03/2018 11:21 AM EDT HISTORY: Cough, positive PPD exam. COMPARISON: None. FINDINGS: PA and lateral views of the chest obtained. The lungs are clear. No evidence of pleural effusions or pneumothorax. Great vessel and cardiomediastinal contours are normal. Procedure Note Adam Martinez MD - 06/03/2018 HISTORY: Cough, positive PPD exam. COMPARISON: None. FINDINGS: PA and lateral views of the chest obtained. The lungs are clear. No evidence of pleural effusions or pneumothorax.Great vessel and cardiomediastinal contours are normal. IMPRESSION: Negative chest radiographs. POS - [id number] Darci JONES IMG XR CHEST Final Result documented in this encounter Visit Diagnoses Diagnosis Physical exam Unspecified general medical examination Physical exam Unspecified general medical examination documented in this encounter Care Teams Well Site Drilling Engineer Relationship Specialty Start Date End Date Robel Green MD [address] [place] [address] [email or web address] PCP - General 03/12/18 10/31/21 Unknown, Unknown, PCP - General 11/01/21 documented as of this encounter Additional Source Comments The information contained in this document represents components of the legal health record. It is not the complete legal health record.[facility]
--- OUTSIDE RECORDS SUMMARY | 2024-11-01 11:36 | XMS_ITS | Encounter Summary ---
Author Organization [employer] Address 75 [facility] 7t [place] [address] Care Team Providers Care Meat Specialist Name Role Phone Radha Panda MD Primary Care Provider [phone] Encounter Details Date Type Department Care Team ([facility] st Contact Info) Description 04/23/2024 Orders Only [facility] [address] [place], [place] [phone] Radha Panda MD 230 [place], [place] [phone] Social History Tobacco Use Types Packs/Day Years [...] Description 11/09/2024 11:30 AM EDT Office Visit [facility] [address] [place] [address] Radha Panda MD [address] [place] [address] documented as of this encounter Visit Diagnoses Not on filedocumented in this encounter Additional Health Concerns Assessment Noted Time PHQ-9 Depression Total Score: 13 025 11:31 AM EST documented as of this encounter Care Teams Meat Specialist Relationship Specialty Start Date End Date Radha Panda MD [address] [place] [address] PCP - General Family Medicine 06/05/22 Lilliam Finley Ethylbenzene Converter HelperSexual Assault Counselor 07/24/23 documented as of this encounter
--- OUTSIDE RECORDS SUMMARY | 2024-11-01 11:36 | XMS_ITS | Encounter Summary ---
Author Organization [employer] Address 75 [facility] 7t [place] [address] Care Team Providers Care School Superintendent Name Role Phone Radha Panda MD Primary Care Provider [phone] Reason for Visit * Reason Onset Date Comments Medication Question 04/21/2024 Encounter Details Date Type Department Care Team ([facility] st Contact Info) Description 04/21/2024 Telephone [facility] [address] [place], [place] [phone] Radha Panda MD 230 [place], [place] [phone] Medication Question Social History Tobacco Use Types [...] Telephone Encounter - Barbara Mcclain RN - 04/23/2024 1:15 PM EST Telephone call to pt to advise the clonazepam, Vyvanse, and Wellbutrin sent to [facility] on [facility] however there may be a cost to filling these since they were filled so recently, advised pt [facility] to clarify. Advised that refills for Vit D, ferrous sulfate, albuterol, and hydroxinehave refills on file at [facility] on [facility] [address], advised pt to reach out to pharmacy to request transfer if she prefers. Advised pt that since PCP is now prescribing pysch meds some of which are controlled substances, she will need CONSUMER LOAN OFFICER visit and that CONSUMER LOAN OFFICER nurse will reach out to schedule this. Advised pt [facility] with any other question or concerns and to not miss next appt because only 30 day supply of some medications sent. Pt verbalized understanding. -- Dr Amarilys Saenz will send clonazepam, Vyvance, and Wellbutrin. However, it is uncertain if her insurance will cover since last dispense date was 04/13/24. There may be a copay. Also, since her psychiatrist has not been prescribing these medications, she will need to have CONSUMER LOAN OFFICER appointment. Please arrange CONSUMER LOAN OFFICER appointment visit. Thank you * Telephone Encounter - Barbara Mcclain RN - 04/23/2024 9:14 AM EST Call returned to pt. Pt states her grandfather passed recently and she traveled there for this and left all of my medications there , stated I had them throw it all away so no one else would use it. When asked which medications, pt again repeated all of them, the clonazepam, Vyvanse, Wellbutrin, Vitamin D, hydroxyzine, albuterol. Advised pt will work on seeing which medications have refills and which would need new prescriptions and send to covering provider. Pt requesting meds to be sent to [facility] at [facility]. Called [facility] pharmacy, per pharmacist: Clonazepam 1mg: last filled/sold 04/14/24 for 30 day supply, Dr Naty Mcginnis is also prescribing this, scheduled next for fill on 05/12/24. Vyvanse 70mg: per [facility], last sold 03/11/24 for 30 day supply, no refill. *this med previously prescribed by Dr Mcginnis until 12/10 Wellbutrin XL 300m/19, got 1 months, 0 refills D3-1000 25mcg: has refill, ready for pickup Ferrous sulfate: has refill, not picked up since 12/10 Hydroxyzine (Vistaril) 25mg: has refill, last picked Sep 2023 Albuterol Ventolin HFA 108mc refill til July Pt missed office visit extended with Dr Panda on 04/19/24, stated I didn't know about that appt, Ijust knew about the appt with . Rescheduled pt to 05/18/24 at 10am. Reviewed with pt [facility] hours/Saturdays and NTTS electrician station assistant nurse, pt verbalized understanding. * Telephone Encounter - Juaquin Bowden - 04/21/2024 11:53 AM EST Tc from pt stating that she recently lost a family member and pt left all of her medication and pt states that they need there medication and they are 3 hours away from home and is wondering if we can send medication to nearby pharmacy. documented in this encounter Plan of Treatment Upcoming Encounters Date Type Department Care Team (Late st Contact Info) Description 11/09/2024 11:30 AM EDT Office Visit [facility] [address] [place] [address] Radha Panda MD [address] [place] [address] documented as of this encounter Visit Diagnoses Not on filedocumented in this encounter Additional Health Concerns Assessment Noted Time PHQ-9 Depression Total Score: 13 025 11:31 AM EST documented as of this encounter Care Teams School Superintendent Relationship Specialty Start Date End Date Radha Panda MD [address] [place] [address] PCP - General Family Medicine 06/05/22 Lilliam Finley Passenger SolicitorCase Resource Manager 07/24/23 documented as of this encounter
--- OUTSIDE RECORDS SUMMARY | 2024-11-01 11:36 | XMS_ITS | Encounter Summary ---
Author Organization [employer] Address [address] [facility] 7t [place] [address] Care Team Providers Care Fruit Or Nut Crops Farm Manager Name Role Phone Radha Panda MD Primary Care Provider [phone] Encounter Details Date Type Department Care Team ([facility] st Contact Info) Description 11/28/2023 Orders Only [facility] 230 [place], [place] [phone] Radha Panda MD 230 [place], [place] [phone] Social History Tobacco Use Types Packs/Day Years [...] Description 11/09/2024 11:30 AM EDT Office Visit [facility] [address] [place] [address] Radha Panda MD [address] [place] [address] documented as of this encounter Visit Diagnoses Not on filedocumented in this encounter Additional Health Concerns Assessment Noted Time PHQ-9 Depression Total Score: 13 024 9:58 AM EDT documented as of this encounter Care Teams Fruit Or Nut Crops Farm Manager Relationship Specialty Start Date End Date Radha Panda MD [address] [place] [address] PCP - General Family Medicine 06/05/22 Lilliam Finley Weaving ProfessorSr. Payroll Processor 07/24/23 documented as of this encounter
== END 2024-11-01 09:57 | disposition home or self-care (01) ==
LOC: HO.HBS 09:36
PROVIDERS: PCP Family Medicine; Visit Provider Physician Assistant Surgical
DX: Z98.84 Bariatric surgery status (principal); E66.9 Obesity, unspecified
CPT/HCPCS: 99214

== ENCOUNTER 2024-11-25 09:52 | Outpatient (REF) | payer MEDICAID, SELFPAY | END 2024-11-25 09:53 | disposition home or self-care (01) | LOC: HO.HAP 09:52 | PROVIDERS: Visit Provider Family Medicine | DX: Z13.89 Encounter for screening for other disorder (principal) ==

== ENCOUNTER 2024-11-25 14:55 | Outpatient (REF) | payer MEDICAID, SELFPAY ==
[2024-11-25 16:26] LABS: MANUAL DIFF FLAG NO
[2024-11-25 16:31] LABS: Hematocrit 33.3 % (37.0-47.0); Hemoglobin 11.2 g/dl (12.0-16.0); Imm Gran Abs Auto 0.01 X10*3/uL (0.00-0.03); Imm Gran Pct Auto 0.2 % (0.0-0.4); Lymphocytes Absolute Auto 2.3 X10*3/uL (1.2-4.9); Mean Corpuscular HGB Conc 33.6 g/dl (31.0-35.0); Mean Corpuscular Hemoglobin 28.9 pg (27.0-33.0); Mean Corpuscular Volume 85.8 fL (80.0-98.0); NRBC Abs Auto 0.000 X10*3/uL (0.0-0.012); NRBC Pct Auto 0.0 /100WBC (0.0-0.2); Platelet Count 332 X10*3/uL (160-400); Red Blood Count 3.88 X10*6/uL (4.20-5.50); White Blood Count 5.3 X10*3/uL (4.8-10.8)
[2024-11-25 18:20] LABS: Alanine Aminotransferase 10 U/L (0-31); Albumin Level 4.4 g/dL (3.5-5.0); Alkaline Phosphatase 62 U/L (39-117); Anion Gap 13 (12-20); Aspartate Amino Transferase 20 U/L (5-31); Blood Urea Nitrogen 18 mg/dL (9-16); Calcium 8.9 mg/dL (8.4-10.2); Carbon Dioxide 26 mmol/L (22-29); Chloride 104 mmol/L (96-108); Cholesterol 169 mg/dL (<200); Estimated Glomerular Filt Rate > 60; HDL Cholesterol 76 mg/dL (>40); Iron 39 mcg/dL (30-160); Percent Iron Saturation 12 % (15-50); Potassium 3.1 mmol/L (3.3-5.1); Sodium 140 mmol/L (135-145); Total Iron Binding Capacity 338 mcg/dL (228-428); Total Protein 7.6 g/dL (6.5-8.0); Triglycerides 42 mg/dL (<150); Unsaturated Iron Binding 299 ug/dL
[2024-11-25 18:34] LABS: Ferritin 26 ng/mL (10-250)
[2024-11-25 18:39] LABS: Folate 13.7 ng/mL (> or = 4.0); Vitamin B12 289 pg/mL (200-900)
== END 2024-11-25 14:56 | disposition home or self-care (01) ==
LOC: HO.HHCL 14:55
PROVIDERS: PCP Family Medicine; Visit Provider Physician Assistant Surgical
DX: Z98.84 Bariatric surgery status (principal)
CPT/HCPCS: 36415; 80053; 80061; 82306; 82607; 82728; 82746; 83036; 83525; 83540; 84425; 84443; 84590; 85025; 86140

== ENCOUNTER 2025-01-31 08:21 | Outpatient (REF) | payer MEDICAID, SELFPAY ==
[2025-01-31 11:41] LABS: Anion Gap 8 (12-20); Blood Urea Nitrogen 19 mg/dL (9-16); Calcium 9.0 mg/dL (8.4-10.2); Carbon Dioxide 29 mmol/L (22-29); Chloride 104 mmol/L (96-108); Estimated Glomerular Filt Rate > 60; Magnesium 1.9 mg/dL (1.6-2.6); Potassium 3.5 mmol/L (3.3-5.1); Sodium 137 mmol/L (135-145)
== END 2025-01-31 08:22 | disposition home or self-care (01) ==
LOC: HO.HHCL 08:21
PROVIDERS: PCP Family Medicine; Visit Provider Family Medicine
DX: E87.6 Hypokalemia (principal)
CPT/HCPCS: 36415; 80048; 83735

== ENCOUNTER 2025-02-08 18:14 | Emergency (ER) | payer OTHER, MEDICAID, SELFPAY ==
--- OUTSIDE RECORDS SUMMARY | 2023-08-29 05:15 | XMS_ITS ---
Author Organization [facility] Address [address] [place] [address] Care Team Providers Care Automotive Collision Repair Instructor Name Role Phone ALBA BLUE Unavailable [phone] REASON FOR VISIT Annual Exam Social History Sex Assigned At : Social History Observation Description Sex Assigned At Female Encounters Encounter Location Date Provider Diagnosis [facility] [address] [place], [place] [id number] 01/2024 ALBA BLUE Plan Of Treatment No Information Progress Notes * Adarsh KENYONDOB: [birth year] (44 yo F)Acc No.[id number]:08/29/2023 Progress Notes Patient: Regina tukathleenAdarsh Provider: Stu BLUE :1980 A ge:42 Y S ex:Female Date:08/29/2023 Address:[facility] [address] [place], [place] Subjective: * Chief Complaints: * A nnual Exam * Electronic signature of JOAQUIM BLUE CNM on 02/08/2025 at 08:55 PM EST Sign off status: Pending * Provider: Stu BLUE Date: 0 08/29/2023 Generated for Blaise marte/Aydee/Lesley on: 1 04/11/2024 08:55 PM EST
--- NOTE | ~2025-02-08 | XR_ITS ---
CLINICAL HISTORY: injury 3 view right ankle Comparison: None provided Findings: No acute fractures or dislocations. Soft tissue edema of the ankle. Tiny posterior calcaneal enthesophyte. IMPRESSION: Significant soft tissue edema of the lateral right ankle. No acute osseous abnormality. This document has been electronically signed by: Leeanne Matute MD on 02/08/2025 19:38:39
--- NOTE | ~2025-02-08 | XR_ITS ---
CLINICAL HISTORY: injury 3 view right foot Comparison: None provided Findings: No fractures or dislocations. Subcutaneous edema. No radiopaque foreign body. Multifocal osteoarthritis. IMPRESSION: No acute osseous abnormality. This document has been electronically signed by: Leeanne Matute MD on 02/08/2025 19:40:05
[2025-02-08 18:22] VITALS: BP 138/68; PULSE 67; RESP 18; TEMP 36.5; O2SAT 100; BMI 37.9
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
--- OUTSIDE RECORDS SUMMARY | 2025-02-08 20:55 | XMS_ITS | Encounter Summary ---
Author Organization [employer] Address [address] [facility] [address] 7t [place] [address] Care Team Providers Care Automotive Designer Name Role Phone Radha Panda MD Primary Care Provider [phone] Reason for Visit * Reason Onset Date Comments Med Refill 02/08/2025 Encounter Details Date Type Department Care Team (Late st Contact Info) Description 02/08/2025 Refill [facility] 230 [place], [place] [phone] Radha Panda MD 230 [place] [address] Social History Tobacco Use Types Packs/Day Years Used Date Smoking Tobacco: Former Cigarettes Passive Smoke Exposure: Past Smokeless Tobacco: Never Depression Answer Date Recorded Patient Health Questionnaire-9 Score 13 04/02/2024 Patient Health Questionnaire-9 Score 13 04/02/2024 Last PHQ-9: Questionnaire Data Not on file 0 04/02/2024 Housing Stability Answer Date Recorded What is your housing situation today? I have lissethjayla galaviz 11/23/[address] you li ve. Do you have problems with any of the following? None of the above 11/23/2024 Food Insecurity Answer Date Recorded Within the past 12 months, y ou worried that your food would run out before you got money to buy more: Never True 11/23/2024 Within the past 12 months,th e food you bought just didn't last and you didn't have enough money to get more: Never True 08/2024 Transportation Answer Date Recorded In the past 12 months, has l ack of transportation kept you from medical appts, meetings, work or from getting things needed for daily living? No 11/23/2024 Utilities Answer Date Recorded In the past 12 months, has t he electric, gas, oil or water company threatened to shut off services in your home? No 11/23/2024 Depression Answer Date Recorded Patient Health Questionnaire-2 Score 4 04/02/2024 Internet Access Answer Date Recorded Internet Access Q1 Yes 11/23/2024 Internet Access Q2 Not on file 11/23/2024 Comments No Sex and Gender Information Value Date Recorded Sex Assigned at Female 12/17/2021 10:31 AM EDT Legal Sex Female 10:31 AM EDT Gender Identity Female 12/17/2021 10:31 AM EDT Sexual Orientation Choose not to disclose 2021 10:31 AM EDT documented as of this encounter Miscellaneous Notes * Telephone Encounter - Lilliam Gayle LPN - 02/08/2025 3:04 PM EST SPLITTING MACHINE TENDER checked on 02/08/25. Last seen 11/23/24. * Telephone Encounter - Jaime Antunez - 02/08/2025 3:02 PM EST TC from pt requesting medication refill. Medications needing refill: lisdexamfetamine (Vyvanse) 70 MG capsule To be sent to: [facility]/pharmacy #[id number] documented in this encounter Plan of Treatment Not on file documented as of this encounter Visit Diagnoses Not on filedocumented in this encounter Additional Health Concerns Assessment Noted Time PHQ-9 Depression Total Score: 13 025 11:31 AM EST documented as of this encounter Care Teams Automotive Designer Relationship Specialty Start Date End Date Radha Panda MD [address] [place] [address] PCP - General Family Medicine 06/05/22 Lilliam Finley Factory WorkerPostal Clerk 07/24/23 documented as of this encounter
--- OUTSIDE RECORDS SUMMARY | 2025-02-08 20:55 | XMS_ITS | Encounter Summary ---
Author Organization [employer] Address [address] [facility] [address] 7t [place] [address] Care Team Providers Care Coat Presser Name Role Phone Radha Panda MD Primary Care Provider [phone] Reason for Visit * Reason Comments Med Refill Encounter Details Date Type Department Care Team (Late st Contact Info) Description 07/02/2023 Refill [facility] 230 [place], [place] [phone] Radha Panda MD 230 [place], [place] [phone] Social History Tobacco Use Types Packs/Day Years [...] documented as of this encounter Care Teams Coat Presser Relationship Specialty Start Date End Date Radha Panda MD [address] [place] [address] PCP - General Family Medicine 06/05/22 Yani Shabazz Writing Manager 04/15/23 07/28/23 Lilliam Finley Writing ManagerPlayer Development Manager 07/24/23 documented as of this encounter
--- OUTSIDE RECORDS SUMMARY | 2025-02-08 20:55 | XMS_ITS | Encounter Summary ---
Author Organization [employer] Address 75 [facility] 7t [place] [address] Care Team Providers Care Automatic Beam Warper Tender Name Role Phone OrvilleMatiascody CORRAL Primary Care Provider Charisse Osuna MD Primary Care Provide r Radha Panda MD Primary Care Provider [phone] Encounter Details Date Type Department Care Team (Late st Contact Info) Description 01/21/2022 Orders Only [facility] [address] [place] [address] Heidi Morrow FNP [address] [place], [place] [phone] Routine health maintenance (Primary Dx) Social History [...] on file documented as of this encounter Procedures Procedure Name Priority Date/Time Associated Diagnosis Comments VARICELLA ZOSTER ANTIBODY, IGG Routine 01/24/2022 10:25 AM EST Routine health maintenance documented in this encounter Results * Varicella zoster antibody, IgG (01/24/2022 10:25 AM EST) Varicella Zoster Virus Antibody IgG 1,578.00 index [employer] Comment: Index Interpretation --------- <135.00 Negative - [...] 10:25 AM EST 01/24/2022 10:25 AM EST Heidi STEPHENP LAB BLOOD ORDERABLES Final Res ult Performing Organization Address City/State/[place]UST Co de Phone Number [facility] [address], [place] [address] [employer] [place] [employer] [address], [facility] [address] documented in this encounter Visit Diagnoses Diagnosis Routine health maintenance- Primary Unspecified examination documented in this encounter Care Teams Automatic Beam Warper Tender Relationship Specialty Start Date End Date Palomo Jacinto FNP PCP - General Family Medicine 01/17/22 04/17/22 Charisse Lopez MD [address] [place] [address] PCP - General Internal Medicine 04/18/22 06/04/22 Radha Panda MD [address] [place] [address] PCP - General Family Medicine 06/05/22 Yani Shabazz Creative Services Producer 04/15/23 07/28/23 Lilliam Finley Creative Services ProducerCyber Security Architect 07/24/23 documented as of this encounter
--- OUTSIDE RECORDS SUMMARY | 2025-02-08 20:55 | XMS_ITS | Encounter Summary ---
Author Organization [employer] Address 75 [facility] 7t [place] [address] Care Team Providers Care Patient Safety Manager Name Role Phone Radha Panda MD Primary Care Provider [phone] Encounter Details Date Type Department Care Team (Late st Contact Info) Description 05/19/2023 Orders Only [facility] [address] [place] [address] Radha Panda MD [address] [place] [address] Paresthesia (Primary Dx); Hand numbness; Urinary incontinence, [...] documented as of this encounter Care Teams Patient Safety Manager Relationship Specialty Start Date End Date Radha Panda MD [address] [place] [address] PCP - General Family Medicine 06/05/22 Yani Shabazz Soil Analyst 04/15/23 07/28/23 Lilliam Finley Soil AnalystSpear Fisher 07/24/23 documented as of this encounter
--- OUTSIDE RECORDS SUMMARY | 2025-02-08 20:55 | XMS_ITS | Encounter Summary ---
Author Organization [employer] Address [address] [facility] [address] 7[address] [place] [address] Care Team Providers Care Laundry Tub Maker Name Role Phone Radha Panda MD Primary Care Provider [phone] Reason for Visit * Reason Onset Date Comments Medication Question 11/28/2023 Encounter Details Date Type Department Care Team ([facility] st Contact Info) Description 11/28/2023 Telephone [facility] 230 [place] [address] Radha Panda MD [address] [place] [address] Medication Question Social History Tobacco Use Types [...] PM EDT TC placed to pt pharmacy [facility] in regards to not being able to black pickler prescription for Ferrous Sulfate 45 mg tablets. [...] tablet controlled-release stating she has attempted to black pickler medication at [facility] pharmacy but is informed that there is no script for her. Please contact pt at [phone]. documented in this encounter Plan of Treatment Not on file documented as of this encounter Visit Diagnoses Not on filedocumented in this encounter Additional Health Concerns Assessment Noted Time PHQ-9 Depression Total Score: 13 024 9:58 AM EDT documented as of this encounter Care Teams Laundry Tub Maker Relationship Specialty Start Date End Date Radha Panda MD [address] [place] [address] PCP - General Family Medicine 06/05/22 Lilliam Finley Deputy ControllerElectrical Control Assembler 07/24/23 documented as of this encounter
--- OUTSIDE RECORDS SUMMARY | 2025-02-08 20:55 | XMS_ITS | Encounter Summary ---
Author Organization [employer] Address [address] [facility] [address] 7t [place] [address] Care Team Providers Care Market Researcher Name Role Phone Radha Panda MD Primary Care Provider [phone] Reason for Visit * Reason Onset Date Comments PT-1 03/17/2024 Encounter Details Date Type Department Care Team (Late st Contact Info) Description 03/17/2024 Telephone [facility]INE [address] [place], [place] [phone] Radha Panda MD 230 [place] [address] PT-1 Social History Tobacco Use Types Packs/Day [...] encounter Miscellaneous Notes * Telephone Encounter - Jiame Tulio - 03/17/2024 3:23 PM EST Patient calling requesting PT1 Home Address verified: Y/N: Yes Provider name or facility name: [facility] Facility Address: [address] [facility] Escort needed: Y/N: No Do you have a wheelchair: Y/N: No If yes- Manual or electric: N/A Visits: 3 Times monthly - Patient calling requesting PT1 Home Address verified: Y/N: Yes Provider name or facility name: [facility] Address: [address] [place] [address] Escort needed: Y/N: No Do you have a wheelchair: Y/N: No If yes- Manual or electric: N/A Visits: Once a month - Patient calling requesting PT1 Home Address verified: Y/N: Yes Provider name or facility name: [facility] Facility Address: [address] [address] Escort needed: Y/N: No Do you have a wheelchair: Y/N: No If yes- Manual or electric: N/A Visits: Once monthly - Patient calling requesting PT1 Home Address verified: Y/N: Yes Provider name or facility name: [facility] [employer] [facility] Facility Address: [address] [place] [address] Escort needed: Y/N: No Do you have a wheelchair: Y/N: No If yes- Manual or electric: N/A Visits: Once a month - Patient calling requesting PT1 Home Address verified: Y/N: No Provider name or facility name: [facility] Facility Address: [address] [place] [address] Escort needed: Y/N: No Do you have a wheelchair: Y/N: No If yes- Manual or electric: N/A Visits: 2 times monthly - Patient calling requesting PT1 Home Address verified: Y/N: No Provider name or facility name: [facility] Facility Address: [address], [place] [address] Escort needed: Y/N: No Do you have [...] documented as of this encounter Care Teams Market Researcher Relationship Specialty Start Date End Date Radha Panda MD [address] [place] [address] PCP - General Family Medicine 06/05/22 Lilliam Finley Sql Database AdministratorGuidance Secretary 07/24/23 documented as of this encounter
--- OUTSIDE RECORDS SUMMARY | 2025-02-08 20:55 | XMS_ITS | Encounter Summary ---
Author Organization [facility] Address [address] [facility] [address] 7t [place] [address] Care Team Providers Care Concrete Floor Installer Name Role Phone Radha Panda MD Primary Care Provider [phone] Encounter Details Date Type Department Care Team (Late st Contact Info) Description 08/05/2024 Orders Only [facility] [address] [place] [address] Radha Panda MD [address] [place] [address] Major depressive disorder, remission status unspecified, unspecified [...] documented as of this encounter Care Teams Concrete Floor Installer Relationship Specialty Start Date End Date Radha Panda MD [address] [place] [address] PCP - General Family Medicine 06/05/22 Lilliam Finley Forest Pathology TeacherRetread Mold Operator 07/24/23 documented as of this encounter
--- OUTSIDE RECORDS SUMMARY | 2025-02-08 20:55 | XMS_ITS | Encounter Summary ---
Author Organization [facility] Prior to 12/19/[address] [place] [address] Care Team Providers Care Behavioral Health Clinician Name Role Phone Bam Patino MD Primary Care Provider [phone] Reason for Visit * Reason Onset Date Comments Provider Call Back 03/14/2015 Encounter Details Date Type Department Care Team Description 03/14/2015 Telephone Adult Medicine [facility] [address] [place] [address] [phone] Bam Patino MD [address] [place] [address] [phone] Provider Call Back Social History Tobacco Use Types Packs/Day Years Used Date Smoking Tobacco: Every Day Cigarettes Comments:smokes 1 cig per da y Alcohol Use Standard Drinks/Week Comments Not Asked 0 (1 standard drink = 0.6 oz pur e alcohol) Sex Assigned at Date Recorded Not on file documented as of this encounter Miscellaneous Notes * Telephone Encounter - Malissa Wilkinson M.A. - 03/14/2015 3:28 PM EST Pt needs to see a PA for referral for her ear. Please schedule when she calls back. Thanks Msg left * Telephone Encounter - Bam Patino MD - 03/14/2015 3:16 PM EST i will need to see the patient i cannot tell if this is elective or of medical necessity * Telephone Encounter - Malissa Wilkinson M.A. - 03/14/2015 1:42 PM EST [facility] reffered the pt to a plastic surgeon back in August 2014. Pt wants a new referral. She never had an appointment. Will you order a new referral or does she need to be seen. * Telephone Encounter - Fabienne Cardozo - 03/14/2015 12:56 PM EST Caller requesting call back from provider: Is the caller the patient? YES If caller is not the patient, what is the callers name? N/A Callers relationship to patient? N/A If person calling is not the patient themselves, is there a verbal release in FYI or permanent comments for this person: NO Reason for call back: Patient says she was suppose to get a referral for an ear surgeon back in July 2014, patient says she had contacted there office and was told he was no longer taking patients, patient wants a new referral. Caller offered to speak with the nurse for assistance: YES Response: Patient offered to speak with nurse for assistance and patient agreed. Message forwarded to nurse. documented in this encounter Plan of Treatment Not on file documented as of this encounter Visit Diagnoses Not on filedocumented in this encounter Care Teams Behavioral Health Clinician Relationship Specialty Start Date End Date Bam Patino MD [address] [place] [address] PCP - General Internal Medicine 07/26/14 documented as of this encounter
--- OUTSIDE RECORDS SUMMARY | 2025-02-08 20:55 | XMS_ITS | Encounter Summary ---
Author Organization [employer] Address [address] [facility] 7t [place] [address] Care Team Providers Care Emergency Man Name Role Phone Palomo Jacinto Primary Care Provider Charisse Osuna MD Primary Care Provide r Radha Panda MD Primary Care Provider [phone] Reason for Visit * Reason Onset Date Comments r/s appt 03/22/2022 Encounter Details Date Type Department Care Team (Late st Contact Info) Description 03/22/2022 Telephone [facility] 230 [place] [address] Palomo Jacinto FNP r/s appt Social History [...] * Telephone Encounter - Ermias Sharp - 03/22/2022 11:24 AM EST Tc from pt requesting a r/s on derm she has on 03/22/2022 at 11:45 am, pt state sit is to cold out. Please contact pt with new appt at [phone] documented in this encounter Plan of Treatment Not on file documented as of this encounter Visit Diagnoses Not on filedocumented in this encounter Care Teams Emergency Man Relationship Specialty Start Date End Date Palomo Jacinto FNP PCP - General Family Medicine 01/17/22 04/17/22 Charisse Lopez MD [address] [place] [address] PCP - General Internal Medicine 04/18/22 06/04/22 Radha Panda MD [address] [place] [address] PCP - General Family Medicine 06/05/22 Yani Shabazz Ground School Instructor 04/15/23 07/28/23 Lilliam Finley Ground School InstructorProduct Marketing Director 07/24/23 documented as of this encounter
--- OUTSIDE RECORDS SUMMARY | 2025-02-08 20:55 | XMS_ITS | Encounter Summary ---
Author Organization [employer] Address [address] [facility] 7t [place] [address] Care Team Providers Care Family Services Assistant Name Role Phone Radha Panda MD Primary Care Provider [phone] Reason for Referral * Imaging (Routine) - Closed Specialty Diagnoses / Procedures Referred By Contac t Referred To Contact Radiology Diagnoses Breast cancer screening by mammogram Procedures BI Mammogram Screening Tomosynthesis Bilateral Radha Panda MD [address] [place] [address] Phone: tel: fax: [facility] [address] [place] [address] Phone: tel: fax: Referral ID Status Reason Start Date Expiration Date Visits Re quested Visits Authorized [id number] Closed 03/31/2024 03/31/2025 1 1 Encounter Details Date Type Department Care Team (Late st Contact Info) Description 03/31/2024 Orders Only [facility] [address] [place] [address] Radha Panda MD [address] [place] [address] [phone] Breast cancer screening by mammogram (Primary Dx); [...] as of this encounter Plan of Treatment Scheduled Orders Name Type Priority Associated Diagnoses [...] documented as of this encounter Care Teams Family Services Assistant Relationship Specialty Start Date End Date Radha Panda MD [address] [place] [address] PCP - General Family Medicine 06/05/22 Lilliam Finley Occupational NurseComputer Instructor 07/24/23 documented as of this encounter
--- OUTSIDE RECORDS SUMMARY | 2025-02-08 20:55 | XMS_ITS | Patient Health Record ---
Author Organization [employer] Address [address] [place] [address] Support Name Relationship Address Phone Abhi Adarsh Guarantor Unknown Allergies Allergen (clinical drug ingredient) Drug/Non Drug [...] Notes PrEP for HIV Is the client intere sted in beginning/continuing PrEP for HIV? No Sexual [...] MEDICAID ATT CLAIMS [address] [place] [address] [id number] Adarsh Moe Self - patient is the insured Medical (General) History Medical History History ICD Code Asthma Depression/anxiety ADHD Trich Surgical History Surgery Date(Month/Year) D&C 05/2023
--- OUTSIDE RECORDS SUMMARY | 2025-02-08 20:55 | XMS_ITS | Encounter Summary ---
Author Organization [employer] Address [address] [facility] [facility] [address] 7t [place] [address] Care Team Providers Care Lens Engraver Name Role Phone Radha Panda MD Primary Care Provider [phone] Encounter Details Date Type Department Care Team (Late st Contact Info) Description 10/13/2023 Orders Only [facility] 230 [place] [address] Radha Panda MD 230 [place] [address] Social History Tobacco Use Types Packs/Day Years [...] documented as of this encounter Care Teams Lens Engraver Relationship Specialty Start Date End Date Radha Panda MD [address] [place] [address] PCP - General Family Medicine 06/05/22 Lilliam Finley Tuck PointerBranch Administrator 07/24/23 documented as of this encounter
--- OUTSIDE RECORDS SUMMARY | 2025-02-08 20:55 | XMS_ITS | Encounter Summary ---
Author Organization [employer] Address [address] [facility] [facility] [address] 7t [place] [address] Care Team Providers Care Credit Union Field Examiner Name Role Phone Radha Panda MD Primary Care Provider [phone] Reason for Visit * Reason Onset Date Comments Referral 12/19/2022 PT 1 PT1 12/19/2022 Encounter Details Date Type Department Care Team (Late st Contact Info) Description 12/19/2022 Telephone [facility] 230 [place], [place] [phone] Radha Panda MD [address] [place] [address] Referral (PT 1); PT1 Social History Tobacco [...] requesting PT 1 for upcoming appts. Place: [facility] Location: [address] [place] [address] Date: 12/31 Time: 11:00 Provider: Dr. Jason Gregg Rug Layer: no Wheelchair access: no Visits: 2 documented in this encounter Plan of Treatment Not on file documented as of this encounter Visit Diagnoses Not on filedocumented in this encounter Care Teams Credit Union Field Examiner Relationship Specialty Start Date End Date Radha Panda MD [address] [place] [address] PCP - General Family Medicine 06/05/22 Yani Shabazz Engine Assembler 04/15/23 07/28/23 Lilliam Finlye Engine AssemblerRevenue Liaison 07/24/23 documented as of this encounter
--- OUTSIDE RECORDS SUMMARY | 2025-02-08 20:55 | XMS_ITS | Encounter Summary ---
Author Organization [employer] Address [address] 7t [place] [address] Care Team Providers Care Insurance Account Representative Name Role Phone Radha Panda MD Primary Care Provider [phone] Encounter Details Date Type Department Care Team (Late st Contact Info) Description 04/04/2023 Orders Only [facility]INE 230 [place] [address] Radha Panda MD [address] [place] [address] Social History Tobacco Use Types Packs/Day Years [...] on filedocumented in this encounter Care Teams Insurance Account Representative Relationship Specialty Start Date End Date Radha Panda MD [address] [place] [address] PCP - General Family Medicine 06/05/22 Yani Shabazz Care Attendant 04/15/23 07/28/23 Lilliam Finley Care AttendantSet Up Mechanic Heading Machines 07/24/23 documented as of this encounter
--- OUTSIDE RECORDS SUMMARY | 2025-02-08 20:55 | XMS_ITS | Data Portability ---
Author Organization [facility] [address] Address [address] [place] [address] Assessment No assessment recorded. Plan of Treatment Reminders Order Date Submit Date Provider Last Modified By Organization Details Last Modified Time Details Appointments None record ed. Lab None record ed. Referral None record ed. Procedures None record ed. Surgeries None record ed. Imaging None record ed. Medication Orders None record ed. Patient TargetsNo targets recorded. Patient InstructionsNo instructions recorded. Reason for Referral None Reported. Medical Equipment None Reported. Vitals None Recorded Social History None recorded. Functional Status None recorded. Mental Status None recorded. Family History Nothing Reported. Medical History No medical history recorded. Gynecological HistoryNo gynecological history recorded. Obstetrics History GPAL:G 0 P 0 0 0 0 Past Encounters Encounter ID Performer Location Encounter Start Date Encounter Closed Date Diagnosis/Indication Diagnosis SNOMED-CT Code Diagnosis ICD10 Code Diagnosis IMO Codes Diagnosis Note [id number] [facility] [address] [address] 06/19/2015 17:05:40 06/19/2015 18:32:10 Health Concerns Section Related Observation LastModified by Organization Detai ls LastModified Time None Recorded Concern Status LastModified by Organization Details LastModified Time None Recorded Advance Directives Directive None Recorded Payers Insurance Date Sequence Insurance Name Policy Number Policy Tan Covered Member ID Tan Member ID Guarantor Name 09/10/2022 1 [place] [employer] Adarsh Moe [id number] Adarsh Moe 09/10/2022 2 [facility] (MEDICAID REPLACEMENT - HMO) Adarsh Moe [id number] Adarsh Moe 09/10/2022 OC-ESCREEN Adarsh Moe ESCREEN ESCREEN Adarsh Moe OBGyn Episode No OBEpisode recorded.
--- OUTSIDE RECORDS SUMMARY | 2025-02-08 20:55 | XMS_ITS | Encounter Summary ---
Author Organization [employer] Address [address] 7t [place] [address] Care Team Providers Care Talent Consultant Name Role Phone Radha Panda MD Primary Care Provider [phone] Encounter Details Date Type Department Care Team (Late st Contact Info) Description 09/25/2023 Orders Only [facility] 230 [place] [address] Radha Panda MD 230 [place] [address] Social History Tobacco Use Types Packs/Day Years [...] documented as of this encounter Care Teams Talent Consultant Relationship Specialty Start Date End Date Radha Panda MD 230 [place] [address] PCP - General Family Medicine 06/05/22 Lilliam Finley Guest Services CoordinatorBusiness Development Agent 07/24/23 documented as of this encounter
--- OUTSIDE RECORDS SUMMARY | 2025-02-08 20:55 | XMS_ITS | Encounter Summary ---
Author Organization [employer] Address [address] 7t [place] [address] Care Team Providers Care Etl Informatica Developer Name Role Phone Radha Panda MD Primary Care Provider [phone] Reason for Visit * Reason Comments Med Refill Encounter Details Date Type Department Care Team (Late st Contact Info) Description 06/06/2024 Refill [facility] 230 [place], [place] [phone] Radha Panda MD [address] [place], [place] [phone] Social History Tobacco Use Types Packs/Day Years [...] documented as of this encounter Care Teams Etl Informatica Developer Relationship Specialty Start Date End Date Radha Panda MD [address] [place] [address] PCP - General Family Medicine 06/05/22 Lilliam Finley Specialty Plant SupervisorInspector Heating And Refrigeration 07/24/23 documented as of this encounter
--- OUTSIDE RECORDS SUMMARY | 2025-02-08 20:55 | XMS_ITS | Encounter Summary ---
Author Organization [employer] Address [address] [facility] [address] [facility] [address] 7t [place] [address] Care Team Providers Care Instructor Private Name Role Phone Radha Panda MD Primary Care Provider [phone] Reason for Visit * Reason Onset Date Comments PT-1 11/28/2023 Call Back Request 11/28/2023 Encounter Details Date Type Department Care Team (Late st Contact Info) Description 11/28/2023 Telephone [facility]INE 230 [place], [place] [phone] Radha Panda MD [address] [place] [address] PT-1; Call Back Request Social History Tobacco [...] calling requesting PT1 Home Address verified: [address] [facility] Provider name or facility name: [facility] Address: [address] [place] [address] Escort needed: Y/N: No Do you have a wheelchair: Y/N: No If yes- Manual or electric: N/A Visits: Once a month - Patient calling requesting PT1 Home Address verified: [address] [facility] Provider name or facility name: [facility] Facility Address: [address] [facility] [address] Escort needed: Y/N: No Do you have a wheelchair: Y/N: No If yes- Manual or electric: N/A Visits: Twice a month - Patient calling requesting PT1 Home Address verified: [address] [facility] Provider name or facility name: [facility] [employer] [facility] Facility Address: [address] [place] [address] Escort needed: Y/N: No Do you have a wheelchair: Y/N: No If yes- Manual or electric: N/A Visits: Once a month - Patient calling requesting PT1 Home Address verified: [address] [facility] Provider name or facility name: [facility] Facility Address: [address] [place] [address] Escort needed: Y/N: No Do you have a wheelchair: Y/N: No If yes- Manual or electric: N/A Visits: Once a month Pt is also requesting a call back from a resident care manager regarding current housing situation. Please contact pt at [phone]. documented in this encounter Plan of Treatment Not on file documented as of this encounter Visit Diagnoses Not on filedocumented in this encounter Additional Health Concerns Assessment Noted Time PHQ-9 Depression Total Score: 13 024 9:58 AM EDT documented as of this encounter Care Teams Instructor Private Relationship Specialty Start Date End Date Radha Panda MD [address] [place] [address] PCP - General Family Medicine 06/05/22 Lilliam Finley Purchasing CoordinatorCompacting Machine Operator/Tender 07/24/23 documented as of this encounter
--- OUTSIDE RECORDS SUMMARY | 2025-02-08 20:55 | XMS_ITS | Encounter Summary ---
Author Organization [facility] Prior to 12/19/[address] [place] [address] Care Team Providers Care Test Manager Name Role Phone Bam Patino MD Primary Care Provider [phone] Encounter Details Date Type Department Care Team Description 09/27/2016 Release of Information Medical Records [address] [place] [address] Abstract, Provider Social History Tobacco Use Types Packs/Day Years [...] on filedocumented in this encounter Care Teams Test Manager Relationship Specialty Start Date End Date Bam Patino MD [address] [place] [address] PCP - General Internal Medicine 07/26/14 documented as of this encounter
--- OUTSIDE RECORDS SUMMARY | 2025-02-08 20:55 | XMS_ITS | Encounter Summary ---
Author Organization [employer] Address [address] 7t [place] [address] Care Team Providers Care Account Analyst Name Role Phone Radha Panda MD Primary Care Provider [phone] Encounter Details Date Type Department Care Team (Late st Contact Info) Description 11/28/2023 Orders Only [facility]INE 230 [place] [address] Radha Panda MD [address] [place] [address] Social History Tobacco Use Types Packs/Day Years [...] documented as of this encounter Care Teams Account Analyst Relationship Specialty Start Date End Date Radha Panda MD 230 [place] [address] PCP - General Family Medicine 06/05/22 Lilliam Finley Administrative LiaisonMunitions Handler 07/24/23 documented as of this encounter
--- OUTSIDE RECORDS SUMMARY | 2025-02-08 20:55 | XMS_ITS | Encounter Summary ---
Author Organization [employer] [facility] Prior to 12/19/[address] [place] [address] Care Team Providers Care Energy Manager Name Role Phone Bam Patino MD Primary Care Provider [phone] Encounter Details Date Type Department Care Team Description 08/30/2014 Orders Only Adult Medicine [address] [phone] [place] Fatima PA-C Social History Tobacco Use Types Packs/Day Years [...] on filedocumented in this encounter Care Teams Energy Manager Relationship Specialty Start Date End Date Bam Patino MD [address] [place] [address] [phone] PCP - General Internal Medicine 07/26/14 documented as of this encounter
--- OUTSIDE RECORDS SUMMARY | 2025-02-08 20:55 | XMS_ITS | Encounter Summary ---
Author Organization [employer] Address [address] [facility] [address] 7t [place] [address] Care Team Providers Care Dealer Development Manager Name Role Phone Radha Panda MD Primary Care Provider [phone] Reason for Visit * Reason Onset Date Comments CHW 04/28/2023 Encounter Details Date Type Department Care Team ([facility] st Contact Info) Description 04/28/2023 Telephone [facility] MEDICINE 230 [place], [place] [phone] Radha Panda MD [address] [place] [address] CHW Social History Tobacco Use Types Packs/Day [...] provided on [facility]. Patient provided with after-hours line for [facility], , which offer night time triage service and option to transfer to occupational therapy technician provider if needed. CM will attempt another follow up call within 10 days. Please contact pt @ [phone] documented in this encounter Plan of Treatment Not on file documented as of this encounter Visit Diagnoses Not on filedocumented in this encounter Care Teams Dealer Development Manager Relationship Specialty Start Date End Date Radha Panda MD [address] [place] [address] PCP - General Family Medicine 06/05/22 Yani Shabazz Construction Checker 04/15/23 07/28/23 Lilliam Finley Construction CheckerMotor Overhauler 07/24/23 documented as of this encounter
--- OUTSIDE RECORDS SUMMARY | 2025-02-08 20:55 | XMS_ITS | Encounter Summary ---
Author Organization [employer] Address [address] [facility] [address] 7[address] [place] [address] Care Team Providers Care Channel Layer Name Role Phone Radha Panda MD Primary Care Provider [phone] Encounter Details Date Type Department Care Team (Late st Contact Info) Description 02/08/2025 Orders Only [facility] External Provider, [facility] Social History Tobacco Use Types Packs/Day Years Used Date Smoking Tobacco: Former Cigarettes Passive Smoke Exposure: Past Smokeless Tobacco: Never Depression Answer Date Recorded Patient Health Questionnaire-9 Score 13 04/02/2024 Patient Health Questionnaire-9 Score 13 04/02/2024 Last PHQ-9: Questionnaire Data Not on file 0 04/02/2024 Housing Stability Answer Date Recorded What is your housing situation today? I have lisseth galaviz 11/23/[address] you [...] Procedure Name Priority Date/Time Associated Diagnosis Comments XR FOOT 3+ VIEWS RIGHT Routine 02/08/2025 7:40 PM EST XR ANKLE 3+ VIEWS RIGHT Routine 02/08/2025 7:38 PM EST documented in this encounter Results * XR Foot 3+ Views Right (02/08/2025 7:40 PM EST) Anatomical Region Laterality Modality Lower Extremities, Foot Right [facility] 02/08/2025 7:40 PM EST Narrative 02/08/2025 7:41 PM EST [place] [address] XRay Report Signed Patient: Adarsh Moe MR#: [id number] : 1980 Acct:[id number] Age/Sex: 44 / F ADM Date: 02/08/25 Loc: HO.ED Attending Dr: Ordering Physician: Keyshawn Hassan Date of Service: 02/08/25 Procedure(s): XR foot RT min 3V Accession Number(s): [id number] cc: Keyshawn Hassan; Radha Panda MD Reason for Exam: injury CLINICAL HISTORY: injury 3 view right foot Comparison: None provided Findings: No fractures or dislocations. Subcutaneous edema. No radiopaque foreign body. Multifocal osteoarthritis. IMPRESSION: No acute osseous abnormality. This document has been electronically signed by: Leeanne Matute MD on 02/08/2025 19:40:05 Dictated By: Leeanne Matute MD Signed By: <Electronically signed by Leeanne Matute MD in OV> 02/08/251939 DD/ 39 TD/TT: 02/08/251939 Vocational Case Manager: Procedure Note Donotuseinterpreter, Image - 02/08/[address] [address] XRay Report Signed Patient: Adarsh MoeMR#: [id number] : 1980Acct:[id number] Age/Sex: 44 / FADM Date: 02/08/25 Loc: HO.ED Attending Dr: Ordering Physician: Keyshawn Hassan Date of Service: 02/08/25 Procedure(s): XR foot RT min 3V Accession Number(s): [id number] cc: Keyshawn Hassan; Radha Panda MD Reason for Exam: injury CLINICAL HISTORY: injury 3 view right foot Comparison: None provided Findings: No fractures or dislocations. Subcutaneous edema. No radiopaque foreign body. Multifocal osteoarthritis. IMPRESSION: No acute osseous abnormality. This document has been electronically signed by: Leeanne Matute MD on 02/08/2025 19:40:05 Dictated By: Leeanne Matute MD Signed By: <Electronically signed by Leeanne Matute MD in OV> 02/08/251939 DD/ 39 TD/TT: 02/08/251939 Vocational Case Manager: [facility] External Provider IMG XR PROCEDURES Edited Result - Final * XR Ankle 3+ Views Right (02/08/2025 7:38 PM EST) Anatomical Region Laterality Modality Lower Extremities, Ankle Right Radiogr [facility] 02/08/2025 7:38 PM EST Narrative 02/08/2025 7:40 PM EST [address] [address] XRay Report Signed Patient: Adarsh Moe MR#: [id number] : 1980 Acct:[id number] Age/Sex: 44 / F ADM Date: 02/08/25 Loc: HO.ED Attending Dr: Ordering Physician: Keyshawn Hassan Date of Service: 02/08/25 Procedure(s): XR ankle RT min 3V Accession Number(s): [id number] cc: Keyshawn Hassan; Radha Panda MD Reason for Exam: injury CLINICAL HISTORY: injury 3 view right ankle Comparison: None provided Findings: No acute fractures or dislocations. Soft tissue edema of the ankle. Tiny posterior calcaneal enthesophyte. IMPRESSION: Significant soft tissue edema of the lateral right ankle. No acute osseous abnormality. This document has been electronically signed by: Leeanne Matute MD on 02/08/2025 19:38:39 Dictated By: Leeanne Matute MD Signed By: <Electronically signed by Leeanne Matute MD in OV> 02/08/251938 DD/ 37 TD/TT: 02/08/251937 Vocational Case Manager: Procedure Note Donotuseinterpreter, Image - 02/08/2025 [place] [address] XRay Report Signed Patient: Adarsh MoeMR#: [id number] : 1980Acct:[id number] Age/Sex: 44 / FADM Date: 02/08/25 Loc: .ED Attending Dr: Ordering Physician: Keyshawn Hassan Date of Service: 02/08/25 Procedure(s): XR ankle RT min 3V Accession Number(s): [id number] cc: Keyshawn Hassan; Radha Panda MD Reason for Exam: injury CLINICAL HISTORY: injury 3 view right ankle Comparison: None provided Findings: No acute fractures or dislocations. Soft tissue edema of the ankle. Tiny posterior calcaneal enthesophyte. IMPRESSION: Significant soft tissue edema of the lateral right ankle. No acute osseous abnormality. This document has been electronically signed by: Leeanne Matute MD on 02/08/2025 19:38:39 Dictated By: Leeanne Matute MD Signed By: <Electronically signed by Leeanne Matute MD in OV> 02/08/251938 DD/ 37 TD/TT: 02/08/251937 Vocational Case Manager: [facility] External Provider IMG XR PROCEDURES Edited Result - Final documented in this encounter Visit Diagnoses Not on filedocumented in this encounter Additional Health Concerns Assessment Noted Time PHQ-9 Depression Total Score: 13 025 11:31 AM EST documented as of this encounter Care Teams Channel Layer Relationship Specialty Start Date End Date Radha Panda MD [address] [place] [address] PCP - General Family Medicine 06/05/22 Lilliam Finley Quality AuditorValve And Regulator Repairer 07/24/23 documented as of this encounter
--- OUTSIDE RECORDS SUMMARY | 2025-02-08 20:55 | XMS_ITS | Encounter Summary ---
Author Organization [employer] Address [address] [facility] [address] [address] 7[address] [place] [address] Care Team Providers Care Student Finance Advisor Name Role Phone Radha Panda MD Primary Care Provider [phone] Reason for Visit * Reason Onset Date Comments Call Back Request 03/29/2024 Encounter Details Date Type Department Care Team (Late st Contact Info) Description 03/29/2024 Telephone [facility] MEDICINE [address] [place], [place] [phone] Radha Panda MD 230 [place] [address] Call Back Request Social History Tobacco Use [...] mammogram: nothing on file, needs order - DESULFURIZER MACHINE: referral from 03/2023. Pt may need new referral, requests [facility]. She has seen them before but they never contacted her after miscarriage - Speech and Hearing: active referral on file, advised pt to call to schedule appt - Dentist: pt goes to [facility]. Advised her we can help with PT1 but no referral needed - Therapy: pt was seeing [facility] but it closed. She said she missed a few calls [facility]. Advised her that referral from 01/10 is on file for [facility] for outpatient services. Gave her phone number [...] office visit extended on 04/19/24. Reviewed NTTS freezer person provider available. Pt verbalized understating. * Telephone Encounter - Juaquin Kal - 03/29/2024 2:13 PM EST Tc from [...] documented as of this encounter Care Teams Student Finance Advisor Relationship Specialty Start Date End Date Radha Panda MD [address] [place] [address] PCP - General Family Medicine 06/05/22 Lilliam Finley Healthcare ManagementRecep 07/24/23 documented as of this encounter
--- OUTSIDE RECORDS SUMMARY | 2025-02-08 20:55 | XMS_ITS | Encounter Summary ---
Author Organization [employer] Address [address] [facility] [address] 7t [place] [address] Care Team Providers Care Organ Installer Name Role Phone Radha Panda MD Primary Care Provider [phone] Encounter Details Date Type Department Care Team (Late st Contact Info) Description 11/26/2022 Orders Only [facility] MED[facility]INE [address] [place] [address] Radha Panda MD 230 [place] [address] Social History Tobacco Use Types Packs/Day Years [...] on filedocumented in this encounter Care Teams Organ Installer Relationship Specialty Start Date End Date Radha Panda MD [address] [place] [address] PCP - General Family Medicine 06/05/22 Yani Shabazz Palliative Care Specialist 04/15/23 07/28/23 Lilliam Finley Palliative Care SpecialistLow Emission Automobile Designer 07/24/23 documented as of this encounter
--- OUTSIDE RECORDS SUMMARY | 2025-02-08 20:55 | XMS_ITS | Encounter Summary ---
Author Organization [employer] Address [address] [facility] [address] 7t [place] [address] Care Team Providers Care Steward/Stewardess Second Class Name Role Phone Radha Panda MD Primary Care Provider [phone] Encounter Details Date Type Department Care Team (Late st Contact Info) Description 03/18/2023 Orders Only [facility] MEDICINE 230 [place] [address] Radha Panda MD 230 [place], [place] [phone] Social History Tobacco Use Types Packs/Day Years [...] on filedocumented in this encounter Care Teams Steward/Stewardess Second Class Relationship Specialty Start Date End Date Radha Panda MD [address] [place] [address] PCP - General Family Medicine 06/05/22 Yani Shabazz Field Kiln Burner 04/15/23 07/28/23 Lilliam Finley Field Kiln BurnerWinemaker 07/24/23 documented as of this encounter
--- OUTSIDE RECORDS SUMMARY | 2025-02-08 20:55 | XMS_ITS | Clinical Summary ---
Author Organization [facility] Address [address] [place] [address] Phone Care Team Providers Care Patient Support Specialist Name Role Phone Unknown, Unknown Primary Care [...] on file Insurance C3 ACO C3 [facility]CO [facility] C3 ACO [facility] C3 ACO Care Teams Patient Support Specialist Relationship Specialty Start Date End Date Unknown, Unknown, PCP - General 11/01/21 Additional Source Comments The information contained in this document represents components of the legal health record. It is not the complete legal health record.[facility]
--- OUTSIDE RECORDS SUMMARY | 2025-02-08 20:55 | XMS_ITS | Encounter Summary ---
Author Organization [employer] Address [address] [facility] [address] 7t [place] [address] Care Team Providers Care Counseling Psychologist Name Role Phone Radha Panda MD Primary Care Provider [phone] Reason for Visit * Reason Comments Med Change Request Encounter Details Date Type Department Care Team ([facility] st Contact Info) Description 12/15/2024 Refill [facility] MEDICINE 230 [place] [address] Radha Panda MD 230 [place], [place] [phone] Social History Tobacco Use Types Packs/Day Years [...] Telephone Encounter - Radha Panda MD - 12/15/2024 4:01 PM EDT Will try PA documented in this encounter Plan of Treatment Not on file documented as of this encounter Visit Diagnoses Not on filedocumented in this encounter Additional Health Concerns Assessment Noted Time PHQ-9 Depression Total Score: 13 025 11:31 AM EST documented as of this encounter Care Teams Counseling Psychologist Relationship Specialty Start Date End Date Radha Panda MD [address] [place] [address] PCP - General Family Medicine 06/05/22 Lilliam Finley Special Procedures TechSupervisor Shop 07/24/23 documented as of this encounter
--- OUTSIDE RECORDS SUMMARY | 2025-02-08 20:55 | XMS_ITS | Encounter Summary ---
Author Organization [employer] Address [address] [facility] 7t [place] [address] Care Team Providers Care Order Clerk Name Role Phone Radha Panda MD Primary Care Provider [phone] Reason for Referral * Consultation (Routine) - Closed Specialty Diagnoses / Procedures Referred By Veena pierce Referred To Contact Orthopaedic Surgery Diagnoses Bilateral carpal tunnel syndrome Radha Panda MD 230 [place] [address] Phone: tel: fax: [facility] Orthopedics [address] [place] [address] [address] [place] [address] Phone: tel: Referral ID Status Reason Start Date Expiration Date V isits Requested Visits Authorized [id number] Closed Specialty Services Required 05/07/2024 05/07/2025 6 6 Encounter Details Date Type Department Care Team (Late st Contact Info) Description 05/07/2024 Orders Only [facility] MEDICINE 230 [place], [place] [phone] Radha Panda MD [address] [place] [address] Bilateral carpal tunnel syndrome (Primary Dx) Social [...] of this encounter Plan of Treatment Scheduled Referrals Name Type Priority Associated Diagnoses [...] documented as of this encounter Care Teams Order Clerk Relationship Specialty Start Date End Date Radha Panda MD [address] [place] [address] PCP - General Family Medicine 06/05/22 Lilliam Finley Staple Side LasterCredit Interviewer 07/24/23 documented as of this encounter
--- OUTSIDE RECORDS SUMMARY | 2025-02-08 20:55 | XMS_ITS | Encounter Summary ---
Author Organization [employer] Address [address] [facility] 7t [place] [address] Care Team Providers Care Agent Spa Desk Name Role Phone Palomo Jacinto Primary Care Provider Charisse Osuna MD Primary Care Provide r Radha Panda MD Primary Care Provider [phone] Encounter Details Date Type Department Care Team (Late st Contact Info) Description 01/18/2022 Orders Only [facility] MEDICINE 230 [place] [address] Palomo Jacinto FNP Social History Tobacco Use [...] on filedocumented in this encounter Care Teams Agent Spa Desk Relationship Specialty Start Date End Date Palomo Jacinto FNP PCP - General Family Medicine 01/17/22 04/17/22 Charisse Lopez MD 230 [place] [address] PCP - General Internal Medicine 04/18/22 06/04/22 Radha Panda MD [address] [place] [address] PCP - General Family Medicine 06/05/22 Yani Shabazz Chemical Milling Processor 04/15/23 07/28/23 Lilliam Finley Chemical Milling ProcessorDirector Of Speech Pathology 07/24/23 documented as of this encounter
--- OUTSIDE RECORDS SUMMARY | 2025-02-08 20:55 | XMS_ITS | Encounter Summary ---
Author Organization [employer] Address [address] [facility] [address] 7[address] [place] [address] Care Team Providers Care Straightedge Machine Operator Helper Name Role Phone Radha Panda MD Primary Care Provider [phone] Encounter Details Date Type Department Care Team (Late st Contact Info) Description 01/05/2025 Orders Only [facility] MEDICINE 230 [place] [address] Radha Panda MD 230 [place] [address] Hypokalemia (Primary Dx) Social History Tobacco Use Types [...] Procedure Name Priority Date/Time Associated Diagnosis Comments MAGNESIUM Routine 01/31/2025 8:25 AM EST Hypokalemia BASIC METABOLIC PANEL Routine 01/31/2025 8:25 AM EST Hypokalemia documented in this encounter Results * Magnesium (01/31/2025 8:25 AM EST) Magnesium 1.9 1.6 - 2.6 mg/dL [facility] Blood Venous blood specimen / Unknown 01/31/2025 8:25 AM EST 01/31/2025 11:08 AM EST us Radha Panda MD LAB BLOOD ORDERABLES Final Resul t [facility] [address] [place] [address] [phone] * (ABNORMAL) Basic Metabolic Panel (01/31/2025 8:25 AM EST) Sodium 137 135 - 145 mmol/L [facility] Potassium 3.5 3.3 - 5.1 mmol/L [facility] Chloride 104 96 - 108 mmol/L [facility] Carbon Dioxide 29 22 - 29 mmol/L [facility] Anion Gap 8(L) 12 - 20 [facility] Urea Nitrogen (BUN) 19(H) 9 - 16 mg/dL [facility] Creatinine, Serum 0.66 0.5 - 1.4 mg/dL [facility] Estimated Glomerular Filt Rate >60 [facility] Comment:Chronic Kidney Disea se: Estimated GFR < 60 mL/min/1.69v4Crcuop Kidney Disease: Estimated GFR < 15 mL/min/1.73m2 Glucose 122(H) 60 - 115 mg/dL [facility] Calcium 9.0 8.4 - 10.2 mg/dL [facility] Blood Venous blood specimen / Unknown 01/31/2025 8:25 AM EST 01/31/2025 11:08 AM EST Radha Panda MD LAB BLOOD ORDERABLES Final Resul t [facility] [address] [place] [address] [phone] documented in this encounter Visit Diagnoses Diagnosis Hypokalemia- Primary Hypopotassemia documented in this encounter Additional Health Concerns Assessment Noted Time PHQ-9 Depression Total Score: 13 0214/2 025 11:31 AM EST documented as of this encounter Care Teams Straightedge Machine Operator Helper Relationship Specialty Start Date End Date Radha Panda MD [address] [place] [address] PCP - General Family Medicine 06/05/22 Lilliam Finley Lamp Shade AssemblerAccounts Adjustable Clerk 07/24/23 documented as of this encounter
--- OUTSIDE RECORDS SUMMARY | 2025-02-08 20:55 | XMS_ITS | Encounter Summary ---
Author Organization [employer] Address [address] [facility] 7t [place] [address] Care Team Providers Care Superintendent Local Name Role Phone Radha Panda MD Primary Care Provider [phone] Reason for Referral * Consultation (Routine) - Closed Specialty Diagnoses / Procedures Referred By Veena pierce Referred To Contact Orthopaedic Surgery Diagnoses Bilateral carpal tunnel syndrome Radha Panda MD [address] [place] [address] Phone: tel: fax: [facility] Orthopedics [address] [place] [address] Azam [address] [place] [address] Phone: tel: Referral ID Status Reason Start Date Expiration Date V isits Requested Visits Authorized [id number] Closed Specialty Services Required 06/16/2023 06/15/2024 6 6 Encounter Details Date Type Department Care Team (Late st Contact Info) Description 06/12/2023 Orders Only [facility] MEDICINE [address] [place], [place] [phone] Radha Panda MD [address] [place] [address] Bilateral carpal tunnel syndrome (Primary Dx) Social [...] documented in this encounter Plan of Treatment Scheduled Referrals [...] documented as of this encounter Care Teams Superintendent Local Relationship Specialty Start Date End Date Radha Panda MD [address] [place] [address] PCP - General Family Medicine 06/05/22 Yani Shabazz Geophysical Engineer 04/15/23 07/28/23 Lilliam Finley Geophysical EngineerRecreation Therapist 07/24/23 documented as of this encounter
--- OUTSIDE RECORDS SUMMARY | 2025-02-08 20:55 | XMS_ITS | Encounter Summary ---
Author Organization [facility] Address [address] [place] [address] Phone Care Team Providers Care Propeller Inspector Name Role Phone Robel Green MD Primary Care Provider [phone] Unknown, Unknown Primary Care Provider Vinicius francisco Encounter Details Date Type Department Care Team (Late st Contact Info) Description 06/03/2018 Ancillary Orders [facility], X-Ray - [address] [place] [address] Darci Cornejo PA [facility] [place] [address] [email or web address] Physical exam Social History Tobacco Use Types [...] AM EDT Negative chest radiographs. POS - [id number] Narrative 06/03/2018 11:21 AM EDT HISTORY: Cough, [...] normal. IMPRESSION: Negative chest radiographs. POS - [id number] Darci JONES IMG XR CHEST Final Result documented in this encounter Visit Diagnoses Diagnosis Physical exam Unspecified general medical examination Physical exam Unspecified general medical examination documented in this encounter Care Teams Propeller Inspector Relationship Specialty Start Date End Date Robel Green MD [address] [place] [address] [email or web address] PCP - General 03/12/18 10/31/21 Unknown, Unknown, PCP - General 11/01/21 documented as of this encounter Additional Source Comments The information contained in this document represents components of the legal health record. It is not the complete legal health record.[facility]
--- OUTSIDE RECORDS SUMMARY | 2025-02-08 20:55 | XMS_ITS | Encounter Summary ---
Author Organization [employer] Address [address] [facility] [address] 7[address] [place] [address] Care Team Providers Care Lumber Sorter Machine Name Role Phone Radha Panda MD Primary Care Provider [phone] Encounter Details Date Type Department Care Team (Late st Contact Info) Description 04/23/2023 Orders Only [facility] MEDICINE [address] [place] [address] Radha Panda MD 230 [place] [address] Urinary incontinence, unspecified type (Primary Dx); Recurrent [...] concussion documented in this encounter Care Teams Lumber Sorter Machine Relationship Specialty Start Date End Date Radha Panda MD [address] [place] [address] PCP - General Family Medicine 06/05/22 Yani Shabazz Frame Fixer 04/15/23 07/28/23 Lilliam Finley Frame FixerSafety Relief Valve Technician 07/24/23 documented as of this encounter
--- OUTSIDE RECORDS SUMMARY | 2025-02-08 20:55 | XMS_ITS | Encounter Summary ---
Author Organization [employer] Address [address] [facility] [address] 7[address] [place] [address] Care Team Providers Care Range Mounter Name Role Phone Radha Panda MD Primary Care Provider [phone] Reason for Visit * Reason Onset Date Comments Call Back Request 05/14/2023 Encounter Details Date Type Department Care Team ([facility] st Contact Info) Description 05/14/2023 Telephone [facility] MEDICINE [address] [place], [place] [phone] Radha Panda MD [address] [place] [address] Call Back Request Social History Tobacco Use [...] back states need to speak with the personal care service provider as soon as possible please call [phone] documented in this encounter Plan of Treatment Not on file documented as of this encounter Visit Diagnoses Not on filedocumented in this encounter Additional Health Concerns Assessment Noted Time PHQ-9 Depression Total Score: 13 024 9:58 AM EDT documented as of this encounter Care Teams Range Mounter Relationship Specialty Start Date End Date Radha Panda MD [address] [place] [address] PCP - General Family Medicine 06/05/22 Yani Shabazz Senior Gamemaster 04/15/23 07/28/23 Lilliam Finley Senior GamemasterMobile Developer 07/24/23 documented as of this encounter
--- OUTSIDE RECORDS SUMMARY | 2025-02-08 20:55 | XMS_ITS | Encounter Summary ---
Author Organization [employer] Address [address] [facility] [address] [place] [address] Care Team Providers Care Commis Chef Name Role Phone Palomo Jacinto Primary Care Provider Charisse Osuna MD Primary Care Provide r Radha Panda MD Primary Care Provider [phone] Encounter Details Date Type Department Care Team (Late st Contact Info) Description 02/14/2022 Telephone [facility] MEDICINE 230 [place] [address] Palomo Jacinto FNP Social History Tobacco Use [...] on filedocumented in this encounter Care Teams Commis Chef Relationship Specialty Start Date End Date Palomo Jacinto FNP PCP - General Family Medicine 01/17/22 04/17/22 Charisse Lopez MD [address] [place] [address] PCP - General Internal Medicine 04/18/22 06/04/22 Radha Panda MD [address] [place] [address] PCP - General Family Medicine 06/05/22 Yani Shabazz Nursing Informatics Analyst 04/15/23 07/28/23 Lilliam Finley Nursing Informatics AnalystPaper Wrapping Machine Operator 07/24/23 documented as of this encounter
--- OUTSIDE RECORDS SUMMARY | 2025-02-08 20:55 | XMS_ITS | Encounter Summary ---
Author Organization [employer] Address [address] [facility] 7t [place] [address] Care Team Providers Care Dinkey Operator Slate Name Role Phone Radha Panda MD Primary Care Provider [phone] Reason for Referral * Imaging (Routine) - Closed Specialty Diagnoses / Procedures Referred By Contac kari Referred To Contact Radiology Diagnoses Recurrent falls Urinary incontinence, unspecified type Paresthesia Procedures Mr Brain w/ and w/o Contrast Radha Panda MD [address] [place] [address] Phone: tel: fax: [facility] [address] [place] [id number] Phone: tel: fax: Referral ID Status Reason Start Date Expiration Date Visits Re quested Visits Authorized [id number] Closed 08/22/2023 08/21/2024 1 1 Encounter Details Date Type Department Care Team (Late st Contact Info) Description 08/22/2023 Orders Only [facility] MEDICINE [address] [place] [address] Radha Panda MD [address] [place] [address] Recurrent falls (Primary Dx); Urinary incontinence, unspecified [...] documented as of this encounter Care Teams Dinkey Operator Slate Relationship Specialty Start Date End Date Radha Panda MD [address] [place] [address] PCP - General Family Medicine 06/05/22 Lilliam Finley Human Resources Office ManagerTie Worker 07/24/23 documented as of this encounter
--- OUTSIDE RECORDS SUMMARY | 2025-02-08 20:55 | XMS_ITS | Encounter Summary ---
Author Organization [employer] Address [address] [facility] [address] 7[address] [place] [address] Care Team Providers Care Senior Boiler Operator Name Role Phone Radha Panda MD Primary Care Provider [phone] Encounter Details Date Type Department Care Team (Late st Contact Info) Description 07/30/2023 Orders Only [facility] MEDICINE [address] [place] [address] Radha Panda MD [address] [place] [address] Social History Tobacco Use Types Packs/Day Years [...] documented as of this encounter Care Teams Senior Boiler Operator Relationship Specialty Start Date End Date Radha Panda MD [address] [place] [address] PCP - General Family Medicine 06/05/22 Lilliam Finley Fish TenderPlaten Grinder 07/24/23 documented as of this encounter
--- OUTSIDE RECORDS SUMMARY | 2025-02-08 20:55 | XMS_ITS | Encounter Summary ---
Author Organization [employer] Address [address] [facility] [address] [address] 7t [place] [address] Care Team Providers Care Driver Medic Name Role Phone Radha Panda MD Primary Care Provider [phone] Reason for Visit * Reason Onset Date Comments Nurse Triage 10/28/2023 Encounter Details Date Type Department Care Team (Late st Contact Info) Description 10/28/2023 Telephone [facility] MEDICINE [address] [place], [place] [phone] Radha Panda MD [address] [place] [address] Nurse Triage Social History Tobacco Use Types [...] documented as of this encounter Care Teams Driver Medic Relationship Specialty Start Date End Date Radha Panda MD [address] [place] [address] PCP - General Family Medicine 06/05/22 Lilliam Finley Director Of RoomsLife Skills Specialist 07/24/23 documented as of this encounter
--- OUTSIDE RECORDS SUMMARY | 2025-02-08 20:55 | XMS_ITS | Encounter Summary ---
Author Organization [facility] Prior to 12/19/[address] [place] [address] Care Team Providers Care Shrimp Pond Laborer Name Role Phone Bam Patino MD Primary Care Provider [phone] Reason for Referral * Specialist (Routine) - Authorized/Booked Specialty Diagnoses / Procedures Referred By Veena pierce Referred To Contact Plastic Surgery / Plastic surgery Diagnoses Ear deformity Procedures REFERRAL TO PLASTIC SURGERY Sedrick Fatima PA-C [address] [place] [address] Hossein Krishnan MD [address] [place] [id number] Referral ID Status Reason Start Date Expiration Date V isits Requested Visits Authorized SEE NOTE Authorized/B ooked 08/31/2014 12/07/2014 1 1 Encounter Details Date Type Department Care Team Description 08/31/2014 Orders Only Adult Medicine [address] [address] Sedrick Fatima PA-C Ear deformity (Primary Dx) Social History Tobacco Use Types [...] as of this encounter Visit Diagnoses Diagnosis 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
--- OUTSIDE RECORDS SUMMARY | 2025-02-08 20:56 | XMS_ITS | Encounter Summary ---
Author Organization [employer] Address [address] [facility] [address] [address] 7t [place] [address] Care Team Providers Care Skip Locator Name Role Phone Radha Panda MD Primary Care Provider [phone] Encounter Details Date Type Department Care Team (Late st Contact Info) Description 05/07/2024 Orders Only [facility] MEDICINE [address] [place] [address] Radha Panda MD [address] [place] [address] Social History Tobacco Use Types Packs/Day Years [...] documented as of this encounter Care Teams Skip Locator Relationship Specialty Start Date End Date Radha Panda MD [address] [place] [address] PCP - General Family Medicine 06/05/22 Lilliam Finley Tube Trailer FillerAmbulette Driver 07/24/23 documented as of this encounter
--- OUTSIDE RECORDS SUMMARY | 2025-02-08 20:56 | XMS_ITS | Encounter Summary ---
Author Organization [employer] Address [address] [facility] [address] 7t [place] [address] Care Team Providers Care Kitchen Supervisor Name Role Phone Radha Panda MD Primary Care Provider [phone] Reason for Visit * Reason Onset Date Comments Medication Question 04/21/2024 Encounter Details Date Type Department Care Team ([facility] st Contact Info) Description 04/21/2024 Telephone [facility] MEDICINE [address] [place], [place] [phone] Radha Panda MD [address] [place] [address] Medication Question Social History Tobacco Use Types [...] the clonazepam, Vyvanse, and Wellbutrin sent to [facility] on [facility] however there may be a cost to filling these since they were filled so recently, advised pt [facility] pharmacy to clarify. Advised that refills for Vit D, ferrous sulfate, albuterol, and hydroxinehave refills on file at [facility] on [facility] [address], advised pt to reach out to pharmacy to request transfer if she prefers. Advised pt that since PCP is now prescribing pysch meds some of which are controlled substances, she will need SUPERVISOR MOLD YARD visit and that SUPERVISOR MOLD YARD nurse will reach out to schedule this. Advised pt [facility] clinic with any other question or concerns [...] these medications, she will need to have SUPERVISOR MOLD YARD appointment. Please arrange SUPERVISOR MOLD YARD appointment visit. Thank you * Telephone Encounter [...] Pt requesting meds to be sent to [facility] at [facility]. Called [facility] pharmacy, per pharmacist: Clonazepam 1mg: last filled/sold 04/14/24 for 30 day supply, Dr Naty Mcginnis is also prescribing this, scheduled next for fill on 05/12/24. [facility] for [facility] day supply, [...] to 05/18/24 at 10am. Reviewed with pt [facility] hours/Saturdays and NTTS area field person nurse, pt verbalized understanding. * Telephone Encounter [...] documented as of this encounter Care Teams Kitchen Supervisor Relationship Specialty Start Date End Date Radha Panda MD [address] [place] [address] PCP - General Family Medicine 06/05/22 Lilliam Finley Loan FunderFleet Administrative Assistant 07/24/23 documented as of this encounter
--- OUTSIDE RECORDS SUMMARY | 2025-02-08 20:56 | XMS_ITS | Encounter Summary ---
Author Organization [employer] Address [address] [facility] [address] 7[address] [place] [address] Care Team Providers Care Furnace Repair Mechanic Name Role Phone Radha Panda MD Primary Care Provider [phone] Reason for Visit * Reason Onset Date Comments Medication Question 04/26/2024 Encounter Details Date Type Department Care Team ([facility] st Contact Info) Description 04/26/[address] [facility] MEDICINE [address] [place] [address] Radha Panda MD [address] [place] [address] Medication Question Social History Tobacco Use Types [...] tablet due to pt leaving Medications in [facility]. Contact pt at [phone] documented in this encounter Plan of Treatment Not on file documented as of this encounter Visit Diagnoses Not on filedocumented in this encounter Additional Health Concerns Assessment Noted Time PHQ-9 Depression Total Score: 13 025 11:31 AM EST documented as of this encounter Care Teams Furnace Repair Mechanic Relationship Specialty Start Date End Date Radha Panda MD [address] [place] [address] PCP - General Family Medicine 06/05/22 Lilliam Finley Wax Coating Machine TenderSpreading Machine Operator 07/24/23 documented as of this encounter
--- OUTSIDE RECORDS SUMMARY | 2025-02-08 20:56 | XMS_ITS | Encounter Summary ---
Author Organization [employer] Address [address] [facility] [address] 7[address] [place] [address] Care Team Providers Care Acid Polymerization Operator Name Role Phone Radha Panda MD Primary Care Provider [phone] Reason for Visit * Reason Onset Date Comments Med Refill 01/20/2024 Encounter Details Date Type Department Care Team (Late st Contact Info) Description 01/20/[address] [facility] MEDICINE [address] [place], [place] [phone] Radha Panda MD [address] [place] [address] Med Refill Social History Tobacco Use Types [...] 1 MG tablet To be sent to: [facility]/pharmacy [address] [place] [address] documented in this encounter Plan of Treatment Not on file documented as of this encounter Visit Diagnoses Not on filedocumented in this encounter Additional Health Concerns Assessment Noted Time PHQ-9 Depression Total Score: 13 024 9:58 AM EDT documented as of this encounter Care Teams Acid Polymerization Operator Relationship Specialty Start Date End Date Radha Panda MD [address] [place] [address] PCP - General Family Medicine 06/05/22 Lilliam Finley Case Management AssociateBenzol Operator 07/24/23 documented as of this encounter
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
--- OUTSIDE RECORDS SUMMARY | 2025-02-08 20:56 | XMS_ITS | Encounter Summary ---
Author Organization [employer] Address [address] [facility] [address] 7[address] [place] [address] Care Team Providers Care Marketing Strategy Analyst Name Role Phone Radha Panda MD Primary Care Provider [phone] Encounter Details Date Type Department Care Team (Late st Contact Info) Description 04/27/2024 Orders Only [facility] MEDICINE [address] [place] [address] Radha Panda MD [address] [place] [address] Social History Tobacco Use Types Packs/Day Years [...] documented as of this encounter Care Teams Marketing Strategy Analyst Relationship Specialty Start Date End Date Radha Panda MD [address] [place] [address] PCP - General Family Medicine 06/05/22 Lilliam Finley Receptionist Doctor'S OfficeRib Trim Separator 07/24/23 documented as of this encounter
--- OUTSIDE RECORDS SUMMARY | 2025-02-08 20:56 | XMS_ITS | Encounter Summary ---
Author Organization [employer] Address [address] [facility] [address] 7[address] [place] [address] Care Team Providers Care Head Loft Worker Name Role Phone Radha Panda MD Primary Care Provider [phone] Encounter Details Date Type Department Care Team (Late st Contact Info) Description 04/23/2024 Orders Only [facility] MEDICINE [address] [place] [address] Radha Panda MD [address] [place] [address] Social History Tobacco Use Types Packs/Day Years [...] documented as of this encounter Care Teams Head Loft Worker Relationship Specialty Start Date End Date Radha Panda MD [address] [place] [address] PCP - General Family Medicine 06/05/22 Lilliam Finley Thickener OperatorAutomatic Mold Sander 07/24/23 documented as of this encounter
--- OUTSIDE RECORDS SUMMARY | 2025-02-08 20:56 | XMS_ITS | Encounter Summary ---
Author Organization [employer] Address [address] [facility] 7t [place] [address] Care Team Providers Care Coverage Analyst Name Role Phone Radha Panda MD Primary Care Provider [phone] Reason for Visit * Reason Onset Date Comments Nurse Triage 11/18/2022 Encounter Details Date Type Department Care Team ([facility] st Contact Info) Description 11/18/[address] [facility] MEDICINE [address] [place], [place] [phone] Radha Panda MD [address] [place] [address] Nurse Triage Social History Tobacco Use Types [...] not seem to help . Patient speaks Mauritanian. Advised triage nurse will call patient back. documented in this encounter Plan of Treatment Not on file documented as of this encounter Visit Diagnoses Not on filedocumented in this encounter Care Teams Coverage Analyst Relationship Specialty Start Date End Date Radha Panda MD [address] [place] [address] PCP - General Family Medicine 06/05/22 Yani Shabazz Customer Service And Sales Consultant 04/15/23 07/28/23 Lilliam Finley Customer Service And Sales ConsultantCommunity Development Worker 07/24/23 documented as of this encounter
--- OUTSIDE RECORDS SUMMARY | 2025-02-08 20:56 | XMS_ITS | Clinical Summary ---
Author Organization [employer] Address [address] [facility] [address] [place] [address] Care Team Providers Care Food And Nutrition Professor Name Role Phone Radha Panda MD Primary Care Provider [phone] Allergies No known active allergies Medications * [...] 1 06/12/19 24 Active Blood Pressure Monitor [facility] [place] BP once daily 1 each 07/07/19 [...] morning. 90 tablet 1 08/06/19 25 Active buPROPion XL (Wellbutrin XL) 300 MG 24 hr tabletIndication s:Major depressive disorder, remission status unspecified, unspecified whether recurrent TAKE 1 TABLET BY MOUTH EVERY MORNING 30 tablet 1 10/07/19 25 Active albuterol (Ventolin HFA) 108 (90 Base) MCG/ACT inhaler INHALE 2 PUFFS BY MOUTH EVERY 4 HOURS NEEDED FOR SHORTNESS OF BREATH OR WHEEZING 18 g 1 10/07/19 25 Active hydrOXYzine pamoate (Vistaril) 25 MG capsuleIndicatio ns:Anxiety and depression TAKE 1 CAPSULE BY MOUTH IN THE MORNING AND AT BEDTIME NEEDED FOR ANXIETY 30 capsule 1 10/07/19 25 Active Tirzepatide-Weig ht Management (Zepbound) 2.5 MG/0.5ML solution auto-injector Inject 0.5 mL (2.5 mg) under the skin 1 (one) time per week. 2 mL 11 11/24/19 25 Active loratadine (Claritin) 10 MG tablet TAKE 1 TABLET BY MOUTH AT BEDTIME 90 tablet 12/07/19 25 Active cholecalciferol (D3-1000) 25 MCG (1000 UT) capsuleIndicatio ns:Vitamin D deficiency TAKE 1 CAPSULE BY MOUTH EVERY DAY 90 capsule 01/04/20 25 Active lisdexamfetamine (Vyvanse) 70 MG capsuleIndicatio ns:Attention Deficit Hyperactivity Disorder TAKE 1 CAPSULE BY MOUTH EVERY DAY IN THE MORNING 30 capsule 02/09/20 25 Active lisdexamfetamine (Vyvanse) 70 MG capsuleIndicatio ns:Attention Deficit Hyperactivity Disorder TAKE 1 CAPSULE BY MOUTH EVERY DAY IN THE MORNING 30 capsule 01/04/20 25 2024 Discontinued(R eorder (will not trigger notification to Pharmacy)) Active Problems Problem Noted Date Diagnosed Date Obesity 12/06/2024 Assessment & Plan (12/06/2024 7:08 AM EDT): - 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 - Continue following with [facility] - Will try GLP-1 RA/tirzepatide Generalized anxiety disorder 12/06/2024 Assessment & Plan (12/06/2024 7:14 AM EDT): - Last SANDY-7 score 19 in March 2024 - Previously on clonazepam - Currently prescribed sertraline and bupropion - Currently hydroxyzine as needed Complicated grief 04/22/2024 Elevated blood pressure read ing in office without diagnosis of hypertension 07/07/2023 Assessment & Plan (12/06/2024 7:06 AM EDT): -Goal BP < 130/80 per ACC/AHA guideline (Treatment threshold >=140/90) -Continue working on lifestyle modifications - Ordered Blood pressure monitor kit - Advised patient to monitor BP at home and report back with readings Assessment & Plan (09/29/2023 5:00 PM EDT): [...] includes stress incontinence, overactive bladder, UTI, and [place] problem - Evaluate with head MRI because of her recurrent falls (concern for multiple sclerosis, less likely but also normal pressure hydrocephalus) - Trial of Kegel exercise - MRI has been ordered and reschedule many times; will order again, but may need to schedule at another facility Assessment & Plan (07/07/2023 12:21 PM EDT): - DDx includes stress incontinence, overactive bladder, UTI, and [place] problem - Evaluate with head MRI because of her recurrent falls (concern for multiple sclerosis, less likely but also normal pressure hydrocephalus) - Trial of Kegel exercise - MRI has been ordered; patient is aware Assessment & Plan (05/11/2023 12:07 PM EDT): - DDx includes stress incontinence, overactive bladder, UTI, and [place] problem - Evaluate with head MRI because of her recurrent falls (concern for multiple sclerosis, less likely but also normal pressure hydrocephalus) - Trial of Kegel exercise - MRI has been ordered; patient is aware Assessment & Plan (03/19/2023 3:17 PM EST): - DDx includes stress incontinence, overactive bladder, UTI, and [place] problem - Evaluate with head MRI because [...] 03/19/2023 Tobacco use 09/26/2022 Assessment & Plan (12/06/2024 7:18 AM EDT): - she does not smoke cigarettes everyday - 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 - encouraged to stop completely Assessment & Plan (07/13/2023 7:01 AM EDT): [...] stop completely Asthma 07/18/2022 Assessment & Plan (12/06/2024 7:18 AM EDT): - continue albuterol HFA prn - continue working on smoking cessation Assessment & Plan (09/29/2023 5:00 PM EDT): - continue albuterol HFA prn - continue working on smoking cessation Assessment & Plan (09/26/2022 10:58 AM EDT): - continue albuterol HFA prn - continue working on smoking cessation Assessment & Plan (07/18/2022 10:00 AM EDT): - continue albuterol HFA prn - continue working on smoking cessation Status post sleeve gastrectomy 07/09/2022 Assessment & Plan (12/06/2024 7:07 AM EDT): - Laparoscopic Sleeve Gastrectomy in 11/2021 - Discussed about the importance of adequate nutritional intake - continue following with [facility] - discussed about Dr. Rivero's weight management clinic since pt has been thinking about other treatment options - continue working on lifestyle modifications; body neutrality Assessment & Plan (09/29/2023 5:06 PM EDT): [...] (09/26/2022 11:07 AM EDT): - Following with [facility] - Normal PAP with negative high-risk HPV in Sep 2018 - Mirena IUD placed in 02/2022 - Negative EMBx on 07/23/22 -patient desired to have total hysterectomy ; continue discussing with [facility]ING ASSOCIATE Assessment & Plan (07/09/2022 12:39 PM EDT): Patient had Mirena IUD placed in 02/2022 -patient is following with [facility] -patient desired to have total hysterectomy GERD (gastroesophageal reflux disease) 3 Hidradenitis suppurativa 07/09/2022 Assessment & Plan (07/09/2022 12:39 PM EDT): -Taking Clindamycin Topical Cream -continue treatment plan per specialist Major depressive disorder 07/09/2022 Assessment & Plan (12/06/2024 7:12 AM EDT): - receiving integrated behavioral health service, which was put on hold due to provider availability - Continue sertraline and bupropion - Continue hydroxyzine as needed for anxiety - Previous [facility]: [facility] - Previously prescribed clonazepam for anxiety, which was discontinued by integrated behavioral health service provider in 2024 Assessment & Plan (09/29/2023 5:05 PM EDT): - [facility]: [facility] - continue bupropion, clonazepam, and hydroxyzine Assessment & Plan (07/13/2023 7:00 AM EDT): - - [facility]: [facility] - ?[facility] clinical case manager - brief interruption of pharmacological treatment due to , restarted on bupropion, Vyvance, and clonazepam recently Assessment & Plan (05/11/2023 12:21 PM EDT): - - [facility]: [facility] - ?[facility] clinical case manager - previously on bupropion, Vyvance, and clonazepam Assessment & Plan (03/19/2023 3:19 PM EST): - - [facility]: [facility] - ?[facility] clinical case manager - continue bupropion, Vyvance, and clonazepam Assessment & Plan (09/26/2022 11:53 AM EDT): - - [facility]: [facility] - ?[facility] clinical case manager - continue bupropion, Vyvance, and clonazepam Assessment & Plan (07/09/2022 12:31 PM EDT): - [facility]: [facility] - ?[facility] clinical case manager - continue bupropion, Vyvance, and clonazepam ADHD 07/09/2022 Assessment & Plan (12/06/2024 7:15 AM EDT): - Previous behavioral health service provider: Isidro Jaeger - continue Vyvance Assessment & Plan (09/29/2023 5:03 PM EDT): - current behavioral health service provider: Isidro Mil - continue Vyvance Assessment & Plan (07/13/2023 [...] Anxiety and depression 07/09/2022 Assessment & Plan (12/06/2024 7:13 AM EDT): - continue following with current S provider - Currently on bupropion and clonazepam - continue hydroxyzine prn - last PHQ9 score 13 in Mar 2024 - last GAD7 score 19 in Mar 2024 Assessment & Plan (09/29/2023 5:04 PM EDT): - continue following with current S provider - Currently on bupropion and clonazepam - continue hydroxyzine prn - last PHQ9 score 13 in April 2023 - last GAD7 score 4 in April 2023 Assessment & Plan (07/07/2023 12:01 PM EDT): - continue following with current S provider - Currently on bupropion and clonazepam Assessment & Plan (05/11/2023 12:24 PM EDT): - continue following with current S provider - previously on bupropion and clonazepam, which patient stopped since she became aware of Assessment & Plan (03/19/2023 3:19 PM EST): - continue following with current [facility] provider - continue bupropion - continue judicious use of clonazepam - recommended to take some time off from work to take care of herself and to get help for her son Assessment & Plan (09/26/2022 11:53 AM EDT): - continue following with current [facility] provider - continue bupropion - continue judicious use of clonazepam. Assessment & Plan (07/18/2022 10:02 AM EDT): - continue following with current [facility] provider - continue bupropion - continue judicious use of clonazepam. Anemia 07/09/2022 Assessment & Plan (12/06/2024 7:10 AM EDT): - Multifactorial: Nutritional deficiency (dietary and absorption problem); AUB; - Baseline hematocrit 11, hemoglobin 32-33 - stable for last several labs - Recommended adequate nutritional intake Assessment & Plan (09/29/2023 5:02 PM EDT): [...] Hematocrit 32.1 Prediabetes 07/28/2018 Assessment & Plan (12/06/2024 7:07 AM EDT): - 5.2% 05/07/23 - improved after bariatric surgery - continue working on lifestyle modifications Assessment & Plan (09/29/2023 5:02 PM EDT): [...] weight Allergic rhinitis 07/28/2018 Assessment & Plan (12/06/2024 7:06 AM EDT): -continue loratadine and fluticasone nasal -referred to floor specialist -Treatment Hx: Cetirizine was switched to loratadine because patient developed drowsiness Assessment & Plan (03/19/2023 3:21 PM EST): -continue loratadine and fluticasone nasal -referred to floor specialist -Treatment Hx: Cetirizine was switched to loratadine because patient developed drowsiness Assessment & Plan (07/09/2022 12:40 PM EDT): -Will Rx Flonase refill Vitamin D deficiency 07/28/2018 Sensorineural hearing loss ( SNHL) of left ear with unrestricted hearing of right ear 10/06/2017 Assessment & Plan (12/06/2024 7:06 AM EDT): - most recent audiology test in July 2023, mod-severe hearing loss - referred to ENT - ordered MRI Assessment & Plan (09/29/2023 5:06 PM EDT): [...] left hand 01/11/2020 07/09/2022 Daytime somnolence 07/28/2018 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 Date Type Department Care Team Description 02/08/2025 Orders Only [facility] External Provider, [facility] 02/08/2025 Refill [facility] MEDICINE [address] [place] [address] Radha Panda MD 01/31/2025 Results Follow-Up [facility] WALK-IN CENTER [address] [place] [address] OconeeLaura, SOFTWARE RECRUITER Basic Metabolic Panel, Magnesium 01/24/2025 9:15 AM EST Office Visit [facility] OPTOMETRY [address], [place] [id number] Don, Sophia, OD Hyperopia of both eyes (Primary Dx) 01/11/2025 Telephone [facility] MEDICINE [address] [place] [address] Radha Panda MD Prior Authorization ( PA: Vyvanse 70MG CAP) 01/05/2025 Telephone [facility] [address] [place] [address] Kristie Dumont, RN Results 01/05/2025 Orders Only [facility] [place] [phone] Radha Panda MD Hypokalemia (Primary Dx) 01/03/2025 Refill [facility] [place] [address] Radha Panda MD Vitamin D deficiency 12/15/2024 Refill [facility] [place] [place] [address] Radha Panda MD 11/26/2024 Results Follow-Up [facility] [place] [address] Radha Panda MD CBC auto differential, Hemoglobin A1c, Comprehensive Metabolic Panel, Additional followed-up results: 8 11/25/2024 Orders Only GENERIC EXTERNAL DATA DEPARTMENT Provider, Generic External Data 11/23/2024 2:30 PM EDT Office Visit [facility] [place] [address] Radha Panda MD Routine general medical examination at a health care facility (Primary Dx); Encounter for vaccination; Encounter for immunization; Dietary counseling; Exercise counseling; Class 2 obesity due to excess calories with body mass index (BMI) of 35.0 to 35.9 in adult, unspecified whether serious comorbidity present; Elevated blood pressure reading in office without diagnosis of hypertension; Sensorineural hearing loss (SNHL) of left ear with unrestricted hearing of right ear; Allergic rhinitis, unspecified seasonality, unspecified trigger; Vitamin D deficiency; Status post sleeve gastrectomy; Prediabetes; Gastroesophageal reflux disease, unspecified whether esophagitis present; Anemia, unspecified type; Current severe episode of major depressive disorder without psychotic features, unspecified whether recurrent (CMS/HCC) ([facility]); Attention deficit hyperactivity disorder (ADHD), unspecified ADHD type; Anxiety and depression; Generalized anxiety disorder; Complicated grief; Mild intermittent asthma without complication; Tobacco use 11/23/2024 Travel 11/22/2024 Telephone [facility] [place] [address] Radha Panda MD chart prep 11/22/2024 [address]phone [address] [place] [address] Radha Panda MD Med Refill 11/15/2024 Refill [facility] MEDICINE [address] [place] [address] Radha Panda MD from Last 3 Months Immunizations Immunization Administration Dates Next Due HepB-CpG 11/23/2024 Influenza Injectable Quadriv alant Preservative Free IIV4 MDCK 01/31/2020 Influenza injectable quadriv alent preservative free 11/19/2022,12/06/2021,12/25/2020 Influenza, seasonal, injecta ble, preservative free 11/23/2024 Pfizer Covid-19 Vaccine 12+ 11/23/2024,1 ,11/07/2020,2020 Pfizer Covid-19 Vaccine 12+ myke-sucrose (Zepeda Cap) 04/19/2021 Tdap 11/23/2024,08/15/2014 Social History Tobacco Use Types Packs/Day Years [...] Q2 Not on file 11/23/2024 Comments No Intention Date Recorded Not sure of desire to become (f inding) 11/23/2024 Sex and Gender Information Value Date Recorded Sex Assigned at Female 12/17/2021 10:31 AM EDT Legal Sex Female 10:31 AM EDT Gender Identity Female 12/17/2021 10:31 AM EDT Sexual Orientation Choose not to disclose 2021 10:31 AM EDT Last Filed Vital Signs Vital Sign Reading Time Taken Comments Blood Pressure 138/82 11/23/2024 2:47 PM EDT Pulse 70 11/23/2024 2:47 PM EDT Temperature 36.2 C (97.1 F) 11/23/2024 2:47 PM EDT Respiratory Rate 20 11/23/2024 2:47 PM EDT Oxygen Saturation 99% 04/08/2023 1:14 PM EST Inhaled Oxygen Concentration - - Weight 88.5 kg (195 lb) 11/23/2024 2:47 PM EDT Height 157.5 cm (5' 2 ) 11/23/2024 2:47 PM EDT Body Mass Index 35.67 11/23/2024 2:47 PM EDT Plan of Treatment Health Maintenance Due Date Last Done Comments HPV Vaccines (1 - 3-dose series) 1997 Pneumococcal Vaccine: Pediatrics (0 to 5 Years) and At-Risk Patients (6 to 49) Years (1 of 2 - PCV) 2001 Pap Smear 10/04/2021 10/04/2018, 09/23/2018 Mammogram 2022 Cervical Cancer Screening 09/24/2023 HPV/Cotest 09/24/2023 09/23/2018 Depression Monitoring 09/30/2024 04/02/2024, 025 Hepatitis B Vaccines (2 of 2 - CpG 2-dose series) 12/21/2024 11/23/2024 Alcohol/Substance Use Screening 11/23/2025 11/23/2024 Disability Screening 11/23/2025 11/23/2024 SDOH Screening 11/23/2025 11/23/2024 Tobacco Screening 11/23/2025 11/23/2024 Diabetes: Hemoglobin A1C 11/25/2025 025, 01/29/2024, 05/07/2023, Additional history exists Family Planning (PISQ) 12/06/2025 12/06/2024 Lipid Panel 11/25/2029 11/25/2024, 01/29/2024 Zoster Vaccines (1 of 2) 2032 DTaP/Tdap/Td Vaccines (3 - Td or Tdap) 11/23/2034 11/23/2024, 08/15/2014 RSV Patients and Patients Aged 60 years or older (1 - 1-dose 75+ series) 2057 HIV Screening Completed 05/11/2024, 08/0 09/2022, 07/20/2019 Hepatitis C Screening Completed 05/11/2024 , 09/24/2022, 07/20/2019 COVID-19 Vaccine Completed 11/23/2024, 04/2022, 12/06/2021, Additional history exists Influenza Vaccine Completed 11/23/2024, , 12/06/2021, Additional history exists HIB Vaccines Aged Out No longer eligi [...] Comments XR FOOT 3+ VIEWS RIGHT Routine 7:40 PM EST XR ANKLE 3+ VIEWS RIGHT Routine 02/08/2025 7:38 PM EST MAGNESIUM Routine 01/31/2025 8:25 AM EST Hypokalemia BASIC METABOLIC PANEL Routine 01/31/2025 8:25 AM EST Hypokalemia VITAMIN B1 Routine 11/25/2024 3:04 PM EDT VITAMIN A Routine 11/25/2024 3:04 PM EDT INSULIN Routine 11/25/2024 3:04 PM EDT VITAMIN B12/FOLATE, SERUM PANEL Routine 11/25/2024 3:04 PM EDT TSH W/REFLEX TO FT4 Routine 11/25/2024 3 :04 PM EDT VITAMIN D,25-OH,TOTAL,IA Routine 11/25/2024 3:04 PM EDT FERRITIN Routine 11/25/2024 3:04 PM EDT LIPID PANEL, STANDARD Routine 11/25/2024 3:04 PM EDT C-REACTIVE PROTEIN Routine 11/25/2024 3: 04 PM EDT IRON AND TOTAL IRON BINDING CAPACITY Routine 11/25/2024 3:04 PM EDT COMPREHENSIVE METABOLIC PANEL Routine 11/25/2024 3:04 PM EDT HEMOGLOBIN A1C Routine 11/25/2024 3:04 PM EDT CBC WITH AUTO DIFFERENTIAL Routine 11/25/2024 3:04 PM EDT HEPATITIS C AB W/REFL TO HCV RNA, QN, PCR Routine 05/11/2024 9:59 AM EDT Routine screening for STI (sexually transmitted infection) HIV 1/2 ANTIGEN/ANTIBODY, FOURTH GENERATION W/RFL Routine 05/11/2024 9:59 AM EDT Routine screening for STI (sexually transmitted infection) PAP/HPV Routine 10/04/2018 PAP/HPV Routine 09/23/2018 from Last 3 Months or Most Recently Relevant to Health Maintenance Results * XR Foot 3+ Views Right (02/08/2025 7:40 PM EST) Anatomical Region Laterality Modality Lower Extremities, Foot Right Radiogra phic Imaging 02/08/2025 7:40 PM EST Narrative 02/08/2025 7:41 PM EST [address] [address] XRay Report Signed Patient: Adarsh Moe MR#: [id number] : 1980 Acct:[id number] Age/Sex: 44 / F ADM Date: 02/08/25 Loc: HO.ED Attending Dr: Ordering Physician: Keyshawn Hassan Date of Service: 02/08/25 Procedure(s): XR foot RT min 3V Accession Number(s): [id number] cc: Keyshawn Hassan; Radha Panda MD Reason [...] in OV> 02/08/251939 DD/ 39 TD/TT: 02/08/251939 Customer Leader: Procedure Note Donotuseinterpreter, Image - 02/08/[address] [address] XRay Report Signed Patient: Adarsh MoeMR#: [id number] : 1980Acct:[id number] Age/Sex: 44 / FADM Date: 02/08/25 Loc: HO.ED Attending Dr: Ordering Physician: Keyshawn Hassan Date of Service: 02/08/25 Procedure(s): XR foot RT min 3V Accession Number(s): [id number] cc: Keyshawn Hassan; Rdaha Panda MD Reason for Exam: injury CLINICAL [...] in OV> 02/08/251939 DD/ 39 TD/TT: 02/08/251939 Customer Leader: [facility] External Provider IMG XR PROCEDURES Edited Result - Final * XR Ankle 3+ Views Right (02/08/2025 7:38 PM EST) Anatomical Region Laterality Modality Lower Extremities, Ankle Right Radiogr aphic Imaging 02/08/2025 7:38 PM EST Narrative 02/08/2025 7:40 PM EST [address] [address] XRay Report Signed Patient: Adarsh Moe MR#: [id number] : 1980 Acct:[id number] Age/Sex: 44 / F ADM Date: 02/08/25 Loc: HO.ED Attending Dr: Ordering Physician: Keyshawn Hassan Date of Service: 02/08/25 Procedure(s): XR ankle RT min 3V Accession Number(s): [id number] cc: Keyshawn Hassan; Radha Panda MD Reason [...] in OV> 02/08/251938 DD/ 37 TD/TT: 02/08/251937 Customer Leader: Procedure Note Donotuseinterpreter, Image - 02/08/[address] [address] XRay Report Signed Patient: Adarsh MoeMR#: [id number] : 1980Acct:[id number] Age/Sex: 44 / FADM Date: 02/08/25 Loc: .ED Attending Dr: Ordering Physician: Keyshawn Hassan Date of Service: 02/08/25 Procedure(s): XR ankle RT min 3V Accession Number(s): [id number] cc: Keyshawn Hassan; Radha Panda MD Reason [...] in OV> 02/08/251938 DD/ 37 TD/TT: 02/08/251937 Customer Leader: [facility] External Provider IMG XR PROCEDURES Edited Result - Final * Magnesium (01/31/2025 8:25 AM EST) Magnesium 1.9 1.6 - 2.6 mg/dL [facility] Blood Venous blood specimen / Unknown 01/31/2025 8:25 AM EST 01/31/2025 11:08 AM EST us Radha Panda MD LAB BLOOD ORDERABLES Final Resul t Performing Organization Address [facility] Co de Phone Number [facility] [address] [place] [phone] * (ABNORMAL) Basic Metabolic Panel (01/31/2025 8:25 AM EST) Sodium 137 135 - 145 mmol/L [facility] Potassium 3.5 3.3 - 5.1 mmol/L [facility] Chloride 104 96 - 108 mmol/L [facility] Carbon Dioxide 29 22 - 29 mmol/L [facility] Anion Gap 8(L) 12 - 20 [facility] Urea Nitrogen (BUN) 19(H) 9 - 16 mg/dL [facility] Creatinine, Serum 0.66 0.5 - 1.4 mg/dL [facility] Estimated Glomerular Filt Rate >60 [facility] Comment:Chronic Kidney Disea se: Estimated GFR < 60 mL/min/1.94o3Adfics Kidney Disease: Estimated GFR < 15 mL/min/1.73m2 Glucose 122(H) 60 - 115 mg/dL [facility] Calcium 9.0 8.4 - 10.2 mg/dL [facility] Blood Venous blood specimen / Unknown 01/31/2025 8:25 AM EST 01/31/2025 11:08 AM EST us Radha Panda MD LAB BLOOD ORDERABLES Final Resul t Performing Organization Address [facility]/ZIP Co de Phone Number [facility] [address] [place] [phone] * (ABNORMAL) Vitamin D, 25-Hydroxy, Total, Immunoassay (11/25/2024 3:04 PM EDT) Vitamin D 25-OH Total 29.1(L) >30 ng/mL [facility] Comment: Health Based Reference Values*< 20 ng/mL [id number] ng/mL Insufficient> 30 ng/mL Sufficient*Melida ERIC. N Engl J Med. 2007;357:266-280There is no well-established upper level of normal vitamin Dlevels. Some laboratories use 50 ng/mL as an upper limit ofnormal. However, toxicity is patient-dependent and may occurat any level. Careful correlation with the patient'spresentation is necessary and, if there is concern forvitamin D toxicity, treatment should be consideredirrespective of the serum level.Care must be taken in interpreting Vitamin D results fromdifferent laboratories and methodologies. Published datademonstrated that results from patients undergoinghemodialysis may show a negative bias when tested withvarious automated 25-OH vitamin D assays when compared toLC-MS/MS.When testing samples from patients whose predominant form ofVitamin D is Vitamin D2, such as patients receiving VitaminD2 supplementation, results that are subtherapeutic shouldbe confirmed with another method such as LC-MS/MS. 11/25/2024 3:04 PM EDT 11/25/2024 5:44 PM EDT us Generic External Data Provider LAB BLOOD ORDERAB LES Final Result [facility] [address] [place] [phone] * Vitamin B12 (Cobalamin) and Folate Panel, Serum (11/25/2024 3:04 PM EDT) Vitamin B12 289 200 - 900 pg/mL [facility] Comment:NORMAL 200-900 PG/ML INDETERMINATE 160-199 PG/ML DEFICIENT < 160 PG/ML Folate 13.7 > or = 4.0 ng/mL [facility] Comment:Reference Values:> o r = 4.0 ng/mL< 4.0 ng/mL suggests folate deficiency Methotrexate, aminopterin and folinic acid(leucovorin) are chemotherapeutic agents whose molecularstructures are similar to folate; therefore, the Architectfolate assay cannot be used for patients using these drugs. 11/25/2024 3:04 PM EDT 11/25/2024 5:44 PM EDT us Generic External Data Provider LAB BLOOD ORDERAB LES Final Result Performing Organization Address City/[facility]/ZIP Co de Phone Number [facility] [address] [place] [phone] * TSH with Reflex to Free T4 (11/25/2024 3:04 PM EDT) Pathologist [facility] TSH reflex Free T4 0.97 0.32 - 4.0 uIU/mL [facility] 11/25/2024 3:04 PM EDT 11/25/2024 5:44 PM EDT us Generic External Data Provider LAB BLOOD ORDERAB LES Final Result Performing Organization Address [facility] Co de Phone Number [facility] [address] [place] [phone] * (ABNORMAL) CBC auto differential (11/25/2024 3:04 PM EDT) Pathologist [facility] White Blood Count 5.3 4.8 - 10.8 X10*3/uL [facility] Red Blood Count 3.88(L) 4.20 - 5.50 X10*6/uL [facility] Hemoglobin 11.2(L) 12.0 - 16.0 g/dl [facility] Hematocrit 33.3(L) 37.0 - 47.0 % [facility] Mean Corpuscular Volume 85.8 80.0 - 98.0 fL [facility] Mean Corpuscular Hemoglobin 28.9 27.0 - 33.0 pg [facility] Mean Corpuscular HGB Conc 33.6 31.0 - 35.0 g/dl [facility] Red Cell Distribution Width 13.6 11.0 - 16.0 % [facility] Platelet Count 332 160 - 400 X10*3/uL [facility] Mean Platelet Volume 11.8 9.4 - 12.3 fL [facility] Neutrophils Percent Auto 44.3(L) 45 - 73 % [facility] Imm Gran Pct Auto 0.2 0.0 - 0.4 % [facility] Lymphocytes Percent Auto 42.7(H) 20 - 40 % [facility] Monocytes Percent Auto 10.5 2 - 11 % [facility] Eosinophils Percent Auto 1.9 0 - 4 % [facility] Basophils Percent Auto 0.4 0 - 2 % [facility] NRBC Pct Auto 0.0 0.0 - 0.2 /100WBC [facility] Neutrophils Absolute Auto 2.4 2.0 - 8.3 x10*3/uL [facility] Imm Gran Abs Auto 0.01 0.00 - 0.03 X10*3/uL [facility] Lymphocytes Absolute Auto 2.3 1.2 - 4.9 X10*3/uL [facility] Monocytes Absolute Auto 0.6 0.1 - 1.2 X10*3/uL [facility] Eosinophils Absolute Auto 0.1 0.0 - 0.4 X10*3/uL [facility] Basophils Absolute Auto 0.0 0.0 - 0.2 X10*3/uL [facility] NRBC Abs Auto 0.000 0.0 - 0.012 X10*3/uL [facility] 11/25/2024 3:04 PM EDT 11/25/2024 4:14 PM EDT us Generic External Data Provider LAB BLOOD ORDERAB LES Final Result [facility] [address] [place] [phone] * (ABNORMAL) Iron And Total Iron Binding Capacity (11/25/2024 3:04 PM EDT) Iron 39 30 - 160 mcg/dL [facility] Total Iron Binding Capacity 338 228 - 428 mcg/dL [facility] Percent Iron Saturation 12(L) 15 - 50 % [facility] Unsaturated Iron Binding 299 ug/dL [facility] 11/25/2024 3:04 PM EDT 11/25/2024 5:44 PM EDT Generic External Data Provider LAB BLOOD ORDERAB LES Final Result Performing Organization Address [facility] Co de Phone Number [facility] [address] [place] [phone] * Insulin (11/25/2024 3:04 PM EDT) Insulin 13 2 - 29 uU/mL [facility] Comment:This test was perfor med using the Gracia chemiluminescentmethod. Values obtained from different assay methods cannot beused interchangeably. This insulin assay shows a possiblecross-reactivity with antibodies generated against insulin(immunoreactive insulin and some patients treated withbovine or porcine insulin). Insulin levels may be measuredlower in patients with insulin autoimmune syndrome orfamilial high pro-insulinemia. 11/25/2024 3:04 PM EDT 11/25/2024 5:44 PM EDT Generic External Data Provider LAB BLOOD ORDERAB LES Final Result Performing Organization Address [facility] de Phone Number [facility] [address] [place] [phone] * Vitamin A (11/25/2024 3:04 PM EDT) Vitamin A (Retinol) 42 38 - 98 mcg/dL [facility] Comment:Vitamin supplementat ion within 24 hours prior toblood draw may affect the accuracy of the results.This test was developed and its analytical performancecharacteristics have been determined by [employer] [place], [place]. It hasnot been cleared or approved by the U.S. Food and DrugAdministration. This assay has been validated pursuantto the CLIA regulations and is used for clinicalpurposes.THIS TEST WAS PERFORMED AT:[employer] [place] [id number] LORENZANA MD,PHD 11/25/2024 3:04 PM EDT 11/25/2024 4:14 PM EDT Generic External Data Provider LAB BLOOD ORDERAB LES Final Result Performing Organization Address [facility] Co de Phone Number [facility] [address] [place] [phone] * (ABNORMAL) C-reactive Protein (11/25/2024 3:04 PM EDT) C Reactive Protein 0.64(H) < or = 0.50 mg/dL [facility] 11/25/2024 3:04 PM EDT 11/25/2024 5:44 PM EDT Generic External Data Provider LAB BLOOD ORDERAB LES Final Result Performing Organization Address [facility] de Phone Number [facility] [address] [place] [phone] * Vitamin B1 (11/25/2024 3:04 PM EDT) Vitamin B1 13 8 - 30 nmol/L [facility] Comment:Vitamin supplementat ion within 24 hours prior toblood draw may affect the accuracy of the results.This test was developed and its analytical performancecharacteristics have been determined by [employer] [place], [place]. It hasnot been cleared or approved by the U.S. Food and DrugAdministration. This assay has been validated pursuantto the CLIA regulations and is used for clinicalpurposes.THIS TEST WAS PERFORMED AT:[employer] [place] [address]IWICKHVGERALDINE LORENZANA MD,PHD 11/25/2024 3:04 PM EDT 11/25/2024 4:14 PM EDT Generic External Data Provider LAB BLOOD ORDERAB LES Final Result Performing Organization Address [facility] Co de Phone Number [facility] [address] [place] [phone] * Hemoglobin A1c (11/25/2024 3:04 PM EDT) Hemoglobin A1c 5.6 <6.0 % [facility] Comment:Hemoglobin A1C Refer ence Range Adults: 4.8 - 6.0 % Non diabetic: < 6.0 % Goal: < 7.0 %Additional Action Suggested: > 8.0 %Note: Hemoglobin A1c results are invalid for patients with abnormal amounts of HbF. Blood transfusions may impact the HbA1c concentration in the patient sample. Estimated Average Glucose 114 mg/dL [facility] Comment:eAG = Estimated ave rage glucose which is %A1C expressed asaverage glucose, using the formula of the J8Z-TxnzewtUxmeeva Glucose study (ADAG), Diabetes Care, Vol.31,#8,Sep. 2007 11/25/2024 3:04 PM EDT 11/25/2024 4:14 PM EDT us Generic External Data Provider LAB BLOOD ORDERAB LES Final Result Performing Organization Address [facility] Co de Phone Number [facility] [address] [place] [phone] * Ferritin (11/25/2024 3:04 PM EDT) Ferritin 26 10 - 250 ng/mL [facility] 11/25/2024 3:04 PM EDT 11/25/2024 5:44 PM EDT us Generic External Data Provider LAB BLOOD ORDERAB LES Final Result Performing Organization Address [facility] Co de Phone Number [facility] [address] [place] [phone] * Lipid Panel, Standard (11/25/2024 3:04 PM EDT) Triglycerides 42 <150 mg/dL [facility] Comment:Desirable Triglyceri de: less than 150 mg/dLBorderline High Triglyceride 150-199 mg/dLHigh Triglyceride: 200-499 mg/dLVery High Triglyceride: greater than or equal to 5OO mg/dL Cholesterol 169 <200 mg/dL [facility] Comment:Desirable Cholestero l: less than 200 mg/dLBorderline High Cholesterol: 200-239 mg/dLHigh Cholesterol: greater than 239 mg/dL LDL Cholesterol Calculated 85 <100 mg/dL [facility] Comment:Desirable LDL: less than 100 mg/dLNear Optimal/Above Optimal LDL: 110- 129 mg/dLBorderline High LDL: 130-159 mg/dLHigh LDL: 160-189 mg/dLVery High LDL: greater than or equal to 190 mg/dL HDL Cholesterol 76 >40 mg/dL [facility] Comment:Desirable HDL: great er than 40 mg/dL Note: This HDL assay may give artificially low results in patients with liver disease. 11/25/2024 3:04 PM EDT 11/25/2024 5:44 PM EDT us Generic External Data Provider LAB BLOOD ORDERAB LES Final Result [facility] [address] [place] [phone] * (ABNORMAL) Comprehensive Metabolic Panel (11/25/2024 3:04 PM EDT) Sodium 140 135 - 145 mmol/L [facility] Potassium 3.1(L) 3.3 - 5.1 mmol/L [facility] Chloride 104 96 - 108 mmol/L [facility] Carbon Dioxide 26 22 - 29 mmol/L [facility] Anion Gap 13 12 - 20 [facility] Urea Nitrogen (BUN) 18(H) 9 - 16 mg/dL [facility] Creatinine, Serum 0.65 0.5 - 1.4 mg/dL [facility] Estimated Glomerular Filt Rate >60 [facility] Comment:Chronic Kidney Disea se: Estimated GFR < 60 mL/min/[id number] Kidney Disease: Estimated GFR < 15 mL/min/1.73m2 Glucose 109 60 - 115 mg/dL [facility] Calcium 8.9 8.4 - 10.2 mg/dL [facility] Bilirubin, Total 0.5 0.0 - 1.0 mg/dL [facility] Aspartate Amino Transferase 20 5 - 31 U/L [facility] Alanine Aminotransferase 10 0 - 31 U/L [facility] Total Protein 7.6 6.5 - 8.0 g/dL [facility] Albumin Level 4.4 3.5 - 5.0 g/dL [facility] Alkaline Phosphatase 62 39 - 117 U/L [facility] 11/25/2024 3:04 PM EDT 11/25/2024 5:44 PM EDT us Generic External Data Provider LAB BLOOD ORDERAB LES Final Result Performing Organization Address [facility]/ZIP Co de Phone Number [facility] [address] [place] [phone] * Hepatitis C Antibody with Reflex to HCV, RNA, Quantitative, Real-Time PCR (05/11/2024 9:59 AM EDT) Hepatitis C Antibody Nonreactive Nonreactive [facility] Comment:Antibodies to HCV no t detected; does not exclude early acuteHCV infection. Blood Venous blood specimen / Unknown 05/11/2024 9:59 AM EDT 05/11/2024 11:12 AM EDT us Radha Panda MD LAB BLOOD ORDERABLES Final Resul t Performing Organization Address [facility]/ZIP Co de Phone Number [facility] [address] [place] [phone] * HIV-1/2 Antigen and Antibodies, Fourth Generation, with Reflexes (05/11/2024 9:59 AM EDT) HIV AB/AG Nonreactive Nonreactive [facility] Comment:HIV-1 p24 Ag and/or HIV-1/HIV-2 Ab not detected.A test result that is nonreactive does not exclude thepossibility of exposure to or infection with HIV-1 and/orHIV-2. Nonreactive results in this assay for individualswith prior exposure to HIV-1 and/or HIV-2 may be due toantigen and antibody levels that are below the limit ofdetection of this assay.The [facility] HIV Ag/Ab Combo assay result andsupplemental assay results should be interpreted inconjunction with the patient's clinical presentation,history and other laboratory results. If the results areinconsistent with clinical evidence, additional testing issuggested to confirm the result. Blood Venous blood specimen / Unknown 05/11/2024 9:59 AM EDT 05/11/2024 11:12 AM EDT Radha Panda MD LAB BLOOD ORDERABLES Final Resul t [facility] [address] [place] [phone] * HM PAP/HPV (10/04/2018) Only the most recent of2 resultswithin the time period is included. Pap Smear 1. NILM 1. NILM Historical Provider HEALTH MAINTENANCE Final Result from Last 3 Months or Most Recently Relevant to Health Maintenance Insurance [facility] C3 Care Teams Food And Nutrition Professor Relationship Specialty Start Date End Date Radha Panda MD [address] [place] [phone] PCP - General Family Medicine 06/05/22 Lilliam Finley Nurse Case ManagerSolids Control Technician 07/24/23
[2025-02-08 21:17] VITALS: BP 138/68; PULSE 67; RESP 18; TEMP 36.5; O2SAT 100
== END 2025-02-08 21:26 | disposition home or self-care (01) ==
PROVIDERS: Emergency Provider Emergency Medicine; PCP Family Medicine
DX: S93.401A Sprain of unspecified ligament of right ankle, initial encounter (principal); S96.911A Strain of unspecified muscle and tendon at ankle and foot level, right foot, initial encounter; W50.0XXA Accidental hit or strike by another person, initial encounter; Y93.9 Activity, unspecified; Y92.9 Unspecified place or not applicable; Y99.0 Civilian activity done for income or pay; M25.571 Pain in right ankle and joints of right foot
CPT/HCPCS: 73610; 73630; 99283

== ENCOUNTER → 2025-02-08 18:27 | Outpatient (BNV) | payer MEDICAID, SELFPAY | PROVIDERS: PCP Family Medicine; Visit Provider Student in an Organized Health Care Education/Training Program | DX: S99.911A Unspecified injury of right ankle, initial encounter (principal); S99.921A Unspecified injury of right foot, initial encounter | CPT/HCPCS: 73610; 73630 ==